=== PATIENT | male | born 1950 | race Caucasian/White ===

== ENCOUNTER 2023-11-14 08:25 | Emergency (ER) | payer OTHER, SELFPAY ==
[2023-11-14 08:34] VITALS: BP 97/71; BMI 23.3
--- NOTE | 2023-11-14 08:38 | ED.GENMED ---
History of Present Illness
General
Chief Complaint: Gait Dysfunction
Source: patient and family
Time Seen by Provider: 11/14/23 08:28
History of Present Illness
History of Present Illness:
73yoM with a history of Parkinson's disease, anxiety, and remote history of bladder cancer in remission presenting via EMS for evaluation of gait dysfunction. Patient's states that he has had increasing difficulty ambulating over the past few
days. He tried to stain their deck yesterday and fell multiple times. tried to get him out of bed this morning and found that he had urinated himself overnight. She states that he appeared pale and clammy and was 'difficult to arouse.' She was
having a lot of difficulty getting him out of bed and he urinated twice while trying to get to the bathroom. states he seems more weak over the past few days which seems to be worse in the mornings. Patient follows with Dr Enriquez, neurologist
at [place], for his Parkinson's.
Past History
Past History
ED Past Medical History: Cancer (Bladder cancer) and Other (Parkinsons)
ED Past Surgical History: Negative Cardiac
Social History
Tobacco: Non-smoker
Alcohol: Occasional
Drug: None
Personal:
Living: with family
Employment: Not employed
Family History
Family History: Other
Phy Exam
General Physical Exam
General Presentation: well appearing and no apparent distress
General age: appears stated age
General Skin: warm and dry
General Habitus: elderly
General Mental: alert
ENT Exam
Additional ENT: No external signs of head trauma
Eye Exam
Eye Exam: PERRL
Cardiovascular Exam
Cardiovascular Exam: regular rate/rhythm and no edema
Pulmonary Exam
Pulmonary Exam: lungs clear, no respiratory distress, no crackles and no wheezing
Gastrointestinal Exam
Gastrointestinal Exam: non tender, soft and non distended
Neurological Exam
Neurological Exam: other (Bilateral arms tremors noted with rigidity. No other focal deficits appreciated.)
[place] Coma Scale
Eye Opening: Spontaneous
Verbal Response: Oriented
Motor Response: Obeys Commands
GCS Total Score: 15
Musculoskeletal Exam
Musculoskeletal Exam: other (No C/T/L spine tenderness)
Skin Exam
Skin Exam: normal color and warm/dry
Course
Orders/Labs/Results
Orders:
Orders
11/14/23 08:44
Electrocardiogram (*1) Urgent
Reason for Study: Other
Other Reason for Exam: weakness
EKG- Treatment ONCE
11/14/23 09:05
Complete Blood Count/With Diff Urgent
Comprehensive Metabolic Panel Urgent
Troponin I Urgent
11/14/23 09:36
CT Cervical Spine W/o Iv Contr Urgent
Comment:
Reason For Exam: Unwitnessed fall
CT Head W/o Iv Contrast Urgent
Comment:
Reason For Exam: Confusion, head trauma
11/14/23 09:38
Cardiac Monitoring- Treatment ONCE
11/14/23 10:36
Pt Eval And Treat Urgent
Activity Level: Out of Bed- Ad Sobeida
11/14/23 11:33
Urinalysis Reflex To Culture Urgent
Date Specimen was Collected: 11/14/23
Time Specimen was Collected: 11:30
Urine Microscopic Reflex Cult Urgent
11/14/23 11:41
0.9% Sodium Chloride 500 ml [Nss] 500 ml IV BOLUS
Abnormal Lab Results
11/14/23 11/14/23
09:05 11:33
WBC 12.2 H 10^3/uL
(4.8-10.8)
RBC 4.33 L 10^6/uL
(4.70-6.10)
Hgb 12.8 L g/dL
(13.0-18.0)
Hct 38.8 L %
(39.0-52.0)
Abs Immat Gran (auto) 0.1 H 10^3/uL
(0-0.05)
Absolute Neuts (auto) 10.5 H 10^3/uL
(1.4-6.5)
Absolute Lymphs (auto) 0.8 L 10^3/uL
(1.2-3.4)
Immature Gran % 0.6 H %
(0-0.5)
Neutrophils % 86.4 H %
(42.2-75.2)
Lymphocytes % 6.6 L %
(20.5-51.1)
Glucose 106 H mg/dl
(70-99)
Urine Ketones 1+ A
(Negative)
Urine Bilirubin 1+ A
(Negative)
Leukocyte Esterase Rfl Trace A
(Negative)
11/14/23 09:05
11/14/23 09:05
Vital Signs
Initial and Last Documented VS:
Initial Vital Signs
Temp Pulse Resp BP Pulse Ox
97.8 F 68 18 97/71 99
11/14/23 08:34 11/14/23 08:34 11/14/23 08:34 11/14/23 08:34 11/14/23 08:34
Last Documented Vital Signs
Temp Pulse Resp BP Pulse Ox
97.8 F 70 18 102/70 98
11/14/23 08:34 11/14/23 12:00 11/14/23 12:00 11/14/23 12:00 11/14/23 12:00
MDM/Problems Addressed
Differential Diagnosis Includes:
73yoM here with difficulty ambulating. Patient apparently was difficult to arouse this morning when getting out of bed. Also had falls yesterday. He is awake and alert on arrival with a GCS of 15. He has no complaints currently. VSS. Exam
reassuring. Differential diagnosis includes but is not limited to: progression of Parkinson's, UTI, failure to thrive
Initial ED plan: Check cardiac labs, EKG, CT head, and CT cervical spine.
*EKG
Interpreted by ED Provider?: Yes
EKG Intrepretation Date: 11/14/23
Heart Rate: 65
Rate: normal
Rhythm: sinus
[place]: normal axis
Interval: normal interval
Ischemia: T-wave inversion (III and aVF)
*Critical Care Note
Total Time (30-74mins, 75-104mins- exclusive of procedures): Not Applicable
Update Note
Update Note:
Labs reveal a leukocytosis with a WBC of 12.2 which is nonspecific. Remainder of labs unremarkable including normal electrolytes, renal function, glucose. EKG shows nonspecific T wave changes although troponin is normal. CT head/cervical spine
negative for traumatic injuries. No overt signs of infection on urinalysis. Patient evaluated by physical therapy and he was able to ambulate well with PT. No indication for short term rehab currently. Patient at baseline on reassessment. No
indication for hospitalization. Advised close f/u with PCP and neurologist. ED return precautions discussed. He was discharged in stable condition.
ED Attending Note
-
Portions of this chart may have been created with voice recognition software.� Occasional wrong word or��sound alike� substitutions may have occurred due to the inherent limitations of voice recognition software.
Discharge Plan
Departure
Patient Disposition: Home (Routine Discharge)
Date of Disposition: 11/14/23
Time of Disposition: 13:19
Patient with high blood pressure during this ER visit?: No
Discharge Problem:
Ambulatory dysfunction
Instructions: Preventing falls in adults
Prescriptions:
No Action
carbidopa-levodopa 1 EACH tablet
1 tab PO DAILYPRN PRN (Reason: parkinsons flare)
Patient Comments:
this is a rescue prn med for parkinsons symptoms
duloxetine 30 MG capsule,delayed release(DR/EC)
30 mg PO BID
carbidopa-levodopa [Rytary] 1 EACH capsule, extended release
4 cap PO 5/D
Patient Comments:
takes 5 x a day 7a, 11a, 3pm, 7pm and 11pm
Lorazepam 0.5 MG Tablet
0.5 mg PO BID
Patient Comments:
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
docusate sodium 100 MG capsule
100 mg PO DAILY
acetaminophen 325 MG tablet
650 mg PO Q4HPRN PRN (Reason: mild pain) Qty: 1 0RF
ibuprofen 200 MG tablet
400 - 600 mg PO Q6HPRN PRN (Reason: moderate pain) Qty: 1 0RF
polyethylene glycol 3350 17 GRAMS powder in packet
17 grams PO BID 30 Days 0RF
oxycodone 5 MG tablet
5 mg PO Q4HPRN PRN (Reason: breakthrough/severe pain) Qty: 7 0RF
Referrals:
UNKNOWN - PT DOES,NOT KNOW [Unknown Provider] -
Activity Restrictions/Additional Instructions:
Please call today to schedule follow-up appointments with your family doctor and neurologist. Return to the ER with any new or worsening symptoms.
Interventions
Interventions:
*Risk Screen - Suicide Last Done: 11/14/23 08:34
*General Assessment Last Done: 11/14/23 08:34
*Neglect/Abuse Screening Last Done: 11/14/23 08:34
ED- Fall Risk Assessment Last Done: 11/14/23 09:18
*ED COVID-19 Vaccine History Last Done: 11/14/23 08:34
ED- Neurological Assessment Last Done: 11/14/23 09:18
ED-Musculoskeletal Assessment Last Done: 11/14/23 09:18
ED Swallowing Screen Last Done: 11/14/23 09:18
Discharge Date and Time
Print Language: OCCITAN
[2023-11-14 09:33] LABS: % Basophils 0.2 % (0-2); % Eosinophils 1.7 % (0-6); % Immature Granulocytes 0.6 % (0-0.5); % Lymphocytes 6.6 % (20.5-51.1); % Monocytes 4.5 % (1.7-9.3); % Neutrophils 86.4 % (42.2-75.2); Absolute Eosinophils 0.2 10^3/uL (0-0.7); Absolute Immature Granulocytes 0.1 10^3/uL (0-0.05); Absolute Lymphocytes 0.8 10^3/uL (1.2-3.4); Absolute Monocytes 0.6 10^3/uL (0.1-0.6); Absolute Neutrophils 10.5 10^3/uL (1.4-6.5); Hematocrit 38.8 % (39.0-52.0); Hemoglobin 12.8 g/dL (13.0-18.0); Mean Corpuscular Hgb 29.6 pg (27.0-31.0); Mean Corpuscular Volume 89.6 fL (80.0-94.0); Mean Platelet Volume 9.6 fL (7.4-10.4); Nucleated Red Blood Cells % 0 % (-); Platelet Count 288 10^3/uL (130-400); Red Blood Cell Count 4.33 10^6/uL (4.70-6.10); Red Cell Dist. Width 14.1 % (11.5-14.5); White Blood Cell Count 12.2 10^3/uL (4.8-10.8)
[2023-11-14 09:39] LABS: ALT (SGPT) < 10 U/L (0-50); AST (SGOT) 23 U/L (17-59); Albumin 3.9 g/dl (3.5-5.0); Alkaline Phosphatase 97 U/L (38-126); Blood Urea Nitrogen 14 mg/dl (9-20); Calcium 9.4 mg/dl (8.4-10.2); Carbon Dioxide 28 mmol/L (22-30); Chloride 107 mmol/L (98-107); Estimated Creatinine Clearance 90 ml/min; Glucose 106 mg/dl (70-99); Sodium 140 mmol/L (135-145); Total Bilirubin 0.9 mg/dl (0.2-1.3); Total Protein 6.5 g/dl (6.3-8.2); eGFR > 60.00
[2023-11-14 09:50] LABS: Troponin I < 0.012 ng/ml
[2023-11-14 10:00] VITALS: BP 142/90
[2023-11-14 11:13] VITALS: BP 146/91; BP 96/61
[2023-11-14 11:53] VITALS: BP 100/69
[2023-11-14 12:00] VITALS: BP 102/70
[2023-11-14 12:15] LABS: Urine Albumin Trace (Neg - Trace); Urine Bilirubin 1+ (Negative); Urine Character Clear (Clear); Urine Color Yellow; Urine Glucose Negative (Negative); Urine Ketone 1+ (Negative); Urine Leukocyte Trace (Negative); Urine Nitrite Negative (Negative); Urine Occult Blood Negative (Negative); Urine Urobilinogen 1+ (Neg - 1+)
[2023-11-14 13:31] LABS: Urine Mucus Many
[2023-11-14 13:32] LABS: Urine Amorphous Seen
[2023-11-14 13:34] LABS: Urine Red Blood Cell 0-2 /HPF (0-2)
== END 2023-11-14 13:35 | disposition home or self-care (01) ==
LOC: EMR 08:25
PROVIDERS: Physician Assistant; EMERGENCY PHYSICIAN Emergency Medicine; FAMILY PHYSICIAN Family Medicine
DX: R26.2 Difficulty in walking, not elsewhere classified (principal); R41.0 Disorientation, unspecified; S09.90XA Unspecified injury of head, initial encounter; R32 Unspecified urinary incontinence; W18.30XA Fall on same level, unspecified, initial encounter; Y92.008 Other place in unspecified non-institutional (private) residence as the place of occurrence of the external cause; G20.A1 Parkinson's disease without dyskinesia, without mention of fluctuations; F41.9 Anxiety disorder, unspecified; Z85.51 Personal history of malignant neoplasm of bladder
CPT/HCPCS: 99284; 70450; 72125; 80053; 81003; 81015; 84484; 85025; 93005

== ENCOUNTER 2024-04-21 00:44 | Inpatient (IN) | payer OTHER, SELFPAY ==
[2024-04-20] VITALS (7 sets, daily range): BP systolic 140–182; BP diastolic 88–145; PULSE 2–99; BMI 24.7
--- NOTE | 2024-04-20 22:04 | ED.GENMED ---
History of Present Illness
General
Chief Complaint: Breathing Problem
Source: patient
Time Seen by Provider: 04/20/24 21:57
History of Present Illness
History of Present Illness:
73-year-old male presents to the emergency room complaining of shortness of breath. Patient began having more shortness of breath this evening. He was noted to also have a high heart rate. Patient denies any history of COPD. He denies any
cardiac history. Patient does however have a significant history of Parkinson's disease. Daughter states that when he is due for his Parkinson dose he sometimes has subjective shortness of breath but what she was experiencing today was much worse
than normal. No fever at home.
Past History
Past History
ED Past Medical History: Cancer (Bladder cancer) and Other (Parkinsons)
ED Past Surgical History: Negative Cardiac
Social History
Tobacco: Non-smoker
Alcohol: Occasional
Drug: None
Personal:
Living: with family
Employment: Not employed
Family History
Family History: Other
Phy Exam
Physical Exam
Physical Exam:
General: Awake, Alert, Oriented X3. Mild increased work of breathing, appears chronically ill
Vitals: unremarkable
Head: Atraumatic
Eyes: Pupils equal, EOMI
Throat: Airway intact, no exudates, dry mucosa
Neck: Trachea midline
Lungs: X-ray wheezing and crackles bilateral
Heart: Regular rate, no murmurs
Abd: Soft, Nontender, No pulsatile mass
Neuro: Nonfocal
Skin: Warm, dry, no rash
Extremities: pulses equal b/l, 1+ edema
Scores
Heart Failure Risk
Heart Failure Risk Score: Not Applicable
Sepsis
Sepsis Screening
Sepsis Assessment: Sepsis
Sepsis Screen
Sepsis Screen: Sepsis
Date: 04/21/24
Time: 00:18
Course
Orders/Labs/Results
Orders:
Orders
04/20/24 21:40
Electrocardiogram (*1) Urgent
Reason for Study: Shortness of Breath
EKG- Treatment ONCE
04/20/24 21:58
COVID-19 Antigen Urgent
Source: Nasal Swab
Complete Blood Count/With Diff Urgent
Comprehensive Metabolic Panel Urgent
Lactic Acid Urgent
Influenza A+B Rapid Molecular Urgent
AGUSTIN Source: Nasal Swab
Specimen Description:
04/20/24 22:03
0.9% Sodium Chloride 500 ml [Nss] 500 ml IV BOLUS
Acetaminophen [Tylenol] 650 mg PO NOW STA
Ipratropium/Albuterol Sulfate [Duoneb] 3 ml INH R NOW ONE
04/20/24 22:04
CR Chest - 2 Views Urgent
Comment:
Reason For Exam: fever, sob
04/20/24 22:15
NT-proBNP Urgent
04/20/24 22:42
Hip, Left 2-3 Views [CR Hip - LT w/wo Pel 2-3 Vw*] Urgent
Comment:
Reason For Exam: pain after a fall
Include a pelvis x-ray?: Yes
04/20/24 23:06
Ipratropium/Albuterol Sulfate [Duoneb] 3 ml .ROUTE .STK-MED ONE
04/20/24 23:08
Ipratropium/Albuterol Sulfate [Duoneb] 3 ml INH R NOW ONE
04/20/24 23:12
Azithromycin 500 mg/250 ml [Zithromax Infusion] 500 mg in 250 ml IV NOW
CefTRIAXone [Rocephin] 1,000 mg IV NOW STA
04/20/24 23:18
Furosemide [Lasix] 40 mg IV NOW STA
04/20/24 23:50
Venous Blood Gas Urgent
%Oxygen/Room Air: 40
04/20/24 23:56
Blood Culture Routine
AGUSTIN Source: Blood/Venous
Specimen Description:
Abnormal Lab Results
04/20/24 04/20/24
21:58 23:50
RBC 4.03 L 10^6/uL
(4.70-6.10)
Hgb 11.5 L g/dL
(13.0-18.0)
Hct 34.9 L %
(39.0-52.0)
Abs Immat Gran (auto) 0.1 H 10^3/uL
(0-0.05)
Absolute Neuts (auto) 9.0 H 10^3/uL
(1.4-6.5)
Absolute Lymphs (auto) 0.6 L 10^3/uL
(1.2-3.4)
Absolute Monos (auto) 1.0 H 10^3/uL
(0.1-0.6)
Neutrophils % 84.7 H %
(42.2-75.2)
Lymphocytes % 5.3 L %
(20.5-51.1)
Monocytes % 9.4 H %
(1.7-9.3)
VBG pO2 66 H mmHg
(30-50)
BUN 24 H mg/dl
(9-20)
Glucose 125 H mg/dl
(70-99)
04/20/24 21:58
04/20/24 21:58
Vital Signs
Initial and Last Documented VS:
Initial Vital Signs
Temp Pulse Resp BP Pulse Ox
100.1 F 110 25 150/101 97
04/20/24 21:34 04/20/24 21:34 04/20/24 21:34 04/20/24 21:34 04/20/24 21:34
Last Documented Vital Signs
Temp Pulse Resp BP Pulse Ox
104.5 F H 108 20 140/106 97
04/20/24 23:42 04/20/24 23:24 04/20/24 22:30 04/20/24 23:24 04/20/24 22:34
MDM/Problems Addressed
Differential Diagnosis Includes:
Pneumonia, COPD exacerbation, symptomatic anemia, pneumothorax
MDM/Problems Addressed:
Patient presents with increased work of breathing. He is going to have a fever here. He is provided Tylenol for the fever. During his evaluation the patient's respiratory status deteriorated despite the use of DuoNebs. His chest x-ray appears
consistent with bilateral lower lobe infiltrates. He does have some peripheral edema and he has a BNP which is somewhat elevated. However the overall presentation to me seems more suggestive of an infectious process. There are no pleural
effusions. He is febrile. Patient treated with Rocephin and Zithromax. His respiratory status required him to be put on BiPAP. BiPAP did improve his symptoms. In addition the patient has severe Parkinson's disease. Family states that he
develops significant extraparametal symptoms when it is time for his next dose of medication. As the patient's respiratory status was deteriorating he also had a significant amount of body movement. We were able to get him to take his evening dose
of Rytary which has seemed to help as well. Patient will be admitted to the hospital service
Chronic conditions affecting care: Other (Parkinson's disease)
*Radiology
Radiology exam reviewed: preliminary read by ED provider (Bilateral lower lobe infiltrates)
*Pulse Oximetry
Patient hypoxic: yes
*EKG
Interpreted by ED Provider?: Yes
Interpretation: abnormal
Heart Rate: 103
Rate: tachycardiac
Rhythm: sinus tachycardia
Golden: normal axis
Interval: normal interval
QRS Pattern: normal QRS
Ischemia: no ischemia
*Milanese Knitting Machine Operator Interpretation
Rate: tachycardiac
Interpretation: abnormal
Rhythm: sinus tachycardia
*Critical Care Note
Total Time (30-74mins, 75-104mins- exclusive of procedures): 50 min
comment:
Critical care statement: A total of 50 minutes of critical care time was provided for this patient. This includes management of unstable vital signs, evaluation of the patient at bedside, reviewing the patient's pertinent medical records, discussion
with consultants, review of old EKGs and review of pertinent medical records. This time with separate from time utilized to perform the aforementioned documented procedures
ED Attending Note
-
Portions of this chart may have been created with voice recognition software.� Occasional wrong word or��sound alike� substitutions may have occurred due to the inherent limitations of voice recognition software.
Discharge Plan
Departure
Patient Disposition: Admit
Date of Disposition: 04/21/24
Time of Disposition: 00:13
Admit to: ICU
Presentation/result/management discussed w/ accepting MD/DO: Hospitalist
Condition: Serious
Discharge Problem:
Pneumonia, Parkinson disease, Respiratory failure
Prescriptions:
No Action
duloxetine 30 MG capsule,delayed release(DR/EC)
30 mg PO BID
Rytary 1 EACH capsule, extended release
4 cap PO 4-8XD
Patient Comments:
takes 34 x a day 7a, 11a, 11pm, 3a
Lorazepam 0.5 MG Tablet
0.5 mg PO DAILY
Patient Comments:
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
Rx Instructions:
1900
docusate sodium 100 MG capsule
100 mg PO DAILY
acetaminophen 325 MG tablet
650 mg PO Q4HPRN PRN (Reason: mild pain) Qty: 1 0RF
ibuprofen 200 MG tablet
400 - 600 mg PO Q6HPRN PRN (Reason: moderate pain) Qty: 1 0RF
finasteride 5 mg Tablet
5 mg PO DAILY
Gemtesa 75 mg Tablet
75 mg PO DAILY
polyethylene glycol 3350 17 GRAMS powder in packet
17 grams PO BID PRN (Reason: constipation)
Referrals:
James Dang DO [Family Provider] -
Interventions
Interventions:
*Risk Screen - Suicide Last Done: 04/20/24 21:34
*General Assessment Last Done: 04/20/24 21:53
*Neglect/Abuse Screening Last Done: 04/20/24 21:53
ED- Fall Risk Assessment Last Done: 04/20/24 21:53
*ED COVID-19 Vaccine History Last Done: 04/20/24 21:53
ED- Cardiac Assessment Last Done: 04/20/24 22:34
ED- Pulmonary Assessment Last Done: 04/20/24 22:34
Discharge Date and Time
Print Language: GIBRALTARIAN
[2024-04-20 22:06] LABS: % Basophils 0.1 % (0-2); % Immature Granulocytes 0.5 % (0-0.5); % Lymphocytes 5.3 % (20.5-51.1); % Monocytes 9.4 % (1.7-9.3); % Neutrophils 84.7 % (42.2-75.2); Absolute Immature Granulocytes 0.1 10^3/uL (0-0.05); Absolute Lymphocytes 0.6 10^3/uL (1.2-3.4); Hematocrit 34.9 % (39.0-52.0); Hemoglobin 11.5 g/dL (13.0-18.0); Mean Corpuscular Hgb 28.5 pg (27.0-31.0); Mean Corpuscular Volume 86.6 fL (80.0-94.0); Mean Platelet Volume 9.7 fL (7.4-10.4); Nucleated Red Blood Cells % 0 % (-); Platelet Count 269 10^3/uL (130-400); Red Blood Cell Count 4.03 10^6/uL (4.70-6.10); Red Cell Dist. Width 14.4 % (11.5-14.5); White Blood Cell Count 10.6 10^3/uL (4.8-10.8)
[2024-04-20] MEDS: DUONEB 3 ML INH ×2 (22:06→23:09)
[2024-04-20] MEDS: TYLENOL 650 MG PO (22:06)
[2024-04-20] MEDS: NSS 500 IV (22:08)
[2024-04-20 22:17] LABS: Lactic Acid 0.8 mmol/L (0.7-2.0)
[2024-04-20 22:18] LABS: ALT (SGPT) < 10 U/L (0-50); AST (SGOT) 37 U/L (17-59); Alkaline Phosphatase 83 U/L (38-126); Blood Urea Nitrogen 24 mg/dl (9-20); Calcium 8.6 mg/dl (8.4-10.2); Carbon Dioxide 26 mmol/L (22-30); Chloride 101 mmol/L (98-107); Estimated Creatinine Clearance 93 ml/min; Glucose 125 mg/dl (70-99); Potassium 4.4 mmol/L (3.5-5.1); Sodium 138 mmol/L (135-145); Total Bilirubin 0.8 mg/dl (0.2-1.3); Total Protein 6.8 g/dl (6.3-8.2); eGFR > 60.00
[2024-04-20 22:24] LABS: COVID-19 Antigen Negative (Negative)
[2024-04-20 22:44] LABS: NT-proBNP 2520 pg/ml
[2024-04-20] MEDS: ZITHROMAX INFUSION 250 IV (23:23)
[2024-04-20] MEDS: LASIX 40 MG IV (23:24)
[2024-04-20] MEDS: ROCEPHIN 1000 MG IV (23:24)
[2024-04-20 23:57] LABS: Venous Blood Gas B.E. -0.2 mmol/L (-4 to +4); Venous Blood Gas HCO3 23.9 mmol/L (22-27); Venous Blood Gas O2 Sat % 94.1 %; Venous Blood Gas pCO2 36 mmHg (35-48); Venous Blood Gas pH 7.43 (7.32-7.43); Venous Blood Gas pO2 66 mmHg (30-50)
[2024-04-21] VITALS (17 sets, daily range): BP systolic 124–178; BP diastolic 68–112; PULSE 2–97; O2SAT 95; BMI 24.2
[2024-04-21 00:05] LABS: Venous Blood Gas O2 Therapy 40%
--- NOTE | 2024-04-21 00:51 | HPS.HSE ---
Family Physician
-
Family Physician: James Dang, DO
Chief Complaint
-
Shortness of breath
History of Present Illness
This is an 3-year-old who has a history of Parkinson's disease, BPH ambulatory difficulties presenting to the emergency department with acute onset of shortness of breath that started at around 5 PM today.
Spouse stated that he was in usual state of health up until the event. He has intermittent episodes of dyspnea on exertion and anxiety related to his Parkinson's medication. His presentation today is however significantly different. Spouse stated
that he suddenly had difficulty breathing and could not catch his breath. He became tachycardic to the 120s at home. He has no known sick contact. There has been no recent travels. Spouse reports that he has had occasional ankle edema or in the
past due to immobilization but has never been diagnosed with congestive heart failure. He has no palpitations lightheadedness or dizziness. Denies any nausea or vomiting. He denies having any chest pain. He was brought to the emergency
department by family.
On arrival in the emergency department the patient was in severe respiratory distress and he was immediately placed on BiPAP. There has been no recent antibiotic use. There have been no recent hospitalizations.
His temperature of 104.5, blood pressure 140/100, he is satting 97% on 6 L BiPAP. Respiratory rate was in the 20s. Chest x-ray shows a right lower lobe infiltrate. CBC is unremarkable. Chemistries likewise were unremarkable. COVID test was
negative. Influenza test was negative. BNP was elevated at 2500.
Medical History
Past Medical History
Past Medical History: Reports Cancer (Bladder cancer status post resection) and Other (Parkinson disease)
Additional Past Medical History:
Hyperparathyroidism
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
repair)
Social History
Tobacco: Non-smoker
Alcohol: None
Personal:
Living: With Family
Employment: Retired
Family History
Family History: Not pertinent
Allergies / Home Medications
Allergies reflects when Allergies were last updated in [employer].
Home Medications with original date entered in [employer]
Allergy/Medication List:
Allergies
Allergy/AdvReac Type Severity Reaction Status Date / Time
No Known Allergies Allergy Verified 04/20/24 21:34
Home Medications
Lorazepam 0.5 mg PO DAILY Mental Health/Anxiety 07/25/21
carbidopa ER 61.25 mg-levodopa 245 mg capsule,extended release (Rytary) 4 cap PO 4-8XD parkinson's 07/25/21
duloxetine 30 mg capsule,delayed release 30 mg PO BID Mental Health/Anxiety 07/25/21
docusate sodium 100 mg capsule 100 mg PO DAILY 08/05/21
acetaminophen 325 mg tablet 650 mg (2 x 325 mg) PO Q4HPRN PRN mild pain #1 tab 08/06/21
ibuprofen 200 mg tablet 400 - 600 mg (2 - 3 x 200 mg) PO Q6HPRN PRN moderate pain #1 tab 08/06/21
finasteride 5 mg tablet 5 mg PO DAILY 04/20/24
polyethylene glycol 3350 17 gram oral powder packet 17 grams PO BID PRN constipation 04/20/24
vibegron 75 mg tablet (Gemtesa) 75 mg PO DAILY 04/20/24
Review of Systems
-
Constitutional: Reports No Symptoms
EENT: Reports No Symptoms
Respiratory: Reports Trouble Breathing
Cardiac: Reports No Symptoms
Abdomen/GI: Reports No Symptoms
: Reports No Symptoms
Musculoskeletal: Reports No Symptoms
Skin: Reports No Symptoms
Neurological: Reports No Symptoms
Endocrine: Reports No Symptoms
Hematologic/Lymphatic: Reports No Symptoms
Psych: Reports No Symptoms
Physical Exam
Vital Signs
Vital Signs
Temp Pulse Resp BP Pulse Ox
104.5 F H 94 24 133/78 96
04/20/24 23:42 04/21/24 00:30 04/21/24 00:30 04/21/24 00:30 04/21/24 00:30
Physical Exam
General: Respiratory Distress and Fever
HEENT: NormoCephalic, Anicteric, Moist mucous membranes, Atraumatic, PERRLA and Oxygen
Respiratory: Crackles and Accessory Resp Muscle Use
Cardiac: S1/S2 and Regular Rhythm
Breast: Deferred by me
GI: Soft, Non Tender, Non Distended and Normal Bowel Sounds
Rectal: Deferred by Provider
Genito-urinary: No costovertebral tender
Musculoskeletal: No Clubbing, No Cyanosis, No Edema and Other (Right middle finger s/p distal phallange tip amputation with erythema but no edema, induration or tenderness. )
Skin: Warm
Neuro: AO x 3, Cranial Nerves Intact and Tremors
Hematologic/Lymphatic: No Lymphadenopathy
Psych: Calm
Laboratory Results
-
04/20/24 21:58
04/20/24 21:58
Laboratory Results
Lactic Acid 0.8 mmol/L (0.7-2.0) 04/20/24 21:58
Total Bilirubin 0.8 mg/dl (0.2-1.3) 04/20/24 21:58
AST 37 U/L (17-59) 04/20/24 21:58
ALT < 10 U/L (0-50) 04/20/24 21:58
Alkaline Phosphatase 83 U/L (38-126) 04/20/24 21:58
Data Reviewed
-
Diagnostic Radiology: Image Personally Visualized and interpreted
Medical Tests (Nuc Med, Echo, EKG etc): Image Personally Visualized and interpreted
Lab Data: Labs Reviewed by me
Old Records: Reviewed
Impression/Plan
-
IMPRESSION:
73 y.o with Parkinson disease, ambulatory dysfunction and early onset dementia presents to ED with sudden severe dyspnea without cough. Found to have fever to 104 here and a RLL infiltrate on xray c/w PNA. Hypoxic requiring BIPAP. No h/o
asthma/copd/ILD or CHF. Has elevated BNP to 2500. No overt signs of CHF. COVID negative. Influenza negative.
PLAN:
1. Pneumonia - Community acquired pna with RLL consolidation on bipap. NO h/o asthma/copd/chf/ild or immunosuppression. No known aspirations.
- admit to IMU
- continue respiratory support w/ bipap and supplemental oxygen
- NEBS RTC and prn
- check legionella ag
- continue ceftriaxone/azithromycin
- wean bipap as tolerated, patient improving but still tachypneic
- pulmonary consultation
2. CHF - Elevated BNP. NO prior CHF/CAD history. No prior pulmonary history. Euvolemic on exam. Xray c/w consolidation/infiltrate in RLL and not pulm edema.
- telemetry, ecg
- echo
- cardiovascular panel
- given lasix 40 iv in ED, will monitor for now off additional lasix
- consider cardiology consult
3. BPH
- continue fensetride and vibegron
4. HIP pain - Patient had a fall about 3 days ago and still complains of hip pain with ambulation. Able to bear weight. Hip Xray without acute fracture on prelim.
- follow up official Xray read, if needed consider pelvis CT
- pain control
- the middle finger looks like chronic abrasion w/o infection. Apply protective dressing.
5. Parkinson
- continue rytari 4 caps at 3 am 7 am 11 am and 11pm
- continue sinamet 25/100 at 3pm 5pm 7pm and 9pm
DVT PPX - lovenox sq
Code status - full code
[2024-04-21] MEDS: NON-FORMULARY ITEM 4 CAP PO ×4 (03:00→22:31)
--- NOTE | 2024-04-21 03:16 | PTCARENOTE ---
Pt received to IMU from ED on BIPAP 14/10/14L POX 94%. AAOx3. Restless. Completely saturated from urine. Received IV Lasix in ED. Grimacing in pain. Admits to 5/10 pain rating to left hip (acute) and mid back (chronic). Pt has had multiple falls at
home per ED report. Generalized abrasions throughout body. Right mid finger amputation 2/2 osteomyelitis. No drainage. Appears scabbed over. Complete CHG bath given. Condom cath applied for frequent need to urinate. Abdomen round, distended. Denies
abdominal pain. Febrile 102.2. Rest of VSS. Will given Tylenol and ice packs. Rest of assessment as documented. Maintained on Q2hr turns. Oriented to room and surroundings. Call f[place]sworth within reach. Will continue to monitor.
[2024-04-21] MEDS: TYLENOL 650 MG PO ×2 (03:32→14:20)
--- NOTE | 2024-04-21 04:22 | PTCARENOTE ---
Pt continues to be very restless in bed. Pt unable to state why he is so restless. Multiple attempts made to get pt comfortable without good result. Attempts made to obtain am lab work with no luck. Pt too restless in bed. Temp remains 102. Received
Tylenol as ordered. Will give time for Tylenol to take affect. Will continue to monitor.
[2024-04-21] MEDS: CALDOLOR 104 MG IV (04:57)
[2024-04-21 05:29] LABS: Hematocrit 30.6 % (39.0-52.0); Hemoglobin 10.4 g/dL (13.0-18.0); Mean Corpuscular Hgb 28.7 pg (27.0-31.0); Mean Corpuscular Volume 84.5 fL (80.0-94.0); Mean Platelet Volume 9.3 fL (7.4-10.4); Platelet Count 233 10^3/uL (130-400); Red Blood Cell Count 3.62 10^6/uL (4.70-6.10); Red Cell Dist. Width 14.5 % (11.5-14.5); White Blood Cell Count 14.7 10^3/uL (4.8-10.8)
[2024-04-21 05:50] LABS: Blood Urea Nitrogen 24 mg/dl (9-20); Calcium 8.2 mg/dl (8.4-10.2); Carbon Dioxide 22 mmol/L (22-30); Chloride 103 mmol/L (98-107); Estimated Creatinine Clearance 81 ml/min; Glucose 113 mg/dl (70-99); Potassium 3.8 mmol/L (3.5-5.1); Sodium 139 mmol/L (135-145); eGFR > 60.00
[2024-04-21 06:36] LABS: TSH Reflex To Free T4 2.23 uIU/ml (0.47-4.68)
[2024-04-21] MEDS: DUONEB 3 ML INH ×4 (08:01→19:46)
[2024-04-21] MEDS: CYMBALTA DELAYED RELEASE 30 MG PO ×2 (08:32→20:10)
[2024-04-21] MEDS: PROSCAR 5 MG PO (08:32)
[2024-04-21] MEDS: COLACE 100 MG PO (08:32)
--- NOTE | 2024-04-21 09:24 | CON.PUL ---
Consultation
Consultation Request
Date/Time Consultation Requested: 04/21/2024199
Date/Time Consultation Performed: 04/21/2024920
Requesting Provider: Dr. Mcgovern
Performing Provider: Dr. Gillette
Reason for Consultation: SOB/hypoxia
Medical History
-
Chief Complaint: SOB
History of Present Illness:
73-year-old male non-smoker with a past medical history of bladder cancer, parathyroid cyst s/p excision and Parkinson's disease who presents with shortness of breath. He has been short of breath for few days but he worsened the day prior to
arrival. states that he was also wheezing and heart rate was in the 120s. Apparently he has been occasionally short of breath and anxious from his Parkinson's medication. He suddenly became short of breath and could not catch his breath.
Heart rate in the 120s at home with no sick contacts recently. Spouse says that he has been having occasional ankle edema in the past due to immobilization but never diagnosed with heart failure. Patient denies chest pain. In the ER he was found
to be in severe respiratory distress requiring BiPAP. Initially in the ER he had low-grade fever to 100.1 �F, pulse rate 110, respiratory rate 25, BP 150/101 and saturating 97% on room air. Labs showed Hb 11.5, proBNP 2520, and COVID antigen
negative. CXR showed bibasilar pneumonia, mainly in the right lower lobe. In the ER he was given crystalloids with 500 cc bolus of NS 0.9%, ceftriaxone/Zithromax, DuoNebs and Tylenol. Shortly thereafter he was given 40 mg IV Lasix. He was
admitted to the IMU and pulmonary service consulted for additional management/recommendations.
When I saw the patient he was resting in bed, on 10 L/min via midflow nasal cannula saturating 95%. Heart rate 86. He says he feels better. Still having a cough with phlegm production (he does not know the color or consistency). He denies chest
pain, SCHULTZ, abdominal pain, nausea, fevers or chills. Occasionally he is confused.
PMHx: Left ear otalgia, bladder cancer, Parkinson disease, parathyroidism
PSHx: Parathyroid cyst excision, bilateral knee replacement, spinal fusion, lumbar decompression, amputation middle finger of right hand
Past Medical History
Past Medical History: Other (Above as per HPI)
Past Surgical History: Other (Above as per HPI)
Social History
Tobacco: Non-smoker
Alcohol: None
Drug: None
Employment: Employed ([employer])
Family History
Family History: CAD (Father) and Other (Mother: Hyperlipidemia + Parkinson's disease)
Allergies / Home Medications
Allergies
Allergy/AdvReac Type Severity Reaction Status Date / Time
No Known Allergies Allergy Verified 04/20/24 21:34
Home Medications
�Medication �Instructions �Recorded �Confirmed �Last Taken �Type
Lorazepam 0.5 mg PO DAILY Mental 07/25/21 04/20/24 08/05/21 History
Health/Anxiety
carbidopa ER 61.25 mg-levodopa 245 4 cap PO 4-8XD parkinson's 07/25/21 04/20/24 08/05/21 History
mg capsule,extended release
(Rytary)
duloxetine 30 mg capsule,delayed 30 mg PO BID Mental Health/Anxiety 07/25/21 04/20/24 08/05/21 History
release
docusate sodium 100 mg capsule 100 mg PO DAILY 08/05/21 04/20/24 Unknown History
acetaminophen 325 mg tablet 650 mg (2 x 325 mg) PO Q4HPRN PRN 08/06/21 04/20/24 Unknown Rx
mild pain #1 tab
ibuprofen 200 mg tablet 400 - 600 mg (2 - 3 x 200 mg) PO 08/06/21 04/20/24 Unknown Rx
Q6HPRN PRN moderate pain #1 tab
finasteride 5 mg tablet 5 mg PO DAILY 04/20/24 04/20/24 Unknown History
polyethylene glycol 3350 17 gram 17 grams PO BID PRN constipation 04/20/24 04/20/24 Unknown History
oral powder packet
vibegron 75 mg tablet (Gemtesa) 75 mg PO DAILY 04/20/24 04/20/24 Unknown History
Review of Systems
-
History Source: Patient
All other systems: Negative unless noted
Vitals / Labs / Diagnostic Testing
Vital Signs
Temp Pulse Resp BP Pulse Ox
101.2 F H 94 19 153/89 93
04/21/24 06:30 04/21/24 04:00 04/21/24 04:00 04/21/24 03:15 04/21/24 04:15
Lab Data
04/21/24 05:09
04/21/24 05:09
Microbiology
04/21/24 02:14 Urine Legionella Urinary Antigen - Final
Negative for Legionella pneumophila Serogroup 1 antigen.
A negative result does not rule out the possiblity of
Legionella infection due to other serogroups or species of
Legionella. Clinical correlation is recommended.
04/20/24 23:56 Blood/Venous Blood Culture - Preliminary
No Growth in 24 hours- Final report to follow
04/20/24 21:58 Nasal Swab Influenza Types A & B (MOO) - Final
Negative for Influenza A & B, NAAT
Negative results must be combined with clinical observations
and patient history.
Nucleic Acid Amplification test (NAAT)performed on the
[employer] platform.
Diagnostic Testing:
Physical Exam
-
HEENT: Normocephalic and Anicteric
Cardiovascular: S1/S2 and Peripheral Edema (negative)
Respiratory: Wheeze (negative), Rales (Bibasilar), Rhonchi (negative) and Non-Labored Respirations
GI: Soft, Non Distended, Non Tender and Normal Bowel Sounds
Neurology: Awake, Alert and Tremors (negative)
Skin: Warm and Dry
General: Respiratory Distress (negative), Comfortable, Fever (negative) and Chills (negative)
Assessment
-
Assessment: 73-year-old male non-smoker with a past medical history of bladder cancer, parathyroid cyst s/p excision and Parkinson's disease who presents with shortness of breath. He has been short of breath for few days but he worsened the day
prior to arrival. states that he was also wheezing and heart rate was in the 120s. Apparently he has been occasionally short of breath and anxious from his Parkinson's medication. He suddenly became short of breath and could not catch his
breath. Heart rate in the 120s at home with no sick contacts recently. Spouse says that he has been having occasional ankle edema in the past due to immobilization but never diagnosed with heart failure. Patient denies chest pain. In the ER he
was found to be in severe respiratory distress requiring BiPAP. Initially in the ER he had low-grade fever to 100.1 �F, pulse rate 110, respiratory rate 25, BP 150/101 and saturating 97% on room air. Labs showed Hb 11.5, proBNP 2520, and COVID
antigen negative. CXR showed bibasilar pneumonia, mainly in the right lower lobe. In the ER he was given crystalloids with 500 cc bolus of NS 0.9%, ceftriaxone/Zithromax, DuoNebs and Tylenol. Shortly thereafter he was given 40 mg IV Lasix. He
was admitted to the IMU and pulmonary service consulted for additional management/recommendations.
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
Impression:
#Bibasilar pneumonia (mainly in right lower lobe) with right parapneumonic effusion
#Acute respiratory failure with hypoxia due to above now on midflow nasal cannula at 10L/min
#Leukocytosis
#Chronic anemia
#Elevated proBNP (2520)
#Incomplete RBBB
Plan:
- Continue with antibiotics, currently on IV vancomycin + Zosyn, and plan for at least 7 days assuming he continues to clinically improve and remains afebrile for 48 hours prior to stopping
- Follow-up blood culture collected (collected 04/20/2024)
- Check MRSA swab and if negative then can DC IV vanco
- Urine Ag for Legionella was negative; check strep pneumonia urine antigen
- Check sputum culture if he can produce a decent sample
- He will need repeat imaging with CXR in about 4-6 weeks to follow-up pneumonia to resolution
- Maintain SpO2 >90-94% with supplemental O2 and wean down as tolerated
- Continue DuoNeb QID with prn DuoNebs
- He will need pulse oximetry prior to discharge
- Although BNP is elevated, no current clinical signs of heart failure; consider echo if patient's hypoxia does not improve despite antibiotics; continue to trend BNP
- prn nebulized bronchodilators - not currently bronchospastic
- Incentive spirometer encouraged q1hr while awake
- Continue patient's Parkinson's disease meds with Rytary + Sinemet
- Replete electrolytes with K>4, Mg>2
- Maintain euglycemia with goal BG >100 and <180
- DVT ppx: LMWH
Pulmonary service will continue to follow along.
Data:
CXR 04/20/2024: Bibasilar pneumonia. Small right pleural effusion.
Total time spent today was 56 minutes for this encounter. Time includes reviewing laboratory test/imaging results, reviewing pertinent medical records, obtaining and reviewing medical history, performing an appropriate exam, ordering medications,
tests and procedures. Time also includes documentation of this encounter, coordinating patient care and communicating with other healthcare professionals. Total time does not include separately billed tests performed on this date of service.
[2024-04-21] MEDS: NON-FORMULARY ITEM 75 MG PO (11:06)
--- NOTE | 2024-04-21 12:47 | W.PN.HOSP.TC ---
Today's Communication/Plan
-
Follow-up fever curve and supplemental oxygen requirements, downgrade/discharge as able
Assessment / Plan
Assessment / Plan
Gen-AAOx3, NAD
HEENT-NC, AT, anicteric, clear oral mm
Neck-supple
CV-reg, no M, +S1/S2
Lungs-rhonchi right lung base
Abd-soft, NT, ND
Musculoskeletal-no edema, decreased muscle bulk throughout
Skin-warm and dry
Neuro-gross tremors
Psych-calm, cooperative
Mr. Marshall is a 73 y.o with a medical history of Parkinson disease, ambulatory dysfunction, incarcerated inguinal hernia (status post repair), and early onset dementia presents to ED with sudden severe dyspnea without cough. Found to have fever
to 104 here and a RLL infiltrate on xray c/w PNA. Hypoxic requiring BIPAP. No h/o asthma/copd/ILD or CHF. Has elevated BNP to 2500. No overt signs of CHF. COVID negative. Influenza negative.
Community-acquired pneumonia:
-Started on ceftriaxone and azithromycin
-Legionella urinary antigen negative and so we will discontinue azithromycin, continue antibiotic treatment for planned 7-day course
-Currently breathing comfortable on nasal cannula, will titrate supplemental oxygen as needed
-Nebulizer treatments as needed
-Further recommendations from pulmonology appreciated
Chronic pain:
-Lower back, now with pain in left hip after recent fall
-No acute fractures or dislocations noted on imaging
-Continue pain control with home dose of ibuprofen
Parkinson's disease:
-Continue home Sinemet
-PT/OT eval pending
CODE STATUS: Full
Anticipated Discharge: > 48 hours
Subjective/Interval History
-
Date of Service: April 21, 2024
Mr. Marshall was seen and examined at bedside this morning. He reports feeling better now than when he was first admitted. We are continuing treatment for community-acquired pneumonia.
Objective Data
-
Labs:
Laboratory Results
04/21/24
05:09
WBC 14.7 H
Hgb 10.4 L
Hct 30.6 L
Plt Count 233
Sodium 139
Potassium 3.8
Chloride 103
Carbon Dioxide 22
BUN 24 H
Creatinine 0.8
Glucose 113 H
Calcium 8.2 L
Vital Signs:
Vital Signs
Temp Pulse Resp BP Pulse Ox
97.8 F 78 18 153/89 96
04/21/24 11:26 04/21/24 11:51 04/21/24 11:51 04/21/24 03:15 04/21/24 11:51
I&O
04/20/24 04/21/24 04/22/24
06:59 06:59 06:59
Intake Total 200 / 200
Balance 200 / 200
Review of Systems
-
History Source: Patient
All other systems: Reviewed and negative
Respiratory: Reports Trouble Breathing
Musculoskeletal: Reports Joint Pain (Back pain)
Physical Exam
-
General: No Apparent Distress
[2024-04-21] MEDS: MOTRIN 600 MG PO (14:20)
[2024-04-21] MEDS: SINEMET 25-100 1 TABLET PO ×4 (14:25→22:30)
--- NOTE | 2024-04-21 15:21 | PHA.VAN.IN ---
Assessment
- Assessment
Renal Function: Appears similar to baseline
Maximum Temperature: 104.5 F
Concomitant Antimicrobials: PIPERACILLIN/TAZOBACTAM
AUC Dosing Plan
- Dosing Variables
Dosing Weight (kg): 74.3
Dosing CrCl (ml/min): 81
Vd coefficient (L/kg): 0.7
- Empiric Dosing
Initial / Loading Dose: VANCO 1750MG X1
Maintenance Regimen: VANCO 750MG Q12H
Estimated AUC (mcg*h/mL): 417
Estimated Peak (mcg*h/mL): 25.0
Estimated Trough (mcg/ml): 11.4
Estimated Half Life (H): 9.7
- Monitoring
No levels ordered at this time: CONSIDER LEVEL IN NEXT FEW DAYS
MRSA Screen: Ordered per protocol
Pharmacokinetics Vancomycin I
- -
Patient Age: 73
Patient Sex: Female
Vancomycin Day #: 1
Indication: PULM
Requesting Provider: DR. SNOW
Height / Weight:
Height 5 ft 9 in
Actual Weight 74.3 kg
- Vital Signs / Lab Results
Temp Pulse Resp BP Pulse Ox
97.8 F 102 18 163/106 93
04/21/24 11:26 04/21/24 15:11 04/21/24 15:11 04/21/24 12:31 04/21/24 15:11
Lab Results - Hematology
04/20/24 04/21/24
21:58 05:09
WBC 10.6 14.7 H
Lab Results - Chemistry
04/20/24 04/21/24
21:58 05:09
BUN 24 H 24 H
Creatinine 0.7 0.8
Estimated Creat Clear 93 81
Albumin 4.0
04/20/24
21:58
Lactic Acid 0.8
Microbiology Results
04/21/24 02:14 Legionella Urinary Antigen - Final
Urine Negative for Legionella pneumophila Serogroup 1 antigen.
A negative result does not rule out the possiblity of
Legionella infection due to other serogroups or species of
Legionella. Clinical correlation is recommended.
04/20/24 23:56 Blood Culture - Preliminary
Blood/Venous No Growth in 24 hours- Final report to follow
04/20/24 21:58 Influenza Types A & B (MOO) - Final
Nasal Swab Negative for Influenza A & B, NAAT
Negative results must be combined with clinical observations
and patient history.
Nucleic Acid Amplification test (NAAT)performed on the
[employer] platform.
[2024-04-21] MEDS: ZOSYN 100 IV ×2 (16:16→22:30)
--- NOTE | 2024-04-21 16:25 | PTCARENOTE ---
pt making repeated comments to multiple staff members asking for beer or a vodka. When asked if pt drinks, pt stated that he drinks beer and vodka daily. notified. [facility] protocol ordered.
[2024-04-21] MEDS: VANCOCIN 535 MG IV (17:54)
[2024-04-21] MEDS: LOVENOX 40 MG SC (18:02)
[2024-04-21] MEDS: ATIVAN 1 MG PO (20:10)
[2024-04-22] VITALS (12 sets, daily range): BP systolic 125–150; BP diastolic 64–104; BMI 23.9
[2024-04-22] MEDS: ATIVAN 1 MG PO (02:29)
[2024-04-22] MEDS: NON-FORMULARY ITEM 4 CAP PO ×4 (02:31→23:07)
[2024-04-22] MEDS: DUONEB 3 ML INH ×5 (02:49→20:05)
[2024-04-22 03:41] LABS: Amphetamines Negative (Negative); Barbiturates Negative (Negative); Benzodiazepines Positive (Negative); Buprenorphine Negative (Negative); Cocaine Negative (Negative); Marijuana Negative (Negative); Methadone Negative (Negative); Methamphetamines Negative (Negative); Opiates Negative (Negative); Phencyclidine Negative (Negative); Tricyclic Antidepressants Negative (Negative)
--- NOTE | 2024-04-22 03:41 | PTCARENOTE ---
Pt maintained on 1:1 at this time. Pt continues on MSAS scoring 4-7 at this time(see work list). With Pt Hx of Parkinson it makes true MSAS difficult. Pt temp maintaining afebrile at this time. Pt respiration even unlabored, spo2 93%-96% on 10L. Pt
requiring neb treatment during night for comfort saying 'does feel tight' to breath. Assessment care and vitals as charted.
[2024-04-22] MEDS: ATIVAN 1 MG IV (04:33)
[2024-04-22] MEDS: ZOSYN 100 IV (04:34)
[2024-04-22] MEDS: FLUSH (NSS) 1 FLUSH IV (04:34)
[2024-04-22] MEDS: TYLENOL 650 MG PO ×2 (04:53→18:06)
[2024-04-22 04:55] LABS: Fentanyl, Urine Negative (Negative)
[2024-04-22] MEDS: ULTRAM 50 MG PO (05:21)
[2024-04-22 05:26] LABS: Hemoglobin 9.9 g/dL (13.0-18.0); Mean Platelet Volume 9.8 fL (7.4-10.4); Platelet Count 201 10^3/uL (130-400); Red Blood Cell Count 3.41 10^6/uL (4.70-6.10); Red Cell Dist. Width 14.6 % (11.5-14.5); White Blood Cell Count 10.5 10^3/uL (4.8-10.8)
[2024-04-22 05:51] LABS: Blood Urea Nitrogen 30 mg/dl (9-20); Calcium 8.1 mg/dl (8.4-10.2); Carbon Dioxide 27 mmol/L (22-30); Chloride 103 mmol/L (98-107); Estimated Creatinine Clearance 81 ml/min; Glucose 110 mg/dl (70-99); Potassium 3.5 mmol/L (3.5-5.1); Sodium 140 mmol/L (135-145); eGFR > 60.00
[2024-04-22] MEDS: VANCOCIN 150 IV (06:19)
--- NOTE | 2024-04-22 07:08 | W.PN.HOSP.TC ---
Today's Communication/Plan
-
Treat the infection
Supportive care
f/w ID, pulmonary recommendations
Aspiration Precautions.
Assessment / Plan
Assessment / Plan
PE:
Gen-AAOx3, NAD
HEENT-NC, AT, anicteric, clear oral mm
Neck-supple
CV-reg, no M, +S1/S2
Lungs-rhonchi right lung base
Abd-soft, NT, ND
Musculoskeletal-no edema, decreased muscle bulk throughout
Skin-warm and dry
Neuro-gross tremors
Psych-calm, cooperative
Mr. Marshall is a 73 y.o with a medical history of Parkinson disease, ambulatory dysfunction, incarcerated inguinal hernia (status post repair), and early onset dementia presents to ED with sudden severe dyspnea without cough. Found to have fever
to 104 here and a RLL infiltrate on xray c/w PNA. Hypoxic requiring BIPAP. No h/o asthma/copd/ILD or CHF. Had elevated BNP to 2500. No overt signs of CHF. COVID negative. Influenza negative.
Community-acquired pneumonia:
-Started on ceftriaxone and azithromycin
-Legionella urinary antigen negative and so we will discontinue azithromycin, continue antibiotic treatment for planned 7-day course
-Currently breathing comfortable on nasal cannula, titrate supplemental oxygen as needed
-Nebulizer treatments as needed
- Blood culture no growth so far
- WBC is coming down
-Still febrile at times.
-Further recommendations from pulmonology appreciated
# Toxic metabolic encephalopathy
Underlying Parkinson disease
c/w supportive care
c/w to treat PNA
Chronic pain:
-Lower back, now with pain in left hip after recent fall
-No acute fractures or dislocations noted on imaging
-Continue pain control with home dose of ibuprofen
Parkinson's disease:
-Continue home Sinemet
-PT/OT eval pending
CODE STATUS: Full
Total time spent to see the patient, examine the patient, review data and lab results, discuss treatment plan with patient and nursing staff around 55 minutes
Anticipated Discharge: > 48 hours
Subjective/Interval History
-
Date of Service: April 22, 2024
Objective Data
-
Labs:
Laboratory Results
04/22/24
04:53
WBC 10.5
Hgb 9.9 L
Hct 30.0 L
Plt Count 201
Sodium 140
Potassium 3.5
Chloride 103
Carbon Dioxide 27
BUN 30 H
Creatinine 0.8
Glucose 110 H
Calcium 8.1 L
Vital Signs:
Vital Signs
Temp Pulse Resp BP Pulse Ox
99.8 F 82 20 132/70 90
04/22/24 06:15 04/22/24 06:13 04/22/24 06:13 04/22/24 06:13 04/22/24 06:13
I&O
04/21/24 04/22/24 04/23/24
06:59 06:59 06:59
Intake Total 200 / 200 1250 / 1250
Output Total 250 / 250
Balance 200 / 200 1000 / 1000
--- NOTE | 2024-04-22 08:49 | W.PN.PUL3 ---
Today's Communication / Plan
-
CTA to r/o PE given hypoxemia, elevated proBNP/ST on admission
Speech eval for aspiration PNA r/o
Likely can de-escalate or stop abx pending clinical course
Wean O2 as tolerated
Agree with ECHO
Assessment
-
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 Spouse says
that he has been having occasional ankle edema in the past due to immobilization but never diagnosed with heart failure. In the ER, was found to be in severe respiratory distress requiring BiPAP. Initially in the ER he had low-grade fever to 100.1
�F, pulse rate 110, respiratory rate 25, BP 150/101 and saturating 97% on room air. Labs showed Hb 11.5, proBNP 2520, and COVID antigen negative. CXR showed bibasilar pneumonia, mainly in the right lower lobe. In the ER he was given crystalloids
with 500 cc bolus of NS 0.9%, ceftriaxone/Zithromax, DuoNebs and Tylenol. Shortly thereafter he was given 40 mg IV Lasix. He was admitted to the IMU and pulmonary service consulted for additional management/recommendations.
Impression:
#Bibasilar pneumonia (mainly in right lower lobe) with right parapneumonic effusion
#Acute respiratory failure with hypoxia due to above now on midflow nasal cannula at 10L/min
#Leukocytosis
#Chronic anemia
#Elevated proBNP (2520)
#Incomplete RBBB
Sinus tachycardia
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
Left ear otalgia
Bladder cancer
Parkinson disease
Parathyroidism
Plan:
Currently 94% on 12L NC
He has no prior history of known O2 use at home
Maintain SpO2 >90-94% with supplemental O2 and wean down as tolerated
Continue DuoNeb QID with prn DuoNebs
He will need pulse oximetry prior to discharge
Presumed PNA based on imaging
Continue with antibiotics, currently on IV vancomycin + Zosyn
Follow-up blood culture collected (collected 04/20/2024)--NTD
MRSA neg
Urine Ag for Legionella and strep Ag negative
Check sputum culture if he can produce a decent sample
He will need repeat imaging with CXR in about 4-6 weeks to follow-up pneumonia to resolution
Can likely stop abx
Speech therapy for eval for aspiration--he notes he occasionally has cough/choking with food
High risk given underlying NMD
Aspiration precautions
Given hypoxemia degree despite minimal findings on imaging with ST history on arrival--will order CTA
BNP is elevated, 2520 w/ small effusion on R
ECHO pending
prn nebulized bronchodilators - not currently bronchospastic
Incentive spirometer encouraged q1hr while awake
VBG 7.43/36/66/23.9/94%--no evidence of hypoventilation
Continue patient's Parkinson's disease meds with Rytary + Sinemet
Replete electrolytes with K>4, Mg>2
Maintain euglycemia with goal BG >100 and <180
DVT ppx: LMWH
Pulmonary service will continue to follow along.
Data:
CXR 04/20/2024: Bibasilar pneumonia. Small right pleural effusion.
-----
Total time spent today was 51 minutes for this encounter. Time includes reviewing laboratory test/imaging results, reviewing pertinent medical records, obtaining and reviewing medical history, performing an appropriate exam, ordering medications,
tests and procedures. Time also includes documentation of this encounter, coordinating patient care and communicating with other healthcare professionals. Total time does not include separately billed tests performed on this date of service.
Subjective Data
-
Date of Service:
Date of Service: April 22, 2024
Chief Complaint: Pulmonary Follow Up
Subjective:
Remains on O2, no new complaints
Feels tired
Objective Data
Data Reviewed
Vital Signs / I&O / Oxygen:
Vital Signs
Temp Pulse Resp BP Pulse Ox
99.8 F 70 17 132/70 94
04/22/24 06:15 04/22/24 07:58 04/22/24 07:58 04/22/24 06:13 04/22/24 07:58
Intake and Output
04/21/24 04/22/24 04/23/24
06:59 06:59 06:59
Intake Total 200 / 200 1250 / 1250
Output Total 250 / 250
Balance 200 / 200 1000 / 1000
SaO2 94
Nasal Cannula flow liters per 10
minute
Physical Exam
General: Comfortable and Other (NAD)
HEENT: Normocephalic, Anicteric, Moist Mucous Membranes and Other (poor dentition)
Cardiovascular: S1-S2 and Regular Rhythm
Respiratory: Clear and Non-Labored Respirations
GI: Soft, Non Distended and Non Tender
Neurology: Awake, Alert, Oriented, No Motor Deficits and Other (generalized weakness noted)
Skin: Warm, Dry and Good Color
Labs/Micro/Reports
Lab Data
04/22/24 04:53
04/22/24 04:53
Microbiology
04/21/24 15:32 Urine Streptococcus pneumoniae Antigen (M - Final
Negative for Streptococcus pneumoniae antigen.
A negative result does not exclude infection with
Streptococcus pneumoniae. Clinical correlation is
recommended.
04/20/24 23:56 Blood/Venous Blood Culture - Preliminary
No Growth in 48 hours- Final report to follow
04/21/24 02:14 Urine Legionella Urinary Antigen - Final
Negative for Legionella pneumophila Serogroup 1 antigen.
A negative result does not rule out the possiblity of
Legionella infection due to other serogroups or species of
Legionella. Clinical correlation is recommended.
04/20/24 21:58 Nasal Swab Influenza Types A & B (MOO) - Final
Negative for Influenza A & B, NAAT
Negative results must be combined with clinical observations
and patient history.
Nucleic Acid Amplification test (NAAT)performed on the
[employer] platform.
--- NOTE | 2024-04-22 08:54 | PHA.VAN.FU ---
Vancomycin Assessment / Plan
- Assessment
Renal Function: Stable
WBC's are: WNL
Concomitant Antimicrobials: piperacillin/tazobactam
- Dosing Plan
Continue: Vanc 750mg Q12H
- Monitoring Plan
No level(s) ordered at this time: consider levels in next few days
- Follow Up
Pharmacy will continue to follow.
Vancomycin Follow UP
- -
Patient Age: 73
Patient Sex: Female
Vancomycin Day #: 2
Indication: Pulmonary/Respiratory
Requesting Provider: Dr. Hoyos
Pertinent Antimicrobial Allergies:
NKDA
Height / Weight:
Height 5 ft 9 in
Actual Weight 73.3 kg
- Vital Signs / Lab Results
Temp Pulse Resp BP Pulse Ox
99.8 F 70 17 132/70 94
04/22/24 06:15 04/22/24 07:58 04/22/24 07:58 04/22/24 06:13 04/22/24 07:58
Lab Results - Hematology
04/20/24 04/21/24 04/22/24
21:58 05:09 04:53
WBC 10.6 14.7 H 10.5
Lab Results - Chemistry
04/20/24 04/21/24 04/22/24
21:58 05:09 04:53
BUN 24 H 24 H 30 H
Creatinine 0.7 0.8 0.8
Estimated Creat Clear 93 81 81
Albumin 4.0
04/20/24
21:58
Lactic Acid 0.8
Microbiology Results
04/21/24 15:32 Streptococcus pneumoniae Antigen (M - Final
Urine Negative for Streptococcus pneumoniae antigen.
A negative result does not exclude infection with
Streptococcus pneumoniae. Clinical correlation is
recommended.
04/20/24 23:56 Blood Culture - Preliminary
Blood/Venous No Growth in 48 hours- Final report to follow
04/21/24 02:14 Legionella Urinary Antigen - Final
Urine Negative for Legionella pneumophila Serogroup 1 antigen.
A negative result does not rule out the possiblity of
Legionella infection due to other serogroups or species of
Legionella. Clinical correlation is recommended.
04/20/24 21:58 Influenza Types A & B (MOO) - Final
Nasal Swab Negative for Influenza A & B, NAAT
Negative results must be combined with clinical observations
and patient history.
Nucleic Acid Amplification test (NAAT)performed on the
[employer] platform.
[2024-04-22] MEDS: VITAMIN B1 100 MG PO (09:00)
[2024-04-22] MEDS: FOLVITE 1 MG PO (09:00)
[2024-04-22] MEDS: PROSCAR 5 MG PO (09:00)
[2024-04-22] MEDS: CYMBALTA DELAYED RELEASE 30 MG PO ×2 (09:00→20:58)
[2024-04-22] MEDS: COLACE 100 MG PO (09:00)
[2024-04-22] MEDS: NON-FORMULARY ITEM 75 MG PO (09:02)
--- NOTE | 2024-04-22 09:30 | CON.ID ---
Consultation
-
Date/Time Consultation Requested: April 21, 2024 [id number]
Date/Time Consultation Performed: April 22, 2024 0930
Requesting Provider: Dr. Jose Daniel Horner
Performing Provider: Dr. Jovana Rod
Reason for Consultation: Fevers, mental status change, pneumonia
Chief Complaint / Past History
Chief Complaint
Shortness of breath
History of Present Illness
73-year-old male with history of Parkinson's disease, ambulatory dysfunction, who presented to the hospital on April 20 due to worsening shortness of breath. He reports that his baseline shortness of breath got progressively worse over several
days. Positive cough productive of yellow mucus sputum. Positive fevers and chills. In the ER his temperature went up to 104.5. He was hypoxic and rest respiratory distress requiring BiPAP. He is now on mid flow oxygen. He received ceftriaxone
and azithromycin then changed to Zosyn and vancomycin due to persistent fevers. Patient denies ill contacts. No travel. He is up-to-date with his influenza, pneumococcal, and COVID vaccines. No headache or stiff neck. Positive rhinorrhea. No
sore throat. No nausea vomiting abdominal pain or diarrhea. No urinary symptoms. Denies aspiration.
Past History
Additional Past Medical History:
Parkinson's disease
Anxiety
BPH
hx bladder cancer, treated
Ambulatory dysfunction
Bilateral TKR
right middle finger osteo s/p amp
parathyroidectomy
Spinal fusion/decompression
Right inguinal hernia repair (08/2021)
Allergy History:
No Known Allergies Allergy (Verified 04/20/24 21:34)
Medications Reviewed: Yes
Current Antibiotics:
Vancomycin
Zosyn
Social History
Tobacco: Non-Smoker
Alcohol: Occasional
Drug: None
Personal:
Employment: Retired
Family History
Family History: Not Pertinent
Review of Systems
Review of Systems
General: Fever, Chills and Change in Appetite
HEENT: Negative Stiff Neck, Headache or Pharyngitis
Cardiovascular: Negative Chest Pain or Edema
Respiratory: Dyspnea and Cough
Gasteroenterology: Negative Nausea, Vomiting or Diarrhea
Genital / Urological: Negative Dysuria or Flank Pain
Endocrine: Weakness
Skin / Hair / Nails: Negative Rash
Neurological: Negative Dizziness
All systems: All other systems were reviewed and were negative
Vital Signs
Temp Pulse Resp BP Pulse Ox
99.8 F 70 17 132/70 94
04/22/24 06:15 04/22/24 07:58 04/22/24 07:58 04/22/24 06:13 04/22/24 07:58
Selected Entries
04/21/24
13:00 04/22/24
05:00
Temp 103.8 F H 101 F H
Physical Exam
Physical Exam
Constitutional: Acutely Ill
Head: Other (No frontal or max or sinus tenderness)
Eyes: No Conjunctival Hemorrhage and Sclera Anicteric
Pharynx: Benign
Cardiovascular: Regular Rate and S1/S2
Pulmonary: Rales (bibase)
Gastrointestinal: Soft, Non Tender, Non Distended and Normal Bowel Sounds
Genito-Urinary: Negative CVA Tenderness
Extremities: Negative Edema
Musculoskeletal: Negative Joint Swelling or Joint Effusion
Neurological: AO x 3
Lab / Diagnostic Study Results
04/22/24 04:53
04/22/24 04:53
Abs Immat Gran (auto) 0.1 10^3/uL (0-0.05) H 04/20/24 21:58
Absolute Neuts (auto) 9.0 10^3/uL (1.4-6.5) H 04/20/24 21:58
Absolute Lymphs (auto) 0.6 10^3/uL (1.2-3.4) L 04/20/24 21:58
Absolute Monos (auto) 1.0 10^3/uL (0.1-0.6) H 04/20/24 21:58
Absolute Basos (auto) 0.0 10^3/uL (0-0.2) 04/20/24 21:58
Immature Gran % 0.5 % (0-0.5) 04/20/24 21:58
Neutrophils % 84.7 % (42.2-75.2) H 04/20/24 21:58
Lymphocytes % 5.3 % (20.5-51.1) L 04/20/24 21:58
Monocytes % 9.4 % (1.7-9.3) H 04/20/24 21:58
Eosinophils % 0.0 % (0-6) 04/20/24 21:58
Basophils % 0.1 % (0-2) 04/20/24 21:58
Lactic Acid 0.8 mmol/L (0.7-2.0) 04/20/24 21:58
Microbiology Results
Micro:
04/22/24 02:34 Nasal Screen MRSA (PCR) - Final
Nose MRSA not detected - performed by PCR methodology.
04/21/24 15:32 Streptococcus pneumoniae Antigen (M - Final
Urine Negative for Streptococcus pneumoniae antigen.
A negative result does not exclude infection with
Streptococcus pneumoniae. Clinical correlation is
recommended.
04/20/24 23:56 Blood Culture - Preliminary
Blood/Venous No Growth in 48 hours- Final report to follow
04/21/24 02:14 Legionella Urinary Antigen - Final
Urine Negative for Legionella pneumophila Serogroup 1 antigen.
A negative result does not rule out the possiblity of
Legionella infection due to other serogroups or species of
Legionella. Clinical correlation is recommended.
04/20/24 21:58 Influenza Types A & B (MOO) - Final
Nasal Swab Negative for Influenza A & B, NAAT
Negative results must be combined with clinical observations
and patient history.
Nucleic Acid Amplification test (NAAT)performed on the
[employer] platform.
04/20/24 CXR: Bibasilar pneumonia. Small right pleural effusion.
Assessment / Plan
# CAP
# Acute hypoxemic respiratory failure
# fevers
# leukocytosis resolved
# Parkinson's
- COVID/Flu neg
- Urine legionella and Strep Pneumo Ag negative
- blood cx' neg to date
- Narrow Vanco/Zosyn to ceftiraxone 2g IV q24 and po doxycycline 100mg bid.
-Follow temps and oxygen status.
# Conditions prior to admission
Parkinson's disease
Anxiety
BPH
hx bladder cancer, treated
Ambulatory dysfunction
Bilateral TKR
right middle finger osteo s/p amp
parathyroidectomy
Spinal fusion/decompression
Right inguinal hernia repair (08/2021)
--- NOTE | 2024-04-22 09:41 | CM ---
CM following re: discharge planning.
Reviewed pt's chart, met with pt and spoke to pt's spouse Geri over the phone to update on pt's progress.
Pt is a 73 year old male, admitted with primary dx of Community-acquired pneumonia. Currently requires 12 L midflow NC of O2, continue supportive care.
Pt reports he lives with spouse and a son in a 2SH, 2 steps to enter, has 4 [id number] children. pt described himself as independent in all areas [employer], uses a walker at night when goes to use bathroom. Pt has no home O2.
PT denied h/o alcohol abuse and pt's spouse expressed her unpleasant feelings regarding talking about alcohol abuse.
PT and OT evaluations noted - acute rehab level of care recommended. Both pt and his spouse are aware, expressed their agreement and [facility] requested. Both pt and his spouse are aware of admitting criteria to acute rehab and they insisted
[facility] as number one choice and if acute rehab level of care is denied then they preferred [facility], [facility], [facility] or [facility] as alternative to acute rehab.
A referral to above SNFs and [facility] made.
PCP: James Sandoval
Pharmacy: [facility]
D/C plan: Plan A: [facility]; Plan B: preferred SNF: [facility], [facility], [facility], [facility].
CM will follow with discharge plan updates as hospitalization progresses
[2024-04-22] MEDS: STERILE WATER FOR INJECTION 20 ML IV (11:00)
[2024-04-22] MEDS: ROCEPHIN 2000 MG IV (11:00)
[2024-04-22] MEDS: VIBRAMYCIN 100 MG PO ×2 (11:27→20:58)
--- NOTE | 2024-04-22 13:38 | PTOTSP ---
Dysphagia Evaluation
Patient presents with signs concerning for oral/pharyngeal dysphagia likely acute on chronic related to known Parkinson's disease, poor state of dentition, and acute admission with PNA with subsequent TME. Discontinue diet below if worsened
respiratory status, AMS, or worsened signs of dysphagia/aspiration.
Recommend:
1. IDDSI Level 4 Puree, Thin Liquids
2. Strategies: upright to 90 degrees, full supervision and assistance, PO only when awake/alert and SpO2 >90% and RR <30, small single sips/bites, slow rate
3. Medications: as best tolerated
4. Video swallow study to assess oral/pharyngeal swallow and develop tx plan
[2024-04-22] MEDS: SINEMET 25-100 1 TABLET PO ×4 (15:30→23:07)
[2024-04-22] MEDS: LOVENOX 40 MG SC (18:06)
--- NOTE | 2024-04-22 19:27 | PTCARENOTE ---
pt on 10 liters midflow/ pt often appears short of breath and wheezy but denies that he feels short of breath. o2 sats in 90s. msas discontinued per order. medsitter maintained. pt had ct scan chest this afternoon. seen by speech and diet chaanged
to puree with thin liquids. pt febrile upon return from ct scan. tylenol 650 mg administered.
[2024-04-22] MEDS: ATIVAN 0.5 MG PO (21:10)
[2024-04-22] MEDS: MOTRIN 600 MG PO (22:03)
[2024-04-23] VITALS (17 sets, daily range): BP systolic 135–199; BP diastolic 71–119; PULSE 78–81; O2SAT 94; BMI 24.2
[2024-04-23] MEDS: NON-FORMULARY ITEM 4 CAP PO ×3 (04:01→11:24)
--- NOTE | 2024-04-23 05:44 | PTCARENOTE ---
Pt appeared to get rest during the nigh, reparation even unlabored. Spo2 93-96% on 10L. Call [facility] within reach. Bed alarm on and in lowest position. Assessment care and vitals as charted.
--- NOTE | 2024-04-23 06:36 | W.PN.HOSP.TC ---
Today's Communication/Plan
-
f/w speech recommendations
Wean down O2
Assessment / Plan
Assessment / Plan
PE:
Gen-AAOx3, NAD
HEENT-NC, AT, anicteric, clear oral mm
Neck-supple
CV-reg, no M, +S1/S2
Lungs-less rales, no wheezes, but wheezes heard externally
Abd-soft, NT, ND
Musculoskeletal-no edema, decreased muscle bulk throughout
Skin-warm and dry
Neuro-gross tremors, awake, alert, answered questions appropriately
Psych-calm, cooperative
Mr. Marshall is a 73 y.o with a medical history of Parkinson disease, ambulatory dysfunction, incarcerated inguinal hernia (status post repair), and early onset dementia presents to ED with sudden severe dyspnea without cough. Found to have fever
to 104 here and a RLL infiltrate on xray c/w PNA. Hypoxic requiring BIPAP. No h/o asthma/copd/ILD or CHF. Had elevated BNP to 2500. No overt signs of CHF. COVID negative. Influenza negative.
Community-acquired pneumonia:
Acute hypoxic respiratory failure with distress and high flow O2,
-Started on ceftriaxone and azithromycin
-Legionella urinary antigen negative and so we will discontinue azithromycin, continue antibiotic treatment for planned 7-day course
-Currently breathing comfortable on nasal cannula, titrate supplemental oxygen as needed
-Nebulizer treatments as needed
- Blood culture no growth so far
- WBC is coming down
- no fever in last [address] chest showed severe pneumonia in the left lower and upper lobes, mild pneumonia in the right upper and lower lobes. Moderate size right pleural effusion and small left pleural effusion, no pulmonary embolism.
-Further recommendations from pulmonology and ID are appreciated
# Toxic metabolic encephalopathy
Underlying Parkinson disease
He is better today
Stopped MSAS protocol, no alcohol intake
c/w supportive care
c/w to treat PNA
# Dysphagia
d/w speech therapist, will do video swallow
# Incidental finding in CT of 3.1 cm mass exophytic from the posterior cortex of the midpole of the left kidney. For outpatient follow
Chronic pain:
-Lower back, now with pain in left hip after recent fall
-No acute fractures or dislocations noted on imaging
-Continue pain control with home dose of ibuprofen
Parkinson's disease:
-Continue home Sinemet
-PT/OT eval pending
CODE STATUS: Full
Total time spent to see the patient, examine the patient, review data and lab results, discuss treatment plan with patient and nursing staff around 55 minutes
Anticipated Discharge: 24 - 48 hours
Subjective/Interval History
-
Date of Service: April 23, 2024
No chest pain
No sob
Objective Data
-
Vital Signs:
Vital Signs
Temp Pulse Resp BP Pulse Ox
97.6 F 70 18 146/97 93
04/23/24 04:46 04/23/24 06:00 04/23/24 06:00 04/23/24 06:00 04/23/24 00:01
I&O
04/21/24 04/22/24 04/23/24
06:59 06:59 06:59
Intake Total 200 / 200 1250 / 1250 960 / 960
Output Total 250 / 250 500 / 500
Balance 200 / 200 1000 / 1000 460 / 460
[2024-04-23] MEDS: DUONEB 3 ML INH ×4 (07:21→19:30)
[2024-04-23] MEDS: VIBRAMYCIN 100 MG PO ×2 (08:10→20:00)
[2024-04-23] MEDS: VITAMIN B1 100 MG PO (08:10)
[2024-04-23] MEDS: MIRALAX 17 GRAMS PO (08:10)
[2024-04-23] MEDS: CYMBALTA DELAYED RELEASE 30 MG PO ×2 (08:10→20:00)
[2024-04-23] MEDS: NON-FORMULARY ITEM 75 MG PO (08:11)
[2024-04-23] MEDS: PROSCAR 5 MG PO (08:18)
--- NOTE | 2024-04-23 09:19 | W.PN.PUL3 ---
Today's Communication / Plan
-
CT reviewed, extensive PNA likely chronic aspiration/poor airway clearance
VSE planning per speech
ABx continued, induced sputum as able by RT
High risk for vent issues with procedures/consideration for bronchoscopy
GOC discussions would be appropriate in this patient
Assessment
-
73-year-old male non-smoker with a past medical history of bladder cancer, parathyroid cyst s/p excision, Parkinson's disease who presents with shortness of breath/wheezing for few days, worsened day TABBER. 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 Spouse says
that he has been having occasional ankle edema in the past due to immobilization but never diagnosed with heart failure. In the ER, was found to be in severe respiratory distress requiring BiPAP. Initially in the ER he had low-grade fever to 100.1
�F, pulse rate 110, respiratory rate 25, BP 150/101 and saturating 97% on room air. Labs showed Hb 11.5, proBNP 2520, and COVID antigen negative. CXR showed bibasilar pneumonia, mainly in the right lower lobe. In the ER he was given crystalloids
with 500 cc bolus of NS 0.9%, ceftriaxone/Zithromax, DuoNebs and Tylenol. Shortly thereafter he was given 40 mg IV Lasix. He was admitted to the IMU and pulmonary service consulted for additional management/recommendations.
Impression:
#Bibasilar pneumonia (mainly in right lower lobe) with right parapneumonic effusion/chronic aspiration suspected
#Acute respiratory failure with hypoxia due to above now on midflow nasal cannula at 10L/min
#Leukocytosis
#Chronic anemia
#Elevated proBNP (2520)
#Incomplete RBBB
Sinus tachycardia
TME likely from hypoxemia
Possible Renal mass vs cyst 3.1cm
Chronic conditions TABBER:
Left ear otalgia
Bladder cancer
Parkinson disease
Parathyroidism
Plan:
Currently 94% on 5L NC--weaned from 12L
He has no prior history of known O2 use at home
Maintain SpO2 >90-94% with supplemental O2 and wean down as tolerated
Continue DuoNeb QID with prn DuoNebs
He will need pulse oximetry prior to discharge
Presumed PNA based on imaging
Continue with antibiotics, currently on IV vancomycin + Zosyn
Follow-up blood culture collected (collected 04/20/2024)--NTD
MRSA neg
Urine Ag for Legionella and strep Ag negative
Check sputum culture if he can produce a decent sample--reviewed w/RT performing induced culture
He will need repeat imaging with CXR in about 4-6 weeks to follow-up pneumonia to resolution
Will add aggressive airway clearance measures but not sure if patient can perform
Bronch would be helpful only when completed, he has high risk for recurrence/confusion noted--would also worsen with anesthesia
High risk for vent failure/collapse with NMD
Speech therapy for eval for aspiration--he notes he occasionally has cough/choking with food
High risk given underlying NMD
VSE planning
Aspiration precautions
Given hypoxemia degree despite minimal findings on imaging with ST history on arrival--will order CTA
BNP is elevated, 2520 w/ small effusion on R
CTA neg for PE, but showing extensive bilateral infiltrates, this is likely chronic/progressive
ECHO reviewed/normal biV function
Renal mass vs cyst noted on CT--needs outpatient PET followup
prn nebulized bronchodilators - not currently bronchospastic
Incentive spirometer encouraged q1hr while awake
VBG 7.43/36/66/23.9/94%--no evidence of hypoventilation
Continue patient's Parkinson's disease meds with Rytary + Sinemet
Replete electrolytes with K>4, Mg>2
Maintain euglycemia with goal BG >100 and <180
DVT ppx: LMWH
Pulmonary service will continue to follow along.
Overall his prognosis seems poor given his underlying NMD, poor airway clearance/aspiration issues
GOC would be appropriate in this patient
Data:
CXR 04/20/2024: Bibasilar pneumonia. Small right pleural effusion.
CT chest 04/22/24- 1. SEVERE PNEUMONIA in the LEFT LOWER and UPPER LOBES.
2. Mild pneumonia in the right upper and lower lobes.
3. MODERATE-SIZED RIGHT and SMALL LEFT PLEURAL EFFUSIONS.
4. Mild mediastinal and bilateral hilar lymphadenopathy.
5. Severe calcific atherosclerotic plaque in the coronary arteries.
6. Mild cardiomegaly.
7. 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
8. 3.1 cm mass exophytic from the posterior cortex of the midpole of the left kidney. Diagnostic possibilities are (1) a complex left renal cyst or (2) a cystic left renal cell carcinoma.
ECHO 04/22/24- Normal biventricular size and systolic function without regional wall motion abnormality. Mild to moderate tricuspid regurgitation. Moderate pulmonary hypertension. No prior study available for comparison.
-----
Total time spent today was 51 minutes for this encounter. Time includes reviewing laboratory test/imaging results, reviewing pertinent medical records, obtaining and reviewing medical history, performing an appropriate exam, ordering medications,
tests and procedures. Time also includes documentation of this encounter, coordinating patient care and communicating with other healthcare professionals. Total time does not include separately billed tests performed on this date of service.
Subjective Data
-
Date of Service:
Date of Service: April 23, 2024
Chief Complaint: Pulmonary Follow Up
Subjective:
Seems more confused today, remains on 5L MF
Overall clinically unchanged
Objective Data
Data Reviewed
Vital Signs / I&O / Oxygen:
Vital Signs
Temp Pulse Resp BP Pulse Ox
97.5 F 65 16 146/97 98
04/23/24 07:55 04/23/24 07:24 04/23/24 07:24 04/23/24 06:00 04/23/24 07:24
Intake and Output
04/22/24 04/23/24 04/24/24
06:59 06:59 06:59
Intake Total 1250 / 1250 960 / 960
Output Total 250 / 250 500 / 500
Balance 1000 / 1000 460 / 460
SaO2 98
Nasal Cannula flow liters per 10
minute
Physical Exam
General: Comfortable and Other (NAD)
HEENT: Normocephalic, Anicteric, Moist Mucous Membranes and Other (poor dentition)
Cardiovascular: S1-S2 and Regular Rhythm
Respiratory: Clear and Non-Labored Respirations
GI: Soft, Non Distended and Non Tender
Neurology: Awake, Alert, No Motor Deficits and Other (generalized weakness noted, at times answers but appears confused)
Skin: Warm, Dry and Good Color
Labs/Micro/Reports
Lab Data
04/22/24 04:53
04/22/24 04:53
Microbiology
04/20/24 23:56 Blood/Venous Blood Culture - Preliminary
No Growth in 72 hours- Final report to follow
04/22/24 02:34 Nose Nasal Screen MRSA (PCR) - Final
MRSA not detected - performed by PCR methodology.
04/21/24 15:32 Urine Streptococcus pneumoniae Antigen (M - Final
Negative for Streptococcus pneumoniae antigen.
A negative result does not exclude infection with
Streptococcus pneumoniae. Clinical correlation is
recommended.
04/21/24 02:14 Urine Legionella Urinary Antigen - Final
Negative for Legionella pneumophila Serogroup 1 antigen.
A negative result does not rule out the possiblity of
Legionella infection due to other serogroups or species of
Legionella. Clinical correlation is recommended.
04/20/24 21:58 Nasal Swab Influenza Types A & B (MOO) - Final
Negative for Influenza A & B, NAAT
Negative results must be combined with clinical observations
and patient history.
Nucleic Acid Amplification test (NAAT)performed on the
[employer] platform.
--- NOTE | 2024-04-23 10:08 | W.PN.ID1 ---
Date of Service
Date of Service: April 23, 2024
Today's Communication
Continue ceftriaxone and po doxycycline.
Assessment / Plan
# CAP
# Acute hypoxemic respiratory failure, improving
# fevers resolved
# leukocytosis resolved
# Parkinson's
- COVID/Flu neg
- Urine legionella and Strep Pneumo Ag negative
- blood cx' neg to date
- Continue ceftriaxone 2g IV q24 and po doxycycline 100mg bid.
-Follow oxygen status.
# Incidental finding of 3.1 cm exophytic mass left kidney
- hx treated bladder ca
-need to followy-up with Urology
# Conditions prior to admission
Parkinson's disease
Anxiety
BPH
hx bladder cancer, treated
Ambulatory dysfunction
Bilateral TKR
right middle finger osteo s/p amp
parathyroidectomy
Spinal fusion/decompression
Right inguinal hernia repair (08/2021)
Chief Complaint
-: Pneumonia
Subjective / Review of Systems
Sitting up. SOB better.
Vital Signs / Physical Exam
Vital Signs
Vital Signs
Temp Pulse Resp BP Pulse Ox
97.5 F 81 21 172/87 93
04/23/24 07:55 04/23/24 09:16 04/23/24 09:16 04/23/24 09:16 04/23/24 09:34
Physical Exam
Constitutional: No Acute Distress
Cardiovascular: Regular Rate and S1/S2
Pulmonary: Rales (Crackles left lung) and Other (decreased BS right base)
Gastrointestinal: Soft, Non Tender, Non Distended and Normal Bowel Sounds
Extremities: Negative Edema
Neurological: AO x 3
Objective Data
Lab Data
Lab Results
04/22/24 04:53
04/22/24 04:53
Estimated Creat Clear 81 ml/min 04/22/24 04:53
Lactic Acid 0.8 mmol/L (0.7-2.0) 04/20/24 21:58
Total Bilirubin 0.8 mg/dl (0.2-1.3) 04/20/24 21:58
AST 37 U/L (17-59) 04/20/24 21:58
ALT < 10 U/L (0-50) 04/20/24 21:58
Alkaline Phosphatase 83 U/L (38-126) 04/20/24 21:58
Most recent labs reviewed.
Micro Results:
04/20/24 23:56 Blood Culture - Preliminary
Blood/Venous No Growth in 72 hours- Final report to follow
04/22/24 02:34 Nasal Screen MRSA (PCR) - Final
Nose MRSA not detected - performed by PCR methodology.
04/21/24 15:32 Streptococcus pneumoniae Antigen (M - Final
Urine Negative for Streptococcus pneumoniae antigen.
A negative result does not exclude infection with
Streptococcus pneumoniae. Clinical correlation is
recommended.
04/21/24 02:14 Legionella Urinary Antigen - Final
Urine Negative for Legionella pneumophila Serogroup 1 antigen.
A negative result does not rule out the possiblity of
Legionella infection due to other serogroups or species of
Legionella. Clinical correlation is recommended.
04/20/24 21:58 Influenza Types A & B (MOO) - Final
Nasal Swab Negative for Influenza A & B, NAAT
Negative results must be combined with clinical observations
and patient history.
Nucleic Acid Amplification test (NAAT)performed on the
[employer] platform.
04/20/24 CXR: Bibasilar pneumonia. Small right pleural effusion.
04/22/[address]: SEVERE PNEUMONIA in the LEFT LOWER and UPPER LOBES.
2. Mild pneumonia in the right upper and lower lobes.
3. MODERATE-SIZED RIGHT and SMALL LEFT PLEURAL EFFUSIONS.
4. Mild mediastinal and bilateral hilar lymphadenopathy.
5. Severe calcific atherosclerotic plaque in the coronary arteries.
6. Mild cardiomegaly.
7. 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
8. 3.1 cm mass exophytic from the posterior cortex of the midpole of the left kidney. Diagnostic possibilities are (1) a complex left renal cyst or (2) a cystic left renal cell carcinoma.
[2024-04-23] MEDS: ROCEPHIN 2000 MG IV (11:23)
[2024-04-23] MEDS: STERILE WATER FOR INJECTION 20 ML IV (11:23)
--- NOTE | 2024-04-23 12:15 | PTOTSP ---
Videofluoroscopic swallow study
Summary: Mild-moderate oral, mild pharyngeal dysphagia. Deep laryngeal penetration with consecutive sips of thin liquids via straw. No aspiration visualized. See patient care note for details.
Recommendation:
1. IDDSI Level 6 Soft and Bite Sized, IDDSI Level Thin Liquids - SINGLE SIPS, TUCK CHIN
2. Strategies: upright to 90 degrees, full supervision/assistance, small single sips/bites, chin tuck with liquids, double swallows
3. Oral care 2-3x daily
4. Medications: 1 at a time w/ single sip of liquid and chin tucked OR whole in puree
5. Dysphagia tx at the acute care level for education, instruction in compensations, and to determine if/when oral skills appropriate for solid advancement
--- NOTE | 2024-04-23 13:03 | RESPNOTE ---
induced sputum ordered for patient. scheduled neb given along with 3% saline. patient instructed to expectorate into sputum cup however patient coughed into napkin. patient expectorated about a quarter-sized amount of very thick arteaga sputum. patient
gave good effort with PEP device but unable to produce additional sputum at this time. will re-attempt with next scheduled neb tx. FAMILIA Pagan updated.
--- NOTE | 2024-04-23 13:26 | PN.CDI ---
Addendum entered and electronically signed by Phil Sandy MD 04/23/24 13:34:
_Severe Sepsis due to pneumonia with associated acute hypoxic respiratory failure
Original Note:
CDI
- -
CDI:
Physician Documentation Request
Admit Date: 04/21/24 00:44
Dear Doctor Vika,
Please review the following and provide your response in the progress notes.
Clinical Indicators:
- Patient admit for acute hypoxic respiratory failure due to pneumonia
- 04/20 admission: Tmax 104.5, HR 90-100s, RR 20s
- 500ml IVF bolus
- IV abx ceftriaxone, doxycycline, Vancocin, Zosyn given
Please clarify which of the following most accurately describes the status of the patient's infection:
Severe Sepsis due to pneumonia with associated acute hypoxic respiratory failure
- Systemic manifestations of infection, with 2 or more SIRS criteria which include:
- Fever >100.4 degrees F or hypothermia < 96.8 degrees F
- Leukocytosis - WBC > 12,000 or leukopenia - WBC < 4,000 or > 10% bands
- Tachycardia > 90 beats per minute
- Tachypnea - RR > 20 breaths per minute or PaCO2 , 32mmHg
Source: Merck Manual 2012
Pneumonia Only, Without Systemic Illness
- indicate the site/source, such as UTI, pneumonia etc.
Other (please specify)
Use of terms such as suspected, likely, concern for, or probable (associated with a specific diagnosis that is being evaluated, monitored, or treated as if it exists) are acceptable and can be coded in the inpatient setting, when documented at the
time of discharge.
Thank you,
Antoine Abdalla RN
CDI Specialist
Please use your independent medical judgment in providing your response.
[2024-04-23] MEDS: SINEMET 25-100 1 TABLET PO ×3 (15:00→20:00)
--- NOTE | 2024-04-23 15:52 | CM ---
CM reviewed chart
Referral to [facility] pending and is 1st choice for pt and family
TT/Dr Sandy requesting PMR consult
Backup SNF referrals sent previously
Awaiting outcome PMR eval
Will need auth for either acute rehab or SNF
Discharge Disposition- [facility] vs SNF pending PMR/auth
[2024-04-23] MEDS: LOVENOX 40 MG SC (17:09)
[2024-04-23] MEDS: NSS (PRESERVATIVE FREE) 0.25 ML IV (20:41)
[2024-04-23] MEDS: ATIVAN 0.5 MG IV (20:41)
--- NOTE | 2024-04-23 21:11 | PTCARENOTE ---
Received pt at change of shift. pt was calm but confused. Able to take all 20:00 medications ordered. at 20:30 pt became increasingly agitated and confused saying 'I need to get out of here and go to bed'. Unable to reorient pt. He then became
aggressive. Notified RADIOLOGY ADMINISTRATOR. 4 pt soft limb restraints ordered and IV Ativan ordered and administered (see MAR). Medsitter in place, bed alarm active.
[2024-04-23] MEDS: ATIVAN PO (22:02)
[2024-04-23] MEDS: SINEMET 25-100 PO (22:02)
[2024-04-23] MEDS: NON-FORMULARY ITEM PO (23:31)
[2024-04-24] VITALS (12 sets, daily range): BP systolic 109–198; BP diastolic 81–121; BMI 23.6
--- NOTE | 2024-04-24 02:21 | DOWNTIME ---
There was a [employer] Downtime on 04/24/2024 from 0100 to 04/24/2023 at 0205 . Downtime documentation of patient's care, including medication administrations, has been reconciled in the electronic record per guidelines. Refer to the
patient's paper chart under the miscellaneous tab to see printed paper medication records and downtime forms.
[2024-04-24] MEDS: NON-FORMULARY ITEM PO ×2 (03:54→11:15)
--- NOTE | 2024-04-24 06:45 | W.PN.HOSP.TC ---
Addendum entered and electronically signed by Phil Sandy MD 04/24/24 16:01:
Addendum
Talked to on phone
Updated her about status of the patient
Requested to re-visit code status with family since he remains sick. No urgent cardiac issues at present.
Patient seems to unfortunately suffering from slow decline in physical and cognitive conditions in recent history.
We are possibly looking into comfort measures if no improvement. Will continue with supportive measure, antibiotics, aspiration precautions.
Avoid IV Ativan, try to use low dose Risperdal to help with nighttime hallucinations/agitation.
End
Original Note:
Today's Communication/Plan
-
Worsening mental status, Low dose Risperdal
Fever but axillary measurement
Assessment / Plan
Assessment / Plan
PE:
Gen-AAOx3, NAD
HEENT-NC, AT, anicteric, clear oral mm
Neck-supple
CV-reg, no M, +S1/S2
Lungs-less rales, no wheezes, but wheezes heard externally
Abd-soft, NT, ND
Musculoskeletal-no edema, decreased muscle bulk throughout
Skin-warm and dry
Neuro-gross tremors, awake, alert, answered questions appropriately
Psych-calm, cooperative
Mr. Marshall is a 73 y.o with a medical history of Parkinson disease, ambulatory dysfunction, incarcerated inguinal hernia (status post repair), and early onset dementia presents to ED with sudden severe dyspnea without cough. Found to have fever
to 104 here and a RLL infiltrate on xray c/w PNA. Hypoxic requiring BIPAP. No h/o asthma/copd/ILD or CHF. Had elevated BNP to 2500. No overt signs of CHF. COVID negative. Influenza negative.
Community-acquired pneumonia:
Febrile again today 04/24 but axillary
Acute hypoxic respiratory failure with distress and high flow O2,
-Started on ceftriaxone and azithromycin
-Legionella urinary antigen negative and so we will discontinue azithromycin, continue antibiotic treatment for planned 7-day course
-Currently breathing comfortable on nasal cannula, titrate supplemental oxygen as needed
-Nebulizer treatments as needed
- Blood culture no growth so far
- WBC came down
CT chest showed severe pneumonia in the left lower and upper lobes, mild pneumonia in the right upper and lower lobes. Moderate size right pleural effusion and small left pleural effusion, no pulmonary embolism.
-Further recommendations from pulmonology and ID are appreciated
# Toxic metabolic encephalopathy
Underlying Parkinson disease
He is worse today, was given Ativan. I think IV Ativan makes it worse, avoid it. I'll do small dose Risperdal
Stopped MSAS protocol, no alcohol intake
c/w supportive care
c/w to treat PNA
# Dysphagia
d/w speech therapist, will do video swallow
# Incidental finding in CT of 3.1 cm mass exophytic from the posterior cortex of the midpole of the left kidney. For outpatient follow
Chronic pain:
-Lower back, now with pain in left hip after recent fall
-No acute fractures or dislocations noted on imaging
-Continue pain control with home dose of ibuprofen
Parkinson's disease:
-Continue home Sinemet
-PT/OT eval pending
CODE STATUS: Full
Total time spent to see the patient, examine the patient, review data and lab results, discuss treatment plan with patient and nursing staff around 55 minutes
Anticipated Discharge: > 48 hours
Subjective/Interval History
-
Date of Service: April 24, 2024
Confused this morning
Objective Data
-
Vital Signs:
Vital Signs
Temp Pulse Resp BP Pulse Ox
98.7 F 82 15 180/105 94
04/24/24 05:17 04/24/24 06:00 04/24/24 06:00 04/24/24 06:00 04/23/24 22:00
I&O
01/20/25 01/21/25 01/22/25
06:59 06:59 06:59
Intake Total 1250 / 1250 960 / 960 480 / 480
Output Total 250 / 250 500 / 500
Balance 1000 / 1000 460 / 460 480 / 480
[2024-04-24] MEDS: DUONEB 3 ML INH ×3 (08:14→20:07)
[2024-04-24] MEDS: NON-FORMULARY ITEM 4 CAP PO ×2 (08:21→22:56)
[2024-04-24] MEDS: VITAMIN B1 100 MG PO (08:23)
[2024-04-24] MEDS: CYMBALTA DELAYED RELEASE 30 MG PO ×2 (08:23→21:09)
[2024-04-24] MEDS: TYLENOL 650 MG PO (08:23)
[2024-04-24] MEDS: VIBRAMYCIN 100 MG PO ×2 (08:23→21:08)
[2024-04-24] MEDS: NON-FORMULARY ITEM 75 MG PO (08:23)
[2024-04-24] MEDS: PROSCAR 5 MG PO (08:23)
[2024-04-24] MEDS: RISPERDAL 0.25 MG PO ×2 (08:23→17:44)
--- NOTE | 2024-04-24 08:42 | W.PN.PUL3 ---
Today's Communication / Plan
-
Remains on O2, seems to wax and wane more, confusion on/off
Aspiration risk still remains high given confusion, resp status--speech following
Continue airway clearance measures but this has limitations
He declined to discuss GOC/code status with me today, discussed with care team
Assessment
-
73-year-old male non-smoker with a past medical history of bladder cancer, parathyroid cyst s/p excision, Parkinson's disease who presents with shortness of breath/wheezing for few days, worsened day [employer]. 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 Spouse says
that he has been having occasional ankle edema in the past due to immobilization but never diagnosed with heart failure. In the ER, was found to be in severe respiratory distress requiring BiPAP. Initially in the ER he had low-grade fever to 100.1
�F, pulse rate 110, respiratory rate 25, BP 150/101 and saturating 97% on room air. Labs showed Hb 11.5, proBNP 2520, and COVID antigen negative. CXR showed bibasilar pneumonia, mainly in the right lower lobe. In the ER he was given crystalloids
with 500 cc bolus of NS 0.9%, ceftriaxone/Zithromax, DuoNebs and Tylenol. Shortly thereafter he was given 40 mg IV Lasix. He was admitted to the IMU and pulmonary service consulted for additional management/recommendations.
Impression:
#Bibasilar pneumonia (mainly in right lower lobe) with right parapneumonic effusion/chronic aspiration suspected
#Acute respiratory failure with hypoxia due to above now on midflow nasal cannula at 10L/min
#Leukocytosis
#Chronic anemia
#Elevated proBNP (2520)
#Incomplete RBBB
Sinus tachycardia
TME likely from hypoxemia
Possible Renal mass vs cyst 3.1cm
Chronic conditions [employer]:
Left ear otalgia
Bladder cancer
Parkinson disease
Parathyroidism
Plan:
Currently 94% on 5L NC--weaned from 12L
He has no prior history of known O2 use at home
Maintain SpO2 >90-94% with supplemental O2 and wean down as tolerated
Continue DuoNeb QID with prn DuoNebs
He will need pulse oximetry prior to discharge
Presumed PNA based on imaging
Continue with antibiotics, currently on IV vancomycin + Zosyn
Follow-up blood culture collected (collected 04/20/2024)--NTD
MRSA neg
Urine Ag for Legionella and strep Ag negative
Check sputum culture if he can produce a decent sample--reviewed w/RT performing induced culture
He will need repeat imaging with CXR in about 4-6 weeks to follow-up pneumonia to resolution
Will add aggressive airway clearance measures but not sure if patient can perform--continue/reviewed per RT
Bronch would be helpful only when completed, he has high risk for recurrence/confusion noted--would also worsen with anesthesia
High risk for vent failure/collapse with NMD
Speech therapy for eval for aspiration--he notes he occasionally has cough/choking with food
High risk given underlying NMD
VSE reviewed, speech following, still remains high risk
Aspiration precautions
Given hypoxemia degree despite minimal findings on imaging with ST history on arrival--will order CTA
BNP is elevated, 2520 w/ small effusion on R
CTA neg for PE, but showing extensive bilateral infiltrates, this is likely chronic/progressive
ECHO reviewed/normal biV function
Renal mass vs cyst noted on CT--needs outpatient PET followup
prn nebulized bronchodilators - not currently bronchospastic
Incentive spirometer encouraged q1hr while awake
VBG 7.43/36/66/23.9/94%--no evidence of hypoventilation
Continue patient's Parkinson's disease meds with Rytary + Sinemet
Replete electrolytes with K>4, Mg>2
Maintain euglycemia with goal BG >100 and <180
DVT ppx: LMWH
Pulmonary service will continue to follow along.
Overall his prognosis seems poor given his underlying NMD, poor airway clearance/aspiration issues
GOC would be appropriate in this patient--I asked him today and he did not want to talk about, he does not have advanced directives
Data:
CXR 04/20/2024: Bibasilar pneumonia. Small right pleural effusion.
CT chest 04/22/24- 1. SEVERE PNEUMONIA in the LEFT LOWER and UPPER LOBES.
2. Mild pneumonia in the right upper and lower lobes.
3. MODERATE-SIZED RIGHT and SMALL LEFT PLEURAL EFFUSIONS.
4. Mild mediastinal and bilateral hilar lymphadenopathy.
5. Severe calcific atherosclerotic plaque in the coronary arteries.
6. Mild cardiomegaly.
7. 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
8. 3.1 cm mass exophytic from the posterior cortex of the midpole of the left kidney. Diagnostic possibilities are (1) a complex left renal cyst or (2) a cystic left renal cell carcinoma.
ECHO 04/22/24- Normal biventricular size and systolic function without regional wall motion abnormality. Mild to moderate tricuspid regurgitation. Moderate pulmonary hypertension. No prior study available for comparison.
-----
Total time spent today was 51 minutes for this encounter. Time includes reviewing laboratory test/imaging results, reviewing pertinent medical records, obtaining and reviewing medical history, performing an appropriate exam, ordering medications,
tests and procedures. Time also includes documentation of this encounter, coordinating patient care and communicating with other healthcare professionals. Total time does not include separately billed tests performed on this date of service.
Subjective Data
-
Date of Service:
Date of Service: April 24, 2024
Chief Complaint: Pulmonary Follow Up
Subjective:
Seems more confused but able to answer at times
Remains on 5L NC
Cough is at times productive
No new complaints
Objective Data
Data Reviewed
Vital Signs / I&O / Oxygen:
Vital Signs
Temp Pulse Resp BP Pulse Ox
101.7 F H 80 16 180/105 95
04/24/24 07:55 04/24/24 08:17 04/24/24 08:17 04/24/24 06:00 04/24/24 08:17
Intake and Output
04/23/24 04/24/24 04/25/24
06:59 06:59 06:59
Intake Total 960 / 960 480 / 480
Output Total 500 / 500
Balance 460 / 460 480 / 480
SaO2 95
Nasal Cannula flow liters per 5
minute
Physical Exam
General: Comfortable and Other (NAD)
HEENT: Normocephalic, Anicteric, Moist Mucous Membranes and Other (poor dentition)
Cardiovascular: S1-S2 and Regular Rhythm
Respiratory: Crackles and Non-Labored Respirations
GI: Soft, Non Distended and Non Tender
Neurology: Awake, Alert, No Motor Deficits and Other (generalized weakness noted, at times answers but appears confused)
Skin: Warm, Dry and Good Color
Labs/Micro/Reports
Lab Data
04/22/24 04:53
04/22/24 04:53
Microbiology
04/20/24 23:56 Blood/Venous Blood Culture - Preliminary
No Growth in 4 days- Final report to follow
04/22/24 02:34 Nose Nasal Screen MRSA (PCR) - Final
MRSA not detected - performed by PCR methodology.
04/21/24 15:32 Urine Streptococcus pneumoniae Antigen (M - Final
Negative for Streptococcus pneumoniae antigen.
A negative result does not exclude infection with
Streptococcus pneumoniae. Clinical correlation is
recommended.
04/21/24 02:14 Urine Legionella Urinary Antigen - Final
Negative for Legionella pneumophila Serogroup 1 antigen.
A negative result does not rule out the possiblity of
Legionella infection due to other serogroups or species of
Legionella. Clinical correlation is recommended.
--- NOTE | 2024-04-24 10:10 | PTOTSP ---
Dysphagia Therapy
Impression: Patient with mild-moderate oral, mild pharyngeal dysphagia on videofluoroscopic swallow study 04/23/2024. Patient presently unable to follow compensatory swallowing strategies due to acute change in mental status, possibly medication
related.
Recommendation:
1. DOWNGRADE to IDDSI Level 5 Soft and Bite Sized, IDDSI Level 2 MILDLY thick Liquids
2. Strategies: upright to 90 degrees, PO only when awake/alert/calm, full supervision/assistance, small single sips/bites, double swallows
3. Oral care 2-3x daily
4. Medications: crushed in puree if medically cleared
5. Hold aspiration risk hydration protocol due to AMS
6. Dysphagia tx at the acute care level for education, instruction in compensations (i.e., chin tuck with single sips of thin liquids), and to determine if/when oral skills appropriate for solid advancement
[2024-04-24] MEDS: FLAGYL 500 MG PO ×2 (10:45→21:09)
[2024-04-24] MEDS: ROCEPHIN 2000 MG IV (10:46)
[2024-04-24] MEDS: STERILE WATER FOR INJECTION 20 ML IV (10:47)
--- NOTE | 2024-04-24 11:15 | PTCARENOTE ---
Attempted to give afternoon medications and feed patient. Patient stated 'I'm not taking any more of your pills.' Attempt at re-orienting patient unsuccessful. Pt states that he is in [facility] [place] but when RN tells him he is in the hospital
he states 'no I'm not.' Attempted to feed patient. He smacked the spoon out of RN's hand, stating 'I told you I don't want any.' Pt has been cooperative with care and turning. Pt remains in restraints for safety. Pt has stated 'I'm getting out of
here' and has attempted to get OOB. Assessment, care and VS as charted.
--- NOTE | 2024-04-24 13:30 | W.PN.ID1 ---
Date of Service
Date of Service: April 24, 2024
Today's Communication
Add po metronidazole to ceftriaxone/doxy.
Assessment / Plan
# Aspiration pneumonia
# Acute hypoxemic respiratory failure
# fevers recurred today
# leukocytosis resolved
# Parkinson's
- COVID/Flu neg
- Urine legionella and Strep Pneumo Ag negative
- blood cx' neg to date
- repeat bx's
-add metronidazole 500mg po bid
- Continue ceftriaxone 2g IV q24 and po doxycycline 100mg bid (d3)
- if fever persists, check CXR.
-Follow temps oxygen status.
# Incidental finding of 3.1 cm exophytic mass left kidney
- hx treated bladder ca
-need to followy-up with Urology
# Conditions prior to admission
Parkinson's disease
Anxiety
BPH
hx bladder cancer, treated
Ambulatory dysfunction
Bilateral TKR
right middle finger osteo s/p amp
parathyroidectomy
Spinal fusion/decompression
Right inguinal hernia repair (08/2021)
Chief Complaint
-: Fever and Pneumonia
Vital Signs / Physical Exam
Vital Signs
Vital Signs
Temp Pulse Resp BP Pulse Ox
101.7 F H 75 16 174/116 93
04/24/24 07:55 04/24/24 12:00 04/24/24 12:00 04/24/24 12:00 04/24/24 12:28
Physical Exam
Constitutional: Chronically Ill
Eyes: Sclera Anicteric
Cardiovascular: Regular Rate and S1/S2
Pulmonary: Rales (ledt crackles)
Gastrointestinal: Soft, Non Tender and Non Distended
Psychological: Confused
Objective Data
Lab Data
Lab Results
04/22/24 04:53
04/22/24 04:53
Estimated Creat Clear 81 ml/min 04/22/24 04:53
Lactic Acid 0.8 mmol/L (0.7-2.0) 04/20/24 21:58
Total Bilirubin 0.8 mg/dl (0.2-1.3) 04/20/24 21:58
AST 37 U/L (17-59) 04/20/24 21:58
ALT < 10 U/L (0-50) 04/20/24 21:58
Alkaline Phosphatase 83 U/L (38-126) 04/20/24 21:58
Most recent labs reviewed.
Micro Results:
04/24/24 12:30 Blood Culture - Pending
Blood/Venous
04/24/24 11:26 Blood Culture - Pending
Blood/Venous
04/20/24 23:56 Blood Culture - Preliminary
Blood/Venous No Growth in 4 days- Final report to follow
04/22/24 02:34 Nasal Screen MRSA (PCR) - Final
Nose MRSA not detected - performed by PCR methodology.
04/21/24 15:32 Streptococcus pneumoniae Antigen (M - Final
Urine Negative for Streptococcus pneumoniae antigen.
A negative result does not exclude infection with
Streptococcus pneumoniae. Clinical correlation is
recommended.
04/21/24 02:14 Legionella Urinary Antigen - Final
Urine Negative for Legionella pneumophila Serogroup 1 antigen.
A negative result does not rule out the possiblity of
Legionella infection due to other serogroups or species of
Legionella. Clinical correlation is recommended.
04/20/24 21:58 Influenza Types A & B (MOO) - Final
Nasal Swab Negative for Influenza A & B, NAAT
Negative results must be combined with clinical observations
and patient history.
Nucleic Acid Amplification test (NAAT)performed on the
[employer] platform.
04/20/24 CXR: Bibasilar pneumonia. Small right pleural effusion.
04/22/[address]: SEVERE PNEUMONIA in the LEFT LOWER and UPPER LOBES.
2. Mild pneumonia in the right upper and lower lobes.
3. MODERATE-SIZED RIGHT and SMALL LEFT PLEURAL EFFUSIONS.
4. Mild mediastinal and bilateral hilar lymphadenopathy.
5. Severe calcific atherosclerotic plaque in the coronary arteries.
6. Mild cardiomegaly.
7. 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
8. 3.1 cm mass exophytic from the posterior cortex of the midpole of the left kidney. Diagnostic possibilities are (1) a complex left renal cyst or (2) a cystic left renal cell carcinoma.
--- NOTE | 2024-04-24 15:01 | PTCARENOTE ---
Attempted to feed patient, pt stating he does not want any. Patient encouraged to take a drink. Pt refused. Pt refusing oral medication as well.
[2024-04-24] MEDS: SINEMET 25-100 PO ×2 (15:02→17:28)
--- NOTE | 2024-04-24 15:37 | PTCARENOTE ---
was at the bedside and updated about patient's care, including pt's elevated BP's.
[2024-04-24] MEDS: DUONEB INH (15:59)
--- NOTE | 2024-04-24 16:03 | CM ---
CM reviewed chart- ADC>48 hours
PMR consult placed and pending
[facility] is 1st choice
SNF backup referrals placed previously
Pt will require auth
Discharge Disposition- acute vs SNF
[2024-04-24] MEDS: D5/0.9% SODIUM CHLORIDE 1000 IV (16:34)
[2024-04-24] MEDS: APRESOLINE 5 MG IV (16:35)
[2024-04-24] MEDS: LOVENOX 40 MG SC (17:28)
[2024-04-24] MEDS: SINEMET 25-100 1 TABLET PO ×3 (17:30→22:56)
--- NOTE | 2024-04-24 17:51 | PTCARENOTE ---
Patient woken up approx 1730. Pt more alert, oriented x2, disoriented to time. Pt willing to try and eat. Pt ate 100% of dinner, fed by RN. Pt also agreeable to take medications.
[2024-04-24] MEDS: ATIVAN 0.5 MG PO (21:13)
[2024-04-25] VITALS (18 sets, daily range): BP systolic 96–181; BP diastolic 52–126; PULSE 74; O2SAT 94; BMI 23.7
--- NOTE | 2024-04-25 01:18 | PTCARENOTE ---
Received pt from [facility]. Pt AAOx3, forgetful at times, calm, no signs of agitation. Restraints dc @20:00. Medsitter and bed alarm still in place. Hand tremors d/t hx parkinsons. NSR on monitor, good pedal pulses. Occasional moist productive
cough, WHITE. Lungs coarse w scattered rhonchi, SaO2 97% on 5LMF. Pt able to take pills whole with nectar thick water. Continent b/b. Occasional stress incontinence. Uses urinal, difficulty voiding (hx BPH). R middle finger dressing intact.
D5NS@75ml/hr through [facility]. VSS. Call [facility] and belongings within reach. Able to make needs known. Care ongoing.
[2024-04-25] MEDS: APRESOLINE 5 MG IV (02:55)
[2024-04-25] MEDS: NON-FORMULARY ITEM 4 CAP PO (03:39)
[2024-04-25 05:00] LABS: Hematocrit 32.6 % (39.0-52.0); Hemoglobin 10.7 g/dL (13.0-18.0); Mean Corp Hgb Conc. 32.8 g/dL (33.0-37.0); Mean Corpuscular Hgb 28.5 pg (27.0-31.0); Mean Corpuscular Volume 86.9 fL (80.0-94.0); Mean Platelet Volume 9.7 fL (7.4-10.4); Platelet Count 281 10^3/uL (130-400); Red Blood Cell Count 3.75 10^6/uL (4.70-6.10); Red Cell Dist. Width 14.8 % (11.5-14.5); White Blood Cell Count 7.3 10^3/uL (4.8-10.8)
[2024-04-25 05:02] LABS: Blood Urea Nitrogen 14 mg/dl (9-20); Calcium 8.4 mg/dl (8.4-10.2); Carbon Dioxide 30 mmol/L (22-30); Chloride 104 mmol/L (98-107); Estimated Creatinine Clearance 108 ml/min; Glucose 96 mg/dl (70-99); Potassium 3.5 mmol/L (3.5-5.1); Sodium 141 mmol/L (135-145); eGFR > 60.00
[2024-04-25] MEDS: D5/0.9% SODIUM CHLORIDE 1000 IV ×2 (05:41→17:56)
--- NOTE | 2024-04-25 06:31 | W.PN.HOSP.TC ---
Today's Communication/Plan
-
GOD as outline din the note
c/w IV ABx, f/w ID & pulmonary, chest x ray severe PNA
Avoid IV Ativan, use low dose Risperdal.
Assessment / Plan
Assessment / Plan
PE:
Gen-AAOx3, NAD
HEENT-NC, AT, anicteric, clear oral mm
Neck-supple
CV-reg, no M, +S1/S2
Lungs-less rales, no wheezes, but wheezes heard externally
Abd-soft, NT, ND
Musculoskeletal-no edema, decreased muscle bulk throughout
Skin-warm and dry
Neuro-gross tremors, awake, alert, answered questions appropriately
Psych-calm, cooperative
Mr. Marshall is a 73 y.o with a medical history of Parkinson disease, ambulatory dysfunction, incarcerated inguinal hernia (status post repair), and early onset dementia presents to ED with sudden severe dyspnea without cough. Found to have fever
to 104 here and a RLL infiltrate on xray c/w PNA. Hypoxic requiring BIPAP. No h/o asthma/copd/ILD or CHF. Had elevated BNP to 2500. No overt signs of CHF. COVID negative. Influenza negative.
#Goal of care
Talked to on phone 04/24
Updated her about status of the patient
Requested to re-visit code status with family since he remains sick. No urgent cardiac issues at present.
Patient seemed to unfortunately suffering from slow decline in physical and cognitive conditions in recent history.
We are possibly looking into comfort measures if no improvement. Will continue with supportive measure, antibiotics, aspiration precautions.
Avoid IV Ativan, c/w low dose Risperdal to help with nighttime hallucinations/agitation.
#Community-acquired pneumonia:
Acute hypoxic respiratory failure with distress and high flow O2, now on 3-5 liters
Severe sepsis POA
Repeat chest x ray showed B/L PNA
-Started on ceftriaxone and azithromycin, now on Rocephin, Doxy and Flagyl.
-Legionella urinary antigen negative
-Currently breathing comfortable on nasal cannula, titrate supplemental oxygen as needed
-Nebulizer treatments as needed
- Blood culture no growth so far. Repeat culture 04/24
- WBC came down
CT chest showed severe pneumonia in the left lower and upper lobes, mild pneumonia in the right upper and lower lobes. Moderate size right pleural effusion and small left pleural effusion, no pulmonary embolism.
-Further recommendations from pulmonology and ID are appreciated
# Toxic metabolic encephalopathy
Underlying Parkinson disease
No agitation over night. I think IV Ativan makes it worse, avoid it. C/W lowl dose Risperdal
Stopped MSAS protocol, no alcohol intake
c/w supportive care
c/w to treat PNA
d/w , known to have confusion/ hallucinations at home at nighttime.
# Dysphagia
d/w speech therapist, s/p video swallow
c/w modified diet.
# Incidental finding in CT of 3.1 cm mass exophytic from the posterior cortex of the midpole of the left kidney. For outpatient follow
Chronic pain:
-Lower back, now with pain in left hip after recent fall
-No acute fractures or dislocations noted on imaging
-Continue pain control with home dose of ibuprofen
Parkinson's disease:
-Continue home Sinemet
-PT/OT eval pending
CODE STATUS: Full
Total time spent to see the patient, examine the patient, review data and lab results, discuss treatment plan with patient and nursing staff around 55 minutes
Anticipated Discharge: > 48 hours
Subjective/Interval History
-
Date of Service: April 25, 2024
He slept well
No fevers
Objective Data
-
Labs:
Laboratory Results
04/25/24
04:03
WBC 7.3
Hgb 10.7 L
Hct 32.6 L
Plt Count 281 D
Sodium 141
Potassium 3.5
Chloride 104
Carbon Dioxide 30
BUN 14
Creatinine 0.6 L
Glucose 96
Calcium 8.4
Vital Signs:
Vital Signs
Temp Pulse Resp BP Pulse Ox
97.5 F 76 14 168/90 91
04/25/24 03:00 04/25/24 06:06 04/25/24 06:06 04/25/24 06:06 04/25/24 06:06
I&O
04/23/24 04/24/24 04/25/24
06:59 06:59 06:59
Intake Total 960 / 960 480 / 480 1185 / 1185
Output Total 500 / 500 375 / 375
Balance 460 / 460 480 / 480 810 / 810
[2024-04-25] MEDS: DUONEB 3 ML INH ×4 (07:12→20:09)
[2024-04-25] MEDS: FLAGYL 500 MG PO ×2 (08:42→20:44)
[2024-04-25] MEDS: VITAMIN B1 100 MG PO (08:42)
[2024-04-25] MEDS: PROSCAR 5 MG PO (08:42)
[2024-04-25] MEDS: CYMBALTA DELAYED RELEASE 30 MG PO ×2 (08:42→20:44)
[2024-04-25] MEDS: NON-FORMULARY ITEM 1 CAP PO ×2 (08:42→12:05)
[2024-04-25] MEDS: NON-FORMULARY ITEM 1 MG PO (08:45)
[2024-04-25] MEDS: VIBRAMYCIN 100 MG PO ×2 (08:54→20:44)
--- NOTE | 2024-04-25 09:05 | W.PN.PUL3 ---
Today's Communication / Plan
-
Better today, now off O2
Continue airway clearance measures
Repeat CXR in AM
Can downgrade to tele per team
Speech following
PT/OT evals
Assessment
-
73-year-old male non-smoker with a past medical history of bladder cancer, parathyroid cyst s/p excision, Parkinson's disease who presents with shortness of breath/wheezing for few days, worsened day [employer] DEV[employer]. 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 Spouse says
that he has been having occasional ankle edema in the past due to immobilization but never diagnosed with heart failure. In the ER, was found to be in severe respiratory distress requiring BiPAP. Initially in the ER he had low-grade fever to 100.1
�F, pulse rate 110, respiratory rate 25, BP 150/101 and saturating 97% on room air. Labs showed Hb 11.5, proBNP 2520, and COVID antigen negative. CXR showed bibasilar pneumonia, mainly in the right lower lobe. In the ER he was given crystalloids
with 500 cc bolus of NS 0.9%, ceftriaxone/Zithromax, DuoNebs and Tylenol. Shortly thereafter he was given 40 mg IV Lasix. He was admitted to the IMU and pulmonary service consulted for additional management/recommendations.
Impression:
#Bibasilar pneumonia (mainly in right lower lobe) with right parapneumonic effusion/chronic aspiration suspected
#Acute respiratory failure with hypoxia due to above now on midflow nasal cannula at 10L/min
#Leukocytosis
#Chronic anemia
#Elevated proBNP (2520)
#Incomplete RBBB
Sinus tachycardia
TME likely from hypoxemia
Possible Renal mass vs cyst 3.1cm
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
Left ear otalgia
Bladder cancer
Parkinson disease
Parathyroidism
Plan:
Currently on room air, weaned off O2
He has no prior history of known O2 use at home
Maintain SpO2 >90-94% with supplemental O2 and weaned as tolerated
Continue DuoNeb QID with prn DuoNebs
Presumed PNA based on imaging
Repeat CXR yesterday appears worsened
Repeat in AM
Continue with antibiotics, currently on IV vancomycin + Zosyn
Follow-up blood culture collected (collected 04/20/2024)--NTD
MRSA neg
Urine Ag for Legionella and strep Ag negative
Check sputum culture if he can produce a decent sample--reviewed w/RT performing induced culture
He will need repeat imaging with CXR in about 4-6 weeks to follow-up pneumonia to resolution
Will add aggressive airway clearance measures but not sure if patient can perform--continue/reviewed per RT
Bronch would be helpful only when completed, he has high risk for recurrence/confusion noted--would also worsen with anesthesia
High risk for vent failure/collapse with NMD
Speech therapy for eval for aspiration--he notes he occasionally has cough/choking with food
High risk given underlying NMD
VSE reviewed, speech following, still remains high risk
Aspiration precautions
Given hypoxemia degree despite minimal findings on imaging with ST history on arrival--will order CTA
BNP is elevated, 2520 w/ small effusion on R
CTA neg for PE, but showing extensive bilateral infiltrates, this is likely chronic/progressive
ECHO reviewed/normal biV function
Renal mass vs cyst noted on CT--needs outpatient PET followup
prn nebulized bronchodilators - not currently bronchospastic
Incentive spirometer encouraged q1hr while awake
VBG 7.43/36/66/23.9/94%--no evidence of hypoventilation
Continue patient's Parkinson's disease meds with Rytary + Sinemet
Replete electrolytes with K>4, Mg>2
Maintain euglycemia with goal BG >100 and <180
DVT ppx: LMWH
Pulmonary service will continue to follow along.
Overall his prognosis seems poor given his underlying NMD, poor airway clearance/aspiration issues
GOC would be appropriate in this patient--I asked him today and he did not want to talk about, he does not have advanced directives
Data:
CXR 04/20/2024: Bibasilar pneumonia. Small right pleural effusion.
CT chest 04/22/24- 1. SEVERE PNEUMONIA in the LEFT LOWER and UPPER LOBES.
2. Mild pneumonia in the right upper and lower lobes.
3. MODERATE-SIZED RIGHT and SMALL LEFT PLEURAL EFFUSIONS.
4. Mild mediastinal and bilateral hilar lymphadenopathy.
5. Severe calcific atherosclerotic plaque in the coronary arteries.
6. Mild cardiomegaly.
7. 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
8. 3.1 cm mass exophytic from the posterior cortex of the midpole of the left kidney. Diagnostic possibilities are (1) a complex left renal cyst or (2) a cystic left renal cell carcinoma.
ECHO 04/22/24- Normal biventricular size and systolic function without regional wall motion abnormality. Mild to moderate tricuspid regurgitation. Moderate pulmonary hypertension. No prior study available for comparison.
-----
Total time spent today was 51 minutes for this encounter. Time includes reviewing laboratory test/imaging results, reviewing pertinent medical records, obtaining and reviewing medical history, performing an appropriate exam, ordering medications,
tests and procedures. Time also includes documentation of this encounter, coordinating patient care and communicating with other healthcare professionals. Total time does not include separately billed tests performed on this date of service.
Subjective Data
-
Date of Service:
Date of Service: April 25, 2024
Chief Complaint: Pulmonary Follow Up
Subjective:
Better this AM, now off O2
Sitting in chair
Objective Data
Data Reviewed
Vital Signs / I&O / Oxygen:
Vital Signs
Temp Pulse Resp BP Pulse Ox
97.5 F 75 16 168/90 94
04/25/24 03:00 04/25/24 07:13 04/25/24 07:13 04/25/24 06:06 04/25/24 07:13
Intake and Output
04/24/24 04/25/24 04/26/24
06:59 06:59 06:59
Intake Total 480 / 480 1185 / 1185
Output Total 375 / 375 100 / 100
Balance 480 / 480 810 / 810 -100 / -100
SaO2 94
Nasal Cannula flow liters per 4
minute
Physical Exam
General: Comfortable and Other (NAD)
HEENT: Normocephalic, Anicteric, Moist Mucous Membranes and Other (poor dentition)
Cardiovascular: S1-S2 and Regular Rhythm
Respiratory: Crackles and Non-Labored Respirations
GI: Soft, Non Distended and Non Tender
Neurology: Awake, Alert, No Motor Deficits and Other (generalized weakness noted, at times answers but appears confused)
Skin: Warm, Dry and Good Color
Labs/Micro/Reports
Lab Data
04/25/24 04:03
04/25/24 04:03
Microbiology
04/20/24 23:56 Blood/Venous Blood Culture - Final
No Growth - Final Report
04/22/24 02:34 Nose Nasal Screen MRSA (PCR) - Final
MRSA not detected - performed by PCR methodology.
04/21/24 15:32 Urine Streptococcus pneumoniae Antigen (M - Final
Negative for Streptococcus pneumoniae antigen.
A negative result does not exclude infection with
Streptococcus pneumoniae. Clinical correlation is
recommended.
--- NOTE | 2024-04-25 09:09 | PTCARENOTE ---
Pt AAOx3 on 4 liters mid flow. Pleasant and cooperative.
[2024-04-25] MEDS: MOTRIN 600 MG PO (09:45)
[2024-04-25] MEDS: ROCEPHIN 2000 MG IV (09:46)
[2024-04-25] MEDS: STERILE WATER FOR INJECTION 20 ML IV (09:47)
--- NOTE | 2024-04-25 11:17 | W.PN.ID1 ---
Date of Service
Date of Service: April 25, 2024
Today's Communication
Continue current antibiotics.
Assessment / Plan
# Aspiration pneumonia
# Acute hypoxemic respiratory failure
# fevers resolving
# leukocytosis resolved
# Parkinson's
- COVID/Flu neg
- Urine legionella and Strep Pneumo Ag negative
- blood cx' neg to date
- repeat bx's
- Continue metronidazole 500mg po bid (d2)
- Continue ceftriaxone 2g IV q24 and po doxycycline 100mg bid (d4)
-Follow temps, oxygen status.
# Incidental finding of 3.1 cm exophytic mass left kidney
- hx treated bladder ca
-need to followy-up with Urology
# Conditions prior to admission
Parkinson's disease
Anxiety
BPH
hx bladder cancer, treated
Ambulatory dysfunction
Bilateral TKR
right middle finger osteo s/p amp
parathyroidectomy
Spinal fusion/decompression
Right inguinal hernia repair (08/2021)
Chief Complaint
-: Fever and Pneumonia
Subjective / Review of Systems
Has difficulty coughing up phlegm.
Vital Signs / Physical Exam
Vital Signs
Vital Signs
Temp Pulse Resp BP Pulse Ox
98.3 F 78 16 148/90 95
04/25/24 07:38 04/25/24 11:16 04/25/24 11:16 04/25/24 09:34 04/25/24 11:16
Physical Exam
Constitutional: Comfortable and Non-toxic
Cardiovascular: Regular Rate and S1/S2
Pulmonary: Rales (crackles L) and Other
Gastrointestinal: Soft, Non Tender, Non Distended and Normal Bowel Sounds
Neurological: AO x 3
Objective Data
Lab Data
Lab Results
04/25/24 04:03
04/25/24 04:03
Estimated Creat Clear 108 ml/min 04/25/24 04:03
Lactic Acid 0.8 mmol/L (0.7-2.0) 04/20/24 21:58
Total Bilirubin 0.8 mg/dl (0.2-1.3) 04/20/24 21:58
AST 37 U/L (17-59) 04/20/24 21:58
ALT < 10 U/L (0-50) 04/20/24 21:58
Alkaline Phosphatase 83 U/L (38-126) 04/20/24 21:58
Most recent labs reviewed.
Micro Results:
04/20/24 23:56 Blood Culture - Final
Blood/Venous No Growth - Final Report
04/24/24 12:30 Blood Culture - Pending
Blood/Venous
04/24/24 11:26 Blood Culture - Pending
Blood/Venous
04/22/24 02:34 Nasal Screen MRSA (PCR) - Final
Nose MRSA not detected - performed by PCR methodology.
04/21/24 15:32 Streptococcus pneumoniae Antigen (M - Final
Urine Negative for Streptococcus pneumoniae antigen.
A negative result does not exclude infection with
Streptococcus pneumoniae. Clinical correlation is
recommended.
04/21/24 02:14 Legionella Urinary Antigen - Final
Urine Negative for Legionella pneumophila Serogroup 1 antigen.
A negative result does not rule out the possiblity of
Legionella infection due to other serogroups or species of
Legionella. Clinical correlation is recommended.
04/20/24 21:58 Influenza Types A & B (MOO) - Final
Nasal Swab Negative for Influenza A & B, NAAT
Negative results must be combined with clinical observations
and patient history.
Nucleic Acid Amplification test (NAAT)performed on the
[employer] platform.
04/20/24 CXR: Bibasilar pneumonia. Small right pleural effusion.
04/22/[address]: SEVERE PNEUMONIA in the LEFT LOWER and UPPER LOBES.
2. Mild pneumonia in the right upper and lower lobes.
3. MODERATE-SIZED RIGHT and SMALL LEFT PLEURAL EFFUSIONS.
4. Mild mediastinal and bilateral hilar lymphadenopathy.
5. Severe calcific atherosclerotic plaque in the coronary arteries.
6. Mild cardiomegaly.
7. 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
8. 3.1 cm mass exophytic from the posterior cortex of the midpole of the left kidney. Diagnostic possibilities are (1) a complex left renal cyst or (2) a cystic left renal cell carcinoma.
[2024-04-25] MEDS: MUCINEX 1200 MG PO ×2 (12:21→20:44)
--- NOTE | 2024-04-25 12:55 | CM ---
CM spoke with [facility] liaison, no beds currently and plan is for [facility] pending SNF options. CM will continue to follow for discharge planning needs.
Plan; SNF vs Acute Rehab
[2024-04-25] MEDS: SINEMET 25-100 1 TABLET PO ×4 (14:46→22:53)
--- NOTE | 2024-04-25 15:05 | PTOTSP ---
Dysphagia Therapy
See patient care note for details of tx this date. Added aspiration risk hydration protocol to allow single sips of water with the following criteria:
1. Full supervision
2. Only after oral care
3. Cue for single sip with chin tucked
[2024-04-25] MEDS: RISPERDAL 0.25 MG PO (17:52)
[2024-04-25] MEDS: LOVENOX 40 MG SC (17:53)
[2024-04-25] MEDS: ATIVAN 0.5 MG PO (22:53)
[2024-04-25] MEDS: NON-FORMULARY ITEM 3 CAP PO (22:54)
[2024-04-26] VITALS (16 sets, daily range): BP systolic 139–199; BP diastolic 76–151; PULSE 77; BMI 24.4
--- NOTE | 2024-04-26 01:45 | PTCARENOTE ---
4 capsules of pt home med Rytary (extended release carbidopa-levodopa) due at 23:00. Upon opening the bottle, only 3 capsules were left. 3 capsules given, pt instructed to have bring in another bottle. Will pass along in report to dayshift to
call as well. LOSS PREVENTION GUARD notified that patient only received 3 out of 4 capsules at 23:00 and that he will miss his 03:00 dose.
[2024-04-26] MEDS: NON-FORMULARY ITEM PO ×4 (02:06→22:15)
[2024-04-26] MEDS: APRESOLINE 5 MG IV ×3 (02:06→23:14)
--- NOTE | 2024-04-26 06:33 | W.PN.HOSP.TC ---
Today's Communication/Plan
-
Transfer to the floor
Stop IVF
Will need SNF
c/w antibiotics
c/w nighttime Risperdal and PRN
Assessment / Plan
Assessment / Plan
PE:
Gen-AAOx3, NAD
HEENT-NC, AT, anicteric, clear oral mm
Neck-supple
CV-reg, no M, +S1/S2
Lungs-less rales, no wheezes, but wheezes heard externally
Abd-soft, NT, ND
Musculoskeletal-no edema, decreased muscle bulk throughout
Skin-warm and dry
Neuro-gross : less tremors, awake, alert to surroundings, answered questions appropriately
Psych-calm, cooperative
Mr. Marshall is a 73 y.o with a medical history of Parkinson disease, ambulatory dysfunction, incarcerated inguinal hernia (status post repair), and early onset dementia presents to ED with sudden severe dyspnea without cough. Found to have fever
to 104 here and a RLL infiltrate on xray c/w PNA. Hypoxic requiring BIPAP. No h/o asthma/copd/ILD or CHF. Had elevated BNP to 2500. No overt signs of CHF. COVID negative. Influenza negative.
#Goal of care
Talked to on phone 04/24
Updated her about status of the patient
Requested to re-visit code status with family since he remains sick. No urgent cardiac issues at present.
Patient seemed to unfortunately suffering from slow decline in physical and cognitive conditions in recent history.
We are possibly looking into comfort measures if no improvement. Will continue with supportive measure, antibiotics, aspiration precautions.
Avoid IV Ativan, c/w low dose Risperdal to help with nighttime hallucinations/agitation.
#Community-acquired pneumonia:
Acute hypoxic respiratory failure with distress and high flow O2, now on 3-5 liters
Severe sepsis POA
Repeat chest x ray showed B/L PNA . repeat chest x ray today
-Started on ceftriaxone and azithromycin, now on Rocephin, Doxy and Flagyl.
-Legionella urinary antigen negative
-Currently breathing comfortable on nasal cannula, titrate supplemental oxygen as needed
-Nebulizer treatments as needed
- Blood culture no growth so far. Repeat culture 04/24 negative
- WBC came down
CT chest showed severe pneumonia in the left lower and upper lobes, mild pneumonia in the right upper and lower lobes. Moderate size right pleural effusion and small left pleural effusion, no pulmonary embolism.
-Further recommendations from pulmonology and ID are appreciated
# Toxic metabolic encephalopathy
Underlying Parkinson disease
No agitation over night. I think IV Ativan makes it worse, avoid it. C/W lowl dose Risperdal
Stopped MSAS protocol, no alcohol intake
c/w supportive care
c/w to treat PNA
d/w , known to have confusion/ hallucinations at home at nighttime.
# Dysphagia
d/w speech therapist, s/p video swallow
c/w modified diet.
# Incidental finding in CT of 3.1 cm mass exophytic from the posterior cortex of the midpole of the left kidney. For outpatient follow
Chronic pain:
-Lower back, now with pain in left hip after recent fall
-No acute fractures or dislocations noted on imaging
-Continue pain control with home dose of ibuprofen
Parkinson's disease:
-Continue home Sinemet
-PT/OT eval pending
CODE STATUS: Full
Total time spent to see the patient, examine the patient, review data and lab results, discuss treatment plan with patient, wifeand nursing staff around 57 minutes
Anticipated Discharge: 24 - 48 hours
Subjective/Interval History
-
Date of Service: April 26, 2024
Did well over night
Slept well
Objective Data
-
Vital Signs:
Vital Signs
Temp Pulse Resp BP Pulse Ox
98.5 F 74 16 191/98 98
04/26/24 03:33 04/26/24 06:20 04/26/24 04:00 04/26/24 06:20 04/26/24 04:00
I&O
04/24/24 04/25/24 04/26/24
06:59 06:59 06:59
Intake Total 480 / 480 1185 / 1185 1700 / 1700
Output Total 375 / 375 500 / 500
Balance 480 / 480 810 / 810 1200 / 1200
[2024-04-26] MEDS: VIBRAMYCIN 100 MG PO ×2 (07:52→19:32)
[2024-04-26] MEDS: CYMBALTA DELAYED RELEASE 30 MG PO ×2 (07:52→19:32)
[2024-04-26] MEDS: FLAGYL 500 MG PO (07:54)
[2024-04-26] MEDS: VITAMIN B1 100 MG PO (07:54)
[2024-04-26] MEDS: NORVASC 5 MG PO ×2 (07:54→19:32)
[2024-04-26] MEDS: PROSCAR 5 MG PO (07:54)
[2024-04-26] MEDS: MUCINEX 1200 MG PO ×2 (07:57→19:32)
--- NOTE | 2024-04-26 08:18 | PTCARENOTE ---
Pt AAOx3 , pt Rytary empty attempts to call no answer . Pt for cxr awaiting transport . Pt coughing up mucous. Pt i AAOx3 pleasant and cooperative.,
--- NOTE | 2024-04-26 08:37 | PTCARENOTE ---
Pt to CXr via stretcher
[2024-04-26] MEDS: DUONEB INH ×2 (08:59→15:08)
[2024-04-26] MEDS: NON-FORMULARY ITEM 75 MG PO (09:30)
--- NOTE | 2024-04-26 09:33 | W.PN.PUL3 ---
Today's Communication / Plan
-
Stable on RA, repeat CXR this AM improved
Can repeat imaging as OP to follow resolution
Continue diet medications, speech evals
Abx can be continued for full course, transition to PO course
PT/OT evals for d/c planning
Can also transfer out of IMU
No further recs from our standpoint, we will sign off--please call with questions
Assessment
-
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 Spouse says
that he has been having occasional ankle edema in the past due to immobilization but never diagnosed with heart failure. In the ER, was found to be in severe respiratory distress requiring BiPAP. Initially in the ER he had low-grade fever to 100.1
�F, pulse rate 110, respiratory rate 25, BP 150/101 and saturating 97% on room air. Labs showed Hb 11.5, proBNP 2520, and COVID antigen negative. CXR showed bibasilar pneumonia, mainly in the right lower lobe. In the ER he was given crystalloids
with 500 cc bolus of NS 0.9%, ceftriaxone/Zithromax, DuoNebs and Tylenol. Shortly thereafter he was given 40 mg IV Lasix. He was admitted to the IMU and pulmonary service consulted for additional management/recommendations.
Impression:
#Bibasilar pneumonia (mainly in right lower lobe) with right parapneumonic effusion/chronic aspiration suspected
#Acute respiratory failure with hypoxia due to above now on midflow nasal cannula at 10L/min
#Leukocytosis
#Chronic anemia
#Elevated proBNP (2520)
#Incomplete RBBB
Sinus tachycardia
TME likely from hypoxemia
Possible Renal mass vs cyst 3.1cm
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
Left ear otalgia
Bladder cancer
Parkinson disease
Parathyroidism
Plan:
Currently on room air, weaned off O2 x 24 hours, stable
He has no prior history of known O2 use at home
Maintain SpO2 >90-94% with supplemental O2 and weaned as tolerated
Continue DuoNeb QID with prn DuoNebs
Presumed PNA based on imaging
Repeat CXR 04/24 appears worsened
Repeat 04/26 appear improved
Continue with antibiotics, currently on IV vancomycin + Zosyn
Follow-up blood culture collected (collected 04/20/2024)--NTD
MRSA neg
Urine Ag for Legionella and strep Ag negative
Check sputum culture if he can produce a decent sample--reviewed w/RT performing induced culture
He will need repeat imaging with CXR in about 4-6 weeks to follow-up pneumonia to resolution
Will add aggressive airway clearance measures but not sure if patient can perform--continue/reviewed per RT
Bronch would be helpful only when completed, he has high risk for recurrence/confusion noted--would also worsen with anesthesia
High risk for vent failure/collapse with NMD
Speech therapy for eval for aspiration--he notes he occasionally has cough/choking with food
High risk given underlying NMD
VSE reviewed, speech following, still remains high risk
Aspiration precautions
Given hypoxemia degree despite minimal findings on imaging with ST history on arrival--will order CTA
BNP is elevated, 2520 w/ small effusion on R
CTA neg for PE, but showing extensive bilateral infiltrates, this is likely chronic/progressive
ECHO reviewed/normal biV function
Renal mass vs cyst noted on CT--needs outpatient PET followup
prn nebulized bronchodilators - not currently bronchospastic
Incentive spirometer encouraged q1hr while awake
VBG 7.43/36/66/23.9/94%--no evidence of hypoventilation
Continue patient's Parkinson's disease meds with Rytary + Sinemet
Replete electrolytes with K>4, Mg>2
Maintain euglycemia with goal BG >100 and <180
DVT ppx: LMWH
Overall his prognosis seems poor given his underlying NMD, poor airway clearance/aspiration issues
He states he does not want to live this way with his modified diet recs
GOC would be appropriate in this patient--I asked him today and he did not want to talk about, he does not have advanced directives
Can eval for rehab if needed
Discharge planning per team
Data:
CXR 04/20/2024: Bibasilar pneumonia. Small right pleural effusion.
CT chest 04/22/24- 1. SEVERE PNEUMONIA in the LEFT LOWER and UPPER LOBES.
2. Mild pneumonia in the right upper and lower lobes.
3. MODERATE-SIZED RIGHT and SMALL LEFT PLEURAL EFFUSIONS.
4. Mild mediastinal and bilateral hilar lymphadenopathy.
5. Severe calcific atherosclerotic plaque in the coronary arteries.
6. Mild cardiomegaly.
7. 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
8. 3.1 cm mass exophytic from the posterior cortex of the midpole of the left kidney. Diagnostic possibilities are (1) a complex left renal cyst or (2) a cystic left renal cell carcinoma.
ECHO 04/22/24- Normal biventricular size and systolic function without regional wall motion abnormality. Mild to moderate tricuspid regurgitation. Moderate pulmonary hypertension. No prior study available for comparison.
-----
Total time spent today was 51 minutes for this encounter. Time includes reviewing laboratory test/imaging results, reviewing pertinent medical records, obtaining and reviewing medical history, performing an appropriate exam, ordering medications,
tests and procedures. Time also includes documentation of this encounter, coordinating patient care and communicating with other healthcare professionals. Total time does not include separately billed tests performed on this date of service.
Subjective Data
-
Date of Service:
Date of Service: April 26, 2024
Chief Complaint: Pulmonary Follow Up
Subjective:
No new events, remains stable on RA past 24-48 hours
No new complaints
Sitting in chair
Objective Data
Data Reviewed
Vital Signs / I&O / Oxygen:
Vital Signs
Temp Pulse Resp BP Pulse Ox
98.3 F 81 19 174/98 96
04/26/24 07:53 04/26/24 08:00 04/26/24 08:00 04/26/24 08:00 04/26/24 08:00
Intake and Output
04/25/24 04/26/24 04/27/24
06:59 06:59 06:59
Intake Total 1185 / 1185 1700 / 1700
Output Total 375 / 375 500 / 500
Balance 810 / 810 1200 / 1200
SaO2 96
Nasal Cannula flow liters per 4
minute
Physical Exam
General: Comfortable and Other (NAD)
HEENT: Normocephalic, Anicteric, Moist Mucous Membranes and Other (poor dentition)
Cardiovascular: S1-S2 and Regular Rhythm
Respiratory: Clear and Non-Labored Respirations
GI: Soft, Non Distended and Non Tender
Neurology: Awake, Alert, Oriented and No Motor Deficits
Skin: Warm, Dry and Good Color
Labs/Micro/Reports
Lab Data
04/25/24 04:03
04/25/24 04:03
Microbiology
04/24/24 12:30 Blood/Venous Blood Culture - Preliminary
No Growth in 24 hours- Final report to follow
04/24/24 11:26 Blood/Venous Blood Culture - Preliminary
No Growth in 24 hours- Final report to follow
04/20/24 23:56 Blood/Venous Blood Culture - Final
No Growth - Final Report
--- NOTE | 2024-04-26 09:35 | W.PN.ID1 ---
Date of Service
Date of Service: April 26, 2024
Today's Communication
- transition metronidazole 500mg po bid (d3)/ceftriaxone 2g IV q24 to Augmentin 875mg po bid through 04/28/24.
- last day of doxycycline.
Assessment / Plan
# Aspiration pneumonia
# Acute hypoxemic respiratory failure
# fevers resolved
# leukocytosis resolved
# Parkinson's
- COVID/Flu neg
- Urine legionella and Strep Pneumo Ag negative
- blood cx' neg to date
- repeat bx's
- transition metronidazole 500mg po bid (d3)/ceftriaxone 2g IV q24 to Augmentin 875mg po bid through 04/28/24.
- last day of doxycycline.
# Incidental finding of 3.1 cm exophytic mass left kidney
- hx treated bladder ca
-need to followy-up with Urology
# Conditions prior to admission
Parkinson's disease
Anxiety
BPH
hx bladder cancer, treated
Ambulatory dysfunction
Bilateral TKR
right middle finger osteo s/p amp
parathyroidectomy
Spinal fusion/decompression
Right inguinal hernia repair (08/2021)
Chief Complaint
-: Fever and Pneumonia
Subjective / Review of Systems
No new complaints today. feels better
Vital Signs / Physical Exam
Vital Signs
Vital Signs
Temp Pulse Resp BP Pulse Ox
98.3 F 81 19 174/98 96
04/26/24 07:53 04/26/24 08:00 04/26/24 08:00 04/26/24 08:00 04/26/24 08:00
Physical Exam
Constitutional: Comfortable and Non-toxic
Cardiovascular: Regular Rate and S1/S2
Pulmonary: Rales (crackles L) and Other
Gastrointestinal: Soft, Non Tender, Non Distended and Normal Bowel Sounds
Neurological: AO x 3
Objective Data
Lab Data
Lab Results
04/25/24 04:03
04/25/24 04:03
Estimated Creat Clear 108 ml/min 04/25/24 04:03
Lactic Acid 0.8 mmol/L (0.7-2.0) 04/20/24 21:58
Total Bilirubin 0.8 mg/dl (0.2-1.3) 04/20/24 21:58
AST 37 U/L (17-59) 04/20/24 21:58
ALT < 10 U/L (0-50) 04/20/24 21:58
Alkaline Phosphatase 83 U/L (38-126) 04/20/24 21:58
Most recent labs reviewed.
Micro Results:
04/24/24 12:30 Blood Culture - Preliminary
Blood/Venous No Growth in 24 hours- Final report to follow
04/24/24 11:26 Blood Culture - Preliminary
Blood/Venous No Growth in 24 hours- Final report to follow
04/20/24 23:56 Blood Culture - Final
Blood/Venous No Growth - Final Report
04/22/24 02:34 Nasal Screen MRSA (PCR) - Final
Nose MRSA not detected - performed by PCR methodology.
04/21/24 15:32 Streptococcus pneumoniae Antigen (M - Final
Urine Negative for Streptococcus pneumoniae antigen.
A negative result does not exclude infection with
Streptococcus pneumoniae. Clinical correlation is
recommended.
04/21/24 02:14 Legionella Urinary Antigen - Final
Urine Negative for Legionella pneumophila Serogroup 1 antigen.
A negative result does not rule out the possiblity of
Legionella infection due to other serogroups or species of
Legionella. Clinical correlation is recommended.
04/20/24 21:58 Influenza Types A & B (MOO) - Final
Nasal Swab Negative for Influenza A & B, NAAT
Negative results must be combined with clinical observations
and patient history.
Nucleic Acid Amplification test (NAAT)performed on the
[employer] platform.
04/20/24 CXR: Bibasilar pneumonia. Small right pleural effusion.
04/22/[address]: SEVERE PNEUMONIA in the LEFT LOWER and UPPER LOBES.
2. Mild pneumonia in the right upper and lower lobes.
3. MODERATE-SIZED RIGHT and SMALL LEFT PLEURAL EFFUSIONS.
4. Mild mediastinal and bilateral hilar lymphadenopathy.
5. Severe calcific atherosclerotic plaque in the coronary arteries.
6. Mild cardiomegaly.
7. 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
8. 3.1 cm mass exophytic from the posterior cortex of the midpole of the left kidney. Diagnostic possibilities are (1) a complex left renal cyst or (2) a cystic left renal cell carcinoma.
[2024-04-26] MEDS: AUGMENTIN 875 MG/125 MG 1 TABLET PO ×2 (10:40→19:32)
[2024-04-26] MEDS: DUONEB 3 ML INH ×2 (11:01→19:21)
--- NOTE | 2024-04-26 11:42 | PTCARENOTE ---
Pt for tx to 1141 -2 report to [facility] . Attempts to call re Zhanna unsuccessful.
--- NOTE | 2024-04-26 11:57 | CM ---
Patient is for transfer to [facility] and patient pending [facility] acceptance and bed availability. CM will continue to follow for discharge planning needs.
Plan; rehab when medically appropriate and pending bed will need auth
[2024-04-26] MEDS: MOTRIN 600 MG PO (12:25)
--- NOTE | 2024-04-26 12:30 | PTCARENOTE ---
[facility] number [phone]
--- NOTE | 2024-04-26 12:37 | PTCARENOTE ---
pt to [phone]
--- NOTE | 2024-04-26 13:25 | PTCARENOTE ---
pt refusing to get out of stretcher into room. pt becoming argumentative. nursing price accuracy supervisor at bedside. spouse notified and on her way into hospital. pt able to be transferred into room on hospital bed. pt remains argumentative. pt refusing
medications. bed alarm intact. will monitor.
--- NOTE | 2024-04-26 14:56 | PN.CDI ---
Addendum entered and electronically signed by Phil Sandy MD 04/27/24 06:28:
Aspiration Pneumonia
Original Note:
CDI
- -
CDI:
Physician Documentation Request
Admit Date: 04/21/24 00:44
Dear Doctor Vika,
Please review the following and provide your response in the progress notes.
Clinical Indicators:
- 04/26 PN 'Community-acquired pneumonia'
- 04/26 ID 'Aspiration pneumonia'
- 04/26 Pulmonary 'Bibasilar pneumonia...chronic aspiration suspected'
- IV abx augmentin, ceftriaxone, azithromycin, doxycycline, Zosyn, vancomycin
In an attempt to clarify potentially conflicting documentation, please clarify the type of pneumonia:
Aspiration Pneumonia
Staph Pneumonia - indicate if MRSA or MSSA
Strep Pneumonia - indicate if strep B, strep pneumoniae or other type
Gram negative Pneumonia - indicate if Pseudomonas, Klebsiella or other
Viral Pneumonia - indicate parainfluenza, RSV, adenovirus, influenza (indicate type) etc.
Other organism - specify known or suspected type
Use of terms such as suspected, likely, concern for, or probable (associated with a specific diagnosis that is being evaluated, monitored, or treated as if it exists) are acceptable and can be coded in the inpatient setting, when documented at the
time of discharge.
Thank you,
Atnoine Abdalla RN
CDI Specialist
Please use your independent medical judgment in providing your response.
--- NOTE | 2024-04-26 15:49 | PTCARENOTE ---
pt refusing vital signs
--- NOTE | 2024-04-26 16:14 | CON.MD ---
Documented by User: Kennedi Barrett PA-C 04/26/24 21:01
Consultation - Medical
-
Referring Provider:�Phil Roy
Chief Complaint:�Pneumonia
�
History of Present Illness:�73-year-old male non-smoker with a past medical history of (bladder cancer, parathyroid cyst s/p excision, Parkinson's disease) who presents with shortness of breath/wheezing for few days, worsened day FISH [employer] WARDEN. Heart rate
was in the 120s. Spouse says that he has been having occasional ankle edema in the past due to immobilization but never diagnosed with heart failure. In the ER, was found to be in severe respiratory distress requiring BiPAP. Initially in the ER he
had low-grade fever to 100.1 �F, pulse rate 110, respiratory rate 25, BP 150/101 and saturating 97% on room air. Labs showed Hb 11.5, proBNP 2520, and COVID antigen negative. CXR showed bibasilar pneumonia, mainly in the right lower lobe. In the
ER he was given crystalloids with 500 cc bolus of NS 0.9%, ceftriaxone/Zithromax, DuoNebs, Tylenol, IV Lasix. He was admitted to the IMU. Seen by pulmonary and infectious disease. Has difficulty clearing mucous. Repeat x-ray with severe pneumonia
in upper and lower right lobe and effusion on left. On breathing treatments and ceftriaxone IV, p.o. doxycycline and p.o. metronidazole.
�
Past Medical History:�Parkinson's disease, Anxiety, BPH,hx bladder cancer, treated,Ambulatory dysfunction,
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
Family History:�not contributory
�
Social History:�
Functional Level Premorbidly:�Independent with all activities�, uses rolling walker at night to go to the bathroom
Functional Level Currently:�Bed mobility�supine to sit�min assist, rolling�mod assist, transfer�mod assist, assist of 2 for lift off and balance,
�
Tobacco:�Denies�
Alcohol:�occasionally
Drug use:�Denies�
�
Lives with:�Family
24-hour assistance available:�
Number of floors:�multi level
# steps to enter:�2
# steps to second floor:Multilevel-7 steps�landing�7 steps with right rail to bedroom level
Potential First floor set up:�
Driving:�n/a
Occupation:�retired
�
�
Allergies:�
Allergy/AdvReac Type Severity Reaction Status Date / Time
No Known Allergies Allergy Verified 04/20/24 21:34
�
Review of Systems:�
Constitutional: (x) Normal _
Eye: (x) Normal _
Ear/Nose/Throat: (x) Normal _
Respiratory: (x) abNormal _penumonia
Cardiovascular: (x) Normal _
Gastrointestinal: (x) Normal _
Genitourinary: (x) abNormal _BPH, h/o bladder cancer,
Musculoskeletal: (x) Normal _
Integumentary: (x) Normal _
Neurologic: (x) abNormal _ parkinson's, dysphagia
Psychiatric: (x) abNormal _anxiety, hallucinations, agitation
Endocrine: (x) Normal _
Hematologic/Lymphatic: (x) Normal _
Allergic/Immunologic: (x) Normal _
�
Medications:�
Active Current Visit Medication List
Category Date Time Status
Acetaminophen [Tylenol] Med 04/21/24 02:00 Active
650 mg PO Q4HPRN PRN
Carbidopa/Levodopa [Sinemet 25-100] Med 04/21/24 15:00 Active
1 tablet PO 1500,1700,1900,2100
CefTRIAXone [Rocephin] Med 04/22/24 10:00 Active
2,000 mg IV Q24H
Dextrose 5%/0.9%Sodchl 1000 ml [D5/0.9% Sodium Chloride Med 04/24/24 16:00 Active
] 1,000 ml
IV 75 mls/hr
Doxycycline [Vibramycin] Med 04/22/24 10:00 Active
100 mg PO Q12
Duloxetine Delayed Release [Cymbalta Delayed Release] Med 04/21/24 08:00 Active
30 mg PO BID
Enoxaparin Sodium [Lovenox] Med 04/21/24 18:00 Active
40 mg SC QPM
FOLic ACID [Folvite] 1 mg Med 04/21/24 15:58 Active
0.9% Sodium Chloride 50 ml [Nss] 50 ml
IV DAILYPRN
Finasteride [Proscar] Med 04/21/24 08:00 Active
5 mg PO DAILY
Flush (0.9% Sodium Chloride) [Flush (Nss)] Med 04/21/24 01:00 Active
See Dose Instructions IV PER PROTOCOL
Guaifenesin [Mucinex] Med 04/25/24 12:00 Active
1,200 mg PO Q12
HydrALAZINE [Apresoline] Med 04/24/24 15:35 Active
5 mg IV Q4HPRN PRN
Ibuprofen [Motrin] Med 04/21/24 11:14 Active
600 mg PO Q4HPRN PRN
Ipratropium/Albuterol Sulfate [Duoneb] Med 04/21/24 02:00 Active
3 ml INH R Q4HPRN PRN
Ipratropium/Albuterol Sulfate [Duoneb] Med 04/21/24 08:00 Active
3 ml INH R QID
Lorazepam [Ativan] Med 04/22/24 22:00 Active
0.5 mg PO DAILY@2200
MetroNIDAZOLE [Flagyl] Med 04/24/24 10:00 Active
500 mg PO BID
Ondansetron Injectable [Zofran] Med 04/21/24 02:00 Active
4 mg IV Q6HPRN PRN
Polyethylene Glycol Powder [Miralax] Med 04/21/24 02:00 Active
17 grams PO BID PRN
Risperidone [Risperdal] Med 04/24/24 18:00 Active
0.25 mg PO DAILY@1800
Risperidone [Risperdal] Med 04/25/24 09:33 Active
0.25 mg PO Q6HPRN PRN
Sterile Water [Sterile Water For Injection] Med 04/22/24 10:00 Active
20 ml IV Q24H
Thiamine HCl [Vitamin B1] Med 04/22/24 08:00 Active
100 mg PO DAILY
carbidopa-levodopa [Rytary] Med 04/21/24 03:00 Active
See Dose Instructions PO 0300,0700,1100,2300
vibegron [Gemtesa] Med 04/21/24 09:00 Active
See Dose Instructions PO DAILY
�
Vitals:�
Temp Pulse Resp BP Pulse Ox
98.5 F 73 16 179/89 98
04/26/24 03:33 04/26/24 04:00 04/26/24 04:00 04/26/24 04:00 04/26/24 04:00
Height 5 ft 9 in
Actual Weight 75 kg
Body Mass Index (BMI) 24.4
�
Physical Exam:�
General Appearance/Observation: Well-developed, well-nourished individual in no apparent distress.�
Pain/Comfort Assessment:
Mood/Affect: confused, flat Patient did not want to complete the physical exam nor answer questions
�
Integumentary/Operative Site:�
�� Pressure Ulcer Evaluation: absent over heels.��
�� Other Type of Wound: absent�
��
Eyes: Conjunctiva/Lids: normal���� Pupils: pupils equal round
Ears/Nose/Throat: oral mucosa moist,� throat- mucous.������������ Lips/Teeth/Gums: dry lips
Neck: No muscle spasm or tenderness�
Cardiovascular: Heart: regular, no murmur�
Pulses: dorsalis pedis 1+ bilaterally�
Respiratory: Respiratory Effort/Chest Expansion: normal������� Auscultation: crackles to auscultation
Gastrointestinal: abdomen not tender, distension,
Genitourinary: No Jackson�
Extremities:�Edema: None�Cyanosis: None�Trophic�changes: None
�
Neurology Exam:
Orientation: Alert, Oriented to self.
Memory: seems confused. Does not want to answer questions
Comprehension: somewhat impaired
Two step command: impaired. does not want to be examined
Sensory:
�� Light touch: Intact in bilateral upper and lower extremities
����
Musculoskeletal:
Motor: Moving arms and legs. Does not want to be examined
�
Lab Results:
Labs
WBC 7.3 10^3/uL (4.8-10.8) 04/25/24 04:03
RBC 3.75 10^6/uL (4.70-6.10) L 04/25/24 04:03
Hgb 10.7 g/dL (13.0-18.0) L 04/25/24 04:03
Hct 32.6 % (39.0-52.0) L 04/25/24 04:03
MCV 86.9 fL (80.0-94.0) 04/25/24 04:03
MCH 28.5 pg (27.0-31.0) 04/25/24 04:03
MCHC 32.8 g/dL (33.0-37.0) L 04/25/24 04:03
RDW 14.8 % (11.5-14.5) H 04/25/24 04:03
Plt Count 281 10^3/uL (130-400) D 04/25/24 04:03
MPV 9.7 fL (7.4-10.4) 04/25/24 04:03
Abs Immat Gran (auto) 0.1 10^3/uL (0-0.05) H 04/20/24 21:58
Absolute Neuts (auto) 9.0 10^3/uL (1.4-6.5) H 04/20/24 21:58
Absolute Lymphs (auto) 0.6 10^3/uL (1.2-3.4) L 04/20/24 21:58
Absolute Monos (auto) 1.0 10^3/uL (0.1-0.6) H 04/20/24 21:58
Absolute Eos (auto) 0.0 10^3/uL (0-0.7) 04/20/24 21:58
Absolute Basos (auto) 0.0 10^3/uL (0-0.2) 04/20/24 21:58
Immature Gran % 0.5 % (0-0.5) 04/20/24 21:58
Neutrophils % 84.7 % (42.2-75.2) H 04/20/24 21:58
Lymphocytes % 5.3 % (20.5-51.1) L 04/20/24 21:58
Monocytes % 9.4 % (1.7-9.3) H 04/20/24 21:58
Eosinophils % 0.0 % (0-6) 04/20/24 21:58
Basophils % 0.1 % (0-2) 04/20/24 21:58
Nucleated RBC % 0 % (-) 04/20/24 21:58
VBG pH 7.43 (7.32-7.43) 04/20/24 23:50
VBG pCO2 36 mmHg (35-48) 04/20/24 23:50
VBG pO2 66 mmHg (30-50) H 04/20/24 23:50
VBG HCO3 23.9 mmol/L (22-27) 04/20/24 23:50
VBG O2 Sat (Zach) 94.1 % 04/20/24 23:50
VBG Base Excess -0.2 mmol/L (-4 to +4) 04/20/24 23:50
VBG O2 Therapy 40% 04/20/24 23:50
Sodium 141 mmol/L (135-145) 04/25/24 04:03
Potassium 3.5 mmol/L (3.5-5.1) 04/25/24 04:03
Chloride 104 mmol/L (98-107) 04/25/24 04:03
Carbon Dioxide 30 mmol/L (22-30) 04/25/24 04:03
BUN 14 mg/dl (9-20) 04/25/24 04:03
Creatinine 0.6 mg/dL (0.7-1.3) L 04/25/24 04:03
Estimated Creat Clear 108 ml/min 04/25/24 04:03
eGFR > 60.00 04/25/24 04:03
Glucose 96 mg/dl (70-99) 04/25/24 04:03
Lactic Acid 0.8 mmol/L (0.7-2.0) 04/20/24 21:58
Calcium 8.4 mg/dl (8.4-10.2) 04/25/24 04:03
Total Bilirubin 0.8 mg/dl (0.2-1.3) 04/20/24 21:58
AST 37 U/L (17-59) 04/20/24 21:58
ALT < 10 U/L (0-50) 04/20/24 21:58
Alkaline Phosphatase 83 U/L (38-126) 04/20/24 21:58
Aup-T-Yoqxhitnkya Pept 2520 pg/ml 04/20/24 22:15
Total Protein 6.8 g/dl (6.3-8.2) 04/20/24 21:58
Albumin 4.0 g/dl (3.5-5.0) 04/20/24 21:58
TSH (Reflex) 2.23 uIU/ml (0.47-4.68) 04/21/24 05:09
Urine Opiates Screen Negative (Negative) 04/22/24 02:34
Ur Buprenorphine Negative (Negative) 04/22/24 02:34
Ur Oxycodone Screen Negative (Negative) 04/22/24 02:34
Urine Methadone Screen Negative (Negative) 04/22/24 02:34
Urine Fentanyl Screen Negative (Negative) 04/22/24 02:34
Ur Barbiturates Screen Negative (Negative) 04/22/24 02:34
Ur Tricyclics Screen Negative (Negative) 04/22/24 02:34
Ur Phencyclidine Scrn Negative (Negative) 04/22/24 02:34
Ur Amphetamines Screen Negative (Negative) 04/22/24 02:34
U Methamphetamines Scrn Negative (Negative) 04/22/24 02:34
U Benzodiazepines Scrn Positive (Negative) H 04/22/24 02:34
Urine Cocaine Screen Negative (Negative) 04/22/24 02:34
U Marijuana (THC) Screen Negative (Negative) 04/22/24 02:34
SARS-CoV-2 Antigen Negative (Negative) 04/20/24 21:58
�
Diagnostic Results:�as per HPI�
�04/20/24 CXR: Bibasilar pneumonia. Small right pleural effusion.
04/22/[address]: SEVERE PNEUMONIA in the LEFT LOWER and UPPER LOBES.
2. Mild pneumonia in the right upper and lower lobes.
3. MODERATE-SIZED RIGHT and SMALL LEFT PLEURAL EFFUSIONS.
4. Mild mediastinal and bilateral hilar lymphadenopathy.
5. Severe calcific atherosclerotic plaque in the coronary arteries.
6. Mild cardiomegaly.
7. 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
8. 3.1 cm mass exophytic from the posterior cortex of the midpole of the left kidney. Diagnostic possibilities are (1) a complex left renal cyst or (2) a cystic left renal cell carcinoma.
CTA neg for PE, but showing extensive bilateral infiltrates, this is likely chronic/progressive
Assessment: 73-year-old male non-smoker with PMH of (bladder cancer, Parkinson's disease)with shortness of breath found to have bilateral pneumonia on chest xray had worsening mental status and hallucinations that have improved.
�
Plan�
�PT/OT to increase independence with ADLs, improve balance, coordination, endurance, strength, mobility, community reintegration, decreased burden of care on others and family education.�
Aspiration Pneumonia: Completed Metronidazole 500mg bid, ceftriaxone 2g IV q 24 hours, and doxycycline 100mg bid. switched to Augmentin. will need repeat imaging with CXR in about 4-6 weeks to follow-up pneumonia to resolution.
Albuterol/Ipratropium 3 mL 4 times daily
Acute hypoxemic respiratory failure:�COVID/flu negative, blood culture negative to date, urine Legionella and strep pneumo Ag negative. MRSA- neg. Was 94% on 5L NC--weaned from 12L. Now off o2. Monitor . Have been ascending 1200 p.o. every 12
Parkinson's disease: Carbidopa�levodopa capsule, extended release 61.25/245mg 4 caps po qid(Rytary) and Sinemet 25/100, 1 tab po @ 1500,1700,1900,2100
Dysphagia: speech evaluation, oral care protocol, aspiration precautions.�Mild-moderate oral, mild pharyngeal dysphagia on videofluoroscopic swallow study 04/23/2024. downgraded to soft and bite sized with mildly thick liquids
HTN: Amlodipine 5 mg twice daily added. Hydralazine 5 mg IV every 4 as needed. continue medications, monitor closely�
HLD: Statin�
Anemia: Likely multifactorial.� Continue to monitor.�
Psych/hallucinations/agitation: Lorazepam, Cymbalta 30 twice daily, risperidone 0.25 daily at 1800. Avoid IV Ativan,
Skin: monitor for pressure sores/rashes/lesions.�
Chronic Pain: acetaminophen as needed.�Cymbalta 30mg bid. Lower back, now with pain in left hip after recent fall
-No acute fractures or dislocations noted on imaging
Bowel: Colace and Senna, PRN bisacodyl.�
Bladder: Time void, PVRs, PRN straight cath.�Gemtesa 75mg qd (pt's own med). Proscar 5 mg daily
Incidental finding of 3.1 cm exophytic mass left kidney: hx treated bladder ca. -needs to follow-up with Urology
GI Prophylaxis: Pantoprazole @ [place]�
DVT Prophylaxis: Mechanical and Lovenox 40mg qpm
Pulmonary: Incentive spirometry�
Safety: Continue to reinforce assistance with all transfers.�
Code Status:� Full code
Dispo�(date/plan/equipment needs): Home with family care.� Social history reviewed.�
�
Functional and Medical Goals:�Modified Independent with ADL�s, ambulation, transfers�
�
Discharge Destination: SNF
Summary of recommendations:
Parkinson's Disease: Check orthostatic blood pressure in therapy as patient starts to stand upright and ambulate more.
HTN:Elevated. Amlodipine 5 mg twice daily just added. Hydralazine 5 mg IV every 4 as needed. Check BP manually�and in sitting position. Could have supine hypertension if only checked in supine position. BP medications to be converted to po prior
to discharge
GI Prophylaxis: Pantoprazole�
DVT Prophylaxis: Mechanical and Lovenox 40mg qpm
Pulmonary: Incentive spirometry�
Safety: Continue to reinforce assistance with all transfers.�
�
Thank you for allowing me to care for your patient. Please contact me with any questions or concerns.

Documented by User: Chet Hurst MD 04/26/24 22:40
Consultation - Medical
-
Referring Provider:�Phil Roy
Chief Complaint:�Pneumonia
�
History of Present Illness:�73-year-old male non-smoker with a past medical history of (bladder cancer, parathyroid cyst s/p excision, Parkinson's disease) who presents with shortness of breath/wheezing for few days, worsened day FISH [employer] WARD[employer]. Heart rate
was in the 120s. Spouse says that he has been having occasional ankle edema in the past due to immobilization but never diagnosed with heart failure. In the ER, was found to be in severe respiratory distress requiring BiPAP. Initially in the ER he
had low-grade fever to 100.1 �F, pulse rate 110, respiratory rate 25, BP 150/101 and saturating 97% on room air. Labs showed Hb 11.5, proBNP 2520, and COVID antigen negative. CXR showed bibasilar pneumonia, mainly in the right lower lobe. In the
ER he was given crystalloids with 500 cc bolus of NS 0.9%, ceftriaxone/Zithromax, DuoNebs, Tylenol, IV Lasix. He was admitted to the IMU. Seen by pulmonary and infectious disease. Has difficulty clearing mucous. Repeat x-ray with severe pneumonia
in upper and lower right lobe and effusion on left. On breathing treatments and ceftriaxone IV, p.o. doxycycline and p.o. metronidazole.
�
Past Medical History:�Parkinson's disease, Anxiety, BPH,hx bladder cancer, treated,Ambulatory dysfunction,
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
Family History:�not contributory
�
Social History:�
Functional Level Premorbidly:�Independent with all activities�, uses rolling walker at night to go to the bathroom
Functional Level Currently:�Bed mobility�supine to sit�min assist, rolling�mod assist, transfer�mod assist, assist of 2 for lift off and balance,
�
Tobacco:�Denies�
Alcohol:�occasionally
Drug use:�Denies�
�
Lives with:�Family
24-hour assistance available:�
Number of floors:�multi level
# steps to enter:�2
# steps to second floor:Multilevel-7 steps�landing�7 steps with right rail to bedroom level
Potential First floor set up:�
Driving:�n/a
Occupation:�retired
�
�
Allergies:�
Allergy/AdvReac Type Severity Reaction Status Date / Time
No Known Allergies Allergy Verified 04/20/24 21:34
�
Review of Systems:�
Constitutional: (x) Normal _
Eye: (x) Normal _
Ear/Nose/Throat: (x) Normal _
Respiratory: (x) abNormal _penumonia
Cardiovascular: (x) Normal _
Gastrointestinal: (x) Normal _
Genitourinary: (x) abNormal _BPH, h/o bladder cancer,
Musculoskeletal: (x) Normal _
Integumentary: (x) Normal _
Neurologic: (x) abNormal _ parkinson's, dysphagia
Psychiatric: (x) abNormal _anxiety, hallucinations, agitation
Endocrine: (x) Normal _
Hematologic/Lymphatic: (x) Normal _
Allergic/Immunologic: (x) Normal _
�
Medications:�
Active Current Visit Medication List
Category Date Time Status
Acetaminophen [Tylenol] Med 04/21/24 02:00 Active
650 mg PO Q4HPRN PRN
Carbidopa/Levodopa [Sinemet 25-100] Med 04/21/24 15:00 Active
1 tablet PO 1500,1700,1900,2100
CefTRIAXone [Rocephin] Med 04/22/24 10:00 Active
2,000 mg IV Q24H
Dextrose 5%/0.9%Sodchl 1000 ml [D5/0.9% Sodium Chloride Med 04/24/24 16:00 Active
] 1,000 ml
IV 75 mls/hr
Doxycycline [Vibramycin] Med 04/22/24 10:00 Active
100 mg PO Q12
Duloxetine Delayed Release [Cymbalta Delayed Release] Med 04/21/24 08:00 Active
30 mg PO BID
Enoxaparin Sodium [Lovenox] Med 04/21/24 18:00 Active
40 mg SC QPM
FOLic ACID [Folvite] 1 mg Med 04/21/24 15:58 Active
0.9% Sodium Chloride 50 ml [Nss] 50 ml
IV DAILYPRN
Finasteride [Proscar] Med 04/21/24 08:00 Active
5 mg PO DAILY
Flush (0.9% Sodium Chloride) [Flush (Nss)] Med 04/21/24 01:00 Active
See Dose Instructions IV PER PROTOCOL
Guaifenesin [Mucinex] Med 04/25/24 12:00 Active
1,200 mg PO Q12
HydrALAZINE [Apresoline] Med 04/24/24 15:35 Active
5 mg IV Q4HPRN PRN
Ibuprofen [Motrin] Med 04/21/24 11:14 Active
600 mg PO Q4HPRN PRN
Ipratropium/Albuterol Sulfate [Duoneb] Med 04/21/24 02:00 Active
3 ml INH R Q4HPRN PRN
Ipratropium/Albuterol Sulfate [Duoneb] Med 04/21/24 08:00 Active
3 ml INH R QID
Lorazepam [Ativan] Med 04/22/24 22:00 Active
0.5 mg PO DAILY@2200
MetroNIDAZOLE [Flagyl] Med 04/24/24 10:00 Active
500 mg PO BID
Ondansetron Injectable [Zofran] Med 04/21/24 02:00 Active
4 mg IV Q6HPRN PRN
Polyethylene Glycol Powder [Miralax] Med 04/21/24 02:00 Active
17 grams PO BID PRN
Risperidone [Risperdal] Med 04/24/24 18:00 Active
0.25 mg PO DAILY@1800
Risperidone [Risperdal] Med 04/25/24 09:33 Active
0.25 mg PO Q6HPRN PRN
Sterile Water [Sterile Water For Injection] Med 04/22/24 10:00 Active
20 ml IV Q24H
Thiamine HCl [Vitamin B1] Med 04/22/24 08:00 Active
100 mg PO DAILY
carbidopa-levodopa [Rytary] Med 04/21/24 03:00 Active
See Dose Instructions PO 0300,0700,1100,2300
vibegron [Gemtesa] Med 04/21/24 09:00 Active
See Dose Instructions PO DAILY
�
Vitals:�
Temp Pulse Resp BP Pulse Ox
98.5 F 73 16 179/89 98
04/26/24 03:33 04/26/24 04:00 04/26/24 04:00 04/26/24 04:00 04/26/24 04:00
Height 5 ft 9 in
Actual Weight 75 kg
Body Mass Index (BMI) 24.4
�
Physical Exam:�
General Appearance/Observation: Well-developed, well-nourished individual in no apparent distress.�
Pain/Comfort Assessment:
Mood/Affect: confused, flat Patient did not want to complete the physical exam nor answer questions
�
Integumentary/Operative Site:�No lesions noted during limited exam
Eyes: Conjunctiva/Lids: normal���� Pupils: pupils equal round
Ears/Nose/Throat: oral mucosa moist,� throat- mucous.������������ Lips/Teeth/Gums: dry lips
Cardiovascular: Heart: regular, no murmur�
Respiratory: Respiratory Effort/Chest Expansion: normal������� Auscultation: crackles to auscultation
Gastrointestinal: abdomen not tender, distension
Genitourinary: No Jackson�
Extremities:�Edema: None�Cyanosis: None�Trophic�changes: None
�
Neurology Exam:
Orientation: Alert, Oriented to self.
Memory: seems confused. Does not want to answer questions
Comprehension: somewhat impaired
Two step command: impaired. does not want to be examined
Sensory:
�� Light touch: Intact in bilateral upper and lower extremities
����
Musculoskeletal: Motor: Moving arms and legs. Does not want to be examined
�
Lab Results:
Labs
WBC 7.3 10^3/uL (4.8-10.8) 04/25/24 04:03
RBC 3.75 10^6/uL (4.70-6.10) L 04/25/24 04:03
Hgb 10.7 g/dL (13.0-18.0) L 04/25/24 04:03
Hct 32.6 % (39.0-52.0) L 04/25/24 04:03
MCV 86.9 fL (80.0-94.0) 04/25/24 04:03
MCH 28.5 pg (27.0-31.0) 04/25/24 04:03
MCHC 32.8 g/dL (33.0-37.0) L 04/25/24 04:03
RDW 14.8 % (11.5-14.5) H 04/25/24 04:03
Plt Count 281 10^3/uL (130-400) D 04/25/24 04:03
MPV 9.7 fL (7.4-10.4) 04/25/24 04:03
Abs Immat Gran (auto) 0.1 10^3/uL (0-0.05) H 04/20/24 21:58
Absolute Neuts (auto) 9.0 10^3/uL (1.4-6.5) H 04/20/24 21:58
Absolute Lymphs (auto) 0.6 10^3/uL (1.2-3.4) L 04/20/24 21:58
Absolute Monos (auto) 1.0 10^3/uL (0.1-0.6) H 04/20/24 21:58
Absolute Eos (auto) 0.0 10^3/uL (0-0.7) 04/20/24 21:58
Absolute Basos (auto) 0.0 10^3/uL (0-0.2) 04/20/24 21:58
Immature Gran % 0.5 % (0-0.5) 04/20/24 21:58
Neutrophils % 84.7 % (42.2-75.2) H 04/20/24 21:58
Lymphocytes % 5.3 % (20.5-51.1) L 04/20/24 21:58
Monocytes % 9.4 % (1.7-9.3) H 04/20/24 21:58
Eosinophils % 0.0 % (0-6) 04/20/24 21:58
Basophils % 0.1 % (0-2) 04/20/24 21:58
Nucleated RBC % 0 % (-) 04/20/24 21:58
VBG pH 7.43 (7.32-7.43) 04/20/24 23:50
VBG pCO2 36 mmHg (35-48) 04/20/24 23:50
VBG pO2 66 mmHg (30-50) H 04/20/24 23:50
VBG HCO3 23.9 mmol/L (22-27) 04/20/24 23:50
VBG O2 Sat (Zach) 94.1 % 04/20/24 23:50
VBG Base Excess -0.2 mmol/L (-4 to +4) 04/20/24 23:50
VBG O2 Therapy 40% 04/20/24 23:50
Sodium 141 mmol/L (135-145) 04/25/24 04:03
Potassium 3.5 mmol/L (3.5-5.1) 04/25/24 04:03
Chloride 104 mmol/L (98-107) 04/25/24 04:03
Carbon Dioxide 30 mmol/L (22-30) 04/25/24 04:03
BUN 14 mg/dl (9-20) 04/25/24 04:03
Creatinine 0.6 mg/dL (0.7-1.3) L 04/25/24 04:03
Estimated Creat Clear 108 ml/min 04/25/24 04:03
eGFR > 60.00 04/25/24 04:03
Glucose 96 mg/dl (70-99) 04/25/24 04:03
Lactic Acid 0.8 mmol/L (0.7-2.0) 04/20/24 21:58
Calcium 8.4 mg/dl (8.4-10.2) 04/25/24 04:03
Total Bilirubin 0.8 mg/dl (0.2-1.3) 04/20/24 21:58
AST 37 U/L (17-59) 04/20/24 21:58
ALT < 10 U/L (0-50) 04/20/24 21:58
Alkaline Phosphatase 83 U/L (38-126) 04/20/24 21:58
Sxm-M-Zwslywsndkh Pept 2520 pg/ml 04/20/24 22:15
Total Protein 6.8 g/dl (6.3-8.2) 04/20/24 21:58
Albumin 4.0 g/dl (3.5-5.0) 04/20/24 21:58
TSH (Reflex) 2.23 uIU/ml (0.47-4.68) 04/21/24 05:09
Urine Opiates Screen Negative (Negative) 04/22/24 02:34
Ur Buprenorphine Negative (Negative) 04/22/24 02:34
Ur Oxycodone Screen Negative (Negative) 04/22/24 02:34
Urine Methadone Screen Negative (Negative) 04/22/24 02:34
Urine Fentanyl Screen Negative (Negative) 04/22/24 02:34
Ur Barbiturates Screen Negative (Negative) 04/22/24 02:34
Ur Tricyclics Screen Negative (Negative) 04/22/24 02:34
Ur Phencyclidine Scrn Negative (Negative) 04/22/24 02:34
Ur Amphetamines Screen Negative (Negative) 04/22/24 02:34
U Methamphetamines Scrn Negative (Negative) 04/22/24 02:34
U Benzodiazepines Scrn Positive (Negative) H 04/22/24 02:34
Urine Cocaine Screen Negative (Negative) 04/22/24 02:34
U Marijuana (THC) Screen Negative (Negative) 04/22/24 02:34
SARS-CoV-2 Antigen Negative (Negative) 04/20/24 21:58
�
Diagnostic Results:�as per HPI�
�04/20/24 CXR: Bibasilar pneumonia. Small right pleural effusion.
04/22/[address]: SEVERE PNEUMONIA in the LEFT LOWER and UPPER LOBES.
2. Mild pneumonia in the right upper and lower lobes.
3. MODERATE-SIZED RIGHT and SMALL LEFT PLEURAL EFFUSIONS.
4. Mild mediastinal and bilateral hilar lymphadenopathy.
5. Severe calcific atherosclerotic plaque in the coronary arteries.
6. Mild cardiomegaly.
7. 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
8. 3.1 cm mass exophytic from the posterior cortex of the midpole of the left kidney. Diagnostic possibilities are (1) a complex left renal cyst or (2) a cystic left renal cell carcinoma.
CTA neg for PE, but showing extensive bilateral infiltrates, this is likely chronic/progressive
Assessment: 73-year-old male non-smoker with PMH of (bladder cancer, Parkinson's disease)with shortness of breath found to have bilateral pneumonia on chest xray had worsening mental status and hallucinations that have improved.
�
Plan�
�PT/OT to increase independence with ADLs, improve balance, coordination, endurance, strength, mobility, community reintegration, decreased burden of care on others and family education.�
Aspiration Pneumonia: Completed Metronidazole 500mg bid, ceftriaxone 2g IV q 24 hours, and doxycycline 100mg bid. switched to Augmentin. will need repeat imaging with CXR in about 4-6 weeks to follow-up pneumonia to resolution.
Albuterol/Ipratropium 3 mL 4 times daily
Acute hypoxemic respiratory failure:�COVID/flu negative, blood culture negative to date, urine Legionella and strep pneumo Ag negative. MRSA- neg. Was 94% on 5L NC--weaned from 12L. Now off o2. Monitor . Have been ascending 1200 p.o. every 12
Parkinson's disease: Carbidopa�levodopa capsule, extended release 61.25/245mg 4 caps po qid(Rytary) and Sinemet 25/100, 1 tab po @ 1500,1700,1900,2100
Dysphagia: speech evaluation, oral care protocol, aspiration precautions.�Mild-moderate oral, mild pharyngeal dysphagia on videofluoroscopic swallow study 04/23/2024. downgraded to soft and bite sized with mildly thick liquids
HTN: Amlodipine 5 mg twice daily added. Hydralazine 5 mg IV every 4 as needed. continue medications, monitor closely�
HLD: Statin�
Anemia: Likely multifactorial.� Continue to monitor.�
Psych/hallucinations/agitation: Lorazepam, Cymbalta 30 twice daily, risperidone 0.25 daily at 1800. Avoid IV Ativan,
Skin: monitor for pressure sores/rashes/lesions.�
Chronic Pain: acetaminophen as needed.�Cymbalta 30mg bid. Lower back, now with pain in left hip after recent fall
-No acute fractures or dislocations noted on imaging
Bowel: Colace and Senna, PRN bisacodyl.�
Bladder: Time void, PVRs, PRN straight cath.�Gemtesa 75mg qd (pt's own med). Proscar 5 mg daily
Incidental finding of 3.1 cm exophytic mass left kidney: hx treated bladder ca. -needs to follow-up with Urology
GI Prophylaxis: Pantoprazole @ [facility]�
DVT Prophylaxis: Mechanical and Lovenox 40mg qpm
Pulmonary: Incentive spirometry�
Safety: Continue to reinforce assistance with all transfers.�
Code Status:� Full code
Dispo�(date/plan/equipment needs): Home with family care.� Social history reviewed.�
Functional and Medical Goals:�Modified Independent with ADL�s, ambulation, transfers�
Discharge Destination: SNF
Attending Statement:
I saw and examined the patient today. Reviewed care plan with patient, therapy, nursing, and physician entry level marketing assistant. I agree with the above subjective and physical exam, and plan as documented by JULIETTE Barrett with adjustments made as necessary. A
total of 60 minutes were spent with the patient preparing for the evaluation, obtaining history, performing examination and evaluation, counseling, data review, case management, care coordination, hardboard supervisor, and EMR documentation.
Summary of recommendations:
Discharge Destination: SNF
Parkinson's Disease: Check orthostatic blood pressure in therapy as patient starts to stand upright and ambulate more.
HTN:Elevated. Amlodipine 5 mg twice daily just added. Hydralazine 5 mg IV every 4 as needed. Check BP manually�and in sitting position. Could have supine hypertension if only checked in supine position. BP medications to be converted to po prior
to discharge
GI Prophylaxis: Pantoprazole�
DVT Prophylaxis: Mechanical and Lovenox 40mg qpm
Pulmonary: Incentive spirometry�
Safety: Continue to reinforce assistance with all transfers.�
�
Thank you for allowing me to care for your patient. Please contact me with any questions or concerns.
[2024-04-26] MEDS: SINEMET 25-100 1 TABLET PO ×4 (16:22→22:14)
[2024-04-26] MEDS: RISPERDAL 0.25 MG PO ×2 (16:22→18:14)
[2024-04-26] MEDS: LOVENOX 40 MG SC (18:14)
[2024-04-26] MEDS: ATIVAN 0.5 MG PO (22:14)
[2024-04-27] MEDS: NON-FORMULARY ITEM PO ×4 (02:53→10:59)
[2024-04-27 03:20] VITALS: BP 188/104
[2024-04-27 06:00] VITALS: BMI 23.7
[2024-04-27 07:00] VITALS: BP 165/88
[2024-04-27] MEDS: CYMBALTA DELAYED RELEASE 30 MG PO ×2 (07:34→20:39)
[2024-04-27] MEDS: PROSCAR 5 MG PO (07:35)
[2024-04-27] MEDS: MUCINEX 1200 MG PO ×2 (07:35→20:39)
[2024-04-27] MEDS: VITAMIN B1 100 MG PO (07:35)
[2024-04-27] MEDS: NORVASC 5 MG PO ×2 (07:35→20:39)
[2024-04-27] MEDS: AUGMENTIN 875 MG/125 MG 1 TABLET PO ×2 (07:35→20:41)
[2024-04-27] MEDS: DUONEB 3 ML INH ×4 (09:05→19:35)
[2024-04-27] MEDS: NON-FORMULARY ITEM 4 CAP PO ×2 (12:32→22:42)
[2024-04-27] MEDS: MOTRIN 600 MG PO (13:57)
--- NOTE | 2024-04-27 14:16 | W.PN.HOSP.TC ---
Today's Communication/Plan
-
DC planning
Use Risperdal as needed for agitation
Assessment / Plan
Assessment / Plan
PE:
Gen-AAOx3, NAD
HEENT-NC, AT, anicteric, clear oral mm
Neck-supple
CV-reg, no M, +S1/S2
Lungs-less rales, no wheezes, but wheezes heard externally
Abd-soft, NT, ND
Musculoskeletal-no edema, decreased muscle bulk throughout
Skin-warm and dry
Neuro-gross : less tremors, awake, alert to surroundings, answered questions appropriately
Psych-calm, cooperative
Mr. Marshall is a 73 y.o with a medical history of Parkinson disease, ambulatory dysfunction, incarcerated inguinal hernia (status post repair), and early onset dementia presents to ED with sudden severe dyspnea without cough. Found to have fever
to 104 here and a RLL infiltrate on xray c/w PNA. Hypoxic requiring BIPAP. No h/o asthma/copd/ILD or CHF. Had elevated BNP to 2500. No overt signs of CHF. COVID negative. Influenza negative.
#Goal of care
Talked to on phone 04/24
Updated her about status of the patient
Requested to re-visit code status with family since he remains sick. No urgent cardiac issues at present.
Patient seemed to unfortunately suffering from slow decline in physical and cognitive conditions in recent history.
We are possibly looking into comfort measures if no improvement. Will continue with supportive measure, antibiotics, aspiration precautions.
Avoid IV Ativan, c/w low dose Risperdal to help with nighttime hallucinations/agitation.
#Community-acquired pneumonia:
Acute hypoxic respiratory failure with distress and high flow O2, now on 3-5 liters
Severe sepsis POA
Repeat chest x ray showed B/L PNA . repeat chest x ray today
-Started on ceftriaxone and azithromycin, now on Rocephin, Doxy and Flagyl.
-Legionella urinary antigen negative
-Currently breathing comfortable on nasal cannula, titrate supplemental oxygen as needed
-Nebulizer treatments as needed
- Blood culture no growth so far. Repeat culture 04/24 negative
- WBC came down
CT chest showed severe pneumonia in the left lower and upper lobes, mild pneumonia in the right upper and lower lobes. Moderate size right pleural effusion and small left pleural effusion, no pulmonary embolism.
-Further recommendations from pulmonology and ID are appreciated
# Toxic metabolic encephalopathy
Underlying Parkinson disease
No agitation over night. I think IV Ativan makes it worse, avoid it. C/W lowl dose Risperdal
Stopped MSAS protocol, no alcohol intake
c/w supportive care
c/w to treat PNA
d/w , known to have confusion/ hallucinations at home at nighttime.
# Dysphagia
d/w speech therapist, s/p video swallow
c/w modified diet.
# Incidental finding in CT of 3.1 cm mass exophytic from the posterior cortex of the midpole of the left kidney. For outpatient follow
Chronic pain:
-Lower back, now with pain in left hip after recent fall
-No acute fractures or dislocations noted on imaging
-Continue pain control with home dose of ibuprofen
Parkinson's disease:
-Continue home Sinemet
-PT/OT eval pending
CODE STATUS: Full
Total time spent to see the patient, examine the patient, review data and lab results, discuss treatment plan with patient, around 45 minutes
Anticipated Discharge: Within 24 hours
Subjective/Interval History
-
Date of Service: April 27, 2024
Objective Data
-
Vital Signs:
Vital Signs
Temp Pulse Resp BP Pulse Ox
98.1 F 84 16 165/88 94
04/27/24 07:00 04/27/24 11:25 04/27/24 11:25 04/27/24 07:00 04/27/24 09:12
I&O
04/26/24 04/27/2425
06:59 06:59 06:59
Intake Total 1700 / 1700 240 / 240
Output Total 500 / 500 475 / 475 120 / 120
Balance 1200 / 1200 -235 / -235 -120 / -120
[2024-04-27 15:00] VITALS: BP 153/77
[2024-04-27] MEDS: SINEMET 25-100 1 TABLET PO ×4 (15:52→20:43)
[2024-04-27] MEDS: LOVENOX 40 MG SC (17:31)
[2024-04-27] MEDS: RISPERDAL 0.25 MG PO (17:32)
[2024-04-27] MEDS: FLUSH (NSS) 1 FLUSH IV (20:45)
[2024-04-27] MEDS: ATIVAN 0.5 MG PO (21:54)
[2024-04-27 23:00] VITALS: BP 149/84
[2024-04-28] MEDS: NON-FORMULARY ITEM 4 CAP PO ×4 (03:22→23:20)
[2024-04-28 06:00] VITALS: BMI 23.7
[2024-04-28 07:00] VITALS: BP 157/83
[2024-04-28] MEDS: DUONEB 3 ML INH (07:25)
[2024-04-28] MEDS: MUCINEX 1200 MG PO ×2 (08:38→20:57)
[2024-04-28] MEDS: NORVASC 5 MG PO ×2 (08:39→20:57)
[2024-04-28] MEDS: VITAMIN B1 100 MG PO (08:39)
[2024-04-28] MEDS: PROSCAR 5 MG PO (08:39)
[2024-04-28] MEDS: AUGMENTIN 875 MG/125 MG 1 TABLET PO ×2 (08:39→20:56)
[2024-04-28] MEDS: CYMBALTA DELAYED RELEASE 30 MG PO ×2 (08:39→20:57)
[2024-04-28] MEDS: NON-FORMULARY ITEM PO (08:41)
--- NOTE | 2024-04-28 09:01 | W.PN.HOSP.TC ---
Today's Communication/Plan
-
Last day for oral Abx
c/w oral Risperdal and also PRN dose for agitation
DC planning
Assessment / Plan
Assessment / Plan
PE:
Gen- NAD
HEENT-NC, AT, anicteric, clear oral mm
Neck-supple
CV-reg, no M, +S1/S2
Lungs-less rales, no wheezes, but wheezes heard externally
Abd-soft, NT, ND
Musculoskeletal-no edema, decreased muscle bulk throughout
Skin-warm and dry
Neuro-gross : less tremors, awake, alert to surroundings, answered questions appropriately
Psych-calm, cooperative
Mr. Marshall is a 73 y.o with a medical history of Parkinson disease, ambulatory dysfunction, incarcerated inguinal hernia (status post repair), and early onset dementia presents to ED with sudden severe dyspnea without cough. Found to have fever
to 104 here and a RLL infiltrate on xray c/w PNA. Hypoxic requiring BIPAP. No h/o asthma/copd/ILD or CHF. Had elevated BNP to 2500. No overt signs of CHF. COVID negative. Influenza negative.
#Goal of care
Talked to on phone 04/24
Updated her about status of the patient
Requested to re-visit code status with family since he remains sick. No urgent cardiac issues at present.
Patient seemed to unfortunately suffering from slow decline in physical and cognitive conditions in recent history.
We are possibly looking into comfort measures if no improvement. Will continue with supportive measure, antibiotics, aspiration precautions.
Avoid IV Ativan, c/w low dose Risperdal to help with nighttime hallucinations/agitation.
#Community-acquired pneumonia:
Acute hypoxic respiratory failure with distress and high flow O2, now on 3-5 liters
Severe sepsis POA
-Started on ceftriaxone and azithromycin, changed to iV Rocephin, Doxy and Flagyl. finishing course with oral Augmentin.
-Legionella urinary antigen negative
-Currently breathing comfortable, off nasal O2.
-Nebulizer treatments as needed
- Blood culture no growth so far. Repeat culture 04/24 negative
- WBC came down
Followed by ID & Pulmonary.
# Toxic metabolic encephalopathy
Underlying Parkinson disease
No agitation. I think IV Ativan makes it worse, avoid it. C/W low dose Risperdal, mentation is better, and hallucination much less.
Stopped MSAS protocol, no alcohol intake
c/w supportive care
d/w , known to have confusion/ hallucinations at home at nighttime, aware of current regimen.
# Dysphagia
d/w speech therapist, s/p video swallow, no aspiration.
c/w modified diet.
# Incidental finding in CT of 3.1 cm mass exophytic from the posterior cortex of the midpole of the left kidney. For outpatient follow
Chronic pain:
-Lower back, now with pain in left hip after recent fall
-No acute fractures or dislocations noted on imaging
-Continue pain control with home dose of ibuprofen
Parkinson's disease:
-Continue home Sinemet
-PT/OT eval pending
CODE STATUS: Full
Total time spent to see the patient, examine the patient, review data and lab results, discuss treatment plan with patient, around 45 minutes
Anticipated Discharge: Today
Subjective/Interval History
-
Date of Service: April 28, 2024
Doing well
Objective Data
-
Vital Signs:
Vital Signs
Temp Pulse Resp BP Pulse Ox
97.8 F 71 18 157/83 96
04/28/24 07:00 04/28/24 08:39 04/28/24 07:28 04/28/24 08:39 04/28/24 07:28
I&O
04/27/24 04/28/24 04/29/24
06:59 06:59 06:59
Intake Total 240 / 240 240 / 240
Output Total 475 / 475 320 / 320
Balance -235 / -235 -80 / -80
[2024-04-28 09:53] VITALS: BP 148/65; PULSE 84; O2SAT 95
[2024-04-28 11:00] VITALS: BP 151/88
[2024-04-28] MEDS: DUONEB INH (11:15)
--- NOTE | 2024-04-28 11:48 | CM ---
Addendum entered by Viviana Manzanares RN 04/28/24 14:33:
Cm attempted to call for authorization. Insurance is not available at this time.

Dr. Cali Wooten
NPI
[facility]
[phone]
Addendum entered by Viviana Manzanares RN 04/28/24 13:47:
[facility] has accepted. Patient's is agreeable to transfer. CM will initiate insurance authorization.
Addendum entered by Viviana Manzanares RN 04/28/24 12:45:
CM met with patient's who is agreeable to SNF. Her first choice would be [facility] or [facility]. On referrals, patient has been excepted to [facility]. CM is confirming bed availability.
Original Note:
Patient is medically ready for discharge. CM attempted to call several times.
[2024-04-28] MEDS: NON-FORMULARY ITEM 75 MG PO (12:53)
[2024-04-28 15:00] VITALS: BP 151/73
[2024-04-28] MEDS: SINEMET 25-100 1 TABLET PO ×4 (15:19→21:02)
[2024-04-28] MEDS: LOVENOX 40 MG SC (17:23)
[2024-04-28] MEDS: RISPERDAL 0.25 MG PO (17:23)
--- NOTE | 2024-04-28 17:42 | PTOTSP ---
ST Follow-Up
Pt continues to present with clinical signs of mild to moderate oropharyngeal dysphagia characterized by prolonged mastication and bolus formation, reduced bolus formation requiring prompted thickened liquid washes to clear, as well as thickened
liquid consistencies to reduce instances of penetration/aspiration as well as compensatory strategies for swallow initiations with ingestion of thickened liquids with verbal reminders from others.
Recommendations:
- Upgrade pt's diet to SOFT BITE SIZED SOLIDS and continue with MILDLY THICK LIQUIDS with CHIN TUCK and DOUBLE SWALLOW; meds whole or crushed with puree or mildly thick liquids.
- Aspiration precautions: FULL SUPERVISION with PO intake; fully awake, alert, and upright for all PO intake; small bites/sips; slow intake rate; check for oral clearance.
- CLINICAL ATHLETIC INSTRUCTOR to f/u re: diet tolerance, reinforce/education about compensatory strategy use, and to continually re-assess pt's candidacy for diet upgrades.
[2024-04-28] MEDS: ATIVAN 0.5 MG PO (23:20)
[2024-04-28 23:40] VITALS: BP 134/76
[2024-04-29] MEDS: NON-FORMULARY ITEM 4 CAP PO ×4 (03:20→22:06)
[2024-04-29 05:50] VITALS: BMI 23.7
[2024-04-29 08:00] VITALS: BP 136/78
[2024-04-29] MEDS: NON-FORMULARY ITEM 75 MG PO (08:14)
[2024-04-29] MEDS: PROSCAR 5 MG PO (08:14)
[2024-04-29] MEDS: CYMBALTA DELAYED RELEASE 30 MG PO ×2 (08:14→22:05)
[2024-04-29] MEDS: VITAMIN B1 100 MG PO (08:14)
[2024-04-29] MEDS: MUCINEX 1200 MG PO ×2 (08:14→22:05)
[2024-04-29] MEDS: NORVASC 5 MG PO ×2 (08:14→22:05)
[2024-04-29 08:48] LABS: Blood Urea Nitrogen 24 mg/dl (9-20); Calcium 8.5 mg/dl (8.4-10.2); Carbon Dioxide 29 mmol/L (22-30); Chloride 103 mmol/L (98-107); Estimated Creatinine Clearance 108 ml/min; Glucose 83 mg/dl (70-99); Sodium 141 mmol/L (135-145); eGFR > 60.00
[2024-04-29 08:53] LABS: Hematocrit 34.1 % (39.0-52.0); Hemoglobin 10.8 g/dL (13.0-18.0); Mean Corp Hgb Conc. 31.7 g/dL (33.0-37.0); Mean Corpuscular Hgb 27.9 pg (27.0-31.0); Mean Corpuscular Volume 88.1 fL (80.0-94.0); Mean Platelet Volume 9.9 fL (7.4-10.4); Platelet Count 456 10^3/uL (130-400); Red Blood Cell Count 3.87 10^6/uL (4.70-6.10); Red Cell Dist. Width 15.1 % (11.5-14.5); White Blood Cell Count 8.4 10^3/uL (4.8-10.8)
--- NOTE | 2024-04-29 09:45 | PTCARENOTE ---
pt oriented to self know he is in a hospital and the month. forgetful about current condition. oob in chair. room air. breath sounds diminished at base. pills in apple sauce.
[2024-04-29 10:22] VITALS: BP 131/77; PULSE 77
[2024-04-29] MEDS: MOTRIN 600 MG PO (11:11)
--- NOTE | 2024-04-29 11:24 | WOUNDNOTE ---
R 3RD FINGER AMP SITE
--- NOTE | 2024-04-29 11:25 | WOUNDNOTE ---
[facility] RN NOTE: Patient admitted with pneumonia, reviewed reports and past medical history. 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 Finger with resolving cellulitis and small serous drainage from site. Patient requesting
less bulky dressing so he can change self. Applied small piece of silver alginate and covered with coverlet. Patient lives with who can assist with wound care. Will confirm orders with hospitalist and update care plan. Nurse Wenceslao aware of the
above, supplies at bedside. Will sign off unless needed.
--- NOTE | 2024-04-29 12:01 | CM ---
Addendum entered by Chantell Coburn 04/29/24 12:31:
Left VM for skilled auth with nurse line.
Original Note:
Patient accepted at [facility]
patient has [facility]
TC to [facility] [phone] spoke with Marilu, call reference# [id number]
Clinicals faxed to [phone]
Nurse [phone] if call back needed.
Await insurance auth.
[2024-04-29 15:33] LABS: COVID-19 Antigen Negative (Negative)
[2024-04-29 15:43] VITALS: BMI 23.7
[2024-04-29] MEDS: SINEMET 25-100 1 TABLET PO ×3 (15:52→22:09)
[2024-04-29] MEDS: RISPERDAL 0.25 MG PO ×2 (15:53→22:04)
[2024-04-29 16:00] VITALS: BP 137/83
--- NOTE | 2024-04-29 16:26 | CM ---
CM reviewed pt with Dr Horner, ready for dc
Bed available at [facility]
Auth started with [facility] by Elsa Coburn and pending
Update to spouse and [facility]
Discharge Disposition- [facility] pending auth
--- NOTE | 2024-04-29 16:54 | W.PN.HOSP.TC ---
Today's Communication/Plan
-
Assessment / Plan
Assessment / Plan
PE:
Gen- NAD
HEENT-NC, AT, anicteric, clear oral mm
Neck-supple
CV-reg, no M, +S1/S2
Lungs-less rales, no wheezes
Abd-soft, NT, ND
Musculoskeletal-no edema, decreased muscle bulk throughout
Skin-warm and dry
Neuro-gross: Resting tremors, awake, alert to surroundings, answered questions appropriately
Psych-calm, cooperative
Mr. Marshall is a 73 y.o with a medical history of Parkinson disease, ambulatory dysfunction, incarcerated inguinal hernia (status post repair), and early onset dementia presents to ED with sudden severe dyspnea without cough. Found to have fever
to 104 here and a RLL infiltrate on xray c/w PNA. Hypoxic requiring BIPAP. No h/o asthma/copd/ILD or CHF. Had elevated BNP to 2500. No overt signs of CHF. COVID negative. Influenza negative.
#Goals of care
Per conversation with 04/29, planning SNF for PT/OT pending insurance authorization, ultimately with plan for discharge to home with home care services
Avoid IV Ativan, c/w low dose Risperdal to help with nighttime hallucinations/agitation.
#Community-acquired pneumonia:
Acute hypoxic respiratory failure with distress and high flow O2, now on 3-5 liters
Severe sepsis POA
-Started on ceftriaxone and azithromycin, changed to iV Rocephin, Doxy and Flagyl. Completed course with oral Augmentin.
-Legionella urinary antigen negative
-Currently breathing comfortable, off nasal O2.
-Nebulizer treatments as needed
- Blood culture no growth. Repeat culture 04/24 negative
- WBC came down
Followed by ID & Pulmonary.
# Toxic metabolic encephalopathy
Underlying Parkinson disease
No agitation. I think IV Ativan makes it worse, avoid it. C/W low dose Risperdal, mentation is better, and hallucination much less.
Stopped MSAS protocol, no alcohol intake
c/w supportive care
d/w , known to have confusion/ hallucinations at home at nighttime, aware of current regimen.
# Dysphagia
d/w speech therapist, s/p video swallow, no aspiration.
c/w modified diet.
# Incidental finding in CT of 3.1 cm mass exophytic from the posterior cortex of the midpole of the left kidney. For outpatient follow
Chronic pain:
-Lower back, now with pain in left hip after recent fall
-No acute fractures or dislocations noted on imaging
-Continue pain control with home dose of ibuprofen
Parkinson's disease:
-Continue home Sinemet
-PT/OT eval pending
CODE STATUS: Full
Total time spent to see the patient, examine the patient, review data and lab results, discuss treatment plan with patient, around 45 minutes
Anticipated Discharge: Within 24 hours
Subjective/Interval History
-
Date of Service: April 29, 2024
Mr. Marshall was seen and examined at bedside. He feels generally well although bored and eagerly awaiting discharge to rehab.
Objective Data
-
Labs:
Laboratory Results
04/29/24
07:17
WBC 8.4
Hgb 10.8 L
Hct 34.1 L
Plt Count 456 H D
Sodium 141
Potassium 4.0
Chloride 103
Carbon Dioxide 29
BUN 24 H
Creatinine 0.5 L
Glucose 83
Calcium 8.5
Vital Signs:
Vital Signs
Temp Pulse Resp BP Pulse Ox
97.3 F 71 18 137/83 98
04/29/24 16:00 04/29/24 16:00 04/29/24 16:00 04/29/24 16:00 04/29/24 16:00
I&O
04/28/24 04/29/24 04/30/24
06:59 06:59 06:59
Intake Total 240 / 240 600 / 600
Output Total 320 / 320 700 / 700
Balance -80 / -80 -100 / -100
Review of Systems
-
History Source: Patient
All other systems: Reviewed and negative
Physical Exam
-
General: No Apparent Distress
[2024-04-29] MEDS: LOVENOX 40 MG SC (17:13)
[2024-04-29] MEDS: ATIVAN 0.5 MG PO (22:05)
[2024-04-29] MEDS: SINEMET 25-100 PO (22:09)
[2024-04-29 23:03] VITALS: BP 158/91
[2024-04-30] MEDS: NON-FORMULARY ITEM PO (03:49)
--- NOTE | 2024-04-30 04:34 | PTCARENOTE ---
Pt yelling on multiple occasions, upon entering room observed with eyes closed and even respirations. Awakens to tactile, drowsy. Appears to be dreaming. Bed alarm active for safety. Call [facility] within reach, pt does not utilize.
[2024-04-30 06:00] VITALS: BMI 23.5
[2024-04-30] MEDS: NON-FORMULARY ITEM 4 CAP PO ×2 (06:14→12:49)
[2024-04-30 07:05] VITALS: BP 171/95
[2024-04-30] MEDS: CYMBALTA DELAYED RELEASE 30 MG PO (08:06)
[2024-04-30] MEDS: NORVASC 5 MG PO (08:06)
[2024-04-30] MEDS: PROSCAR 5 MG PO (08:06)
[2024-04-30] MEDS: MUCINEX 1200 MG PO (08:06)
[2024-04-30] MEDS: VITAMIN B1 100 MG PO (08:06)
[2024-04-30] MEDS: NON-FORMULARY ITEM 75 MG PO (08:07)
--- NOTE | 2024-04-30 09:03 | CM ---
Addendum entered by Chantell Coburn 04/30/24 10:31:
Updated patient, auth still pending.
Original Note:
Bed available at [facility]
TC to [facility] [phone] spoke with Quin.
Per Quin clinical information received, determination pending.
Per Quin 14 turn around time.
Left again this morning on the Nurse #[phone] re skilled authorization.
Await TCB.
[2024-04-30 09:56] VITALS: BP 151/89; PULSE 77; O2SAT 98
--- NOTE | 2024-04-30 11:55 | PTCARENOTE ---
pt wakes to name. oriented x3 forgetful impulsive at times. oob with walker one person assist. pills in applesauce.
--- NOTE | 2024-04-30 12:16 | CM ---
Addendum entered by Chantell Coburn 04/30/24 14:58:
Again attempted to contact , VM full.
Addendum entered by Chantell Coburn 04/30/24 13:44:
Attempted to leave message for patients spouse, Geri, re transport time. (she ask CM to leave on her VM). Spouses VM is full and not accepting messages at this time.
Transport time 4:30 pm.
Addendum entered by Chantell Coburn 04/30/24 12:39:
IMM completed.
Original Note:
TC from [facility] from [employer]
Approved skilled level 2
Start date 04/30/24, LCD/NRD 05/13/23
Patient needs an admission notification review- call or fax to [facility]

[id number]
auth# [id number]
Ambulance transport forms completed.
[facility]
Report# [phone]
fax# [phone]
--- NOTE | 2024-04-30 12:55 | W.DCSUMMARY ---
Discharge Summary
Discharge Data
Date of Admission: 04/21/24
Date of Discharge: 04/30/24
-
Pending Results: No
Hospital Course
Mr. Marshall is a 73-year-old male with medical history of Parkinson's disease, early onset dementia, ambulatory dysfunction, and bladder cancer (treated) who presented with cough and severe dyspnea. He was febrile and found to have right lower
lobe infiltrate on chest imaging. He was started on treatment for community-acquired pneumonia. His respiratory panel was negative for COVID and influenza. Legionella urinary antigen was negative. He completed his course of antibiotics on
04/28/2024. He briefly required BiPAP for hypoxia and was ultimately able to be weaned back to room air. Due to his ambulatory dysfunction, PT/OT recommended SNF at time of discharge which has been arranged. Also of note, he had an incidental
finding of a 3.1 cm exophytic mass on the posterior cortex of the mid pole of the left kidney on CT imaging. This should be followed up in the outpatient setting. He was hemodynamically stable at the time of hospital discharge. He should
follow-up with his PCP and with his neurologist after discharge for ongoing management of his multiple comorbidities including his Parkinson's disease and Sinemet dosing.
Gen- NAD
HEENT-NC, AT, anicteric, clear oral mm
Neck-supple
CV-reg, no M, +S1/S2
Lungs-less rales, no wheezes
Abd-soft, NT, ND
Musculoskeletal-no edema, decreased muscle bulk throughout
Skin-warm and dry
Neuro-gross: Resting tremors, awake, alert to surroundings, answered questions appropriately
Psych-calm, cooperative
Discharge Plan
-
Patient Disposition: Alf/SNF
Discharge Diagnosis/Procedures: Community-acquired pneumonia
Diet: Other diet
Additional Diets: soft and bite sized
Activity: With assistance and As tolerated
Other Services: PT and OT
Activity Restrictions/Additional Instructions:
Wound Care Instructions
R middle finger: clean with soap and water, apply small piece of silver alginate and cover with coverlet/band aid daily and prn drainage
Follow up at wound care center *if not healing, call for an appointment.
Mr. Marshall is a 73-year-old male with medical history of Parkinson's disease, early onset dementia, ambulatory dysfunction, and bladder cancer (treated) who presented with cough and severe dyspnea. He was febrile and found to have right lower
lobe infiltrate on chest imaging. He was started on treatment for community-acquired pneumonia. His respiratory panel was negative for COVID and influenza. Legionella urinary antigen was negative. He completed his course of antibiotics on
04/28/2024. He briefly required BiPAP for hypoxia and was ultimately able to be weaned back to room air. Due to his ambulatory dysfunction, PT/OT recommended SNF at time of discharge which has been arranged. Also of note, he had an incidental
finding of a 3.1 cm exophytic mass on the posterior cortex of the mid pole of the left kidney on CT imaging. This should be followed up in the outpatient setting. He was hemodynamically stable at the time of hospital discharge. He should
follow-up with his PCP and with his neurologist after discharge for ongoing management of his multiple comorbidities including his Parkinson's disease and Sinemet dosing.
Referrals:
James Dang DO [Family Provider] -
Prescriptions:
New
thiamine mononitrate (vit B1) 100 mg Tablet
100 mg PO DAILY 30 Days Qty: 30 0RF
risperidone 0.25 mg Tablet
0.25 mg PO DAILY@1800 30 Days Qty: 30 0RF
amlodipine 5 mg Tablet
5 mg PO BID 30 Days Qty: 60 0RF
carbidopa-levodopa 25-100 mg Tablet
1 tab PO 1500,1700,1900,2100 30 Days Qty: 120 0RF
Continued
duloxetine 30 MG capsule,delayed release(DR/EC)
30 mg PO BID
Rytary 1 EACH capsule, extended release
4 cap PO 4-8XD
Patient Comments:
takes 34 x a day 7a, 11a, 11pm, 3a
Lorazepam 0.5 MG Tablet
0.5 mg PO DAILY
Patient Comments:
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
Rx Instructions:
1900
docusate sodium 100 MG capsule
100 mg PO DAILY
acetaminophen 325 MG tablet
650 mg PO Q4HPRN PRN (Reason: mild pain) Qty: 1 0RF
ibuprofen 200 MG tablet
400 - 600 mg PO Q6HPRN PRN (Reason: moderate pain) Qty: 1 0RF
finasteride 5 mg Tablet
5 mg PO DAILY
Gemtesa 75 mg Tablet
75 mg PO DAILY
polyethylene glycol 3350 17 GRAMS powder in packet
17 grams PO BID PRN (Reason: constipation)
Discharge Orders:
Discharge Patient (As Directed); Ordered 04/30/24
Ordered By: Jose Daniel Horner
Discharge Date and Time
Print Language: UPPER SORBIAN
--- NOTE | 2024-04-30 14:23 | PTCARENOTE ---
report called to stephen at [facility]
[2024-04-30] MEDS: SINEMET 25-100 1 TABLET PO (15:03)
[2024-04-30 15:37] VITALS: BP 96/63
== END 2024-04-30 17:01 | DRG 871 ==
LOC: 1 ACUTE 00:44
PROVIDERS: Internal Medicine; Nurse Practitioner Family; ADMITTING PHYSICIAN Internal Medicine; ATTENDING PHYSICIAN Internal Medicine; CONSULT PHYSICIAN Internal Medicine Critical Care Medicine; CONSULT PHYSICIAN Physical Medicine & Rehabilitation; EMERGENCY PHYSICIAN Emergency Medicine; FAMILY PHYSICIAN Family Medicine; OTHER PHYSICIAN Internal Medicine Infectious Disease
PROC: 5A09357 Assistance with Respiratory Ventilation, Less than 24 Consecutive Hours, Continuous Positive Airway Pressure (ICD-10-PCS; 2024-04-20)
PROC: 5A0935A Assistance with Respiratory Ventilation, Less than 24 Consecutive Hours, High Flow/Velocity Cannula (ICD-10-PCS; 2024-04-23)
DX: A41.9 Sepsis, unspecified organism (principal); G92.8 Other toxic encephalopathy; J18.9 Pneumonia, unspecified organism; J69.0 Pneumonitis due to inhalation of food and vomit; J96.01 Acute respiratory failure with hypoxia; F02.84 Dementia in other diseases classified elsewhere, unspecified severity, with anxiety; R65.20 Severe sepsis without septic shock; G20.A1 Parkinson's disease without dyskinesia, without mention of fluctuations; N40.0 Benign prostatic hyperplasia without lower urinary tract symptoms; M25.552 Pain in left hip; G89.29 Other chronic pain; M54.50 Low back pain, unspecified; D64.9 Anemia, unspecified; I45.10 Unspecified right bundle-branch block; E21.3 Hyperparathyroidism, unspecified; E78.5 Hyperlipidemia, unspecified; N28.89 Other specified disorders of kidney and ureter; I10 Essential (primary) hypertension; Z98.1 Arthrodesis status; Z96.653 Presence of artificial knee joint, bilateral; Z85.51 Personal history of malignant neoplasm of bladder; Z79.899 Other long term (current) drug therapy; Z11.52 Encounter for screening for COVID-19
CPT/HCPCS: 71046; 71275; 73502; 74230; 80048; 80053; 80306; 80307; 82805; 83605; 83880; 84443; 85025; 85027; 87040; 87449; 87502; 87641; 87811; 87899; 92526; 92610; 92611; 93005; 93306; 94640; 94660; 96365; 96375; 97112; 97116; 97163; 97167; 97530; 97535; 99291; Q9967

== ENCOUNTER 2024-05-12 20:29 | Inpatient (IN) | payer OTHER, SELFPAY ==
--- NOTE | 2024-05-12 18:54 | EDRN ---
Dr. Prasad in to see pt at this time
--- NOTE | 2024-05-12 19:04 | ED.GENMED ---
History of Present Illness
General
Chief Complaint: Change in Mental Status
Source: patient, records and previous hospital records
Exam Limitations: clinical condition and altered mental status
Time Seen by Provider: 05/12/24 18:36
Nursing documentation reviewed up to this point in time: agreed with
History of Present Illness
History of Present Illness:
73-year-old male history of Parkinson's to [facility] rehab for rehab and med adjustment recently admitted with aspiration pneumonia apparently has been agitated hitting at the nursing staff trying to elope seeing things, here he feels warm he is
agitated but redirectable no overt signs of head or neck trauma
Past History
Past History
ED Past Medical History: Cancer (Bladder cancer) and Other (Parkinsons)
ED Past Surgical History: Negative Cardiac
Social History
Tobacco: Non-smoker
Alcohol: Occasional
Drug: None
Personal:
Living: with family
Employment: Not employed
Family History
Family History: Other
Review of Systems
Review of Systems
Unable to obtain full review of systems at this time due to: due to acuity
All Other Systems: Not applicable
Phy Exam
Physical Exam
Physical Exam:
Physical Exam
General: Chronically ill man lying in the bed feels warm
Neck: Lips are dry
Heart: Tachycardic
Lungs: no acute respiratory distress.
Abdomen: Soft nontender
Neuro: Confused moves all
Skin: no rash
Psychiatric: Unable to assess
Extremities: no edema.
Course
Orders/Labs/Results
Orders:
Orders
05/12/24 18:55
Electrocardiogram (*1) Urgent
Reason for Study: Other
Other Reason for Exam: sepsis
Cardiac Monitoring- Treatment ONCE
EKG- Treatment ONCE
Rectal Temp- Treatment ONCE
Straight cath- Treatment ONCE
0.9% Sodium Chloride 1000 ml [Nss] 1,000 ml IV BOLUS
Acetaminophen [Tylenol] 1,000 mg PO NOW STA
CR Chest Portable - 1 View Urgent
Comment:
Reason For Exam: fever
Reason Study Needs to be Portable: Patient Unstable
05/12/24 19:21
CPK [Creatine Phosphokinase] Urgent
Complete Blood Count/With Diff Urgent
Comprehensive Metabolic Panel Urgent
Lactic Acid Q4H
Comment: CANCEL 2nd LACTIC ACID IF 1st LACTIC ACID IS LESS THAN 2
Urinalysis Reflex To Culture Urgent
Date Specimen was Collected: 05/12/24
Time Specimen was Collected: 19:08
Urine Microscopic Reflex Cult Urgent
Blood Culture Q30M
AGUSTIN Source: Blood/Venous
Specimen Description:
Influenza A+B Rapid Molecular Urgent
AGUSTIN Source: Nasal Swab
Specimen Description:
Urine Culture Urgent
AGUSTIN Source: U
Specimen Description:
Date Specimen was Collected: 05/12/24
Time Specimen was Collected: 19:08
05/12/24 19:26
COVID-19 Antigen Urgent
Source: Nasal Swab
05/12/24 19:32
Blood Culture Q30M
AGUSTIN Source: Blood/Venous
Specimen Description:
05/12/24 19:49
CefTRIAXone [Rocephin] 1,000 mg IV NOW STA
05/12/24 20:10
Admit/Transfer Patient As Directed
Co-Sign Provider:
Level of Care: Inpatient admission
Assign to:: Medical/Surgical
Physician / Group: robi
Diagnosis: sepsis uti
Reason for Hospitalization: sepsis uti
Expected length of stay greater than two midnights?: Yes
ELOS- Estimated Length of Stay in days: 2
I certify the patient meets the requirements for IP care: Yes
05/12/24 20:11
Code Status As Directed
Resuscitation Status: Full Code
PRN Pain Medication Management As Directed
May give lesser potent ordered pain med per pt: Yes
preference::
Protocol:: Medication orders for pain may be administered in a
manner that supports deferring to patient preference
when the pt is:
- Requesting an ordered lesser potent pain medication.
Least to most potent pain medications are defined
as: acetaminophen < NSAID < tramadol < opioids
(morphine, oxycodone, hydromorphone).
- Requesting a lesser dose of the same medication IF
ORDERED.
- Requesting a less intrusive route of administration
if both routes are prescribed by the provider (PO <
IV).
05/12/24 23:00
Lactic Acid Q4H
Comment: CANCEL 2nd LACTIC ACID IF 1st LACTIC ACID IS LESS THAN 2
Abnormal Lab Results
05/12/24
19:21
WBC 11.4 H 10^3/uL
(4.8-10.8)
RBC 3.40 L 10^6/uL
(4.70-6.10)
Hgb 9.6 L g/dL
(13.0-18.0)
Hct 29.0 L %
(39.0-52.0)
RDW 15.0 H %
(11.5-14.5)
Abs Immat Gran (auto) 0.1 H 10^3/uL
(0-0.05)
Absolute Neuts (auto) 9.7 H 10^3/uL
(1.4-6.5)
Absolute Lymphs (auto) 0.3 L 10^3/uL
(1.2-3.4)
Absolute Monos (auto) 1.2 H 10^3/uL
(0.1-0.6)
Neutrophils % 85.8 H %
(42.2-75.2)
Lymphocytes % 2.9 L %
(20.5-51.1)
Monocytes % 10.7 H %
(1.7-9.3)
BUN 35 H mg/dl
(9-20)
Creatinine 1.4 H mg/dL
(0.7-1.3)
Glucose 110 H mg/dl
(70-99)
Creatine Kinase 48 L U/L
(55-170)
Urine Ketones 2+ A
(Negative)
Ur Occult Blood Reflex 1+ A
(Negative)
Urine Nitrite (Reflex) Positive A
(Negative)
Urine Bilirubin 1+ A
(Negative)
Urine Urobilinogen 2+ A
(Neg - 1+)
Leukocyte Esterase Rfl 2+ A
(Negative)
Urine RBC 3-6 A /HPF
(0-2)
Urine Bacteria (Reflex) Moderate A
(Negative)
Urine Albumin (Reflex) 2+ A
(Neg - Trace)
05/12/24 19:21
05/12/24 19:21
Vital Signs
Initial and Last Documented VS:
Initial Vital Signs
Temp Pulse Resp Pulse Ox
99.7 F 93 20 96
05/12/24 18:38 05/12/24 18:38 05/12/24 18:38 05/12/24 18:38
Last Documented Vital Signs
Temp Pulse Resp BP Pulse Ox
101.9 F H 89 20 140/69 94
05/12/24 19:10 05/12/24 20:00 05/12/24 20:00 05/12/24 20:00 05/12/24 20:00
MDM/Problems Addressed
Differential Diagnosis Includes:
Infectious toxic metabolic electrolyte abnormality and a mass, medication effect
MDM/Problems Addressed:
Agitation confusion
Chronic conditions affecting care: Neurological disorder
Acute Exacerbation and/or Progression of Chronic Illness: Neurological disorder
*Critical Care Note
Total Time (30-74mins, 75-104mins- exclusive of procedures): Not Applicable
Update Note
Update Note:
Update patient is febrile labs are noted urine noted started on ceftriaxone chest x-ray noted likely require admission concern for bacteremia behavioral disturbances,
ED Attending Note
-
Portions of this chart may have been created with voice recognition software.� Occasional wrong word or��sound alike� substitutions may have occurred due to the inherent limitations of voice recognition software.
Discharge Plan
Departure
Patient Disposition: Admit
Date of Disposition: 05/12/24
Time of Disposition: 19:56
Admit to: Med/Surg
Presentation/result/management discussed w/ accepting MD/DO: Hospitalist
Patient with high blood pressure during this ER visit?: No
Condition: Fair
Covid-19: Not Applicable
Discharge Problem:
Toxic metabolic encephalopathy, Delirium
Prescriptions:
No Action
duloxetine 30 MG capsule,delayed release(DR/EC)
30 mg PO BID
Rytary 1 EACH capsule, extended release
4 cap PO 4-8XD
Patient Comments:
takes 34 x a day 7a, 11a, 11pm, 3a
Lorazepam 0.5 MG Tablet
0.5 mg PO DAILY
Patient Comments:
patient pick up worker on 05/29/21 #[id number]
Rx Instructions:
1900
docusate sodium 100 MG capsule
100 mg PO DAILY
acetaminophen 325 MG tablet
650 mg PO Q4HPRN PRN (Reason: mild pain) Qty: 1 0RF
ibuprofen 200 MG tablet
400 - 600 mg PO Q6HPRN PRN (Reason: moderate pain) Qty: 1 0RF
finasteride 5 mg Tablet
5 mg PO DAILY
Gemtesa 75 mg Tablet
75 mg PO DAILY
polyethylene glycol 3350 17 GRAMS powder in packet
17 grams PO BID PRN (Reason: constipation)
thiamine mononitrate (vit B1) 100 mg Tablet
100 mg PO DAILY 30 Days Qty: 30 0RF
risperidone 0.25 mg Tablet
0.25 mg PO DAILY@1800 30 Days Qty: 30 0RF
amlodipine 5 mg Tablet
5 mg PO BID 30 Days Qty: 60 0RF
carbidopa-levodopa 25-100 mg Tablet
1 tab PO 1500,1700,1900,2100 30 Days Qty: 120 0RF
Referrals:
James Dang DO [Family Provider] -
Interventions
Interventions:
*Risk Screen - Suicide Last Done: 05/12/24 18:38
*General Assessment Last Done: 05/12/24 18:38
*Neglect/Abuse Screening Last Done: 05/12/24 18:38
ED- Fall Risk Assessment Last Done: 05/12/24 18:52
*ED COVID-19 Vaccine History Last Done: 05/12/24 18:38
Discharge Date and Time
Print Language: ZAMBIAN
[2024-05-12 19:10] VITALS: BMI 22.6
[2024-05-12] MEDS: NSS 1000 IV ×2 (19:28→23:37)
[2024-05-12 19:33] LABS: % Basophils 0.1 % (0-2); % Immature Granulocytes 0.5 % (0-0.5); % Lymphocytes 2.9 % (20.5-51.1); % Monocytes 10.7 % (1.7-9.3); % Neutrophils 85.8 % (42.2-75.2); Absolute Immature Granulocytes 0.1 10^3/uL (0-0.05); Absolute Lymphocytes 0.3 10^3/uL (1.2-3.4); Absolute Monocytes 1.2 10^3/uL (0.1-0.6); Absolute Neutrophils 9.7 10^3/uL (1.4-6.5); Hemoglobin 9.6 g/dL (13.0-18.0); Mean Corp Hgb Conc. 33.1 g/dL (33.0-37.0); Mean Corpuscular Hgb 28.2 pg (27.0-31.0); Mean Corpuscular Volume 85.3 fL (80.0-94.0); Mean Platelet Volume 10.2 fL (7.4-10.4); Nucleated Red Blood Cells % 0 % (-); Platelet Count 333 10^3/uL (130-400); White Blood Cell Count 11.4 10^3/uL (4.8-10.8)
[2024-05-12 19:35] LABS: Urine Albumin 2+ (Neg - Trace); Urine Bilirubin 1+ (Negative); Urine Character Clear (Clear); Urine Color Brown; Urine Glucose Negative (Negative); Urine Ketone 2+ (Negative); Urine Leukocyte 2+ (Negative); Urine Nitrite Positive (Negative); Urine Occult Blood 1+ (Negative); Urine Specific Gravity 1.025 (<1.030); Urine Urobilinogen 2+ (Neg - 1+)
[2024-05-12] MEDS: TYLENOL 1000 MG PO (19:37)
[2024-05-12 19:44] LABS: Lactic Acid 1.3 mmol/L (0.7-2.0)
[2024-05-12 19:45] VITALS: BP 147/71
[2024-05-12 19:45] LABS: ALT (SGPT) < 10 U/L (0-50); AST (SGOT) 17 U/L (17-59); Albumin 3.6 g/dl (3.5-5.0); Alkaline Phosphatase 123 U/L (38-126); Blood Urea Nitrogen 35 mg/dl (9-20); Calcium 9.4 mg/dl (8.4-10.2); Carbon Dioxide 24 mmol/L (22-30); Chloride 102 mmol/L (98-107); Creatine Phosphokinase 48 U/L (55-170); Estimated Creatinine Clearance 45 ml/min; Glucose 110 mg/dl (70-99); Potassium 4.4 mmol/L (3.5-5.1); Sodium 136 mmol/L (135-145); Total Bilirubin 1.1 mg/dl (0.2-1.3); Total Protein 6.8 g/dl (6.3-8.2); eGFR 52.74
[2024-05-12 19:46] LABS: COVID-19 Antigen Negative (Negative)
[2024-05-12 19:52] LABS: Urine Hyaline Cast 0-2 /LPF (0-2)
[2024-05-12 19:53] LABS: Urine Bacteria Moderate (Negative)
[2024-05-12 19:59] VITALS: BP 147/71
[2024-05-12 20:00] VITALS: BP 140/69
--- NOTE | 2024-05-12 20:11 | EDRN ---
Dr. Esquivel in room w/ pt at this time.
--- NOTE | 2024-05-12 20:15 | HPS.HSE ---
Addendum entered and electronically signed by Antonio Cardona MD 05/12/24 23:03:
Patient with rectal prolapse on examination.
Also abdomen is distended. Will check abdominal x-ray to evaluate stool burden.
Original Note:
Family Physician
-
Family Physician: James Dang DO
Chief Complaint
-
agitation
History of Present Illness
73-year-old male past medical history of Parkinsons, incarcerated inguinal hernia status post repair, early onset dementia, chronic ambulatory dysfunction, CHF, BPH, bladder cancer status post intrathecal chemotherapy, anxiety, presenting with
agitation. He has been hitting the nursing staff and trying to elope.
He is complaining of some lower abdominal pain. He feels like he has to have a bowel movement. He had an episode of vomiting today. Did have some cough and shortness of breath earlier. Denies urinary symptoms. Denies diarrhea. Denies chills.
He was agitated and punching staff in the emergency room.
He was recently admitted from 04/21 to 04/30 for pneumonia and discharged to rehab.
Medical History
Past Medical History
Past Medical History: Reports Other (Parkinsons, incarcerated inguinal hernia status post repair, early onset dementia, chronic ambulatory dysfunction, CHF, BPH, bladder cancer status post intrathecal chemotherapy, anxiety,)
Past Surgical History: Reports None
Social History
Tobacco: Non-smoker
Alcohol: None
Drug: None
Family History
Family History: Not pertinent
Allergies / Home Medications
Allergies reflects when Allergies were last updated in [facility].
Home Medications with original date entered in [facility]
Allergy/Medication List:
Allergies
Allergy/AdvReac Type Severity Reaction Status Date / Time
No Known Allergies Allergy Verified 05/12/24 18:38
Home Medications
Lorazepam 0.5 mg PO DAILY Mental Health/Anxiety 07/25/21
carbidopa ER 61.25 mg-levodopa 245 mg capsule,extended release (Rytary) 4 cap PO 4-8XD parkinson's 07/25/21
duloxetine 30 mg capsule,delayed release 30 mg PO BID Mental Health/Anxiety 07/25/21
docusate sodium 100 mg capsule 100 mg PO DAILY Constipation 08/05/21
acetaminophen 325 mg tablet 650 mg (2 x 325 mg) PO Q4HPRN PRN mild pain #1 tab 08/06/21
ibuprofen 200 mg tablet 400 - 600 mg (2 - 3 x 200 mg) PO Q6HPRN PRN moderate pain #1 tab 08/06/21
finasteride 5 mg tablet 5 mg PO DAILY Urinary Issue 04/20/24
polyethylene glycol 3350 17 gram oral powder packet 17 grams PO BID PRN constipation 04/20/24
vibegron 75 mg tablet (Gemtesa) 75 mg PO DAILY OAB 04/20/24
amlodipine 5 mg tablet 5 mg PO BID 30 days #60 tabs 04/30/24
carbidopa 25 mg-levodopa 100 mg tablet 1 tab PO 1500,1700,1900,2100 30 days #120 tabs 04/30/24
risperidone 0.25 mg tablet 0.25 mg PO DAILY@1800 30 days #30 tabs 04/30/24
thiamine mononitrate (vit B1) 100 mg tablet 100 mg PO DAILY 30 days #30 tabs 04/30/24
Review of Systems
-
History Source: Patient
A 12 point ROS was completed and negative except as noted: Yes
Constitutional: Reports No Symptoms
EENT: Reports No Symptoms
Respiratory: Reports No Symptoms
Cardiac: Reports No Symptoms
Abdomen/GI: Reports See HPI
: Reports No Symptoms
Musculoskeletal: Reports No Symptoms
Skin: Reports No Symptoms
Neurological: Reports No Symptoms
Endocrine: Reports No Symptoms
Hematologic/Lymphatic: Reports No Symptoms
Psych: Reports No Symptoms
Physical Exam
Vital Signs
Vital Signs
Temp Pulse Resp BP Pulse Ox
101.9 F H 89 20 140/69 94
05/12/24 19:10 05/12/24 20:00 05/12/24 20:00 05/12/24 20:00 05/12/24 20:00
Physical Exam
General: Well Developed, Well Nourished and No Apparent Distress
HEENT: NormoCephalic, Moist mucous membranes and Atraumatic
Respiratory: Clear
Cardiac: S1/S2 and Regular Rhythm; No Murmur or Rub
GI: Soft, Non Tender, Non Distended and Normal Bowel Sounds; No Organomegaly
Rectal: Deferred by Provider
Musculoskeletal: No Clubbing, No Cyanosis and No Edema
Skin: No Rash
Neuro: Nonfocal/grossly intact
Laboratory Results
-
05/12/24 19:21
05/12/24 19:21
Laboratory Results
Lactic Acid 1.3 mmol/L (0.7-2.0) 05/12/24 19:21
Total Bilirubin 1.1 mg/dl (0.2-1.3) 05/12/24 19:21
AST 17 U/L (17-59) 05/12/24 19:21
ALT < 10 U/L (0-50) 05/12/24 19:21
Alkaline Phosphatase 123 U/L (38-126) 05/12/24 19:21
Data Reviewed
-
Lab Data: Labs Reviewed by me
Old Records: Reviewed
Impression/Plan
-
IMPRESSION:
PLAN:
# Sepsis (fever, tachypnea, leukocytosis)/acute metabolic encephalopathy/agitation secondary to UTI
-Urinalysis shows +2 leukocyte esterase, 6-10 WBC, nitrate
-COVID and influenza negative
-Chest x-ray shows left basilar retrocardiac opacity likely atelectasis although mild pneumonia can be considered
-Check urine culture
-Blood cultures
-IV fluids
-Ceftriaxone
# Acute kidney injury prerenal
-IV fluids
Parkinson's disease
-Continue carbidopa-levodopa
Early onset dementia
Chronic ambulatory dysfunction
History of CHF
Essential hypertension
-Continue amlodipine
Chronic anemia
-Hemoglobin stable 9.6
Bladder cancer status post intrathecal chemotherapy
BPH
-Continue finasteride
Anxiety/depression
-Continue duloxetine
-Continue Risperdal
History of incarcerated hernia status post repair
Full code
DVT prophylaxis�heparin
Regular diet
[2024-05-12] MEDS: ROCEPHIN 1000 MG IV (20:39)
--- NOTE | 2024-05-12 21:29 | EDRN ---
Med Rec completed at this time w/ Dr. Esquivel TT'd just now.
[2024-05-12 22:00] VITALS: BP 119/89
[2024-05-12 23:01] VITALS: BP 109/76
--- NOTE | 2024-05-12 23:08 | EDRN ---
Dr. Esquivel was in to check patient's rectum and abdomen (which is firm and distended).
[2024-05-13] VITALS (11 sets, daily range): BP systolic 109–149; BP diastolic 68–93
[2024-05-13 04:45] LABS: % Basophils 0.1 % (0-2); % Eosinophils 0.1 % (0-6); % Immature Granulocytes 0.4 % (0-0.5); % Lymphocytes 8.9 % (20.5-51.1); % Neutrophils 78.5 % (42.2-75.2); Absolute Lymphocytes 0.9 10^3/uL (1.2-3.4); Absolute Monocytes 1.2 10^3/uL (0.1-0.6); Absolute Neutrophils 8.1 10^3/uL (1.4-6.5); Hematocrit 32.6 % (39.0-52.0); Hemoglobin 10.7 g/dL (13.0-18.0); Mean Corp Hgb Conc. 32.8 g/dL (33.0-37.0); Mean Corpuscular Hgb 28.5 pg (27.0-31.0); Mean Corpuscular Volume 86.7 fL (80.0-94.0); Mean Platelet Volume 10.6 fL (7.4-10.4); Nucleated Red Blood Cells % 0 % (-); Platelet Count 350 10^3/uL (130-400); Red Blood Cell Count 3.76 10^6/uL (4.70-6.10); White Blood Cell Count 10.3 10^3/uL (4.8-10.8)
[2024-05-13 05:10] LABS: ALT (SGPT) < 10 U/L (0-50); AST (SGOT) 17 U/L (17-59); Albumin 3.5 g/dl (3.5-5.0); Alkaline Phosphatase 129 U/L (38-126); Blood Urea Nitrogen 28 mg/dl (9-20); Calcium 9.3 mg/dl (8.4-10.2); Carbon Dioxide 26 mmol/L (22-30); Chloride 104 mmol/L (98-107); Estimated Creatinine Clearance 79 ml/min; Glucose 97 mg/dl (70-99); Potassium 4.2 mmol/L (3.5-5.1); Sodium 140 mmol/L (135-145); Total Bilirubin 0.7 mg/dl (0.2-1.3); eGFR > 60.00
[2024-05-13] MEDS: COLACE 100 MG PO (08:10)
[2024-05-13] MEDS: ATIVAN 0.5 MG PO (08:10)
[2024-05-13] MEDS: PROSCAR 5 MG PO (08:10)
[2024-05-13] MEDS: NORVASC 5 MG PO ×2 (08:10→19:15)
[2024-05-13] MEDS: VITAMIN B1 100 MG PO (08:10)
[2024-05-13] MEDS: HEPARIN 5000 UNITS SC ×2 (08:10→19:15)
--- NOTE | 2024-05-13 09:08 | W.PN.HOSP.TC ---
Today's Communication/Plan
-
IV antibiotics.
Assessment / Plan
Assessment / Plan
Physical exam:
General: Acutely ill
HEENT: Normocephalic, Atraumatic and Moist Mucous Membranes
Respiratory: Clear to Auscultation; Negative Wheezes, Rales or Rhonchi
Cardiac: Regular Rhythm and S1/S2
GI: Soft, Nontender and Distended
Musculoskeletal: No Clubbing, No Cyanosis and No Edema
Neuro: Awake, Alert and Oriented, tremors present, generalized weakness.
Rectal exam: Rectal red bulging mass protruding from rectum
Psych: Calm
A/P:
Bacteremia, Staph aureus/Sepsis:
Start IV cefazolin and stop other antibiotics.
Stop IV fluids and reevaluate
Follow-up blood cultures final identification
ID consult-discussed with ID via [place] text today
PT OT eval
Toxic-metabolic encephalopathy:
Likely related to current infection
Monitor and reevaluate
Rectal prolapse:
Needs to see if reducible and if not might need surgical intervention
Colorectal surgery consult-discussed with CRS via [place] text today
Dysphagia:
Speech therapy eval-recommend diet level 6
Significant constipation:
Continue aggressive bowel regimen with change medications to scheduled rather than as needed
Parkinson's disease:
Continue Sinemet 25/100 mg tab p.o. 4 times daily and Rytary 61.25-245 mg ER 4 capsules 4 times daily.
Possible dementia related to Parkinson's:
Monitor behavior and mental status
Hypertension:
Continue amlodipine 5 mg twice a day
BPH:
Continue finasteride 5 mg p.o. daily
Continue Detrol LA
Depression and anxiety:
Continue lorazepam 0.5 mg daily orally
Continue Cymbalta 30 mg p.o. twice a day
DVT prophylaxis:
Heparin SQ
CODE STATUS:
Full code
Total time spent on today's encounter was 52 minutes which included time spent in counseling the patient/family regarding diagnosis and treatment plan as listed above, goals of care, and symptom management. Case was discussed with nursing staff,
specialists, and care coordinators/case management. All labs and imaging personally reviewed by me. Remainder the time spent in detailed review of previous records, lab data, imaging, and other medical provider documentation.
Anticipated Discharge: > 48 hours
Subjective/Interval History
-
Date of Service: May 13, 2024
Patient alert today, he is able to tell me he is in the hospital but does not know why he is here. No chest pain or shortness of breath. No bowel movement reported. Afebrile today-had Tmax 101.9 Fahrenheit yesterday.
Objective Data
-
Labs:
Laboratory Results
05/13/24 05/13/24
04:16 04:17
WBC 10.3
Hgb 10.7 L
Hct 32.6 L
Plt Count 350
Sodium 140
Potassium 4.2
Chloride 104
Carbon Dioxide 26
BUN 28 H
Creatinine 0.8
Glucose 97
Calcium 9.3
Total Bilirubin 0.7
AST 17
ALT < 10
Alkaline Phosphatase 129 H
Vital Signs:
Vital Signs
Temp Pulse Resp BP Pulse Ox
98.4 F 80 20 148/93 97
05/13/24 08:21 05/13/24 08:21 05/13/24 08:21 05/13/24 08:21 05/13/24 08:21
I&O
05/12/24 05/13/24 05/14/24
06:59 06:59 06:59
Output Total 200 / 200 100 / 100
Balance -200 / -200 -100 / -100
[2024-05-13] MEDS: DETROL LA 4 MG PO (09:20)
[2024-05-13] MEDS: CYMBALTA DELAYED RELEASE 30 MG PO ×2 (09:21→19:15)
[2024-05-13] MEDS: DETROL LA PO (09:22)
[2024-05-13] MEDS: ZITHROMAX INFUSION 250 IV (10:54)
[2024-05-13] MEDS: NON-FORMULARY ITEM 4 CAP PO ×2 (10:54→22:42)
[2024-05-13] MEDS: MIRALAX 17 GRAMS PO ×2 (10:54→19:14)
--- NOTE | 2024-05-13 11:53 | PTOTSP ---
Speech Therapy Assessment
Patient is considered at elevated risk for aspiration given frequent throat clearing during thin liquid trials today that align with results of recent VSE that showed deep laryngeal penetration.
Recommend
1. IDDSI level 6 (soft and bite-sized) and Mildly thick Liquids
2. Meds whole in applesauce
3. Aspiration Precautions.
4. Assist with feeding as needed.
5. ST will follow to ensure diet tolerance and/or need for further diet modifications or advancement.
--- NOTE | 2024-05-13 12:35 | CON.CRS ---
Consultation
-
Date/Time Consultation Requested: 05/13/2024, 10:45
Date/Time Consultation Performed: 05/13/2024, 13:30
Requesting Provider: Hunter Van MD
Performing Provider: Dario Wynn MD
Reason for Consultation: rectal prolapse
Medical History
-
Chief Complaint: lower abdominal pain
History of Present Illness:
73-year-old male, with a past medical history of Parkinson's and early onset dementia and history of bladder cancer status postchemotherapy, presents to the ER with agitation. Upon admission he was complaining of lower abdominal pain and sensation
to have a bowel movement. Apparently he had vomited sometime yesterday per the hospitalist. He was recently admitted from 04/21/2024 to 04/30/2024 for pneumonia and he was discharged to rehab. On admission his WBC was 11.4 and is 10.3 today. He
had a Tmax of 101.9 yesterday evening. His vitals have otherwise remained normal. He was started on IV antibiotics for possible pneumonia in the left basilar retrocardiac area.
Per patient he states he has not had a bowel movement for 'some time'. When I asked him how long it has been, he states 'longer than normal'. He states he vomited once yesterday and that was the only time. He is currently not nauseous. He does
feel distended and is uncomfortable when he sits up. He states he has had no flatus in a day and a half.
Abdominal xray shows 'Residual contrast is seen with stool throughout the large bowel possibly from video fluoroscopic swallowing study April 23, 2024 suggesting slow intestinal transit. Intestinal bowel gas pattern is nonspecific'. An enema was
ordered and he was started on Colace and MiraLAX twice daily. It was also noted on exam that the patient has a small rectal prolapse. Given these findings, we have been consulted for further surgical opinion.
Past Medical History
Past Medical History: Cancer (bladder cancer status post intrathecal chemotherapy), CHF, Psychiatric ( anxiety) and Other (Parkinsons, incarcerated inguinal hernia status post repair, chronic ambulatory dysfunction, BPH, early onset dementia)
Past Surgical History: None
Social History
Tobacco: Non-Smoker
Alcohol: None
Drug: None
Living: [facility]
Family History
Family History: Reviewed & Not Pertinent
Allergies / Home Medications
Allergy/AdvReac Type Severity Reaction Status Date / Time
No Known Allergies Allergy Verified 05/12/24 18:38
�Medication �Instructions �Recorded �Confirmed �Type
carbidopa ER 61.25 mg-levodopa 245 4 cap PO .4 TIMES A DAY parkinson's 07/25/21 05/12/24 History
mg capsule,extended release
(Rytary)
duloxetine 30 mg capsule,delayed 30 mg PO BID Mental Health/Anxiety 07/25/21 05/12/24 History
release
docusate sodium 100 mg capsule 100 mg PO DAILY Constipation 08/05/21 05/12/24 History
finasteride 5 mg tablet 5 mg PO DAILY Urinary Issue 04/20/24 05/12/24 History
polyethylene glycol 3350 17 gram 17 grams PO BID PRN constipation 04/20/24 05/12/24 History
oral powder packet
amlodipine 5 mg tablet 5 mg PO BID 30 days #60 tabs 04/30/24 05/12/24 Rx
thiamine mononitrate (vit B1) 100 100 mg PO DAILY 30 days #30 tabs 04/30/24 05/12/24 Rx
mg tablet
Jtqwjymz-Vlffgewrf-Iggetuavnew 20 ml PO Q6 PRN indigestion 05/12/24 05/12/24 History
Milk of Magnesia 30 ml PO DAILY PRN if no BM for 2 05/12/24 05/12/24 History
days
bisacodyl 10 mg rectal suppository 10 mg NM DAILY PRN constipation 05/12/24 05/12/24 History
(Dulcolax (bisacodyl))
carbidopa 25 mg-levodopa 100 mg 1 tab PO .5 TIMES A DAY 05/12/24 05/12/24 History
tablet
ibuprofen 200 mg tablet 400 mg PO Q6HPRN PRN moderate pain 05/12/24 05/12/24 History
lorazepam 0.5 mg tablet 0.5 mg PO DAILY 05/12/24 05/12/24 History
sodium phosphates 19 gram-7 118 ml NM ONCE PRN no BM after 05/12/24 05/12/24 History
gram/118 mL enema (Fleet Enema) biscadyl supp
vibegron 75 mg tablet 75 mg PO DAILY 05/12/24 05/12/24 History
Review of Systems
-
History Source: Transfer Record and Physician
All other systems: Negative unless noted
Constitutional: Other (agitation )
Respiratory: Cough and Other (SOB)
Abdomen/GI: Abdominal Pain, Vomiting and Constipated
A 10 point review of systems was completed, and was negative except as per HPI.
Physical Exam
Vital Signs
Temp 97.5 F 05/13/24 12:33
Pulse 79 05/13/24 12:33
Resp Rate 20 05/13/24 12:33
Blood pressure 120/76 05/13/24 12:33
SaO2 93 05/13/24 12:33
05/12/24 05/13/24 05/14/24
06:59 06:59 06:59
Actual Weight 69.3 kg
Body Mass Index (BMI) 22.6
Lab Results / Allergies
05/13/24 04:17
05/13/24 04:16
WBC 10.3 10^3/uL (4.8-10.8) 05/13/24 04:17
Hgb 10.7 g/dL (13.0-18.0) L 05/13/24 04:17
Hct 32.6 % (39.0-52.0) L 05/13/24 04:17
Plt Count 350 10^3/uL (130-400) 05/13/24 04:17
Abs Immat Gran (auto) 0.0 10^3/uL (0-0.05) 05/13/24 04:17
Neutrophils % 78.5 % (42.2-75.2) H 05/13/24 04:17
Allergy/AdvReac Type Severity Reaction Status Date / Time
No Known Allergies Allergy Verified 05/12/24 18:38
Physical Exam
General: No Apparent Distress
Rectal: Other (small rectal prolapse noted, mucosa warm and pink, partially reduced at bedside. No stool noted in rectal vault. )
Neuro: AO x 3
Psych: Calm and Confused
Data Reviewed
-
Radiology: Image Personally Visualized and interpreted and Report Reviewed by me
Labs: Labs Reviewed by me and Discussed with Physician
Old Records: Reviewed
Assessment / Plan
-
Assessment: 73yo male with a past medical history of bladder cancer status post chemo and Parkinson's/dementia presents with agitation at his rehab facility and found to have possible left basilar pneumonia as well as rectal prolapse and severe
constipation
Plan:
-Continue Colace 100mg daily and Miralax BID
-Infectious disease has been consulted
-Follow abdominal exam
-Will attempt manual reduction again later (patient began bleeding and was in pain, aborted)
--- NOTE | 2024-05-13 13:38 | CM ---
CM spoke with spouse/Geri
Pt admitred to from 04/21-04/30 and dc to [facility] under auth
Pt is a [facility] - was supposed to dc today
No bed-hold
Prior, pt was living with his spouse i a 2SH with 2 YOLETTE
Was independent with his ADLs with use of a WW at night
Has local children, spouse still working out of the home
No home O2 baseline
No financial insecurities
PCP- James Dang
Rx- [facility]
PT eval with SNF recs
Spouse requesting [facility] as 1st choice
She is starting to consider LTC options
[place] vs [facility] SNF discussed along with palliatve care and hospice
[facility] info provided to spouse
Her plan is [facility] rehab again at this time
PASRR completed and referral sent to [facility]
Aware additional SNF choices may be needed as bed not being held
Discharge Disposition- SNF pending auth
[2024-05-13] MEDS: ANCEF 10 IV ×2 (13:51→21:18)
[2024-05-13] MEDS: NSS IV (13:59)
--- NOTE | 2024-05-13 14:57 | PTCARENOTE ---
Colorectal PA at bedside -attempted to reduce prolapsed rectum but unsuccessful. Pt is not sure last BM but thinks it was a few days ago. Denies passing flatus. Abd is full/distended. Pt is eating/drinking w/o issue. Pt denies nausea.
[2024-05-13] MEDS: SINEMET 25-100 1 TABLET PO ×3 (16:11→21:18)
--- NOTE | 2024-05-13 16:21 | CON.ID ---
Consultation
-
Date/Time Consultation Requested: 05/13/2024 1219
Date/Time Consultation Performed: 05/13/2024 1550
Requesting Provider: Dr. Van
Performing Provider: Dr. Alfonso
Reason for Consultation: Staph aureus bacteremia
Chief Complaint / Past History
History of Present Illness
Carlo Marshall is a 73-year-old man with a significant past medical history of Parkinson's disease and early dementia being evaluated at the request of Dr. Van in regards to bacteremia. History is obtained from chart review, along with patient
interview.
The patient recently was admitted to [facility] from 04/20/2024 through 04/30/2024, during which time he was treated for cough and suspected community-acquired vs ASP PNA. He completed a course of Augmentin on 04/28/2024. Thereafter, he was
transitioned to [facility] for rehab.
He returns to [facility] on 05/12/2024 secondary to reported agitation at the facility. According to reviewed notes he had been reportedly hitting the nursing staff and trying to elope from the facility. Additionally, he had been complaining
of some lower abdominal discomfort and had 1 episode of vomiting on the day of admission. Blood cultures obtained at the time of presentation to the hospital have been found to be positive for Staph aureus, and Infectious Diseases is asked to
comment on further antimicrobial therapy.
At this time, the patient denies any headache. He denies significant cough or shortness of breath. He admits to chronic low back pain, but no change in intensity.
Past History
Additional Past Medical History:
Parkinson's disease
Anxiety
BPH
hx bladder cancer, treated
Ambulatory dysfunction
Additional Past Surgical History:
Bilateral TKR
right middle finger osteo s/p amp
parathyroidectomy
Spinal fusion/decompression
Right inguinal hernia repair (08/2021)
Allergy History:
No Known Allergies Allergy (Verified 05/12/24 18:38)
Medications Reviewed: Yes
Current Antibiotics:
Cefazolin 2 g IV every 8 hours
Social History
Tobacco: Non-Smoker
Alcohol: Occasional
Drug: None
Personal:
Employment: Retired
Family History
Family History: Not Pertinent
Review of Systems
Vital Signs
Temp Pulse Resp BP Pulse Ox
97.5 F 79 20 120/76 93
05/13/24 12:33 05/13/24 12:33 05/13/24 12:33 05/13/24 12:33 05/13/24 13:38
Physical Exam
Physical Exam
Constitutional: No Acute Distress, Comfortable and Non-toxic
Head: Other (No frontal or max or sinus tenderness)
Eyes: No Conjunctival Hemorrhage and Sclera Anicteric
Pharynx: Benign
Cardiovascular: Regular Rate and S1/S2; Negative S3/S4 or Murmur
Pulmonary: Clear and Non Labored; Negative Wheezes or Rales
Gastrointestinal: Soft, Non Tender, Distended, Normal Bowel Sounds, No Rebound and No Guarding
Genito-Urinary: Negative CVA Tenderness
Extremities: Negative Edema, Cyanosis or Erythema
Musculoskeletal: Negative Joint Swelling, Joint Effusion or Spinal Tenderness
Neurological: AO x 3, Normal Muscle Strength and No Motor Deficits; Negative Meningeal Signs
.
Lab / Diagnostic Study Results
05/13/24 04:17
05/13/24 04:16
Abs Immat Gran (auto) 0.0 10^3/uL (0-0.05) 05/13/24 04:17
Absolute Neuts (auto) 8.1 10^3/uL (1.4-6.5) H 05/13/24 04:17
Absolute Lymphs (auto) 0.9 10^3/uL (1.2-3.4) L 05/13/24 04:17
Absolute Monos (auto) 1.2 10^3/uL (0.1-0.6) H 02/10/25 04:17
Absolute Basos (auto) 0.0 10^3/uL (0-0.2) 05/13/24 04:17
Immature Gran % 0.4 % (0-0.5) 05/13/24 04:17
Neutrophils % 78.5 % (42.2-75.2) H 05/13/24 04:17
Lymphocytes % 8.9 % (20.5-51.1) L 05/13/24 04:17
Monocytes % 12.0 % (1.7-9.3) H 05/13/24 04:17
Eosinophils % 0.1 % (0-6) 05/13/24 04:17
Basophils % 0.1 % (0-2) 05/13/24 04:17
Lactic Acid Cancelled 05/12/24 23:00
Ur Squamous Epith Cells 3-5 /LPF (Few) 05/12/24 19:21
Microbiology Results
Micro:
05/12/24 19:32 Blood Culture - Preliminary
Blood/Venous Positive culture in progress
Gram Stain - GPC in clusters
05/13/24 13:48 MRSA Screen - Pending
Nose
05/12/24 19:21 Blood Culture - Preliminary
Blood/Venous Staphylococcus aureus (by PCR methodology)
Gram Stain - Final
05/12/24 19:21 Influenza Types A & B (MOO) - Final
Nasal Swab Negative for Influenza A & B, NAAT
Negative results must be combined with clinical observations
and patient history.
Nucleic Acid Amplification test (NAAT)performed on the
[employer] NOW platform.
05/12/24 19:21 Urine Culture - Pending
Urine
Imaging:
05/12/2024 CXR (portable): Mild opacity in the retrocardiac left lung base. Mild subsegmental atelectasis in the left lung base. No pleural effusion or pneumothorax. Please see full dictation for additional detail.
05/12/2024 Abdominal series: Bowel: Residual contrast is seen with stool throughout the large bowel possibly from video fluoroscopic swallowing study April 23, 2024 suggesting slow intestinal transit. Intestinal bowel gas pattern is nonspecific.
Assessment / Plan
Staph aureus bacteremia
- source unclear at present.
Leukocytosis
Parkinson's disease
Anxiety
BPH
hx bladder cancer, treated
Ambulatory dysfunction
Recommendations:
Continue cefazolin for now.
Add empiric vancomycin for coverage of potential MRSA
Repeat blood cultures in AM.
Check ESR and CRP.
At present, patient has no neurological focality, lower extremity muscle strength is good, and no noted increasing low back pain. Will continue to watch closely and get MRI spine if necessary.
--- NOTE | 2024-05-13 17:06 | PHA.VAN.IN ---
Assessment
- Assessment
Renal Function: Appears similar to baseline
Maximum Temperature: 101.9 F rectal 05/12 @ 1910
Concomitant Antimicrobials: cefazolin
AUC Dosing Plan
- Dosing Variables
Dosing Weight (kg): 69.3
Dosing CrCl (ml/min): 79
Vd coefficient (L/kg): 0.7
- Empiric Dosing
Initial / Loading Dose: vanc 2000mg
Maintenance Regimen: vanc 750mg Q12H
Estimated AUC (mcg*h/mL): 457
Estimated Peak (mcg*h/mL): 27.2
Estimated Trough (mcg/ml): 12.6
Estimated Half Life (H): 9.9
- Monitoring
No levels ordered at this time: consider levels in next few days
Pharmacokinetics Vancomycin I
- -
Patient Age: 73
Patient Sex: Male
Vancomycin Day #: 1
Indication: Bacteremia
Requesting Provider: Dr. Alfonso
Pertinent Antimicrobial Allergies:
no pertinent antimicrobial allergies
Height / Weight:
Height 5 ft 9 in
Actual Weight 69.3 kg
- Vital Signs / Lab Results
Temp Pulse Resp BP Pulse Ox
97.5 F 79 20 120/76 93
05/13/24 12:33 05/13/24 12:33 05/13/24 12:33 05/13/24 12:33 05/13/24 13:38
Lab Results - Hematology
05/12/24 05/13/24
19:21 04:17
WBC 11.4 H 10.3
Lab Results - Chemistry
05/12/24 05/13/24
19:21 04:16
BUN 35 H 28 H
Creatinine 1.4 H 0.8
Estimated Creat Clear 45 79
Albumin 3.6 3.5
05/12/24 05/12/24
19:21 23:00
Lactic Acid 1.3 Cancelled
Lab Results - Urine
05/12/24
19:21
Urine Nitrite (Reflex) Positive A
Leukocyte Esterase Rfl 2+ A
Urine WBC (Reflex) 6-10
Ur Squamous Epith Cells 3-5
Urine Bacteria (Reflex) Moderate A
Microbiology Results
05/12/24 19:32 Blood Culture - Preliminary
Blood/Venous Positive culture in progress
Gram Stain - Preliminary
05/12/24 19:21 Blood Culture - Preliminary
Blood/Venous Staphylococcus aureus
Gram Stain - Final
05/12/24 19:21 Influenza Types A & B (MOO) - Final
Nasal Swab Negative for Influenza A & B, NAAT
Negative results must be combined with clinical observations
and patient history.
Nucleic Acid Amplification test (NAAT)performed on the
[employer] platform.
[2024-05-13] MEDS: SINEMET 25-100 PO (17:51)
[2024-05-13] MEDS: VANCOCIN 540 MG IV (18:08)
[2024-05-14] MEDS: NON-FORMULARY ITEM 4 CAP PO ×2 (03:11→06:30)
[2024-05-14] MEDS: ANCEF 10 IV ×3 (05:01→22:46)
[2024-05-14] MEDS: VANCOCIN 150 IV ×2 (05:01→17:42)
[2024-05-14 05:05] VITALS: BMI 22.5
[2024-05-14 07:49] VITALS: BP 154/82
--- NOTE | 2024-05-14 07:57 | PHA.VAN.FU ---
Vancomycin Assessment / Plan
- Assessment
Renal Function: SCR Decreasing
WBC's are: WNL
In the past 24 hrs, patient has been: Afebrile
Concomitant Antimicrobials: cefazolin
- Dosing Plan
Continue: Vanc 750mg Q12H
- Monitoring Plan
No level(s) ordered at this time: consider levels in next few days
- Follow Up
Pharmacy will continue to follow.
Vancomycin Follow UP
- -
Patient Age: 73
Patient Sex: Male
Vancomycin Day #: 2
Indication: Bacteremia
Requesting Provider: Dr. Alfonso
Pertinent Antimicrobial Allergies:
NKDA
Height / Weight:
Height 5 ft 9 in
Actual Weight 68.974 kg
Pertinent Past Medical History: Parkinson's disease, ambulatory dysfunction
- Vital Signs / Lab Results
Temp Pulse Resp BP Pulse Ox
97.3 F 69 18 154/82 97
05/14/24 07:49 05/14/24 07:49 05/14/24 07:49 05/14/24 07:49 05/14/24 07:49
Lab Results - Hematology
05/12/24 05/13/24
19:21 04:17
WBC 11.4 H 10.3
Lab Results - Chemistry
05/12/24 05/13/24
19:21 04:16
BUN 35 H 28 H
Creatinine 1.4 H 0.8
Estimated Creat Clear 45 79
Albumin 3.6 3.5
05/12/24 05/12/24
19:21 23:00
Lactic Acid 1.3 Cancelled
Microbiology Results
05/12/24 19:32 Blood Culture - Preliminary
Blood/Venous Positive culture in progress
Gram Stain - Preliminary
05/12/24 19:21 Blood Culture - Preliminary
Blood/Venous Staphylococcus aureus
Gram Stain - Final
05/12/24 19:21 Influenza Types A & B (MOO) - Final
Nasal Swab Negative for Influenza A & B, NAAT
Negative results must be combined with clinical observations
and patient history.
Nucleic Acid Amplification test (NAAT)performed on the
[employer] platform.
[2024-05-14] MEDS: COLACE 100 MG PO (08:00)
[2024-05-14] MEDS: CYMBALTA DELAYED RELEASE 30 MG PO (08:00)
[2024-05-14] MEDS: PROSCAR 5 MG PO (08:00)
[2024-05-14] MEDS: VITAMIN B1 100 MG PO (08:00)
[2024-05-14] MEDS: ATIVAN 0.5 MG PO (08:00)
[2024-05-14] MEDS: MIRALAX 17 GRAMS PO (08:00)
[2024-05-14] MEDS: HEPARIN SC (08:01)
[2024-05-14] MEDS: NORVASC 5 MG PO (08:02)
--- NOTE | 2024-05-14 08:04 | W.PN.HOSP.TC ---
Addendum entered and electronically signed by Hunter Van MD 05/14/24 14:05:
also updated his on change ms and plan for meds.
Addendum entered and electronically signed by Hunter Van MD 05/14/24 13:52:
Agitation today--> iv ativan did not work. Will use Risperdal and restraints.
Original Note:
Today's Communication/Plan
-
IV antibiotics.
Assessment / Plan
Assessment / Plan
Physical exam:
General: Acutely ill
HEENT: Normocephalic, Atraumatic and Moist Mucous Membranes
Respiratory: Clear to Auscultation; Negative Wheezes, Rales or Rhonchi
Cardiac: Regular Rhythm and S1/S2
GI: Soft, Nontender and Distended
Musculoskeletal: No Clubbing, No Cyanosis and No Edema
Neuro: Awake, Alert and Oriented, no tremors, generalized weakness.
Rectal exam: Rectal red bulging mass protruding from rectum
Psych: Calm
A/P:
Bacteremia, Staph aureus/Sepsis:
Start IV cefazolin and stop other antibiotics.
Off IV fluid
Follow-up blood cultures final identification
ID consult-appreciated input-added IV vancomycin per ID
PT OT eval
Updated over the phone today
Toxic-metabolic encephalopathy:
Likely related to current infection
Monitor and reevaluate
Rectal prolapse:
Colorectal surgery consult-appreciated input and attempted reduction without success
Dysphagia:
Speech therapy eval-recommend diet level 6
Significant constipation:
Continue aggressive bowel regimen with change medications to scheduled rather than as needed
Parkinson's disease:
Continue Sinemet 25/100 mg tab p.o. 4 times daily and Rytary 61.25-245 mg ER 4 capsules 4 times daily.
Possible dementia related to Parkinson's:
Monitor behavior and mental status
Hypertension:
Continue amlodipine 5 mg twice a day
BPH:
Continue finasteride 5 mg p.o. daily
Continue Detrol LA
Depression and anxiety:
Continue lorazepam 0.5 mg daily orally
Continue Cymbalta 30 mg p.o. twice a day
DVT prophylaxis:
Heparin SQ
CODE STATUS:
Full code
Total time spent on today's encounter was 52 minutes which included time spent in counseling the patient/family regarding diagnosis and treatment plan as listed above, goals of care, and symptom management. Case was discussed with nursing staff,
specialists, and care coordinators/case management. All labs and imaging personally reviewed by me. Remainder the time spent in detailed review of previous records, lab data, imaging, and other medical provider documentation.
Anticipated Discharge: > 48 hours
Subjective/Interval History
-
Date of Service: May 14, 2024
Patient alert. No nausea or vomiting. Afebrile
Objective Data
-
Labs:
Laboratory Results
05/14/24
06:00
WBC Pending
Hgb Pending
Hct Pending
Plt Count Pending
Sodium Pending
Potassium Pending
Chloride Pending
Carbon Dioxide Pending
BUN Pending
Creatinine Pending
Glucose Pending
Calcium Pending
Vital Signs:
Vital Signs
Temp Pulse Resp BP Pulse Ox
97.3 F 69 18 154/82 97
05/14/24 07:49 05/14/24 07:49 05/14/24 07:49 05/14/24 07:49 05/14/24 07:49
I&O
05/13/24 05/14/24 05/15/24
06:59 06:59 06:59
Intake Total 2049
Output Total 200 / 200 100 / 100
Balance -200 / -200 1950 / 1950
[2024-05-14] MEDS: DETROL LA PO ×2 (08:30→08:34)
[2024-05-14] MEDS: DETROL LA 4 MG PO (08:35)
[2024-05-14 09:10] LABS: % Basophils 0.2 % (0-2); % Eosinophils 0.7 % (0-6); % Immature Granulocytes 0.4 % (0-0.5); % Lymphocytes 13.3 % (20.5-51.1); % Monocytes 13.3 % (1.7-9.3); % Neutrophils 72.1 % (42.2-75.2); Absolute Lymphocytes 0.8 10^3/uL (1.2-3.4); Absolute Monocytes 0.8 10^3/uL (0.1-0.6); Absolute Neutrophils 4.1 10^3/uL (1.4-6.5); Hematocrit 32.4 % (39.0-52.0); Hemoglobin 10.5 g/dL (13.0-18.0); Mean Corp Hgb Conc. 32.4 g/dL (33.0-37.0); Mean Corpuscular Hgb 28.1 pg (27.0-31.0); Mean Corpuscular Volume 86.6 fL (80.0-94.0); Mean Platelet Volume 10.8 fL (7.4-10.4); Nucleated Red Blood Cells % 0 % (-); Platelet Count 362 10^3/uL (130-400); Red Blood Cell Count 3.74 10^6/uL (4.70-6.10); Red Cell Dist. Width 15.1 % (11.5-14.5); White Blood Cell Count 5.7 10^3/uL (4.8-10.8)
[2024-05-14 09:59] LABS: Blood Urea Nitrogen 19 mg/dl (9-20); Calcium 9.2 mg/dl (8.4-10.2); Carbon Dioxide 21 mmol/L (22-30); Chloride 105 mmol/L (98-107); Estimated Creatinine Clearance 105 ml/min; Glucose 88 mg/dl (70-99); Potassium 4.2 mmol/L (3.5-5.1); Sodium 138 mmol/L (135-145); eGFR > 60.00
[2024-05-14 11:02] LABS: Erythrocyte Sed Rate 88 mm/hour (0-20)
--- NOTE | 2024-05-14 12:22 | CM ---
Patient seen bedside.
Continues on IV anbx.
PT recommending skilled rehab.
[facility]ference if for [facility] if bed available.
Plan: skilled rehab, will need auth.
[2024-05-14] MEDS: NON-FORMULARY ITEM PO ×3 (12:43→23:25)
[2024-05-14] MEDS: ATIVAN 1 MG IV (12:56)
--- NOTE | 2024-05-14 12:59 | PTCARENOTE ---
[place] text to hospitalist about patients increased agitation, attempting to get out of bed and chair. He is unsteady on his feet and is at risk for a fall. He was taken to rest room and voided previously with RN and OT. He does not need to void at
this time, continues to grab cords, bed rails, pull clothing off, get out of bed and chair. IV Ativan given per order for acute agitation. Pt also refusing afternoon medications. See MAR/flowsheets for further care details.
[2024-05-14] MEDS: NSS (PRESERVATIVE FREE) 0.5 ML IV (13:03)
[2024-05-14] MEDS: RISPERDAL 1 MG PO (14:15)
[2024-05-14] MEDS: SINEMET 25-100 1 TABLET PO (14:17)
--- NOTE | 2024-05-14 15:25 | W.PN.ID1 ---
Date of Service
Date of Service: May 14, 2024
Today's Communication
Continue abx.
Assessment / Plan
Staph aureus bacteremia
- source unclear at present.
Leukocytosis
Elevated ESR and CRP.
Parkinson's disease
Anxiety
BPH
hx bladder cancer, treated
Ambulatory dysfunction
Recommendations:
Continue cefazolin for now.
Continue empiric vancomycin for coverage of potential MRSA
Repeat blood cultures pending.
At present, patient has no neurological focality, lower extremity muscle strength remains good, and no noted increasing low back pain. Will continue to watch closely and get MRI spine if necessary.
Chief Complaint
-: Bacteremia
Subjective / Review of Systems
Patient seen and examined. Remains encephalopathic at this time. Afebrile except single rectal temp to 101.9 degrees (05/12/2024 1910)
Vital Signs / Physical Exam
Vital Signs
Vital Signs
Temp Pulse Resp BP Pulse Ox
97.3 F 69 18 154/82 97
05/14/24 07:49 05/14/24 07:49 05/14/24 07:49 05/14/24 07:49 05/14/24 07:49
Physical Exam
Constitutional: Acutely Ill and Non-toxic
Eyes: No Conjunctival Hemorrhage and Sclera Anicteric
Cardiovascular: Regular Rate and S1/S2; Negative S3/S4 or Murmur
Pulmonary: Clear; Negative Wheezes or Rales
Gastrointestinal: Soft, Non Tender, Non Distended and Normal Bowel Sounds
Skin: Warm and Dry
Neurological: Awake, Normal Muscle Strength and No Motor Deficits; Negative Meningeal Signs
Psychological: Confused
Objective Data
Lab Data
Lab Results
05/14/24 08:30
05/14/24 08:30
ESR 88 mm/hour (0-20) H 05/14/24 08:30
Estimated Creat Clear 105 ml/min 05/14/24 08:30
Lactic Acid Cancelled 05/12/24 23:00
Total Bilirubin 0.7 mg/dl (0.2-1.3) 05/13/24 04:16
AST 17 U/L (17-59) 05/13/24 04:16
ALT < 10 U/L (0-50) 05/13/24 04:16
Alkaline Phosphatase 129 U/L (38-126) H 05/13/24 04:16
C-Reactive Protein 200.40 mg/L (0.0-10.00) H 05/14/24 08:30
Most recent labs reviewed.
Micro Results:
05/13/24 13:48 MRSA Screen - Final
Nose No Methicillin Resistant Staphylococcus aureus isolated.
05/12/24 19:32 Blood Culture - Preliminary
Blood/Venous Staphylococcus aureus
Gram Stain - Preliminary
05/12/24 19:21 Urine Culture - Final
Urine NO GROWTH
05/12/24 19:21 Blood Culture - Preliminary
Blood/Venous Staphylococcus aureus
Gram Stain - Final
05/14/24 08:30 Blood Culture - Pending
Blood/Venous
05/14/24 08:50 Blood Culture - Pending
Blood/Venous
05/12/24 19:21 Influenza Types A & B (MOO) - Final
Nasal Swab Negative for Influenza A & B, NAAT
Negative results must be combined with clinical observations
and patient history.
Nucleic Acid Amplification test (NAAT)performed on the
[employer] platform.
Imaging:
05/12/2024 CXR (portable): Mild opacity in the retrocardiac left lung base. Mild subsegmental atelectasis in the left lung base. No pleural effusion or pneumothorax. Please see full dictation for additional detail.
05/12/2024 Abdominal series: Bowel: Residual contrast is seen with stool throughout the large bowel possibly from video fluoroscopic swallowing study April 23, 2024 suggesting slow intestinal transit. Intestinal bowel gas pattern is nonspecific.
--- NOTE | 2024-05-14 17:00 | PTCARENOTE ---
RN had to reach back out to cross cover hospitalist in regards to patients continued agitation despite previous medication, 1:1 observation, calm environment, and bilateral wrist restraints (as patient was hitting/kicking staff). IM Zyprexa was
ordered for acute agitation. Pt's is at bedside and updated on plan of care by RN.
[2024-05-14] MEDS: SINEMET 25-100 PO ×3 (17:34→23:24)
[2024-05-14] MEDS: ZYPREXA 10 MG IM (17:37)
[2024-05-14 18:04] VITALS: BP 131/70
[2024-05-14] MEDS: HEPARIN 5000 UNITS SC (20:07)
[2024-05-14 22:55] VITALS: BP 121/81
[2024-05-14] MEDS: NORVASC PO (23:24)
[2024-05-14] MEDS: MIRALAX PO (23:24)
[2024-05-14] MEDS: CYMBALTA DELAYED RELEASE PO (23:24)
[2024-05-15] MEDS: NON-FORMULARY ITEM PO (04:18)
[2024-05-15] MEDS: VANCOCIN 150 IV (05:27)
[2024-05-15] MEDS: ANCEF 10 IV ×3 (05:27→22:00)
[2024-05-15 06:00] VITALS: BMI 22.8
[2024-05-15 07:50] VITALS: BP 162/87
--- NOTE | 2024-05-15 09:17 | W.PN.HOSP.TC ---
Today's Communication/Plan
-
Antibiotics. Neurology and psychiatry evaluation
Assessment / Plan
Assessment / Plan
Physical exam:
General: Acutely ill
HEENT: Normocephalic, Atraumatic and Moist Mucous Membranes
Respiratory: Clear to Auscultation; Negative Wheezes, Rales or Rhonchi
Cardiac: Regular Rhythm and S1/S2
GI: Soft, Nontender and Distended
Musculoskeletal: No Clubbing, No Cyanosis and No Edema
Neuro: Semi-obtunded today. Moves spontaneously extremities
Rectal exam: Rectal prolapse
Psych: Calm
A/P:
Bacteremia, Staph aureus/Sepsis:
Start IV cefazolin and stop other antibiotics.
Off IV fluid
Follow-up blood cultures final identification
ID consult-appreciated input-added IV vancomycin per ID
PT OT eval
Updated over the phone yesterday
Toxic-metabolic encephalopathy:
Likely related to current infection initially but now other issues such as in-hospital delirium and cannot rule out dopaminergic issues
Monitor and reevaluate
Severe agitation yesterday and today overly sedated:
Initially TME likely infection related but yesterday became very agitated and required multiple antipsychotics and benzodiazepines and restraints. Today overly sedated.
Currently on Risperdal 0.5 mg p.o. nightly. Would try to avoid other antipsychotics in the setting of Parkinson's or at least lower doses.
No need for restraints today so far.
Neurology and psychiatry evaluation
Rectal prolapse:
Colorectal surgery consult-appreciated input and attempted reduction without success
Dysphagia:
Speech therapy eval-recommend diet level 6
Significant constipation:
Continue aggressive bowel regimen with change medications to scheduled rather than as needed
Parkinson's disease:
Continue Sinemet 25/100 mg tab p.o. 4 times daily and Rytary 61.25-245 mg ER 4 capsules 4 times daily.
Possible dementia related to Parkinson's:
Monitor behavior and mental status
Hypertension:
Continue amlodipine 5 mg twice a day
BPH:
Continue finasteride 5 mg p.o. daily
Continue Detrol LA
Depression and anxiety:
Continue lorazepam 0.5 mg daily orally
Continue Cymbalta 30 mg p.o. twice a day
DVT prophylaxis:
Heparin SQ
CODE STATUS:
Full code
Total time spent on today's encounter was 52 minutes which included time spent in counseling the patient/family regarding diagnosis and treatment plan as listed above, goals of care, and symptom management. Case was discussed with nursing staff,
specialists, and care coordinators/case management. All labs and imaging personally reviewed by me. Remainder the time spent in detailed review of previous records, lab data, imaging, and other medical provider documentation.
Anticipated Discharge: > 48 hours
Subjective/Interval History
-
Date of Service: May 15, 2024
Patient very sedated today. Afebrile
Objective Data
-
Labs:
Laboratory Results
05/15/24
08:49
WBC Pending
Hgb Pending
Hct Pending
Plt Count Pending
Sodium Pending
Potassium Pending
Chloride Pending
Carbon Dioxide Pending
BUN Pending
Creatinine Pending
Glucose Pending
Calcium Pending
Vital Signs:
Vital Signs
Temp Pulse Resp BP Pulse Ox
98.4 F 71 18 162/87 96
05/15/24 07:50 05/15/24 07:50 05/15/24 07:50 05/15/24 07:50 05/15/24 07:50
I&O
05/14/24 05/15/24 05/16/24
06:59 06:59 06:59
Intake Total 2049 490 / 490
Output Total 100 / 100
Balance 1949 490 / 490
[2024-05-15 09:18] LABS: % Basophils 0.4 % (0-2); % Eosinophils 2.4 % (0-6); % Immature Granulocytes 0.6 % (0-0.5); % Lymphocytes 17.1 % (20.5-51.1); % Monocytes 11.2 % (1.7-9.3); % Neutrophils 68.3 % (42.2-75.2); Absolute Eosinophils 0.1 10^3/uL (0-0.7); Absolute Lymphocytes 0.9 10^3/uL (1.2-3.4); Absolute Monocytes 0.6 10^3/uL (0.1-0.6); Absolute Neutrophils 3.5 10^3/uL (1.4-6.5); Hematocrit 30.5 % (39.0-52.0); Mean Corp Hgb Conc. 32.8 g/dL (33.0-37.0); Mean Corpuscular Hgb 27.7 pg (27.0-31.0); Mean Corpuscular Volume 84.5 fL (80.0-94.0); Mean Platelet Volume 9.8 fL (7.4-10.4); Nucleated Red Blood Cells % 0 % (-); Platelet Count 308 10^3/uL (130-400); Red Blood Cell Count 3.61 10^6/uL (4.70-6.10); Red Cell Dist. Width 14.7 % (11.5-14.5); White Blood Cell Count 5.1 10^3/uL (4.8-10.8)
[2024-05-15] MEDS: DETROL LA 4 MG PO (09:23)
[2024-05-15] MEDS: VITAMIN B1 100 MG PO (09:24)
[2024-05-15] MEDS: CYMBALTA DELAYED RELEASE 30 MG PO ×2 (09:25→19:20)
[2024-05-15] MEDS: ATIVAN PO (09:27)
[2024-05-15] MEDS: PROSCAR 5 MG PO (09:27)
[2024-05-15] MEDS: COLACE PO (09:27)
[2024-05-15] MEDS: MIRALAX PO (09:27)
[2024-05-15] MEDS: NORVASC 5 MG PO ×2 (09:27→19:20)
[2024-05-15] MEDS: NON-FORMULARY ITEM 4 CAP PO ×3 (09:31→22:05)
[2024-05-15] MEDS: HEPARIN 5000 UNITS SC ×2 (09:34→19:20)
--- NOTE | 2024-05-15 09:43 | CM ---
Addendum entered by Chantell Coburn 05/15/24 15:41:
additional referrals placed.
Original Note:
No beds available at [facility].
TC to spouse for additional choices.
Patient with agitation overnight, continues on 1:1.
Plan: skilled rehab once medically stable
[2024-05-15 09:49] LABS: Blood Urea Nitrogen 12 mg/dl (9-20); Calcium 8.6 mg/dl (8.4-10.2); Carbon Dioxide 23 mmol/L (22-30); Chloride 103 mmol/L (98-107); Estimated Creatinine Clearance 107 ml/min; Glucose 79 mg/dl (70-99); Potassium 3.5 mmol/L (3.5-5.1); Sodium 138 mmol/L (135-145); eGFR > 60.00
[2024-05-15 10:20] VITALS: BP 150/84; PULSE 77; O2SAT 95
--- NOTE | 2024-05-15 13:13 | CS.PSYCHR ---
Consult Summary - Psychiatry
-
Pt is a 73 yo male with hx of Parkinson's dz, incarcerated inguinal hernia status post repair, early onset dementia, chronic ambulatory dysfunction, CHF, BPH, bladder cancer status post intrathecal chemotherapy, presenting with agitation, reportedly
hitting the nursing staff and trying to elope. Pt noted to be agitated and punching in the ED. Reviewed with nursing staff- pt was reportedly combative yesterday, given Risperidone 1 mg, then later Zyprexa 10 mg IM, very sedated today. Was
able to take some meds crushed into apple sauce this morning. Pt seen sleeping soundly in bed.
PMH: as above; recently admitted from 04/21 to 04/30 for pneumonia and discharged to rehab.
Psych hx: unspecified anxiety. Rx- Duloxetine 30 mg BID, Ativan 0.5 mg QD, was on TID in the past
MSE: sedated, sleeping soundly, reportedly lethargic today
Imp: Dementia with agitation; R/o Delirium. Lethargic after given Risperidone and Zyprexa 10 mg yesterday pm
Rec: would continue Risperidone 0.5 mg in PM. If pt becomes agitated/aggressive and refuses po med, would trying lower dose of IM Zyprexa- 2.5 to 5 mg
Will follow
[2024-05-15] MEDS: SINEMET 25-100 1 TABLET PO ×4 (15:10→21:45)
[2024-05-15 15:38] VITALS: BP 110/70
--- NOTE | 2024-05-15 16:03 | PHA.VAN.FU ---
Vancomycin Assessment / Plan
- Assessment
Renal Function: Stable
WBC's are: WNL
In the past 24 hrs, patient has been: Afebrile
Concomitant Antimicrobials: cefazolin
- Dosing Plan
Continue: Vanc 750mg Q12H
- Monitoring Plan
No level(s) ordered at this time: consider if not discontinued
- Follow Up
Pharmacy will continue to follow.
Vancomycin Follow UP
- -
Patient Age: 73
Patient Sex: Male
Vancomycin Day #: 3
Indication: Bacteremia
Requesting Provider: Dr. Alfonso
Pertinent Antimicrobial Allergies:
NKDA
Height / Weight:
Height 5 ft 9 in
Actual Weight 69.967 kg
Pertinent Past Medical History: Parkinson's disease, ambulatory dysfunction
- Vital Signs / Lab Results
Temp Pulse Resp BP Pulse Ox
97.3 F 76 18 110/70 96
05/15/24 15:38 05/15/24 15:38 05/15/24 15:38 05/15/24 15:38 05/15/24 15:38
Lab Results - Hematology
05/12/24 05/13/24 05/14/24
19:21 04:17 08:30
WBC 11.4 H 10.3 5.7
05/15/24
08:49
WBC 5.1
Lab Results - Chemistry
05/12/24 05/13/24 05/14/24
19:21 04:16 08:30
BUN 35 H 28 H 19
Creatinine 1.4 H 0.8 0.6 L
Estimated Creat Clear 45 79 105
Albumin 3.6 3.5
05/15/24
08:49
BUN 12
Creatinine 0.6 L
Estimated Creat Clear 107
Albumin
05/12/24 05/12/24
19:21 23:00
Lactic Acid 1.3 Cancelled
Microbiology Results
05/12/24 19:32 Blood Culture - Final
Blood/Venous S aureus-Methicillin Sensitive
Gram Stain - Final
05/12/24 19:21 Blood Culture - Final
Blood/Venous S aureus-Methicillin Sensitive
Gram Stain - Final
05/14/24 08:30 Blood Culture - Preliminary
Blood/Venous No Growth in 24 hours- Final report to follow
05/14/24 08:50 Blood Culture - Preliminary
Blood/Venous No Growth in 24 hours- Final report to follow
05/13/24 13:48 MRSA Screen - Final
Nose No Methicillin Resistant Staphylococcus aureus isolated.
05/12/24 19:21 Urine Culture - Final
Urine NO GROWTH
--- NOTE | 2024-05-15 16:16 | W.PN.ID1 ---
Date of Service
Date of Service: May 15, 2024
Today's Communication
Continue cefazolin. D/C vanco.
Assessment / Plan
Staph aureus bacteremia
- source unclear at present.
Leukocytosis
Elevated ESR and CRP.
Parkinson's disease
Anxiety
BPH
hx bladder cancer, treated
Ambulatory dysfunction
Recommendations:
Continue cefazolin.
Isolate is MSSA; D/C further vanco
Repeat blood cultures pending but without growth thus far.
At present, patient has no neurological focality, lower extremity muscle strength remains good, and no noted increasing low back pain. Will continue to watch closely and get MRI spine if necessary.
Chief Complaint
-: Bacteremia
Subjective / Review of Systems
Review of Systems: No Fever and No Chills
Vital Signs / Physical Exam
Vital Signs
Vital Signs
Temp Pulse Resp BP Pulse Ox
97.3 F 76 18 110/70 96
05/15/24 15:38 05/15/24 15:38 05/15/24 15:38 05/15/24 15:38 05/15/24 15:38
Physical Exam
Constitutional: No Acute Distress, Comfortable and Non-toxic
Eyes: No Conjunctival Hemorrhage and Sclera Anicteric
Cardiovascular: Regular Rate and S1/S2; Negative S3/S4 or Murmur
Pulmonary: Clear; Negative Wheezes or Rales
Gastrointestinal: Soft, Non Tender, Non Distended and Normal Bowel Sounds
Skin: Warm and Dry
Neurological: Awake, Normal Muscle Strength and No Motor Deficits; Negative Meningeal Signs
Psychological: Confused (Less so than yesterday.)
Objective Data
Lab Data
Lab Results
05/15/24 08:49
05/15/24 08:49
ESR 88 mm/hour (0-20) H 05/14/24 08:30
Estimated Creat Clear 107 ml/min 05/15/24 08:49
Lactic Acid Cancelled 05/12/24 23:00
Total Bilirubin 0.7 mg/dl (0.2-1.3) 05/13/24 04:16
AST 17 U/L (17-59) 05/13/24 04:16
ALT < 10 U/L (0-50) 05/13/24 04:16
Alkaline Phosphatase 129 U/L (38-126) H 05/13/24 04:16
C-Reactive Protein 200.40 mg/L (0.0-10.00) H 05/14/24 08:30
Most recent labs reviewed.
Micro Results:
05/12/24 19:32 Blood Culture - Final
Blood/Venous S aureus-Methicillin Sensitive
Gram Stain - Final
05/12/24 19:21 Blood Culture - Final
Blood/Venous S aureus-Methicillin Sensitive
Gram Stain - Final
05/14/24 08:30 Blood Culture - Preliminary
Blood/Venous No Growth in 24 hours- Final report to follow
05/14/24 08:50 Blood Culture - Preliminary
Blood/Venous No Growth in 24 hours- Final report to follow
05/13/24 13:48 MRSA Screen - Final
Nose No Methicillin Resistant Staphylococcus aureus isolated.
05/12/24 19:21 Urine Culture - Final
Urine NO GROWTH
05/12/24 19:21 Influenza Types A & B (MOO) - Final
Nasal Swab Negative for Influenza A & B, NAAT
Negative results must be combined with clinical observations
and patient history.
Nucleic Acid Amplification test (NAAT)performed on the
[employer] platform.
Imaging:
05/12/2024 CXR (portable): Mild opacity in the retrocardiac left lung base. Mild subsegmental atelectasis in the left lung base. No pleural effusion or pneumothorax. Please see full dictation for additional detail.
05/12/2024 Abdominal series: Bowel: Residual contrast is seen with stool throughout the large bowel possibly from video fluoroscopic swallowing study April 23, 2024 suggesting slow intestinal transit. Intestinal bowel gas pattern is nonspecific.
--- NOTE | 2024-05-15 16:52 | CON.NEURO ---
Neuro Assessment/Plan
Assessment
Parkinson's disease with dementia, delirium now resolved
Plan
Agree with psych recs, Risperdal 0.5 mg or Zyprexa 2.5-5 mg as needed.
Parkinson's disease continue home meds
Consultation
Order
Date of Consultation: 05/15/24
Requesting Provider: Hunter Van
Reason for Consult: Parkinson's disease with dementia, AMS, agitation
Subjective/Objective
Subjective Data
Date of Service: May 15, 2024
Pt is a 73 yo male with hx of Parkinson's disease x25 years, incarcerated inguinal hernia status post repair, early onset dementia, chronic ambulatory dysfunction, CHF, BPH, bladder cancer status post intrathecal chemotherapy, presenting with
agitation, reportedly hitting the nursing staff and trying to elope. Pt noted to be agitated and punching in the ED. Found to have MSSA bacteremia, on cefazolin. He was very combative yesterday, given Risperidone 1 mg, then later Zyprexa 10 mg
IM, was very sedated this morning.
This afternoon he is sitting up in chair pleasant and cooperative.
Objective Data
Vital Signs
Temp Pulse Resp BP Pulse Ox
36.3 C 76 18 110/70 96
05/15/24 15:38 05/15/24 15:38 05/15/24 15:38 05/15/24 15:38 05/15/24 15:38
Lab Results
05/15/24 08:49
05/15/24 08:49
Sodium 138 mmol/L (135-145) 05/15/24 08:49
Potassium 3.5 mmol/L (3.5-5.1) 05/15/24 08:49
BUN 12 mg/dl (9-20) 05/15/24 08:49
Glucose 79 mg/dl (70-99) 05/15/24 08:49
Calcium 8.6 mg/dl (8.4-10.2) 05/15/24 08:49
Patient Allergies
No Known Allergies Allergy (Verified 05/12/24 18:38)
Physical Exam
-
sitting up in chair
AAOx3, recognizes
speech soft, clear
masked facies
marked bradykinesia
Medications
-
Active Medications
Generic Name Dose Route Start Last Admin
Trade Name Freq PRN Reason Stop Dose Admin
Acetaminophen 650 mg 05/12/24 22:54
Acetaminophen 325 Mg Tablet PO 06/09/24 22:53
Q4HPRN PRN
mild pain/SCHULTZ/temp> 100.4F
Amlodipine Besylate 5 mg 05/13/24 08:00 05/15/24 09:27
Amlodipine 5 Mg Tablet PO 06/10/24 07:59 5 mg
BID KADEN Administration
Bisacodyl 10 mg 05/12/24 21:29
Bisacodyl 10 Mg Rectal Suppository RECTAL 06/09/24 21:28
DAILY PRN
constipation
Carbidopa/Levodopa 1 tablet 05/13/24 15:00 05/15/24 15:10
Carbidopa (25 Mg)/Levodopa (100 Mg) Regular Release Tablet PO 06/10/24 14:59 1 tablet
QID@1500,1700,1900,2100 KADEN Administration
Docusate Sodium 100 mg 05/13/24 08:00 05/15/24 09:27
Docusate Sodium 100 Mg Capsule PO 06/10/24 07:59 Not Given
DAILY KADEN
Duloxetine HCl 30 mg 05/13/24 08:00 05/15/24 09:25
Duloxetine Delayed Release 30 Mg Capsule PO 06/10/24 07:59 30 mg
BID KADEN Administration
Finasteride 5 mg 05/13/24 08:00 05/15/24 09:27
Finasteride 5 Mg Tablet PO 06/10/24 07:59 5 mg
DAILY KADEN Administration
Heparin Sodium 5,000 units 05/13/24 08:00 05/15/24 09:34
Heparin 5,000 Units/Ml 1 Ml Vial SC 06/10/24 07:59 5,000 units
Q12 KADEN Administration
Cefazolin Sodium 2 grams in 10 mls @ 120 mls/hr 05/13/24 14:00 05/15/24 15:05
Ancef IV 10 mls
Q8H KADEN Administration
Lorazepam 0.5 mg 05/13/24 08:00 05/15/24 09:27
Lorazepam 0.5 Mg Tablet PO 06/10/24 07:59 Not Given
DAILY KADEN
Carbidopa-Levodopa 0 cap 05/13/24 11:00 05/15/24 12:30
61.25-245 Mg Er [ PO 06/10/24 10:59 4 cap
Rytary] 4 Cap Po QID@0300,0700,1100,2300 KADEN Administration
0300,0700,1100,2300
Polyethylene Glycol 17 grams 05/13/24 09:40 05/15/24 09:27
Polyethylene Glycol Powder 17 Grams Packet PO 06/10/24 09:39 Not Given
BID KADEN
Risperidone 0.5 mg 05/14/24 13:42
Risperidone 0.5 Mg Tablet PO 06/11/24 13:41
Q4HPRN PRN
agitation
Risperidone 0.5 mg 05/15/24 18:00
Risperidone 0.5 Mg Tablet PO 06/12/24 17:59
DAILY@1800 KADEN
Sodium Chloride 0 flush 05/12/24 22:00
Sodium Chloride 0.9% (Flush) Syringe IV 06/09/24 21:59
PER PROTOCOL KADEN
Sterile Water 2.1 ml 05/14/24 16:42
Sterile Water For Injection 10 Ml Vial IM 06/11/24 16:41
ONCE PRN
AGITATION
Sterile Water 2.1 ml 05/14/24 17:25
Sterile Water For Injection 10 Ml Vial IM
ONCE PRN
diluent
Thiamine HCl 100 mg 05/13/24 08:00 05/15/24 09:24
Thiamine 100 Mg Tablet PO 06/10/24 07:59 100 mg
DAILY KADEN Administration
Tolterodine Tartrate 4 mg 05/13/24 08:00 05/15/24 09:23
Tolterodine 4 Mg Extended Release Capsule PO 06/10/24 07:59 4 mg
DAILY KADEN Administration
Home Medications
�Medication �Instructions �Recorded
carbidopa ER 61.25 mg-levodopa 245 4 cap PO .4 TIMES A DAY parkinson's 07/25/21
mg capsule,extended release
(Rytary)
duloxetine 30 mg capsule,delayed 30 mg PO BID Mental Health/Anxiety 07/25/21
release
docusate sodium 100 mg capsule 100 mg PO DAILY Constipation 08/05/21
finasteride 5 mg tablet 5 mg PO DAILY Urinary Issue 04/20/24
polyethylene glycol 3350 17 gram 17 grams PO BID PRN constipation 04/20/24
oral powder packet
amlodipine 5 mg tablet 5 mg PO BID 30 days #60 tabs 04/30/24
thiamine mononitrate (vit B1) 100 100 mg PO DAILY 30 days #30 tabs 04/30/24
mg tablet
Mikifcdu-Wvgkxuopq-Xugalywbfrz 20 ml PO Q6 PRN indigestion 05/12/24
Milk of Magnesia 30 ml PO DAILY PRN if no BM for 2 05/12/24
days
bisacodyl 10 mg rectal suppository 10 mg NH DAILY PRN constipation 05/12/24
(Dulcolax (bisacodyl))
carbidopa 25 mg-levodopa 100 mg 1 tab PO .5 TIMES A DAY 05/12/24
tablet
ibuprofen 200 mg tablet 400 mg PO Q6HPRN PRN moderate pain 05/12/24
lorazepam 0.5 mg tablet 0.5 mg PO DAILY 05/12/24
sodium phosphates 19 gram-7 118 ml NH ONCE PRN no BM after 05/12/24
gram/118 mL enema (Fleet Enema) biscadyl supp
vibegron 75 mg tablet 75 mg PO DAILY 05/12/24
[2024-05-15] MEDS: RISPERDAL 0.5 MG PO (17:11)
[2024-05-15] MEDS: MIRALAX 17 GRAMS PO (19:19)
[2024-05-15 19:28] VITALS: BP 102/57
[2024-05-15 22:59] VITALS: BP 132/76
[2024-05-16] MEDS: NON-FORMULARY ITEM PO (02:37)
[2024-05-16] MEDS: NON-FORMULARY ITEM 4 CAP PO ×3 (03:34→12:06)
[2024-05-16] MEDS: ANCEF 10 IV ×3 (05:52→21:37)
[2024-05-16 06:00] VITALS: BMI 22.7
[2024-05-16 06:58] LABS: % Basophils 0.2 % (0-2); % Eosinophils 3.5 % (0-6); % Immature Granulocytes 0.4 % (0-0.5); % Lymphocytes 16.6 % (20.5-51.1); % Monocytes 9.4 % (1.7-9.3); % Neutrophils 69.9 % (42.2-75.2); Absolute Eosinophils 0.2 10^3/uL (0-0.7); Absolute Lymphocytes 0.8 10^3/uL (1.2-3.4); Absolute Monocytes 0.5 10^3/uL (0.1-0.6); Absolute Neutrophils 3.4 10^3/uL (1.4-6.5); Hematocrit 30.5 % (39.0-52.0); Mean Corp Hgb Conc. 32.8 g/dL (33.0-37.0); Mean Corpuscular Hgb 27.9 pg (27.0-31.0); Mean Platelet Volume 10.2 fL (7.4-10.4); Nucleated Red Blood Cells % 0 % (-); Platelet Count 301 10^3/uL (130-400); Red Blood Cell Count 3.59 10^6/uL (4.70-6.10); White Blood Cell Count 4.8 10^3/uL (4.8-10.8)
--- NOTE | 2024-05-16 07:01 | PTCARENOTE ---
pt was pleasant and cooperative all night
[2024-05-16 07:29] LABS: Blood Urea Nitrogen 16 mg/dl (9-20); Calcium 8.5 mg/dl (8.4-10.2); Carbon Dioxide 26 mmol/L (22-30); Chloride 102 mmol/L (98-107); Estimated Creatinine Clearance 106 ml/min; Glucose 90 mg/dl (70-99); Potassium 3.5 mmol/L (3.5-5.1); Sodium 138 mmol/L (135-145); eGFR > 60.00
[2024-05-16] MEDS: PROSCAR 5 MG PO (07:36)
[2024-05-16] MEDS: COLACE 100 MG PO (07:36)
[2024-05-16] MEDS: MIRALAX 17 GRAMS PO ×2 (07:36→20:32)
[2024-05-16] MEDS: VITAMIN B1 100 MG PO (07:36)
[2024-05-16] MEDS: DETROL LA 4 MG PO (07:36)
[2024-05-16] MEDS: ATIVAN 0.5 MG PO (07:36)
[2024-05-16] MEDS: CYMBALTA DELAYED RELEASE 30 MG PO ×2 (07:36→21:37)
[2024-05-16] MEDS: NORVASC 5 MG PO ×2 (07:36→20:33)
[2024-05-16] MEDS: HEPARIN 5000 UNITS SC ×2 (07:39→20:31)
[2024-05-16 08:06] VITALS: BP 140/77
--- NOTE | 2024-05-16 08:42 | W.PN.HOSP.TC ---
Today's Communication/Plan
-
IV antibiotics.
Assessment / Plan
Assessment / Plan
Physical exam:
General: Acutely ill
HEENT: Normocephalic, Atraumatic and Moist Mucous Membranes
Respiratory: Clear to Auscultation; Negative Wheezes, Rales or Rhonchi
Cardiac: Regular Rhythm and S1/S2
GI: Soft, Nontender and Distended
Musculoskeletal: No Clubbing, No Cyanosis and No Edema
Neuro: Alert and oriented. No neurological deficits
Rectal exam: Rectal prolapse
Psych: Calm
A/P:
Bacteremia, Staph aureus-MSSA/Sepsis:
Continue IV cefazolin
Blood cultures consistent with MSSA
ID consult-appreciated input
Updated over the phone prior
PT OT eval
Toxic-metabolic encephalopathy:
Likely related to current infection initially but now other issues such as in-hospital delirium and cannot rule out dopaminergic issues
Monitor and reevaluate
Severe agitation yesterday and today overly sedated:
Initially TME likely infection related but became very agitated and required multiple antipsychotics and benzodiazepines and restraints followed by oversedation. Currently more stable.
Currently on Risperdal 0.5 mg p.o. nightly. Would try to avoid other antipsychotics in the setting of Parkinson's or at least lower doses.
No need for restraints today so far.
Neurology and psychiatry evaluation appreciated.
Rectal prolapse:
Colorectal surgery consult-appreciated input and attempted reduction without success
Dysphagia:
Speech therapy eval-recommend diet level 6
Significant constipation:
Continue aggressive bowel regimen with change medications to scheduled rather than as needed
Parkinson's disease:
Continue Sinemet 25/100 mg tab p.o. 4 times daily and Rytary 61.25-245 mg ER 4 capsules 4 times daily.
Possible dementia related to Parkinson's:
Monitor behavior and mental status
Hypertension:
Continue amlodipine 5 mg twice a day
BPH:
Continue finasteride 5 mg p.o. daily
Continue Detrol LA
Depression and anxiety:
Continue lorazepam 0.5 mg daily orally
Continue Cymbalta 30 mg p.o. twice a day
DVT prophylaxis:
Heparin SQ
CODE STATUS:
Full code
Anticipated Discharge: > 48 hours
Subjective/Interval History
-
Date of Service: May 16, 2024
Patient alert. Afebrile.
Objective Data
-
Labs:
Laboratory Results
05/16/24
06:16
WBC 4.8
Hgb 10.0 L
Hct 30.5 L
Plt Count 301
Sodium 138
Potassium 3.5
Chloride 102
Carbon Dioxide 26
BUN 16
Creatinine 0.6 L
Glucose 90
Calcium 8.5
Vital Signs:
Vital Signs
Temp Pulse Resp BP Pulse Ox
97.6 F 65 18 140/77 96
05/16/24 08:06 05/16/24 08:06 05/16/24 08:06 05/16/24 08:06 05/16/24 08:06
I&O
05/15/24 05/16/24 05/17/24
06:59 06:59 06:59
Intake Total 490 / 490 420 / 420
Output Total 200 / 200
Balance 490 / 490 220 / 220
--- NOTE | 2024-05-16 09:57 | W.PN.ID1 ---
Date of Service
Date of Service: May 16, 2024
Today's Communication
Continue cefazolin.
Assessment / Plan
Staph aureus bacteremia
- source unclear at present.
Leukocytosis
Elevated ESR and CRP.
Parkinson's disease
Anxiety
BPH
hx bladder cancer, treated
Ambulatory dysfunction
Recommendations:
Repeat blood cultures pending but without growth thus far.
Continue cefazolin.
Origin of Staph aureus remains unclear. Will check echo. Patient describes no focality in the back.
Given marked elevation of ESR and CRP, will treat for a longer timeframe than that for uncomplicated bacteremia, likely 4 to 6 weeks.
At present, patient has no neurological focality, lower extremity muscle strength remains good, and no noted increasing low back pain. Will continue to watch closely and get MRI spine if necessary.
Chief Complaint
-: Bacteremia
Subjective / Review of Systems
Patient seen and examined. Appears much more awake today. Denies pain at present.
Vital Signs / Physical Exam
Vital Signs
Vital Signs
Temp Pulse Resp BP Pulse Ox
97.6 F 65 18 140/77 96
05/16/24 08:06 05/16/24 08:06 05/16/24 08:06 05/16/24 08:06 05/16/24 08:57
Physical Exam
Constitutional: No Acute Distress, Comfortable, Chronically Ill and Non-toxic
Eyes: No Conjunctival Hemorrhage and Sclera Anicteric
Cardiovascular: Regular Rate and S1/S2; Negative S3/S4 or Murmur
Pulmonary: Clear; Negative Wheezes or Rales
Gastrointestinal: Soft, Non Tender, Non Distended and Normal Bowel Sounds
Extremities: Negative Edema, Splinter Hemorrhage or Janeway Lesions
Skin: Warm and Dry
Neurological: Awake, Normal Muscle Strength and No Motor Deficits; Negative Meningeal Signs
Psychological: Confused (Less so than yesterday.)
Objective Data
Lab Data
Lab Results
05/16/24 06:16
05/16/24 06:16
ESR 88 mm/hour (0-20) H 05/14/24 08:30
Estimated Creat Clear 106 ml/min 05/16/24 06:16
Lactic Acid Cancelled 05/12/24 23:00
Total Bilirubin 0.7 mg/dl (0.2-1.3) 05/13/24 04:16
AST 17 U/L (17-59) 05/13/24 04:16
ALT < 10 U/L (0-50) 05/13/24 04:16
Alkaline Phosphatase 129 U/L (38-126) H 05/13/24 04:16
C-Reactive Protein 200.40 mg/L (0.0-10.00) H 05/14/24 08:30
Most recent labs reviewed.
Micro Results:
05/14/24 08:50 Blood Culture - Preliminary
Blood/Venous No Growth in 48 hours- Final report to follow
05/14/24 08:30 Blood Culture - Preliminary
Blood/Venous No Growth in 48 hours- Final report to follow
05/12/24 19:32 Blood Culture - Final
Blood/Venous S aureus-Methicillin Sensitive
Gram Stain - Final
05/12/24 19:21 Blood Culture - Final
Blood/Venous S aureus-Methicillin Sensitive
Gram Stain - Final
05/13/24 13:48 MRSA Screen - Final
Nose No Methicillin Resistant Staphylococcus aureus isolated.
05/12/24 19:21 Urine Culture - Final
Urine NO GROWTH
05/12/24 19:21 Influenza Types A & B (MOO) - Final
Nasal Swab Negative for Influenza A & B, NAAT
Negative results must be combined with clinical observations
and patient history.
Nucleic Acid Amplification test (NAAT)performed on the
[employer] platform.
Imaging:
05/12/2024 CXR (portable): Mild opacity in the retrocardiac left lung base. Mild subsegmental atelectasis in the left lung base. No pleural effusion or pneumothorax. Please see full dictation for additional detail.
05/12/2024 Abdominal series: Bowel: Residual contrast is seen with stool throughout the large bowel possibly from video fluoroscopic swallowing study April 23, 2024 suggesting slow intestinal transit. Intestinal bowel gas pattern is nonspecific.
--- NOTE | 2024-05-16 12:59 | PTCARENOTE ---
Pt alert/calm/cooperative today. Having oriented conversation. OOB to bathroom w/ assist x 1 - passing a lot of gas but no stool.
--- NOTE | 2024-05-16 14:05 | W.PN.UPDATE ---
Update Note
Progress Note Update
Pt seen, chart reviewed. Pt noted to be much clearer, calm, pleasant, cooperative. No further agitation noted. Pt sitting up eating lunch, alert, making good eye contact, with coherent speech. No distress or agitation. No signs of side effects
on low dose of Risperidone.
Imp: Dementia with agitation, delirium, resolved.
Rec: would continue Risperidone 0.5 mg in PM, Duloxetine, Lorazepam.
Pt appears psychiatrically stable for outpatient mgt when medically cleared.
Psychiatry will sign off
[2024-05-16 15:48] VITALS: BP 128/83
[2024-05-16 15:49] VITALS: BMI 22.5
--- NOTE | 2024-05-16 16:00 | PTCARENOTE ---
Received pt from 1 acute, pt assisted x 1 to the bed from stretcher. Bed alarm on bed. Pt still with some confusion, asking same questions repeatedly. Reoriented. Taking meds without difficulty. Will continue to monitor.
[2024-05-16] MEDS: SINEMET 25-100 1 TABLET PO ×4 (16:05→21:37)
[2024-05-16] MEDS: RISPERDAL 0.5 MG PO (18:39)
[2024-05-16] MEDS: NON-FORMULARY ITEM 1 CAP PO (23:32)
[2024-05-16 23:37] VITALS: BP 123/74
[2024-05-17] MEDS: NON-FORMULARY ITEM 1 CAP PO ×2 (02:49→06:37)
[2024-05-17] MEDS: ANCEF 10 IV ×3 (06:37→23:27)
[2024-05-17 06:54] LABS: % Basophils 0.4 % (0-2); % Eosinophils 3.6 % (0-6); % Immature Granulocytes 0.6 % (0-0.5); % Lymphocytes 14.7 % (20.5-51.1); % Monocytes 7.7 % (1.7-9.3); Absolute Eosinophils 0.2 10^3/uL (0-0.7); Absolute Lymphocytes 0.8 10^3/uL (1.2-3.4); Absolute Monocytes 0.4 10^3/uL (0.1-0.6); Absolute Neutrophils 3.9 10^3/uL (1.4-6.5); Hemoglobin 9.8 g/dL (13.0-18.0); Mean Corp Hgb Conc. 32.7 g/dL (33.0-37.0); Mean Corpuscular Hgb 27.8 pg (27.0-31.0); Mean Platelet Volume 9.7 fL (7.4-10.4); Nucleated Red Blood Cells % 0 % (-); Platelet Count 301 10^3/uL (130-400); Red Blood Cell Count 3.53 10^6/uL (4.70-6.10); Red Cell Dist. Width 14.9 % (11.5-14.5); White Blood Cell Count 5.3 10^3/uL (4.8-10.8)
[2024-05-17 07:15] LABS: Blood Urea Nitrogen 18 mg/dl (9-20); Calcium 8.6 mg/dl (8.4-10.2); Carbon Dioxide 29 mmol/L (22-30); Chloride 102 mmol/L (98-107); Estimated Creatinine Clearance 105 ml/min; Glucose 94 mg/dl (70-99); Potassium 3.9 mmol/L (3.5-5.1); Sodium 138 mmol/L (135-145); eGFR > 60.00
[2024-05-17] MEDS: COLACE 100 MG PO (07:46)
[2024-05-17] MEDS: ATIVAN 0.5 MG PO (07:46)
[2024-05-17] MEDS: DETROL LA 4 MG PO (07:46)
[2024-05-17] MEDS: PROSCAR 5 MG PO (07:47)
[2024-05-17] MEDS: CYMBALTA DELAYED RELEASE 30 MG PO ×2 (07:47→20:27)
[2024-05-17] MEDS: MIRALAX 17 GRAMS PO ×2 (07:47→20:28)
[2024-05-17] MEDS: VITAMIN B1 100 MG PO (07:48)
[2024-05-17] MEDS: HEPARIN 5000 UNITS SC ×2 (07:48→20:27)
[2024-05-17] MEDS: NORVASC 5 MG PO ×2 (07:48→20:46)
[2024-05-17 07:50] VITALS: BP 124/90
--- NOTE | 2024-05-17 09:18 | W.PN.HOSP.TC ---
Addendum entered and electronically signed by Hunter Van MD 05/17/24 16:02:
Abnormal TTE. Will get cardio consult for KAREN-discussed with cardio. Discussed with ID. Updated over the phone today.
Original Note:
Today's Communication/Plan
-
IV antibiotic
Assessment / Plan
Assessment / Plan
Physical exam:
General: Acutely ill
HEENT: Normocephalic, Atraumatic and Moist Mucous Membranes
Respiratory: Clear to Auscultation; Negative Wheezes, Rales or Rhonchi
Cardiac: Regular Rhythm and S1/S2
GI: Soft, Nontender and Distended
Musculoskeletal: No Clubbing, No Cyanosis and No Edema
Neuro: Alert and oriented. No neurological deficits
Rectal exam: Rectal prolapse
Psych: Calm
A/P:
Bacteremia, Staph aureus-MSSA/Sepsis:
Continue IV cefazolin
Blood cultures consistent with MSSA
ID consult-appreciated input
Updated over the phone prior
PT OT eval
Toxic-metabolic encephalopathy:
Likely related to current infection initially but now other issues such as in-hospital delirium and cannot rule out dopaminergic issues
Monitor and reevaluate
Severe agitation yesterday and today overly sedated:
Initially TME likely infection related but became very agitated and required multiple antipsychotics and benzodiazepines and restraints followed by oversedation. Currently more stable.
Currently on Risperdal 0.5 mg p.o. nightly. Would try to avoid other antipsychotics in the setting of Parkinson's or at least lower doses.
No need for restraints today so far.
Neurology and psychiatry evaluation appreciated.
Rectal prolapse:
Colorectal surgery consult-appreciated input and attempted reduction without success
Dysphagia:
Speech therapy eval-recommend diet level 6
Significant constipation:
Continue aggressive bowel regimen with change medications to scheduled rather than as needed
Parkinson's disease:
Continue Sinemet 25/100 mg tab p.o. 4 times daily and Rytary 61.25-245 mg ER 4 capsules 4 times daily.
Possible dementia related to Parkinson's:
Monitor behavior and mental status
Hypertension:
Continue amlodipine 5 mg twice a day
BPH:
Continue finasteride 5 mg p.o. daily
Continue Detrol LA
Depression and anxiety:
Continue lorazepam 0.5 mg daily orally
Continue Cymbalta 30 mg p.o. twice a day
DVT prophylaxis:
Heparin SQ
CODE STATUS:
Full code
Anticipated Discharge: 24 - 48 hours
Subjective/Interval History
-
Date of Service: May 17, 2024
Patient doing better overall. Afebrile
Objective Data
-
Labs:
Laboratory Results
05/17/24
06:18
WBC 5.3
Hgb 9.8 L
Hct 30.0 L
Plt Count 301
Sodium 138
Potassium 3.9
Chloride 102
Carbon Dioxide 29
BUN 18
Creatinine 0.6 L
Glucose 94
Calcium 8.6
Vital Signs:
Vital Signs
Temp Pulse Resp BP Pulse Ox
97.3 F 73 16 124/90 99
05/17/24 07:50 05/17/24 07:50 05/17/24 07:50 05/17/24 07:50 05/17/24 07:50
I&O
05/16/24 05/17/24 05/18/24
06:59 06:59 06:59
Intake Total 420 / 420 240 / 240
Output Total 200 / 200
Balance 220 / 220 240 / 240
[2024-05-17] MEDS: NON-FORMULARY ITEM 4 CAP PO ×2 (11:39→23:29)
[2024-05-17] MEDS: SINEMET 25-100 1 TABLET PO ×4 (14:34→21:00)
[2024-05-17 14:35] VITALS: BP 129/69; PULSE 76
--- NOTE | 2024-05-17 15:16 | W.PN.ID1 ---
Date of Service
Date of Service: May 17, 2024
Today's Communication
Continue antibiotics.
Assessment / Plan
Staph aureus bacteremia
- source unclear at present.
Leukocytosis
Elevated ESR and CRP.
Parkinson's disease
Anxiety
BPH
hx bladder cancer, treated
Ambulatory dysfunction
Recommendations:
Repeat blood cultures pending but without growth thus far.
Continue cefazolin.
Origin of Staph aureus remains unclear. TTE concerning for aortic valve thickening. Recommend KAREN.
Given marked elevation of ESR and CRP, will treat for a longer timeframe than that for uncomplicated bacteremia, likely 4 to 6 weeks.
����������������������������������������������������������
Chief Complaint
-: Bacteremia
Subjective / Review of Systems
Review of Systems: No Fever and No Chills
Vital Signs / Physical Exam
Vital Signs
Vital Signs
Temp Pulse Resp BP Pulse Ox
97.3 F 73 16 124/90 99
05/17/24 07:50 05/17/24 07:50 05/17/24 07:50 05/17/24 07:50 05/17/24 11:04
Physical Exam
Constitutional: Comfortable, Chronically Ill and Non-toxic
Eyes: No Conjunctival Hemorrhage and Sclera Anicteric
Cardiovascular: Regular Rate and S1/S2; Negative S3/S4 or Murmur
Pulmonary: Clear; Negative Wheezes or Rales
Gastrointestinal: Soft, Non Tender, Non Distended and Normal Bowel Sounds
Extremities: Negative Edema, Splinter Hemorrhage or Janeway Lesions
Skin: Warm and Dry
Neurological: Awake, Normal Muscle Strength and No Motor Deficits; Negative Meningeal Signs
Psychological: Calm
Objective Data
Lab Data
Lab Results
05/17/24 06:18
05/17/24 06:18
ESR 88 mm/hour (0-20) H 05/14/24 08:30
Estimated Creat Clear 105 ml/min 05/17/24 06:18
Lactic Acid Cancelled 05/12/24 23:00
Total Bilirubin 0.7 mg/dl (0.2-1.3) 05/13/24 04:16
AST 17 U/L (17-59) 05/13/24 04:16
ALT < 10 U/L (0-50) 05/13/24 04:16
Alkaline Phosphatase 129 U/L (38-126) H 05/13/24 04:16
C-Reactive Protein 200.40 mg/L (0.0-10.00) H 05/14/24 08:30
Most recent labs reviewed.
Micro Results:
05/14/24 08:30 Blood Culture - Preliminary
Blood/Venous No Growth in 72 hours- Final report to follow
05/14/24 08:50 Blood Culture - Preliminary
Blood/Venous No Growth in 72 hours- Final report to follow
05/12/24 19:32 Blood Culture - Final
Blood/Venous S aureus-Methicillin Sensitive
Gram Stain - Final
05/12/24 19:21 Blood Culture - Final
Blood/Venous S aureus-Methicillin Sensitive
Gram Stain - Final
05/13/24 13:48 MRSA Screen - Final
Nose No Methicillin Resistant Staphylococcus aureus isolated.
05/12/24 19:21 Urine Culture - Final
Urine NO GROWTH
05/12/24 19:21 Influenza Types A & B (MOO) - Final
Nasal Swab Negative for Influenza A & B, NAAT
Negative results must be combined with clinical observations
and patient history.
Nucleic Acid Amplification test (NAAT)performed on the
[employer] platform.
Imaging:
05/17/2024 ECHO (TTE): Normal biventricular size and systolic function. Thickened aortic valve, with trace aortic regurgitation. Compared to a study dated 04/22/2024 there is now trace aortic regurgitation with aortic valve thickening similar to
slightly worse.
05/12/2024 CXR (portable): Mild opacity in the retrocardiac left lung base. Mild subsegmental atelectasis in the left lung base. No pleural effusion or pneumothorax. Please see full dictation for additional detail.
05/12/2024 Abdominal series: Bowel: Residual contrast is seen with stool throughout the large bowel possibly from video fluoroscopic swallowing study April 23, 2024 suggesting slow intestinal transit. Intestinal bowel gas pattern is nonspecific.
Care Review
Plan reviewed with: Physician (Hospitalist; Cardiology)
[2024-05-17 15:44] VITALS: BP 121/68
--- NOTE | 2024-05-17 15:48 | CON.CAR ---
Addendum entered and electronically signed by Lawanda Moss MD 05/17/24 17:02:
I saw and examined the patient.
The TUBE ROLLER's note was reviewed and I agree with the note.
Comment: Patient doesn't seem to have insight to what is happening and is a bit of an unreliable historian. He is withough complaint. on exam he has poor dentition, but I didn't appreciate any loose teeth. He is rrr no m/r/g lungs cta. He is alert.
TTE with thinkened aortic valve given staph bacterium, KAREN is a better evaluation for IE. This may help determine the LOT for his therapy. He asked me to call his , the number in the chart didn't work, I will try to get another number and call
back Monday to consent. Otherwise, will see again for the procedure.
Original Note:
Consultation
Consultation Request
Date/Time Consultation Requested: 05/17/24 3:15p
Date/Time Consultation Performed: 05/17/24 3:30p
Requesting Provider: Dr. Van
Performing Provider: RAISA Napier for Dr. Moss
Reason for Consultation: bacteremia/abnormal EKG
Medical History
-
Chief Complaint: agitation
History of Present Illness:
Mr. Marshall is a 73 yo male with Parkinson's disease, anxiety, BPH, bladder cancer treated and ambulatory dysfunction, who presents to the ER with agitation, combative with nursing staff. He is admitted to the hospitalist service with positive
blood cultures for Staph aureus bacteremia, elevated ESR/CRP and leukocytosis. ID is following and managing antibiotics, source not found. We are consulted for an abnormal TTE today, showing normal biventricular size and systolic function without
regional wall motion abnormality, with thickened aortic valve with trace aortic regurgitation. Therefore a KAREN has been requested.
Past Medical History
Past Medical History: Other (as above)
Social History
Tobacco: Non-Smoker
Personal:
Living: With Family
Family History
Family History: Reviewed & Not Pertinent
Allergies / Home Medications
Allergy/AdvReac Type Severity Reaction Status Date / Time
No Known Allergies Allergy Verified 05/12/24 18:38
�Medication �Instructions �Recorded �Confirmed �Type
carbidopa ER 61.25 mg-levodopa 245 4 cap PO .4 TIMES A DAY parkinson's 07/25/21 05/12/24 History
mg capsule,extended release
(Rytary)
duloxetine 30 mg capsule,delayed 30 mg PO BID Mental Health/Anxiety 07/25/21 05/12/24 History
release
docusate sodium 100 mg capsule 100 mg PO DAILY Constipation 08/05/21 05/12/24 History
finasteride 5 mg tablet 5 mg PO DAILY Urinary Issue 04/20/24 05/12/24 History
polyethylene glycol 3350 17 gram 17 grams PO BID PRN constipation 04/20/24 05/12/24 History
oral powder packet
amlodipine 5 mg tablet 5 mg PO BID 30 days #60 tabs 04/30/24 05/12/24 Rx
thiamine mononitrate (vit B1) 100 100 mg PO DAILY 30 days #30 tabs 04/30/24 05/12/24 Rx
mg tablet
Ylkfkwlu-Etfzubfks-Psrsdubpvkw 20 ml PO Q6 PRN indigestion 05/12/24 05/12/24 History
Milk of Magnesia 30 ml PO DAILY PRN if no BM for 2 05/12/24 05/12/24 History
days
bisacodyl 10 mg rectal suppository 10 mg MT DAILY PRN constipation 05/12/24 05/12/24 History
(Dulcolax (bisacodyl))
carbidopa 25 mg-levodopa 100 mg 1 tab PO .5 TIMES A DAY 05/12/24 05/12/24 History
tablet
ibuprofen 200 mg tablet 400 mg PO Q6HPRN PRN moderate pain 05/12/24 05/12/24 History
lorazepam 0.5 mg tablet 0.5 mg PO DAILY 05/12/24 05/12/24 History
sodium phosphates 19 gram-7 118 ml MT ONCE PRN no BM after 05/12/24 05/12/24 History
gram/118 mL enema (Fleet Enema) biscadyl supp
vibegron 75 mg tablet 75 mg PO DAILY 05/12/24 05/12/24 History
Review of Systems
-
History Source: Patient
All other systems: Negative unless noted
Physical Exam
Vital Signs
Temp Pulse Resp BP Pulse Ox
97.6 F 76 16 121/68 98
05/17/24 15:44 05/17/24 15:44 05/17/24 15:44 05/17/24 15:44 05/17/24 15:44
Lab Results
05/17/24 06:18
05/17/24 06:18
Physical Exam
General: Well Developed, Well Nourished and No Apparent Distress
HEENT: Normocephalic and Anicteric
Respiratory: Clear and Non Labored Respirations
Cardiac: S1/S2 and Regular Rhythm
Breast: Deferred by me
GI: Soft, Non Tender, Non Distended and Normal Bowel Sounds
Rectal: Deferred by Provider
Genito-urinary: Clear Urine
Musculoskeletal: No Clubbing, No Cyanosis and No Edema
Skin: Warm and Dry
Neuro: AO x 3
Psych: Calm
Impression / Plan
-
Bacteremia - Staph aureus, source not identified.
- ID following on antibiotics.
- TTE with concern for thickened aortic valve and recommend KAREN, will plan for Monday.
- patient is agreeable, will discuss with his as well.
Parkinson's disease - chronic on meds, continue.
Ambulatory dysfunction - chronic.
Treated for bladder cancer.
Stable BPH.
Data Reviewed
-
EKG: Tracing Personally Visualized and interpreted (NSR 87, mild LVH.)
Medical Tests (Nuc Med, Echo etc): Report Reviewed by me (echo today showing normal biventricular size and systolic function without regional wall motion abnormality, with thickened aortic valve with trace aortic regurgitation. Therefore a KAREN has
been requested. )
Labs: Labs Reviewed by me
Old Records: Reviewed
--- NOTE | 2024-05-17 15:53 | PTCARENOTE ---
Pt had been assisted to chair. Chair alarm ringing. Pt found to be reaching for something that he was unable to identify and sliding out of chair. Pt caught before sliding to ground. Assisted to feet. Rolling walker provided and pt assisted back to
bed.
[2024-05-17] MEDS: RISPERDAL 0.5 MG PO ×3 (16:19→20:41)
--- NOTE | 2024-05-17 16:56 | PTCARENOTE ---
Pt pulling on curtain seperating beds in the room, attempting to pull it down. When asked what he was doing, he stated, 'I'm trying to get a piece of this!' Unable to elaborate furtuehr. PRN Risperdal 0.5mg PO offered and accepted.
[2024-05-17] MEDS: TYLENOL 650 MG PO (20:41)
[2024-05-17 22:56] VITALS: BP 137/91
[2024-05-17] MEDS: FLUSH (NSS) 2 FLUSH IV (23:30)
[2024-05-18] MEDS: NON-FORMULARY ITEM 4 CAP PO ×4 (03:00→22:05)
[2024-05-18] MEDS: ANCEF 10 IV ×3 (05:59→21:25)
[2024-05-18] MEDS: FLUSH (NSS) 2 FLUSH IV ×2 (05:59→21:25)
[2024-05-18 06:00] VITALS: BMI 22.5
[2024-05-18 06:44] LABS: Hemoglobin 9.5 g/dL (13.0-18.0); Mean Corp Hgb Conc. 33.9 g/dL (33.0-37.0); Mean Corpuscular Volume 82.6 fL (80.0-94.0); Mean Platelet Volume 9.8 fL (7.4-10.4); Platelet Count 277 10^3/uL (130-400); Red Blood Cell Count 3.39 10^6/uL (4.70-6.10); Red Cell Dist. Width 14.7 % (11.5-14.5); White Blood Cell Count 6.7 10^3/uL (4.8-10.8)
[2024-05-18 07:35] LABS: Blood Urea Nitrogen 15 mg/dl (9-20); Calcium 8.5 mg/dl (8.4-10.2); Carbon Dioxide 26 mmol/L (22-30); Chloride 103 mmol/L (98-107); Estimated Creatinine Clearance 105 ml/min; Glucose 94 mg/dl (70-99); eGFR > 60.00
[2024-05-18 07:40] LABS: Sodium 137 mmol/L (135-145)
[2024-05-18 07:47] VITALS: BP 146/81
[2024-05-18] MEDS: CYMBALTA DELAYED RELEASE 30 MG PO ×2 (08:24→21:20)
[2024-05-18] MEDS: NORVASC 5 MG PO ×2 (08:24→21:22)
[2024-05-18] MEDS: COLACE 100 MG PO (08:24)
[2024-05-18] MEDS: VITAMIN B1 100 MG PO (08:24)
[2024-05-18] MEDS: DETROL LA 4 MG PO (08:24)
[2024-05-18] MEDS: ATIVAN 0.5 MG PO (08:24)
[2024-05-18] MEDS: MIRALAX 17 GRAMS PO ×2 (08:24→21:22)
[2024-05-18] MEDS: PROSCAR 5 MG PO (08:25)
[2024-05-18] MEDS: HEPARIN 5000 UNITS SC ×2 (08:25→21:21)
--- NOTE | 2024-05-18 09:52 | W.PN.HOSP.TC ---
Today's Communication/Plan
-
IV antibiotics
Assessment / Plan
Assessment / Plan
Physical exam:
General: Acutely ill
HEENT: Normocephalic, Atraumatic and Moist Mucous Membranes
Respiratory: Clear to Auscultation; Negative Wheezes, Rales or Rhonchi
Cardiac: Regular Rhythm and S1/S2
GI: Soft, Nontender and Distended
Musculoskeletal: No Clubbing, No Cyanosis and No Edema
Neuro: Alert and oriented. No neurological deficits
Rectal exam: Rectal prolapse
Psych: Calm
A/P:
Bacteremia, Staph aureus-MSSA/Sepsis:
Continue IV cefazolin
Blood cultures consistent with MSSA
ID consult-appreciated input
Cardiology consult-discussed with cardiology today
Updated over the phone prior
Noticed elevated sed rate and CRP
Plan for KAREN on Monday
PT OT eval
Toxic-metabolic encephalopathy:
Monitor mental status and neurological status
Severe agitation yesterday and today overly sedated:
Initially TME likely infection related but became very agitated and required multiple antipsychotics and benzodiazepines and restraints followed by oversedation. Currently more stable.
Currently on Risperdal 0.5 mg p.o. nightly. Would try to avoid other antipsychotics in the setting of Parkinson's or at least lower doses.
No need for restraints today so far.
Neurology and psychiatry evaluation appreciated.
Rectal prolapse:
Colorectal surgery consult-appreciated input and attempted reduction without success
Dysphagia:
Speech therapy eval-recommend diet level 6
Significant constipation:
Continue aggressive bowel regimen with change medications to scheduled rather than as needed
Parkinson's disease:
Continue Sinemet 25/100 mg tab p.o. 4 times daily and Rytary 61.25-245 mg ER 4 capsules 4 times daily.
Possible dementia related to Parkinson's:
Monitor behavior and mental status
Hypertension:
Continue amlodipine 5 mg twice a day
BPH:
Continue finasteride 5 mg p.o. daily
Continue Detrol LA
Depression and anxiety:
Continue lorazepam 0.5 mg daily orally
Continue Cymbalta 30 mg p.o. twice a day
DVT prophylaxis:
Heparin SQ
CODE STATUS:
Full code
Total time spent on today's encounter was 52 minutes which included time spent in counseling the patient/family regarding diagnosis and treatment plan as listed above, goals of care, and symptom management. Case was discussed with nursing staff,
specialists, and care coordinators/case management. All labs and imaging personally reviewed by me. Remainder the time spent in detailed review of previous records, lab data, imaging, and other medical provider documentation.
Anticipated Discharge: > 48 hours
Subjective/Interval History
-
Date of Service: May 18, 2024
No chest pain or shortness of breath. Afebrile
Objective Data
-
Labs:
Laboratory Results
05/18/24
06:26
WBC 6.7
Hgb 9.5 L
Hct 28.0 L
Plt Count 277
Sodium 137
Potassium 4.0
Chloride 103
Carbon Dioxide 26
BUN 15
Creatinine 0.5 L
Glucose 94
Calcium 8.5
Vital Signs:
Vital Signs
Temp Pulse Resp BP Pulse Ox
97.5 F 74 16 146/81 96
05/18/24 07:47 05/18/24 07:47 05/18/24 07:47 05/18/24 07:47 05/18/24 07:47
I&O
05/17/24 05/18/24 05/19/24
06:59 06:59 06:59
Intake Total 240 / 240 960 / 960
Balance 240 / 240 960 / 960
--- NOTE | 2024-05-18 14:38 | W.PN.ID1 ---
Date of Service
Date of Service: May 18, 2024
Today's Communication
Continue antibiotics.
Assessment / Plan
Staph aureus bacteremia
- source unclear at present.
Leukocytosis
Elevated ESR and CRP.
Parkinson's disease
Anxiety
BPH
hx bladder cancer, treated
Ambulatory dysfunction
Recommendations:
Repeat blood cultures without growth at 96 hours.
Continue cefazolin.
Origin of Staph aureus remains unclear. TTE concerning for aortic valve thickening. For KAREN early next week.
Given marked elevation of ESR and CRP, will treat for a longer timeframe than that for uncomplicated bacteremia, likely 4 to 6 weeks.
����������������������������������������������������������
Chief Complaint
-: Bacteremia
Subjective / Review of Systems
Review of Systems: No Fever
Vital Signs / Physical Exam
Vital Signs
Vital Signs
Temp Pulse Resp BP Pulse Ox
97.5 F 74 16 146/81 96
05/18/24 07:47 05/18/24 07:47 05/18/24 07:47 05/18/24 07:47 05/18/24 07:47
Physical Exam
Constitutional: Comfortable, Chronically Ill and Non-toxic
Eyes: No Conjunctival Hemorrhage and Sclera Anicteric
Cardiovascular: Regular Rate and S1/S2; Negative S3/S4 or Murmur
Pulmonary: Clear; Negative Wheezes or Rales
Gastrointestinal: Soft, Non Tender, Non Distended and Normal Bowel Sounds
Extremities: Negative Edema, Splinter Hemorrhage or Janeway Lesions
Skin: Warm and Dry
Neurological: Awake, Normal Muscle Strength and No Motor Deficits; Negative Meningeal Signs
Psychological: Calm
Objective Data
Lab Data
Lab Results
05/18/24 06:26
05/18/24 06:26
ESR 88 mm/hour (0-20) H 05/14/24 08:30
Estimated Creat Clear 105 ml/min 05/18/24 06:26
Lactic Acid Cancelled 05/12/24 23:00
Total Bilirubin 0.7 mg/dl (0.2-1.3) 05/13/24 04:16
AST 17 U/L (17-59) 05/13/24 04:16
ALT < 10 U/L (0-50) 05/13/24 04:16
Alkaline Phosphatase 129 U/L (38-126) H 05/13/24 04:16
C-Reactive Protein 200.40 mg/L (0.0-10.00) H 05/14/24 08:30
Most recent labs reviewed.
Micro Results:
05/14/24 08:30 Blood Culture - Preliminary
Blood/Venous No Growth in 4 days- Final report to follow
05/14/24 08:50 Blood Culture - Preliminary
Blood/Venous No Growth in 4 days- Final report to follow
05/12/24 19:32 Blood Culture - Final
Blood/Venous S aureus-Methicillin Sensitive
Gram Stain - Final
05/12/24 19:21 Blood Culture - Final
Blood/Venous S aureus-Methicillin Sensitive
Gram Stain - Final
05/13/24 13:48 MRSA Screen - Final
Nose No Methicillin Resistant Staphylococcus aureus isolated.
05/12/24 19:21 Urine Culture - Final
Urine NO GROWTH
05/12/24 19:21 Influenza Types A & B (MOO) - Final
Nasal Swab Negative for Influenza A & B, NAAT
Negative results must be combined with clinical observations
and patient history.
Nucleic Acid Amplification test (NAAT)performed on the
[employer] platform.
Imaging:
05/17/2024 ECHO (TTE): Normal biventricular size and systolic function. Thickened aortic valve, with trace aortic regurgitation. Compared to a study dated 04/22/2024 there is now trace aortic regurgitation with aortic valve thickening similar to
slightly worse.
05/12/2024 CXR (portable): Mild opacity in the retrocardiac left lung base. Mild subsegmental atelectasis in the left lung base. No pleural effusion or pneumothorax. Please see full dictation for additional detail.
05/12/2024 Abdominal series: Bowel: Residual contrast is seen with stool throughout the large bowel possibly from video fluoroscopic swallowing study April 23, 2024 suggesting slow intestinal transit. Intestinal bowel gas pattern is nonspecific.
Care Review
Plan reviewed with: Physician (Cardiology)
[2024-05-18 15:00] VITALS: BP 132/67
--- NOTE | 2024-05-18 15:13 | CM ---
CM reviewed chart, referrals placed to [facility] (unable to accept), [facility], and [facility] can review pending bed availability. Patient will require insurance auth once bed found. Patient remains on IV antibiotics. CM will continue to follow
for all discharge planning needs.
Plan; SNF once bed found, will require insurance auth.
[2024-05-18] MEDS: SINEMET 25-100 1 TABLET PO ×4 (15:29→21:28)
[2024-05-18] MEDS: RISPERDAL 0.5 MG PO (17:17)
[2024-05-18 19:57] VITALS: BP 142/71
[2024-05-18 23:49] VITALS: BP 139/68
[2024-05-19] MEDS: NON-FORMULARY ITEM 4 CAP PO ×4 (03:23→23:28)
[2024-05-19] MEDS: ANCEF 10 IV ×3 (05:42→23:26)
[2024-05-19] MEDS: FLUSH (NSS) 2 FLUSH IV (05:43)
[2024-05-19 05:59] LABS: % Basophils 0.3 % (0-2); % Eosinophils 3.7 % (0-6); % Immature Granulocytes 1.5 % (0-0.5); % Lymphocytes 15.2 % (20.5-51.1); % Monocytes 6.6 % (1.7-9.3); % Neutrophils 72.7 % (42.2-75.2); Absolute Eosinophils 0.3 10^3/uL (0-0.7); Absolute Immature Granulocytes 0.1 10^3/uL (0-0.05); Absolute Monocytes 0.5 10^3/uL (0.1-0.6); Absolute Neutrophils 4.9 10^3/uL (1.4-6.5); Hematocrit 26.7 % (39.0-52.0); Hemoglobin 8.9 g/dL (13.0-18.0); Mean Corp Hgb Conc. 33.3 g/dL (33.0-37.0); Mean Corpuscular Hgb 28.4 pg (27.0-31.0); Mean Corpuscular Volume 85.3 fL (80.0-94.0); Mean Platelet Volume 10.2 fL (7.4-10.4); Nucleated Red Blood Cells % 0 % (-); Platelet Count 272 10^3/uL (130-400); Red Blood Cell Count 3.13 10^6/uL (4.70-6.10); Red Cell Dist. Width 14.8 % (11.5-14.5); White Blood Cell Count 6.8 10^3/uL (4.8-10.8)
[2024-05-19 06:05] LABS: Blood Urea Nitrogen 16 mg/dl (9-20); Calcium 8.3 mg/dl (8.4-10.2); Carbon Dioxide 30 mmol/L (22-30); Chloride 104 mmol/L (98-107); Estimated Creatinine Clearance 105 ml/min; Glucose 91 mg/dl (70-99); Potassium 4.2 mmol/L (3.5-5.1); Sodium 138 mmol/L (135-145); eGFR > 60.00
[2024-05-19 07:00] VITALS: BP 157/80
[2024-05-19] MEDS: CYMBALTA DELAYED RELEASE 30 MG PO ×2 (08:26→20:27)
[2024-05-19] MEDS: DETROL LA 4 MG PO (08:27)
[2024-05-19] MEDS: ATIVAN 0.5 MG PO (08:27)
[2024-05-19] MEDS: VITAMIN B1 100 MG PO (08:28)
[2024-05-19] MEDS: PROSCAR 5 MG PO (08:29)
[2024-05-19] MEDS: COLACE 100 MG PO (08:29)
[2024-05-19] MEDS: NORVASC 5 MG PO ×2 (08:29→23:25)
[2024-05-19] MEDS: MIRALAX 17 GRAMS PO (08:31)
[2024-05-19] MEDS: HEPARIN 5000 UNITS SC (08:32)
--- NOTE | 2024-05-19 08:50 | W.PN.HOSP.TC ---
Today's Communication/Plan
-
IV antibiotics. KAREN tomorrow
Assessment / Plan
Assessment / Plan
Physical exam:
General: Acutely ill
HEENT: Normocephalic, Atraumatic and Moist Mucous Membranes
Respiratory: Clear to Auscultation; Negative Wheezes, Rales or Rhonchi
Cardiac: Regular Rhythm and S1/S2
GI: Soft, Nontender and Distended
Musculoskeletal: No Clubbing, No Cyanosis and No Edema
Neuro: Alert and oriented. No neurological deficits
Rectal exam: Rectal prolapse
Psych: Calm
A/P:
Bacteremia, Staph aureus-MSSA/Sepsis:
Continue IV cefazolin
Blood cultures consistent with MSSA
ID consult-appreciated input. Discussed with ID today
Cardiology consult-discussed with cardiology
Updated over the phone prior
Noticed elevated sed rate and CRP
Plan for KAREN on Monday
PT OT eval
Toxic-metabolic encephalopathy:
Monitor mental status and neurological status
Severe agitation yesterday and today overly sedated:
Initially TME likely infection related but became very agitated and required multiple antipsychotics and benzodiazepines and restraints followed by oversedation. Currently more stable.
Currently on Risperdal 0.5 mg p.o. nightly. Would try to avoid other antipsychotics in the setting of Parkinson's or at least lower doses.
No need for restraints today so far.
Neurology and psychiatry evaluation appreciated.
Rectal prolapse:
Colorectal surgery consult-appreciated input and attempted reduction without success
Dysphagia:
Speech therapy eval-recommend diet level 6
Significant constipation:
Continue aggressive bowel regimen with change medications to scheduled rather than as needed
Parkinson's disease:
Continue Sinemet 25/100 mg tab p.o. 4 times daily and Rytary 61.25-245 mg ER 4 capsules 4 times daily.
Possible dementia related to Parkinson's:
Monitor behavior and mental status
Hypertension:
Continue amlodipine 5 mg twice a day
BPH:
Continue finasteride 5 mg p.o. daily
Continue Detrol LA
Depression and anxiety:
Continue lorazepam 0.5 mg daily orally
Continue Cymbalta 30 mg p.o. twice a day
DVT prophylaxis:
Heparin SQ
CODE STATUS:
Full code
Total time spent on today's encounter was 52 minutes which included time spent in counseling the patient/family regarding diagnosis and treatment plan as listed above, goals of care, and symptom management. Case was discussed with nursing staff,
specialists, and care coordinators/case management. All labs and imaging personally reviewed by me. Remainder the time spent in detailed review of previous records, lab data, imaging, and other medical provider documentation.
Anticipated Discharge: 24 - 48 hours
Subjective/Interval History
-
Date of Service: May 19, 2024
Patient denies any new complaints. No chest pain or shortness of breath. Afebrile. Alert but mentation fluctuates.
Objective Data
-
Labs:
Laboratory Results
05/19/24
04:54
WBC 6.8
Hgb 8.9 L
Hct 26.7 L
Plt Count 272
Sodium 138
Potassium 4.2
Chloride 104
Carbon Dioxide 30
BUN 16
Creatinine 0.5 L
Glucose 91
Calcium 8.3 L
Vital Signs:
Vital Signs
Temp Pulse Resp BP Pulse Ox
97.6 F 71 18 157/80 96
05/19/24 07:00 05/19/24 07:00 05/19/24 07:00 05/19/24 07:00 05/19/24 07:00
I&O
05/18/24 05/19/24 05/20/24
06:59 06:59 06:59
Intake Total 960 / 960 240 / 240
Output Total 100 / 100
Balance 960 / 960 140 / 140
[2024-05-19] MEDS: DESENEX/MITRAZOL/ZEASORB 1 APPLIC TOPICAL ×2 (11:53→23:24)
[2024-05-19] MEDS: SINEMET 25-100 1 TABLET PO ×3 (14:52→18:20)
[2024-05-19 15:00] VITALS: BP 121/67
--- NOTE | 2024-05-19 16:22 | W.PN.CD ---
Today's Communication / Plan
-
npo p mn
reymundo in am
Impression / Plan
-
Bacteremia - Staph aureus, source not identified.
- ID following on antibiotics.
- TTE with concern for thickened aortic valve and recommend REYMUNDO, will plan for Monday.
- at the bedside with daughters, all discussed indications. Consent given and placed on chart.
-NPO after midnight
Parkinson's disease - chronic on meds, continue.
Ambulatory dysfunction - chronic.
Treated for bladder cancer.
Stable BPH.
Subjective:
he is without complaint of cp or sob.
Physical Exam
Vital Signs/Labs
Vital Signs
Temp Pulse Resp BP Pulse Ox
97.9 F 82 18 121/67 94
05/19/24 15:00 05/19/24 15:00 05/19/24 15:00 05/19/24 15:00 05/19/24 15:00
05/18/24 05/19/24 05/20/24
06:59 06:59 06:59
Actual Weight 69.031 kg
05/19/24 04:54
05/19/24 04:54
Physical Exam
Constitutional: No acute distress
Cardiovascular: Rhythm & rate is regular, Pedal edema is absent, Systolic murmur absent and Diastolic murmur absent
Respiratory: Respiratory effort normal, Lungs clear to auscul., Wheeze Absent and Crackles Absent
Other: Other (poor dentition but no loose teeth)
Data Reviewed
-
Date of Service: May 19, 2024
Medical Decision Making: Review of Case with other Provider (Dr Van he consented for reymundo)
Medical Tests (PFT, Pathology etc): Discussed with Family (explained the indication and risk/benefit of reymundo)
[2024-05-19] MEDS: RISPERDAL 0.5 MG PO ×2 (18:14→20:27)
--- NOTE | 2024-05-19 20:30 | PTCARENOTE ---
Since beginning of shift, pt becoming increasingly agitated. Oriented to self & knows he is hospital. Repeatedly attempting to get OOB/bed alarm in place. Not following instructions to lie down. Noted to be hallucinating; talking to people not there
and appearing to see other things, eventually getting on knees and making his way to head of bed and trying to stand up on bed facing the wall. Appeared to be acting in a combative way with whatever he was 'seeing'. Assistance called to help get him
lying down again in bed. Kennedi KLINE at bedside and advised to give prn Risperdal. Med given.
[2024-05-19] MEDS: SINEMET 25-100 PO ×2 (20:36→21:00)
[2024-05-19] MEDS: MIRALAX PO (21:00)
[2024-05-19] MEDS: HEPARIN SC (21:30)
[2024-05-19 23:30] VITALS: BP 146/89
--- NOTE | 2024-05-20 02:33 | PTCARENOTE ---
Since 2129 pt has been dozing at intervals and when awake much less agitated than before, however remains confused & often uncooperative. Refused couple meds (1 sinemet dose & heparin).
[2024-05-20] MEDS: NON-FORMULARY ITEM PO ×3 (03:00→23:49)
[2024-05-20] MEDS: ANCEF 10 IV ×3 (05:26→22:39)
[2024-05-20] MEDS: FLUSH (NSS) 2 FLUSH IV (05:28)
[2024-05-20 06:00] VITALS: BMI 22.1
--- NOTE | 2024-05-20 06:41 | PTCARENOTE ---
Past 3 hrs pt has been sleeping quietly and cooperative when disturbed.
--- NOTE | 2024-05-20 06:47 | W.PN.HOSP.TC ---
Today's Communication/Plan
-
Cont abx as per ID
PT/OT eval
cont home Parkinson medications, Ativan, Risperdal
Discharge planning SNF rehab
Assessment / Plan
Assessment / Plan
Physical exam:
General: No acute distress, appears comfortable at this time.
HEENT: Normocephalic, Atraumatic and Moist Mucous Membranes
Respiratory: Clear to Auscultation; Negative Wheezes, Rales or Rhonchi
Cardiac: Regular Rhythm and S1/S2
GI: Soft, Nontender and Distended
Musculoskeletal: No Clubbing, No Cyanosis and No Edema
Neuro: AOx3
Psych: Calm
A/P: 73M Parkinson's Bladder Ca Rectal Prolapse HTN BPH Depression Anxiety here for MSSA bacteremia unclear etiology.
Bacteremia, Staph aureus-MSSA/Sepsis:
Blood cultures consistent with MSSA
Cardiology consult appreciated KAREN performed noted no valve vegetation
Noted elevated sed rate and CRP
ID eval appreciated cont cefazolin, picc ordered, planned for 4-6 wks abx
PT OT eval appreciated SNF rehab
Toxic-metabolic encephalopathy:
Monitor mental status and neurological status
Severe agitation alternated with oversedation
Initially TME likely infection related but became very agitated and required multiple antipsychotics and benzodiazepines and restraints followed by oversedation. Patient since improved
Currently on Risperdal 0.5 mg p.o. nightly. Would try to avoid other antipsychotics in the setting of Parkinson's or at least lower doses.
Off restraints
Neurology and psychiatry evaluation appreciated.
Rectal prolapse:
Colorectal surgery consult-appreciated input and attempted reduction without success. No acute surgical intervention indicated at this time. Outpt follow up recommended
Dysphagia:
Speech therapy eval-recommend diet level 6
Significant constipation:
Continue aggressive bowel regimen with change medications to scheduled rather than as needed
Parkinson's disease:
Continue Sinemet 25/100 mg tab p.o. 4 times daily and Rytary 61.25-245 mg ER 4 capsules 4 times daily.
Possible dementia related to Parkinson's:
Monitor behavior and mental status
Hypertension:
Continue amlodipine 5 mg twice a day
BPH:
Continue finasteride 5 mg p.o. daily
Continue Detrol LA
Depression and anxiety:
Continue lorazepam 0.5 mg daily orally
Continue Cymbalta 30 mg p.o. twice a day
DVT prophylaxis:
Heparin SQ
CODE STATUS:
Full code
Discussed with patient. Chantell called to provide update, no answer received, brief message with call back number left.
I spent a total of 40 minutes with the patient or on the floor. More than 50% of this time involved counseling and coordination of care.
Anticipated Discharge: 24 - 48 hours
Subjective/Interval History
-
Date of Service: May 20, 2024
No acute distress sitting up comfortably in bed. AOx3 calm cooperative. Overall reports feeling well.
Objective Data
-
Labs:
Laboratory Results
05/20/24
06:00
WBC Pending
Hgb Pending
Hct Pending
Plt Count Pending
Sodium Pending
Potassium Pending
Chloride Pending
Carbon Dioxide Pending
BUN Pending
Creatinine Pending
Glucose Pending
Calcium Pending
Vital Signs:
Vital Signs
Temp Pulse Resp BP Pulse Ox
97.0 F 94 20 146/89 98
05/19/24 23:30 05/19/24 23:30 05/19/24 23:30 05/19/24 23:30 05/19/24 23:30
I&O
05/18/24 05/19/24 05/20/24
06:59 06:59 06:59
Intake Total 960 / 960 240 / 240 240 / 240
Output Total 100 / 100
Balance 960 / 960 140 / 140 240 / 240
[2024-05-20 07:00] VITALS: BP 160/84
[2024-05-20] MEDS: NON-FORMULARY ITEM 4 CAP PO ×2 (08:19→12:25)
[2024-05-20] MEDS: ATIVAN 0.5 MG PO (08:20)
[2024-05-20] MEDS: MIRALAX 17 GRAMS PO ×2 (08:20→20:26)
[2024-05-20] MEDS: VITAMIN B1 100 MG PO (08:20)
[2024-05-20] MEDS: COLACE 100 MG PO (08:20)
[2024-05-20] MEDS: PROSCAR 5 MG PO (08:20)
[2024-05-20] MEDS: HEPARIN 5000 UNITS SC ×2 (08:20→20:26)
[2024-05-20] MEDS: DETROL LA 4 MG PO (08:20)
[2024-05-20] MEDS: NORVASC 5 MG PO ×2 (08:21→20:25)
[2024-05-20] MEDS: CYMBALTA DELAYED RELEASE 30 MG PO ×2 (08:21→20:25)
[2024-05-20] MEDS: DESENEX/MITRAZOL/ZEASORB 1 APPLIC TOPICAL ×2 (08:22→20:27)
[2024-05-20 09:15] LABS: % Basophils 0.4 % (0-2); % Eosinophils 3.3 % (0-6); % Immature Granulocytes 1.5 % (0-0.5); % Lymphocytes 12.4 % (20.5-51.1); % Monocytes 5.2 % (1.7-9.3); % Neutrophils 77.2 % (42.2-75.2); Absolute Eosinophils 0.3 10^3/uL (0-0.7); Absolute Immature Granulocytes 0.1 10^3/uL (0-0.05); Absolute Lymphocytes 0.9 10^3/uL (1.2-3.4); Absolute Monocytes 0.4 10^3/uL (0.1-0.6); Absolute Neutrophils 5.8 10^3/uL (1.4-6.5); Hematocrit 29.4 % (39.0-52.0); Hemoglobin 9.5 g/dL (13.0-18.0); Mean Corp Hgb Conc. 32.3 g/dL (33.0-37.0); Mean Corpuscular Hgb 27.9 pg (27.0-31.0); Mean Corpuscular Volume 86.2 fL (80.0-94.0); Mean Platelet Volume 10.4 fL (7.4-10.4); Nucleated Red Blood Cells % 0 % (-); Platelet Count 288 10^3/uL (130-400); Red Blood Cell Count 3.41 10^6/uL (4.70-6.10); Red Cell Dist. Width 14.8 % (11.5-14.5); White Blood Cell Count 7.5 10^3/uL (4.8-10.8)
[2024-05-20 09:48] LABS: Blood Urea Nitrogen 15 mg/dl (9-20); Calcium 8.6 mg/dl (8.4-10.2); Carbon Dioxide 27 mmol/L (22-30); Chloride 102 mmol/L (98-107); Estimated Creatinine Clearance 104 ml/min; Glucose 83 mg/dl (70-99); Potassium 3.9 mmol/L (3.5-5.1); Sodium 138 mmol/L (135-145); eGFR > 60.00
--- NOTE | 2024-05-20 10:30 | W.PN.UPDATE ---
Update Note
Progress Note Update
KAREN preliminary results:
No evidence of vegetation.
Reviewed with his via phone and cardiology service.
--- NOTE | 2024-05-20 11:43 | W.PN.CD ---
Today's Communication / Plan
-
No veg on KAREN
We will sign off please call with questions/concerns
Impression / Plan
-
Bacteremia - Staph aureus, source not identified.
- ID following on antibiotics.
- KAREN no vegetation
Parkinson's disease - chronic on meds, continue.
Ambulatory dysfunction - chronic.
Treated for bladder cancer.
Stable BPH.
Subjective:
he is without complaint of cp or sob.
Physical Exam
Vital Signs/Labs
Vital Signs
Temp Pulse Resp BP Pulse Ox
97.4 F 65 18 160/84 98
05/20/24 07:00 05/20/24 08:21 05/20/24 07:00 05/20/24 08:21 05/20/24 07:00
05/19/24 05/20/24 05/21/24
06:59 06:59 06:59
Actual Weight 149 lb 9 oz
05/20/24 07:09
05/20/24 07:09
Physical Exam
Constitutional: No acute distress
EENT: Anicteric
Cardiovascular: Rhythm & rate is regular
Respiratory: Respiratory effort normal and Lungs clear to auscul.
GI: Soft
Neuro/Psych: Alert
Data Reviewed
-
Date of Service: May 20, 2024
EKG: Tracing Personally Visualized and interpreted (sr)
Echo: Tracing Personally Visualized and interpreted and Report Reviewed by me
Labs: Labs Reviewed by me
--- NOTE | 2024-05-20 12:02 | W.PN.ID1 ---
Date of Service
Date of Service: May 20, 2024
Today's Communication
Continue antibiotics.
Assessment / Plan
Staph aureus bacteremia
- source unclear at present.
Leukocytosis
Elevated ESR and CRP.
Parkinson's disease
Anxiety
BPH
hx bladder cancer, treated
Ambulatory dysfunction
Recommendations:
Repeat blood cultures negative.
Continue cefazolin.
Origin of Staph aureus remains unclear. TTE concerning for aortic valve thickening. KAREN did not visualize evidence of endocarditis.
Given marked elevation of ESR and CRP, will treat for a longer timeframe than that for uncomplicated bacteremia, likely 4 to [address] PICC line at this time.
����������������������������������������������������������
Chief Complaint
-: Bacteremia
Subjective / Review of Systems
Patient seen and examined. Reports feeling well. Currently is status post KAREN. He reports tolerating the procedure without significant discomfort.
Review of Systems: No Fever and No Chills
Vital Signs / Physical Exam
Vital Signs
Vital Signs
Temp Pulse Resp BP Pulse Ox
97.4 F 65 18 160/84 98
05/20/24 07:00 05/20/24 08:21 05/20/24 07:00 05/20/24 08:21 05/20/24 07:00
Physical Exam
Constitutional: No Acute Distress, Comfortable, Chronically Ill and Non-toxic
Eyes: No Conjunctival Hemorrhage and Sclera Anicteric
Cardiovascular: Regular Rate and S1/S2; Negative S3/S4 or Murmur
Pulmonary: Clear; Negative Wheezes or Rales
Gastrointestinal: Soft, Non Tender, Non Distended and Normal Bowel Sounds
Extremities: Negative Edema, Splinter Hemorrhage or Janeway Lesions
Skin: Warm and Dry
Neurological: Awake, Normal Muscle Strength and No Motor Deficits; Negative Meningeal Signs
Psychological: Calm
Objective Data
Lab Data
Lab Results
05/20/24 07:09
05/20/24 07:09
ESR 88 mm/hour (0-20) H 05/14/24 08:30
Estimated Creat Clear 104 ml/min 05/20/24 07:09
Lactic Acid Cancelled 05/12/24 23:00
Total Bilirubin 0.7 mg/dl (0.2-1.3) 05/13/24 04:16
AST 17 U/L (17-59) 05/13/24 04:16
ALT < 10 U/L (0-50) 05/13/24 04:16
Alkaline Phosphatase 129 U/L (38-126) H 05/13/24 04:16
C-Reactive Protein 200.40 mg/L (0.0-10.00) H 05/14/24 08:30
Most recent labs reviewed.
Micro Results:
05/14/24 08:30 Blood Culture - Final
Blood/Venous No Growth - Final Report
05/14/24 08:50 Blood Culture - Final
Blood/Venous No Growth - Final Report
05/12/24 19:32 Blood Culture - Final
Blood/Venous S aureus-Methicillin Sensitive
Gram Stain - Final
05/12/24 19:21 Blood Culture - Final
Blood/Venous S aureus-Methicillin Sensitive
Gram Stain - Final
05/13/24 13:48 MRSA Screen - Final
Nose No Methicillin Resistant Staphylococcus aureus isolated.
05/12/24 19:21 Urine Culture - Final
Urine NO GROWTH
05/12/24 19:21 Influenza Types A & B (MOO) - Final
Nasal Swab Negative for Influenza A & B, NAAT
Negative results must be combined with clinical observations
and patient history.
Nucleic Acid Amplification test (NAAT)performed on the
[employer] platform.
Imaging:
05/17/2024 ECHO (TTE): Normal biventricular size and systolic function. Thickened aortic valve, with trace aortic regurgitation. Compared to a study dated 04/22/2024 there is now trace aortic regurgitation with aortic valve thickening similar to
slightly worse.
05/12/2024 CXR (portable): Mild opacity in the retrocardiac left lung base. Mild subsegmental atelectasis in the left lung base. No pleural effusion or pneumothorax. Please see full dictation for additional detail.
05/12/2024 Abdominal series: Bowel: Residual contrast is seen with stool throughout the large bowel possibly from video fluoroscopic swallowing study April 23, 2024 suggesting slow intestinal transit. Intestinal bowel gas pattern is nonspecific.
[2024-05-20] MEDS: SINEMET 25-100 1 TABLET PO ×4 (14:30→22:02)
[2024-05-20 15:00] VITALS: BP 110/65
--- NOTE | 2024-05-20 15:26 | CM ---
CM reviewed chart, patient will require IV antibiotics at SNF (Cefazolin 2 gm IV q8h end date 06/17/24). [facility] unable to accept, call [facility] in morning for bed availability, patient will need updated PT/OT notes for auth once bed
found. CM will continue to follow for all discharge planning needs.
Plan; SNF once facility found, referrals pending, will require insurance auth.
[2024-05-20] MEDS: RISPERDAL 0.5 MG PO (17:10)
--- NOTE | 2024-05-20 18:43 | VATNOTE ---
Per radiology report, PICC in good position with tip in the SVC. PCN notified that PICC is OK to use at this time. Instructed to remove all ipsilateral IVs and change all IV tubing prior to use.
[2024-05-20] MEDS: SINEMET CR 50/200 (EXTENDED RELEASE) 1 TABLET PO (23:22)
[2024-05-20 23:55] VITALS: BP 142/89
[2024-05-21] MEDS: SINEMET CR 50/200 (EXTENDED RELEASE) 1 TABLET PO ×2 (03:48→06:37)
[2024-05-21] MEDS: ANCEF 10 IV ×3 (05:11→22:55)
[2024-05-21] MEDS: NON-FORMULARY ITEM PO (06:12)
[2024-05-21 06:21] VITALS: BMI 22.1
[2024-05-21 06:29] LABS: Hematocrit 28.8 % (39.0-52.0); Hemoglobin 9.5 g/dL (13.0-18.0); Mean Corpuscular Hgb 28.4 pg (27.0-31.0); Mean Corpuscular Volume 86.2 fL (80.0-94.0); Mean Platelet Volume 9.9 fL (7.4-10.4); Platelet Count 246 10^3/uL (130-400); Red Blood Cell Count 3.34 10^6/uL (4.70-6.10); Red Cell Dist. Width 14.8 % (11.5-14.5); White Blood Cell Count 7.8 10^3/uL (4.8-10.8)
[2024-05-21 07:04] LABS: Blood Urea Nitrogen 17 mg/dl (9-20); Calcium 8.3 mg/dl (8.4-10.2); Carbon Dioxide 25 mmol/L (22-30); Chloride 104 mmol/L (98-107); Estimated Creatinine Clearance 103 ml/min; Glucose 87 mg/dl (70-99); Phosphorus 3.2 mg/dl (2.5-4.5); Potassium 4.1 mmol/L (3.5-5.1); Sodium 137 mmol/L (135-145); eGFR > 60.00
[2024-05-21 07:17] LABS: Erythrocyte Sed Rate 65 mm/hour (0-20)
[2024-05-21 07:54] VITALS: BP 159/79
[2024-05-21] MEDS: PROSCAR 5 MG PO (07:56)
[2024-05-21] MEDS: COLACE 100 MG PO (07:56)
[2024-05-21] MEDS: CYMBALTA DELAYED RELEASE 30 MG PO ×2 (07:56→19:51)
[2024-05-21] MEDS: ATIVAN 0.5 MG PO (07:56)
[2024-05-21] MEDS: VITAMIN B1 100 MG PO (07:56)
[2024-05-21] MEDS: NORVASC 5 MG PO ×2 (07:56→19:53)
[2024-05-21] MEDS: DETROL LA 4 MG PO (07:56)
[2024-05-21] MEDS: MIRALAX 17 GRAMS PO ×2 (07:56→19:52)
[2024-05-21] MEDS: HEPARIN 5000 UNITS SC ×2 (07:56→19:52)
[2024-05-21] MEDS: DESENEX/MITRAZOL/ZEASORB 1 APPLIC TOPICAL ×2 (07:57→19:52)
--- NOTE | 2024-05-21 08:05 | W.PN.HOSP.TC ---
Today's Communication/Plan
-
cont abx as per ID
Risperidone tapered
cont ST/PT/OT
Discharge planning SNF rehab
Assessment / Plan
Assessment / Plan
Physical exam:
General: No acute distress, appears comfortable at this time.
HEENT: Normocephalic, Atraumatic and Moist Mucous Membranes
Respiratory: Clear to Auscultation; Negative Wheezes, Rales or Rhonchi
Cardiac: Regular Rhythm and S1/S2
GI: Soft, Nontender and Distended
Musculoskeletal: No Clubbing, No Cyanosis and No Edema
Neuro: AOx3, conversant though some occasional confusion noted, mentation seems slow at times
Psych: Calm
A/P: 73M Parkinson's Bladder Ca Rectal Prolapse HTN BPH Depression Anxiety here for MSSA bacteremia unclear etiology.
Bacteremia, Staph aureus-MSSA/Sepsis:
Blood cultures consistent with MSSA
Cardiology consult appreciated KAREN performed noted no valve vegetation
Noted elevated sed rate and CRP
ID eval appreciated cont cefazolin, picc placed, planned for 4-6 wks abx
PT OT eval appreciated SNF rehab
Toxic-metabolic encephalopathy:
Monitor mental status and neurological status
significantly improved
Severe agitation alternated with oversedation
Initially TME likely infection related but became very agitated and required multiple antipsychotics and benzodiazepines and restraints followed by oversedation. Patient since improved
Off restraints
Neurology and psychiatry evaluation appreciated.
Risperdal 0.5 mg p.o. qpm tapered to 0.25 mg, cont prn also tapered to 0.25 mg
Rectal prolapse:
Colorectal surgery consult-appreciated input and attempted reduction without success.
No acute surgical intervention indicated at this time. Outpt follow up recommended
Dysphagia:
Speech therapy eval appreciated soft bite sized diet
Significant constipation:
Continue aggressive bowel regimen with change medications to scheduled rather than as needed
Parkinson's disease:
Continue Sinemet 25/100 mg tab p.o. 4 times daily and Rytary 61.25-245 mg ER 4 capsules 4 times daily.
Possible dementia related to Parkinson's:
Monitor behavior and mental status
Hypertension:
Continue amlodipine 5 mg twice a day
BPH:
Continue finasteride 5 mg p.o. daily
Continue Detrol LA
Depression and anxiety:
Continue lorazepam 0.5 mg daily orally
Continue Cymbalta 30 mg p.o. twice a day
DVT prophylaxis:
Heparin SQ
CODE STATUS:
Full code
Discussed with patient, patient's Chantell, and patient's son Reynaldo
I spent a total of 43 minutes with the patient or on the floor. More than 50% of this time involved counseling and coordination of care.
Anticipated Discharge: 24 - 48 hours
Subjective/Interval History
-
Date of Service: May 21, 2024
Awake alert conversant. Some confusion noted. But remains calm and cooperative
Objective Data
-
Labs:
Laboratory Results
05/21/24
05:49
WBC 7.8
Hgb 9.5 L
Hct 28.8 L
Plt Count 246
Sodium 137
Potassium 4.1
Chloride 104
Carbon Dioxide 25
BUN 17
Creatinine 0.5 L
Glucose 87
Calcium 8.3 L
Vital Signs:
Vital Signs
Temp Pulse Resp BP Pulse Ox
98.1 F 66 18 159/79 98
05/21/24 07:54 05/21/24 07:54 05/21/24 07:54 05/21/24 07:54 05/21/24 07:54
I&O
05/20/24 05/21/24 05/22/24
06:59 06:59 06:59
Intake Total 240 / 240 960 / 960
Output Total 500 / 500
Balance 240 / 240 460 / 460
[2024-05-21] MEDS: NON-FORMULARY ITEM 4 CAP PO ×2 (11:03→22:55)
[2024-05-21 14:24] VITALS: BP 108/68; PULSE 77; O2SAT 98
[2024-05-21] MEDS: SINEMET 25-100 1 TABLET PO ×4 (14:24→19:53)
--- NOTE | 2024-05-21 15:27 | CM ---
CM continues to follow for discharge to SNF; pt not medically stable for discharge at this time.
[facility] and [facility] have offered a bed at discharge pending bed availability. [facility] has no bed availability at this time.
Plan: CM to follow for SNF transfer at discharge; plan for 4-6 weeks of IV ABX. Insurance authorization will need to be obtained.
[2024-05-21 15:46] VITALS: BP 131/76
--- NOTE | 2024-05-21 16:05 | W.PN.ID1 ---
Date of Service
Date of Service: May 21, 2024
Today's Communication
Continue antibiotics.
Assessment / Plan
Staph aureus bacteremia
- source unclear at present.
Leukocytosis
Elevated ESR and CRP.
-Improved
Parkinson's disease
Anxiety
BPH
hx bladder cancer, treated
Ambulatory dysfunction
Recommendations:
Repeat blood cultures negative.
Continue cefazolin.
Origin of Staph aureus remains unclear. TTE concerning for aortic valve thickening. KAREN did not visualize evidence of endocarditis.
Given marked elevation of ESR and CRP, will treat for a longer timeframe than that for uncomplicated bacteremia, likely 4 to 6 weeks.
PICC line placed.
����������������������������������������������������������
Chief Complaint
-: Bacteremia
Subjective / Review of Systems
Review of Systems: No Fever and No Chills
Vital Signs / Physical Exam
Vital Signs
Vital Signs
Temp Pulse Resp BP Pulse Ox
97.7 F 72 10 131/76 97
05/21/24 15:46 05/21/24 15:46 05/21/24 15:46 05/21/24 15:46 05/21/24 15:46
Physical Exam
Constitutional: No Acute Distress and Comfortable
Cardiovascular: Regular Rate, S1/S2 and Murmur; Negative S3/S4
Pulmonary: Clear, Rales and Non Labored
Gastrointestinal: Soft and Non Tender
Extremities: Negative Edema, Splinter Hemorrhage or Janeway Lesions
Skin: Warm and Dry
Neurological: Awake, Normal Muscle Strength and No Motor Deficits; Negative Meningeal Signs
Psychological: Calm
Objective Data
Lab Data
Lab Results
05/21/24 05:49
05/21/24 05:49
ESR 65 mm/hour (0-20) H 05/21/24 05:49
Estimated Creat Clear 103 ml/min 05/21/24 05:49
Lactic Acid Cancelled 05/12/24 23:00
Total Bilirubin 0.7 mg/dl (0.2-1.3) 05/13/24 04:16
AST 17 U/L (17-59) 05/13/24 04:16
ALT < 10 U/L (0-50) 05/13/24 04:16
Alkaline Phosphatase 129 U/L (38-126) H 05/13/24 04:16
C-Reactive Protein 43.80 mg/L (0.0-10.00) H 05/21/24 05:49
Most recent labs reviewed.
Micro Results:
05/14/24 08:30 Blood Culture - Final
Blood/Venous No Growth - Final Report
05/14/24 08:50 Blood Culture - Final
Blood/Venous No Growth - Final Report
05/12/24 19:32 Blood Culture - Final
Blood/Venous S aureus-Methicillin Sensitive
Gram Stain - Final
05/12/24 19:21 Blood Culture - Final
Blood/Venous S aureus-Methicillin Sensitive
Gram Stain - Final
05/13/24 13:48 MRSA Screen - Final
Nose No Methicillin Resistant Staphylococcus aureus isolated.
05/12/24 19:21 Urine Culture - Final
Urine NO GROWTH
05/12/24 19:21 Influenza Types A & B (MOO) - Final
Nasal Swab Negative for Influenza A & B, NAAT
Negative results must be combined with clinical observations
and patient history.
Nucleic Acid Amplification test (NAAT)performed on the
[employer] platform.
Imaging:
05/17/2024 ECHO (TTE): Normal biventricular size and systolic function. Thickened aortic valve, with trace aortic regurgitation. Compared to a study dated 04/22/2024 there is now trace aortic regurgitation with aortic valve thickening similar to
slightly worse.
05/12/2024 CXR (portable): Mild opacity in the retrocardiac left lung base. Mild subsegmental atelectasis in the left lung base. No pleural effusion or pneumothorax. Please see full dictation for additional detail.
05/12/2024 Abdominal series: Bowel: Residual contrast is seen with stool throughout the large bowel possibly from video fluoroscopic swallowing study April 23, 2024 suggesting slow intestinal transit. Intestinal bowel gas pattern is nonspecific.
[2024-05-21] MEDS: RISPERDAL 0.5 MG PO (17:07)
[2024-05-21 23:28] VITALS: BP 136/77
--- NOTE | 2024-05-22 03:07 | DOWNTIME ---
There was a [employer] Downtime on 05/22/2024 from 0100 to 05/22/2023 at 0235 . Downtime documentation of patient's care, including medication administrations, has been reconciled in the electronic record per guidelines. Refer to the
patient's paper chart under the miscellaneous tab to see printed paper medication records and downtime forms.
[2024-05-22] MEDS: NON-FORMULARY ITEM 4 CAP PO ×4 (03:09→23:13)
[2024-05-22] MEDS: ANCEF 10 IV ×3 (06:02→23:13)
--- NOTE | 2024-05-22 06:53 | W.PN.HOSP.TC ---
Today's Communication/Plan
-
Cont abx as per ID
taper risperidone
PT/OT
discharge planning SNF rehab
Assessment / Plan
Assessment / Plan
Physical exam:
General: No acute distress, appears comfortable at this time.
HEENT: Normocephalic, Atraumatic and Moist Mucous Membranes
Respiratory: Clear to Auscultation; Negative Wheezes, Rales or Rhonchi
Cardiac: Regular Rhythm and S1/S2
GI: Soft, Nontender and Distended
Musculoskeletal: No Clubbing, No Cyanosis and No Edema
Neuro: AOx3, conversant though some occasional confusion noted, mentation seems slow at times
Psych: Calm
A/P: 73M Parkinson's Bladder Ca Rectal Prolapse HTN BPH Depression Anxiety here for MSSA bacteremia unclear etiology.
Bacteremia, Staph aureus-MSSA/Sepsis:
Blood cultures consistent with MSSA
Cardiology consult appreciated KAREN performed noted no valve vegetation
Noted elevated sed rate and CRP
ID eval appreciated cont cefazolin, picc placed, planned for 4-6 wks abx
PT OT eval appreciated SNF rehab
Toxic-metabolic encephalopathy:
Monitor mental status and neurological status
significantly improved
Severe agitation alternated with oversedation
Initially TME likely infection related but became very agitated and required multiple antipsychotics and benzodiazepines and restraints followed by oversedation. Patient since improved
Off restraints
Neurology and psychiatry evaluation appreciated.
Risperdal 0.5 mg p.o. qpm tapered to 0.25 mg, cont prn also tapered to 0.25 mg
Rectal prolapse:
Colorectal surgery consult-appreciated input and attempted reduction without success.
No acute surgical intervention indicated at this time. Outpt follow up recommended
Dysphagia:
Speech therapy eval appreciated soft bite sized diet
Significant constipation:
Continue aggressive bowel regimen with change medications to scheduled rather than as needed
Parkinson's disease:
Continue Sinemet 25/100 mg tab p.o. 4 times daily and Rytary 61.25-245 mg ER 4 capsules 4 times daily.
Possible dementia related to Parkinson's:
Monitor behavior and mental status
Hypertension:
Continue amlodipine 5 mg twice a day
BPH:
Continue finasteride 5 mg p.o. daily
Continue Detrol LA
Depression and anxiety:
Continue lorazepam 0.5 mg daily orally
Continue Cymbalta 30 mg p.o. twice a day
DVT prophylaxis:
Heparin SQ
CODE STATUS:
Full code
I spent a total of 40 minutes with the patient or on the floor. More than 50% of this time involved counseling and coordination of care.
Anticipated Discharge: 24 - 48 hours
Subjective/Interval History
-
Date of Service: May 22, 2024
no acute distress, appears comfortable at this time. denies new acute issues. Eager to participate physical occupational therapy.
Objective Data
-
Vital Signs:
Vital Signs
Temp Pulse Resp BP Pulse Ox
97.7 F 72 18 136/77 98
05/21/24 23:28 05/21/24 23:28 05/21/24 23:28 05/21/24 23:28 05/21/24 23:28
I&O
05/20/24 05/21/24 05/22/24
06:59 06:59 06:59
Intake Total 240 / 240 960 / 960 960 / 960
Output Total 500 / 500 400 / 400
Balance 240 / 240 460 / 460 560 / 560
[2024-05-22] MEDS: PROSCAR 5 MG PO (08:30)
[2024-05-22] MEDS: NORVASC 5 MG PO ×2 (08:30→20:01)
[2024-05-22] MEDS: DETROL LA 4 MG PO (08:30)
[2024-05-22] MEDS: CYMBALTA DELAYED RELEASE 30 MG PO ×2 (08:30→20:00)
[2024-05-22] MEDS: MIRALAX 17 GRAMS PO ×2 (08:30→20:01)
[2024-05-22] MEDS: HEPARIN 5000 UNITS SC ×2 (08:30→20:01)
[2024-05-22] MEDS: VITAMIN B1 100 MG PO (08:30)
[2024-05-22] MEDS: ATIVAN 0.5 MG PO (08:31)
[2024-05-22] MEDS: DESENEX/MITRAZOL/ZEASORB 1 APPLIC TOPICAL ×2 (08:31→20:01)
[2024-05-22] MEDS: COLACE 100 MG PO (08:31)
[2024-05-22] MEDS: SINEMET 25-100 1 TABLET PO ×4 (14:29→20:01)
--- NOTE | 2024-05-22 15:35 | W.PN.ID1 ---
Date of Service
Date of Service: May 22, 2024
Today's Communication
Continue antibiotics.
Assessment / Plan
Staph aureus bacteremia
- source unclear at present.
Leukocytosis
Elevated ESR and CRP.
-Improved on most recent blood work
Parkinson's disease
Anxiety
BPH
hx bladder cancer, treated
Ambulatory dysfunction
Recommendations:
Repeat blood cultures negative.
Continue cefazolin.
Origin of Staph aureus remains unclear. TTE concerning for aortic valve thickening. KAREN did not visualize evidence of endocarditis.
Given marked elevation of ESR and CRP, will treat for a longer timeframe than that for uncomplicated bacteremia, likely 4 to 6 weeks.
PICC line placed.
Will follow weekly labs including CBC, BMP, ESR and CRP.
����������������������������������������������������������
Chief Complaint
-: Bacteremia
Subjective / Review of Systems
Review of Systems: No Fever and No Chills
Vital Signs / Physical Exam
Vital Signs
Vital Signs
Temp Pulse Resp BP Pulse Ox
98.3 F 81 20 150/90 99
05/22/24 07:30 05/22/24 08:30 05/22/24 07:30 05/22/24 08:30 05/22/24 08:00
Physical Exam
Constitutional: No Acute Distress, Comfortable and Non-toxic
Eyes: Sclera Anicteric
Cardiovascular: Regular Rate and S1/S2
Pulmonary: Clear
Gastrointestinal: Soft and Non Tender
Extremities: Negative Edema, Splinter Hemorrhage or Janeway Lesions
Skin: Warm and Dry
Neurological: Awake, Normal Muscle Strength and No Motor Deficits; Negative Meningeal Signs
Psychological: Calm
Objective Data
Lab Data
Lab Results
05/21/24 05:49
05/21/24 05:49
ESR 65 mm/hour (0-20) H 05/21/24 05:49
Estimated Creat Clear 103 ml/min 05/21/24 05:49
Lactic Acid Cancelled 05/12/24 23:00
Total Bilirubin 0.7 mg/dl (0.2-1.3) 05/13/24 04:16
AST 17 U/L (17-59) 05/13/24 04:16
ALT < 10 U/L (0-50) 05/13/24 04:16
Alkaline Phosphatase 129 U/L (38-126) H 05/13/24 04:16
C-Reactive Protein 43.80 mg/L (0.0-10.00) H 05/21/24 05:49
Most recent labs reviewed.
Micro Results:
05/14/24 08:30 Blood Culture - Final
Blood/Venous No Growth - Final Report
05/14/24 08:50 Blood Culture - Final
Blood/Venous No Growth - Final Report
05/12/24 19:32 Blood Culture - Final
Blood/Venous S aureus-Methicillin Sensitive
Gram Stain - Final
05/12/24 19:21 Blood Culture - Final
Blood/Venous S aureus-Methicillin Sensitive
Gram Stain - Final
05/13/24 13:48 MRSA Screen - Final
Nose No Methicillin Resistant Staphylococcus aureus isolated.
05/12/24 19:21 Urine Culture - Final
Urine NO GROWTH
05/12/24 19:21 Influenza Types A & B (MOO) - Final
Nasal Swab Negative for Influenza A & B, NAAT
Negative results must be combined with clinical observations
and patient history.
Nucleic Acid Amplification test (NAAT)performed on the
[employer] platform.
Imaging:
05/17/2024 ECHO (TTE): Normal biventricular size and systolic function. Thickened aortic valve, with trace aortic regurgitation. Compared to a study dated 04/22/2024 there is now trace aortic regurgitation with aortic valve thickening similar to
slightly worse.
05/12/2024 CXR (portable): Mild opacity in the retrocardiac left lung base. Mild subsegmental atelectasis in the left lung base. No pleural effusion or pneumothorax. Please see full dictation for additional detail.
05/12/2024 Abdominal series: Bowel: Residual contrast is seen with stool throughout the large bowel possibly from video fluoroscopic swallowing study April 23, 2024 suggesting slow intestinal transit. Intestinal bowel gas pattern is nonspecific.
--- NOTE | 2024-05-22 15:38 | CM ---
CM reviewed chart, call to patients to discuss [facility] and [facility] have no available beds, [facility] reviewing, additional referrals placed to [facility]. Patient will require IV antibiotics at SNF. CM will continue to
follow for all discharge planning needs.
Plan; SNF, additional referrals placed, will require insurance auth once bed found.
[2024-05-22 16:00] VITALS: BP 145/78
[2024-05-22] MEDS: RISPERDAL 0.25 MG PO (17:16)
[2024-05-22 23:26] VITALS: BP 129/73
[2024-05-23] MEDS: NON-FORMULARY ITEM 4 CAP PO ×4 (03:20→23:12)
[2024-05-23] MEDS: ANCEF 10 IV ×3 (05:50→21:34)
[2024-05-23 07:30] VITALS: BP 157/97
--- NOTE | 2024-05-23 07:59 | W.PN.HOSP.TC ---
Today's Communication/Plan
-
Milk and molasses enema
ativan changed from morning to bedtime with holding parameters
cont risperdal 0.25 mg qpm, ativan IV 0.5 mg prn agitation
Assessment / Plan
Assessment / Plan
Physical exam:
General: No acute distress, appears comfortable at this time.
HEENT: Normocephalic, Atraumatic and Moist Mucous Membranes
Respiratory: Clear to Auscultation; Negative Wheezes, Rales or Rhonchi
Cardiac: Regular Rhythm and S1/S2
GI: Soft, Nontender and Distended
Musculoskeletal: No Clubbing, No Cyanosis and No Edema
Neuro: Awake alert conversant but confused re-directable
Psych: Calm
A/P: 73M Parkinson's Bladder Ca Rectal Prolapse HTN BPH Depression Anxiety here for MSSA bacteremia unclear etiology.
Bacteremia, Staph aureus-MSSA/Sepsis:
Blood cultures consistent with MSSA
Cardiology consult appreciated KAREN performed noted no valve vegetation
Noted elevated sed rate and CRP
ID eval appreciated cont cefazolin, picc placed, planned for 4-6 wks abx
PT OT eval appreciated SNF rehab
Toxic-metabolic encephalopathy:
Monitor mental status and neurological status
significantly improved
Severe agitation alternated with oversedation
Initially TME likely infection related but became very agitated and required multiple antipsychotics and benzodiazepines and restraints followed by oversedation. Patient since improved
Off restraints
Neurology and psychiatry evaluation appreciated.
Risperdal 0.5 mg p.o. qpm tapered to 0.25 mg, prn agitation switched from risperdal to ativan
0.5 mg Ativan changed from morning to evening with holding parameters
Constipation
cont bowel regimen
milk and molasses enema ordered 05/23/24
Rectal prolapse:
Colorectal surgery consult-appreciated input and attempted reduction without success.
No acute surgical intervention indicated at this time. Outpt follow up recommended
Dysphagia:
Speech therapy eval appreciated soft bite sized diet
Significant constipation:
Continue aggressive bowel regimen with change medications to scheduled rather than as needed
Parkinson's disease:
Continue Sinemet 25/100 mg tab p.o. 4 times daily and Rytary 61.25-245 mg ER 4 capsules 4 times daily.
Possible dementia related to Parkinson's:
Monitor behavior and mental status
Hypertension:
Continue amlodipine 5 mg twice a day
BPH:
Continue finasteride 5 mg p.o. daily
Continue Detrol LA
Depression and anxiety:
Continue lorazepam 0.5 mg daily orally
Continue Cymbalta 30 mg p.o. twice a day
DVT prophylaxis:
Heparin SQ
CODE STATUS:
Full code
discussed with patient and patient's Geri
I spent a total of 50 minutes with the patient or on the floor. More than 50% of this time involved counseling and coordination of care.
Anticipated Discharge: 24 - 48 hours
Subjective/Interval History
-
Date of Service: May 23, 2024
Agitated confused during the day. Required prn risperdal. Patient also notably constipated for days though denies pain nausea vomiting.
Objective Data
-
Vital Signs:
Vital Signs
Temp Pulse Resp BP Pulse Ox
97.8 F 72 20 129/73 97
05/22/24 23:26 05/22/24 23:26 05/22/24 23:26 05/22/24 23:26 05/22/24 23:26
I&O
05/22/24 05/23/24 05/24/24
06:59 06:59 06:59
Intake Total 960 / 960 480 / 480
Output Total 400 / 400
Balance 560 / 560 480 / 480
[2024-05-23] MEDS: HEPARIN 5000 UNITS SC ×2 (10:07→19:46)
[2024-05-23] MEDS: DETROL LA 4 MG PO (10:07)
[2024-05-23] MEDS: NORVASC 5 MG PO ×2 (10:09→19:46)
[2024-05-23] MEDS: PROSCAR 5 MG PO (10:09)
[2024-05-23] MEDS: MIRALAX PO (10:09)
[2024-05-23] MEDS: COLACE PO (10:09)
[2024-05-23] MEDS: ATIVAN 0.5 MG PO ×2 (10:09→21:34)
[2024-05-23] MEDS: VITAMIN B1 100 MG PO (10:10)
[2024-05-23] MEDS: CYMBALTA DELAYED RELEASE 30 MG PO ×2 (10:12→19:46)
[2024-05-23] MEDS: DESENEX/MITRAZOL/ZEASORB 1 APPLIC TOPICAL ×2 (10:13→19:46)
[2024-05-23] MEDS: MIRALAX 17 GRAMS PO ×2 (10:23→19:47)
[2024-05-23 15:00] VITALS: BP 162/67
--- NOTE | 2024-05-23 15:03 | W.PN.ID1 ---
Date of Service
Date of Service: May 23, 2024
Today's Communication
Continue antibiotics
Assessment / Plan
Staph aureus bacteremia
- source unclear
Elevated ESR and CRP.
-Improved on most recent blood work
Parkinson's disease
Anxiety
BPH
hx bladder cancer, treated
Ambulatory dysfunction
Recommendations:
Repeat blood cultures negative.
Continue cefazolin.
Origin of Staph aureus remains unclear. TTE concerning for aortic valve thickening. KAREN did not visualize evidence of endocarditis.
Given marked elevation of ESR and CRP, will treat for a longer timeframe than that for uncomplicated bacteremia, likely 4 to 6 weeks.
PICC line placed.
Will follow weekly labs including CBC, BMP, ESR and CRP.
����������������������������������������������������������
Chief Complaint
-: Bacteremia
Subjective / Review of Systems
Review of Systems: No Fever and No Chills
Vital Signs / Physical Exam
Vital Signs
Vital Signs
Temp Pulse Resp BP Pulse Ox
98.6 F 75 20 157/97 96
05/23/24 07:30 05/23/24 10:09 05/23/24 07:30 05/23/24 10:09 05/23/24 14:18
Physical Exam
Constitutional: No Acute Distress, Comfortable and Non-toxic
Eyes: No Conjunctival Hemorrhage and Sclera Anicteric
Cardiovascular: Regular Rate and S1/S2; Negative S3/S4
Pulmonary: Clear
Gastrointestinal: Soft and Non Tender
Extremities: Negative Edema, Splinter Hemorrhage or Janeway Lesions
Skin: Warm and Dry
Neurological: Awake, Normal Muscle Strength and No Motor Deficits; Negative Meningeal Signs
Psychological: Calm
Objective Data
Lab Data
Lab Results
05/21/24 05:49
05/21/24 05:49
ESR 65 mm/hour (0-20) H 05/21/24 05:49
Estimated Creat Clear 103 ml/min 05/21/24 05:49
Lactic Acid Cancelled 05/12/24 23:00
Total Bilirubin 0.7 mg/dl (0.2-1.3) 05/13/24 04:16
AST 17 U/L (17-59) 05/13/24 04:16
ALT < 10 U/L (0-50) 05/13/24 04:16
Alkaline Phosphatase 129 U/L (38-126) H 05/13/24 04:16
C-Reactive Protein 43.80 mg/L (0.0-10.00) H 05/21/24 05:49
Most recent labs reviewed.
Micro Results:
05/14/24 08:30 Blood Culture - Final
Blood/Venous No Growth - Final Report
05/14/24 08:50 Blood Culture - Final
Blood/Venous No Growth - Final Report
05/12/24 19:32 Blood Culture - Final
Blood/Venous S aureus-Methicillin Sensitive
Gram Stain - Final
05/12/24 19:21 Blood Culture - Final
Blood/Venous S aureus-Methicillin Sensitive
Gram Stain - Final
05/13/24 13:48 MRSA Screen - Final
Nose No Methicillin Resistant Staphylococcus aureus isolated.
05/12/24 19:21 Urine Culture - Final
Urine NO GROWTH
05/12/24 19:21 Influenza Types A & B (MOO) - Final
Nasal Swab Negative for Influenza A & B, NAAT
Negative results must be combined with clinical observations
and patient history.
Nucleic Acid Amplification test (NAAT)performed on the
eOriginal platform.
Imaging:
05/17/2024 ECHO (TTE): Normal biventricular size and systolic function. Thickened aortic valve, with trace aortic regurgitation. Compared to a study dated 04/22/2024 there is now trace aortic regurgitation with aortic valve thickening similar to
slightly worse.
05/12/2024 CXR (portable): Mild opacity in the retrocardiac left lung base. Mild subsegmental atelectasis in the left lung base. No pleural effusion or pneumothorax. Please see full dictation for additional detail.
05/12/2024 Abdominal series: Bowel: Residual contrast is seen with stool throughout the large bowel possibly from video fluoroscopic swallowing study April 23, 2024 suggesting slow intestinal transit. Intestinal bowel gas pattern is nonspecific.
Care Review
Plan reviewed with: Nurse
[2024-05-23] MEDS: RISPERDAL 0.25 MG PO ×2 (15:25→17:53)
[2024-05-23] MEDS: SINEMET 25-100 PO (15:37)
[2024-05-23] MEDS: SINEMET 25-100 1 TABLET PO ×3 (17:53→21:37)
[2024-05-23] MEDS: SENOKOT 8.6 MG PO (21:34)
[2024-05-23 23:21] VITALS: BP 133/72
--- NOTE | 2024-05-24 00:10 | PTCARENOTE ---
Milk and molasses enema administered per order. Pt tolerated.
[2024-05-24] MEDS: NON-FORMULARY ITEM 4 CAP PO ×4 (04:06→22:14)
[2024-05-24] MEDS: ANCEF 10 IV ×3 (05:56→22:15)
--- NOTE | 2024-05-24 06:22 | W.PN.HOSP.TC ---
Today's Communication/Plan
-
cont abx as per ID
Risperdal 0.5 mg qpm
ST/PT/OT
discharge planning SNF rehab
PMR eval requested possible benefit Acute rehab
Assessment / Plan
Assessment / Plan
Physical exam:
General: No acute distress, appears comfortable at this time.
HEENT: Normocephalic, Atraumatic and Moist Mucous Membranes
Respiratory: Clear to Auscultation; Negative Wheezes, Rales or Rhonchi
Cardiac: Regular Rhythm and S1/S2
GI: Soft, Nontender, bowel sounds present, distension improved following bowel movements
Musculoskeletal: No Clubbing, No Cyanosis and No Edema
Neuro: Awake alert conversant but confused tangential speech, reports seeing 5 people in the room when there are only 3, re-directable
Psych: Calm
A/P: 73M Parkinson's Bladder Ca Rectal Prolapse HTN BPH Depression Anxiety here for MSSA bacteremia unclear etiology.
Bacteremia, Staph aureus-MSSA/Sepsis:
Blood cultures consistent with MSSA
Cardiology consult appreciated KAREN performed noted no valve vegetation
Noted elevated sed rate and CRP
ID eval appreciated cont cefazolin, picc placed, planned for 4-6 wks abx
PT OT eval appreciated SNF rehab
Toxic-metabolic encephalopathy:
Monitor mental status and neurological status
significantly improved
Severe agitation alternated with oversedation
Initially TME likely infection related but became very agitated and required multiple antipsychotics and benzodiazepines and restraints followed by oversedation. Patient since improved
Off restraints
Neurology and psychiatry evaluation appreciated.
Risperdal 0.5 mg p.o. qpm tapered to 0.25 mg, increased back to 0.5 mg pm d/t worsening confusion agitation hallucination
prn agitation switched from risperdal to ativan
0.5 mg Ativan changed from morning to evening with holding parameters
Constipation
cont bowel regimen
milk and molasses enema ordered 05/23/24
mag citrate 05/24/24
constipation resolved, abd distension improved
Rectal prolapse:
Colorectal surgery consult-appreciated input and attempted reduction without success.
No acute surgical intervention indicated at this time. Outpt follow up recommended
Dysphagia:
Speech therapy eval appreciated soft bite sized diet
Parkinson's disease:
Continue Sinemet 25/100 mg tab p.o. 4 times daily and Rytary 61.25-245 mg ER 4 capsules 4 times daily.
Possible dementia related to Parkinson's:
Monitor behavior and mental status
Hypertension:
Continue amlodipine 5 mg twice a day
BPH:
Continue finasteride 5 mg p.o. daily
Continue Detrol LA
Depression and anxiety:
Continue lorazepam 0.5 mg daily orally
Continue Cymbalta 30 mg p.o. twice a day
PT/OT appreciated SNF rehab, PMR eval requested for possible benefit Acute Rehab decompensated Parkinson
DVT prophylaxis:
Heparin SQ
CODE STATUS:
Full code
discussed with patient and patient's Geri
I spent a total of 50 minutes with the patient or on the floor. More than 50% of this time involved counseling and coordination of care.
Anticipated Discharge: 24 - 48 hours
Subjective/Interval History
-
Date of Service: May 24, 2024
confused but re-directable. Constipation resolved with milk and molasses enema given overnight. Abd less distended. Additional mag citrate given
Objective Data
-
Vital Signs:
Vital Signs
Temp Pulse Resp BP Pulse Ox
97.9 F 72 18 133/72 96
05/23/24 23:21 05/23/24 23:21 05/23/24 23:21 05/23/24 23:21 05/23/24 23:21
I&O
05/22/24 05/23/24 05/24/24
06:59 06:59 06:59
Intake Total 960 / 960 480 / 480 840 / 840
Output Total 400 / 400
Balance 560 / 560 480 / 480 840 / 840
[2024-05-24 07:16] LABS: Glucose - Point of Care 94 mg/dl (70-99)
[2024-05-24 07:30] VITALS: BP 137/68
[2024-05-24] MEDS: HEPARIN 5000 UNITS SC ×2 (09:14→20:22)
[2024-05-24] MEDS: MIRALAX 17 GRAMS PO ×2 (09:14→20:22)
[2024-05-24] MEDS: DETROL LA 4 MG PO (09:15)
[2024-05-24] MEDS: CYMBALTA DELAYED RELEASE 30 MG PO ×2 (09:15→20:22)
[2024-05-24] MEDS: PROSCAR 5 MG PO (09:15)
[2024-05-24] MEDS: VITAMIN B1 100 MG PO (09:16)
[2024-05-24] MEDS: NORVASC 5 MG PO ×2 (09:27→20:22)
[2024-05-24] MEDS: COLACE 100 MG PO (09:27)
[2024-05-24] MEDS: DESENEX/MITRAZOL/ZEASORB 1 APPLIC TOPICAL ×2 (09:31→20:22)
[2024-05-24 12:40] LABS: Glucose - Point of Care 92 mg/dl (70-99)
[2024-05-24] MEDS: CITROMA 300 ML PO (13:20)
[2024-05-24 14:42] VITALS: O2SAT 94
[2024-05-24 15:00] VITALS: BP 130/60
[2024-05-24] MEDS: SINEMET 25-100 1 TABLET PO ×4 (16:03→21:10)
[2024-05-24] MEDS: NSS (PRESERVATIVE FREE) 0.25 ML IV (16:55)
[2024-05-24] MEDS: ATIVAN 0.5 MG IV (16:55)
[2024-05-24] MEDS: RISPERDAL 0.5 MG PO (17:54)
[2024-05-24] MEDS: SENOKOT 8.6 MG PO (21:00)
[2024-05-24] MEDS: ATIVAN 0.5 MG PO (21:00)
[2024-05-24 23:22] VITALS: BP 155/80
[2024-05-25] MEDS: NON-FORMULARY ITEM 4 CAP PO ×4 (00:55→11:34)
[2024-05-25] MEDS: ANCEF 10 IV ×3 (05:39→23:16)
[2024-05-25 06:02] LABS: Hematocrit 26.5 % (39.0-52.0); Hemoglobin 8.6 g/dL (13.0-18.0); Mean Corp Hgb Conc. 32.5 g/dL (33.0-37.0); Mean Corpuscular Hgb 27.6 pg (27.0-31.0); Mean Corpuscular Volume 84.9 fL (80.0-94.0); Mean Platelet Volume 10.8 fL (7.4-10.4); Platelet Count 256 10^3/uL (130-400); Red Blood Cell Count 3.12 10^6/uL (4.70-6.10); Red Cell Dist. Width 14.7 % (11.5-14.5); White Blood Cell Count 9.6 10^3/uL (4.8-10.8)
[2024-05-25 06:24] LABS: Blood Urea Nitrogen 21 mg/dl (9-20); Calcium 8.7 mg/dl (8.4-10.2); Carbon Dioxide 29 mmol/L (22-30); Chloride 106 mmol/L (98-107); Estimated Creatinine Clearance 103 ml/min; Glucose 87 mg/dl (70-99); Magnesium 2.5 mg/dl (1.6-2.3); Phosphorus 3.4 mg/dl (2.5-4.5); Sodium 140 mmol/L (135-145); eGFR > 60.00
--- NOTE | 2024-05-25 07:11 | W.PN.HOSP.TC ---
Today's Communication/Plan
-
cont abx as per ID
Risperdal 0.5 mg qpm
ST/PT/OT
discharge planning SNF rehab
PMR eval requested possible benefit Acute rehab
Assessment / Plan
Assessment / Plan
Physical exam:
General: No acute distress, appears comfortable at this time.
HEENT: Normocephalic, Atraumatic and Moist Mucous Membranes
Respiratory: Clear to Auscultation; Negative Wheezes, Rales or Rhonchi
Cardiac: Regular Rhythm and S1/S2
GI: Soft, Nontender, bowel sounds present, distension improved following bowel movements
Musculoskeletal: No Clubbing, No Cyanosis and No Edema
Neuro: Awake alert conversant oriented x3 but confusion persists.
Psych: Calm
A/P: 73M Parkinson's Bladder Ca Rectal Prolapse HTN BPH Depression Anxiety here for MSSA bacteremia unclear etiology.
Bacteremia, Staph aureus-MSSA/Sepsis:
Blood cultures consistent with MSSA
Cardiology consult appreciated KAREN performed noted no valve vegetation
Noted elevated sed rate and CRP
ID eval appreciated cont cefazolin, picc placed, planned for 4-6 wks abx
PT OT eval appreciated SNF rehab
Toxic-metabolic encephalopathy:
Monitor mental status and neurological status
significantly improved
Severe agitation alternated with oversedation
Initially TME likely infection related but became very agitated and required multiple antipsychotics and benzodiazepines and restraints followed by oversedation. Patient since improved
Off restraints
Neurology and psychiatry evaluation appreciated.
Risperdal 0.5 mg p.o. qpm tapered to 0.25 mg, increased back to 0.5 mg pm d/t worsening confusion agitation hallucination
prn agitation switched from risperdal to ativan
0.5 mg Ativan changed from morning to evening with holding parameters
Constipation
cont bowel regimen
milk and molasses enema ordered 05/23/24
mag citrate 05/24/24
constipation resolved, abd distension improved
Rectal prolapse:
Colorectal surgery consult-appreciated input and attempted reduction without success.
No acute surgical intervention indicated at this time. Outpt follow up recommended
Dysphagia:
Speech therapy eval appreciated soft bite sized diet
Parkinson's disease:
Continue Sinemet 25/100 mg tab p.o. 4 times daily and Rytary 61.25-245 mg ER 4 capsules 4 times daily.
Possible dementia related to Parkinson's:
Monitor behavior and mental status
Hypertension:
Continue amlodipine 5 mg twice a day
BPH:
Continue finasteride 5 mg p.o. daily
Continue Detrol LA
Depression and anxiety:
Continue lorazepam 0.5 mg daily orally
Continue Cymbalta 30 mg p.o. twice a day
PT/OT appreciated SNF rehab, PMR eval requested for possible benefit Acute Rehab decompensated Parkinson
DVT prophylaxis:
Heparin SQ
CODE STATUS:
Full code
discussed with patient and patient's Geri
I spent a total of 45 minutes with the patient or on the floor. More than 50% of this time involved counseling and coordination of care.
Anticipated Discharge: 24 - 48 hours
Subjective/Interval History
-
Date of Service: May 25, 2024
Awake alert conversant. AOx3 able to report accurate number of people in room. Confusion persists.
Objective Data
-
Labs:
Laboratory Results
05/25/24
05:14
WBC 9.6
Hgb 8.6 L
Hct 26.5 L
Plt Count 256
Sodium 140
Potassium 4.0
Chloride 106
Carbon Dioxide 29
BUN 21 H
Creatinine 0.5 L
Glucose 87
Calcium 8.7
Vital Signs:
Vital Signs
Temp Pulse Resp BP Pulse Ox
98.1 F 78 19 155/80 93
05/24/24 23:22 05/24/24 23:22 05/24/24 23:22 05/24/24 23:22 05/24/24 23:22
I&O
05/24/24 05/25/24 05/26/24
06:59 06:59 06:59
Intake Total 840 / 840 600 / 600
Balance 840 / 840 600 / 600
[2024-05-25 07:16] VITALS: BP 124/77
[2024-05-25] MEDS: DESENEX/MITRAZOL/ZEASORB 1 APPLIC TOPICAL ×2 (08:20→22:45)
[2024-05-25] MEDS: PROSCAR 5 MG PO (08:20)
[2024-05-25] MEDS: VITAMIN B1 100 MG PO (08:20)
[2024-05-25] MEDS: MIRALAX 17 GRAMS PO ×2 (08:20→22:45)
[2024-05-25] MEDS: DETROL LA 4 MG PO (08:20)
[2024-05-25] MEDS: CYMBALTA DELAYED RELEASE 30 MG PO ×2 (08:20→22:45)
[2024-05-25] MEDS: NORVASC 5 MG PO ×2 (08:20→22:45)
[2024-05-25] MEDS: COLACE 100 MG PO (08:20)
[2024-05-25] MEDS: HEPARIN 5000 UNITS SC ×2 (08:21→22:45)
[2024-05-25] MEDS: SINEMET 25-100 1 TABLET PO ×4 (14:39→23:16)
[2024-05-25 15:19] VITALS: BP 120/69
[2024-05-25] MEDS: ATIVAN 0.5 MG IV (16:43)
[2024-05-25] MEDS: NSS (PRESERVATIVE FREE) 0.25 ML IV (16:44)
[2024-05-25] MEDS: RISPERDAL 0.5 MG PO (16:57)
[2024-05-25] MEDS: NSS 1000 IV (18:05)
[2024-05-25 19:59] VITALS: BP 112/67
[2024-05-25] MEDS: SENOKOT 8.6 MG PO (23:15)
[2024-05-25] MEDS: ATIVAN 0.5 MG PO (23:15)
[2024-05-26 00:14] VITALS: BP 147/86
[2024-05-26] MEDS: NSS 1000 IV ×2 (04:13→14:11)
[2024-05-26] MEDS: NON-FORMULARY ITEM 4 CAP PO ×2 (04:14→11:25)
[2024-05-26] MEDS: ANCEF 10 IV ×3 (05:17→23:57)
[2024-05-26 05:56] LABS: Hematocrit 24.9 % (39.0-52.0); Hemoglobin 8.2 g/dL (13.0-18.0); Mean Corp Hgb Conc. 32.9 g/dL (33.0-37.0); Mean Corpuscular Hgb 27.6 pg (27.0-31.0); Mean Corpuscular Volume 83.8 fL (80.0-94.0); Mean Platelet Volume 10.1 fL (7.4-10.4); Platelet Count 238 10^3/uL (130-400); Red Blood Cell Count 2.97 10^6/uL (4.70-6.10); Red Cell Dist. Width 14.9 % (11.5-14.5); White Blood Cell Count 8.1 10^3/uL (4.8-10.8)
[2024-05-26 06:21] LABS: ALT (SGPT) < 10 U/L (0-50); AST (SGOT) 14 U/L (17-59); Albumin 3.1 g/dl (3.5-5.0); Alkaline Phosphatase 120 U/L (38-126); Blood Urea Nitrogen 19 mg/dl (9-20); Calcium 8.4 mg/dl (8.4-10.2); Carbon Dioxide 25 mmol/L (22-30); Chloride 109 mmol/L (98-107); Estimated Creatinine Clearance 103 ml/min; Glucose 85 mg/dl (70-99); Iron 160 ug/dl (49-181); Magnesium 2.2 mg/dl (1.6-2.3); Phosphorus 3.2 mg/dl (2.5-4.5); Potassium 3.7 mmol/L (3.5-5.1); Sodium 141 mmol/L (135-145); Total Bilirubin 0.9 mg/dl (0.2-1.3); Total Protein 5.7 g/dl (6.3-8.2); eGFR > 60.00
[2024-05-26 06:27] VITALS: BMI 21.6
[2024-05-26 06:30] LABS: Percent Saturation 77 % (20-50); Total Iron Binding Capacity 207 ug/dl (261-462)
[2024-05-26 06:35] LABS: Vitamin D, 25-OH*** 28.1 ng/mL (30-80)
[2024-05-26 06:48] LABS: TSH Reflex To Free T4 8.37 uIU/ml (0.47-4.68)
[2024-05-26 07:00] VITALS: BP 155/81
[2024-05-26 07:16] LABS: Free T4 1.34 ng/dl (0.78-2.19)
--- NOTE | 2024-05-26 07:20 | W.PN.HOSP.TC ---
Today's Communication/Plan
-
cont current treatment for now including abx
hospice eval for tomorrow requested
cont bowel regimen
Parkinson medications
Risperdal 0.5 mg QPM ativan 0.5 mg HS
Assessment / Plan
Assessment / Plan
Physical exam:
General: No acute distress, appears comfortable at this time.
HEENT: Normocephalic, Atraumatic and Moist Mucous Membranes
Respiratory: Clear to Auscultation; Negative Wheezes, Rales or Rhonchi
Cardiac: Regular Rhythm and S1/S2
GI: Soft, Nontender, bowel sounds present, distension improved following bowel movements
Musculoskeletal: No Clubbing, No Cyanosis and No Edema
Neuro: Awake alert conversant oriented x3, Fluctuating mental status throughout the day, improved as day progressed
Psych: Calm
A/P: 73M Parkinson's Bladder Ca Rectal Prolapse HTN BPH Depression Anxiety here for MSSA bacteremia unclear etiology.
Bacteremia, Staph aureus-MSSA/Sepsis:
Blood cultures consistent with MSSA
Cardiology consult appreciated KAREN performed noted no valve vegetation
Noted elevated sed rate and CRP
ID eval appreciated cont cefazolin, picc placed, planned for 4-6 wks abx
PT OT eval appreciated SNF rehab
Toxic-metabolic encephalopathy:
Monitor mental status and neurological status
significantly improved
Severe agitation alternated with oversedation
Initially TME likely infection related but became very agitated and required multiple antipsychotics and benzodiazepines and restraints followed by oversedation. Patient since improved
Off restraints
Neurology and psychiatry evaluation appreciated.
Risperdal 0.5 mg p.o. qpm tapered to 0.25 mg, increased back to 0.5 mg pm d/t worsening confusion agitation hallucination
prn agitation switched from risperdal to ativan
scheduled0.5 mg Ativan changed from morning to evening as patient takes at home
Mental status improving, though continues to fluctuate throughout the day, not requiring prn or restraints
Constipation
cont bowel regimen
milk and molasses enema ordered 05/23/24
mag citrate 05/24/24
constipation resolved, abd distension improved though persists Abd US 05/26/24 noted small ascites, Moderate sized Left and small right pleural effusions, stable respiratory status on room air further evaluation with Chest US and possible IR eval
for thoracentesis placed on hold, patient and requesting hospice eval (agreeable to continuing current treatment pending eval)
Rectal prolapse:
Colorectal surgery consult-appreciated input and attempted reduction without success.
No acute surgical intervention indicated at this time. Outpt follow up recommended
Dysphagia:
Speech therapy eval appreciated soft bite sized diet
Parkinson's disease:
Continue Sinemet 25/100 mg tab p.o. 4 times daily and Rytary 61.25-245 mg ER 4 capsules 4 times daily.
Possible dementia related to Parkinson's:
Monitor behavior and mental status
Hypertension:
Continue amlodipine 5 mg twice a day
BPH:
Continue finasteride 5 mg p.o. daily
Continue Detrol LA
Depression and anxiety:
Continue lorazepam 0.5 mg daily orally
Continue Cymbalta 30 mg p.o. twice a day
PT/OT appreciated SNF rehab, PMR eval requested for possible benefit Acute Rehab decompensated Parkinson. Patient and however considering hospice as noted in goals of care discussion below.
DVT prophylaxis:
Heparin SQ
CODE STATUS:
Full code
Goals of Care discussion 05/26/24
Mental status, appetite, and oral intake improved as day progressed. Patient lucid reported that he did not want to continue with active treatment, prolonging his life, and expressed interest in hospice. Reported that he did not wanted to be
'remembered this way' in reference to his past delirious/confusion/agitation episodes. Patient reported that he wanted to . Denied thoughts/plans of harming others or self. present confirmed that these are patient's true wishes and she is
in agreement them. Patient and agreeable with continuing current treatment while awaiting hospice eval, requested as per patient's wishes. and patient also prefer to keep Full Code status for now pending hospice eval.
I spent a total of 50 minutes with the patient or on the floor. More than 50% of this time involved counseling and coordination of care.
Anticipated Discharge: 24 - 48 hours
Subjective/Interval History
-
Date of Service: May 26, 2024
Mental status, appetite, and oral intake improved as day progressed. Patient lucid reported that he did not want to continue with active treatment, prolonging his life, and expressed interest in hospice. Reported that he did not wanted to be
'remembered this way' in reference to his past delirious/confusion/agitation episodes. Patient reported that he wanted to . Denied thoughts/plans of harming others or self. present confirmed that these are patient's true wishes and she is
in agreement them. Patient and agreeable with continuing current treatment while awaiting hospice eval, requested as per patient's wishes.
Objective Data
-
Labs:
Laboratory Results
05/26/24
05:30
WBC 8.1
Hgb 8.2 L
Hct 24.9 L
Plt Count 238
Sodium 141
Potassium 3.7
Chloride 109 H
Carbon Dioxide 25
BUN 19
Creatinine 0.5 L
Glucose 85
Calcium 8.4
Total Bilirubin 0.9
AST 14 L
ALT < 10
Alkaline Phosphatase 120
Vital Signs:
Vital Signs
Temp Pulse Resp BP Pulse Ox
98.3 F 74 20 147/86 91
05/26/24 00:14 05/26/24 00:14 05/26/24 00:14 05/26/24 00:14 05/26/24 00:14
I&O
05/25/24 05/26/24 05/27/24
06:59 06:59 06:59
Intake Total 800 / 800 900 / 900
Balance 800 / 800 900 / 900
[2024-05-26 07:24] LABS: Folate 3.6 ng/ml (2.76-20); Vitamin B12 477 pg/ml (239-931)
[2024-05-26 07:50] VITALS: BP 155/81
[2024-05-26] MEDS: NON-FORMULARY ITEM PO ×2 (08:05→22:11)
[2024-05-26] MEDS: MIRALAX 17 GRAMS PO (11:22)
[2024-05-26] MEDS: VITAMIN B1 100 MG PO (11:23)
[2024-05-26] MEDS: THERAGRAN 1 TABLET PO (11:23)
[2024-05-26] MEDS: HEPARIN 5000 UNITS SC (11:23)
[2024-05-26] MEDS: DETROL LA 4 MG PO (11:23)
[2024-05-26] MEDS: COLACE 100 MG PO (11:23)
[2024-05-26] MEDS: CYMBALTA DELAYED RELEASE 30 MG PO (11:23)
[2024-05-26] MEDS: VITAMIN D3 (cholecalciferol) 10 MCG PO (11:23)
[2024-05-26] MEDS: PROSCAR 5 MG PO (11:23)
[2024-05-26] MEDS: NORVASC 5 MG PO (11:24)
[2024-05-26] MEDS: DESENEX/MITRAZOL/ZEASORB 1 APPLIC TOPICAL ×2 (11:26→22:07)
[2024-05-26 15:32] VITALS: BP 146/80
[2024-05-26] MEDS: SINEMET 25-100 1 TABLET PO ×2 (15:48→18:05)
--- NOTE | 2024-05-26 18:00 | PTCARENOTE ---
Patient is AAOx3. patient is conversant and conversations is appropriate and oriented. Patient states, 'I do not want any more pills. I told the doctor this. I want my kids to come see me when I am still lucid, then I want to .' Spouse at
bedside, emotional support given.
[2024-05-26] MEDS: RISPERDAL 0.5 MG PO (18:15)
[2024-05-26 20:48] VITALS: BP 159/87
[2024-05-26] MEDS: SINEMET 25-100 PO ×2 (21:31→22:07)
[2024-05-26] MEDS: CYMBALTA DELAYED RELEASE PO (21:31)
[2024-05-26] MEDS: NORVASC PO (21:32)
[2024-05-26] MEDS: MIRALAX PO (21:32)
[2024-05-26] MEDS: HEPARIN SC (21:32)
[2024-05-26] MEDS: ATIVAN PO (22:10)
[2024-05-26] MEDS: SENOKOT PO (22:10)
[2024-05-26 23:56] VITALS: BP 160/86
[2024-05-27] MEDS: NON-FORMULARY ITEM PO ×3 (04:58→12:30)
[2024-05-27] MEDS: NSS 1000 IV (05:12)
[2024-05-27 05:30] VITALS: BMI 22.0
[2024-05-27] MEDS: ANCEF 10 IV ×3 (05:53→22:54)
[2024-05-27 07:15] VITALS: BP 163/87
--- NOTE | 2024-05-27 08:32 | W.PN.HOSP.TC ---
Today's Communication/Plan
-
Antibiotics. Hospice discussions.
Assessment / Plan
Assessment / Plan
Physical exam:
General: No acute distress, appears comfortable at this time.
HEENT: Normocephalic, Atraumatic and Moist Mucous Membranes
Respiratory: Clear to Auscultation; Negative Wheezes, Rales or Rhonchi
Cardiac: Regular Rhythm and S1/S2
GI: Soft, Nontender, bowel sounds present, distension improved following bowel movements
Musculoskeletal: No Clubbing, No Cyanosis and No Edema
Neuro: Awake alert conversant oriented x3, Fluctuating mental status throughout the day, improved as day progressed
Psych: Calm
A/P: 73M Parkinson's Bladder Ca Rectal Prolapse HTN BPH Depression Anxiety here for MSSA bacteremia unclear etiology.
Bacteremia, Staph aureus-MSSA/Sepsis:
Blood cultures consistent with MSSA
Cardiology consult appreciated KAREN performed noted no valve vegetation
Noted elevated sed rate and CRP
ID eval appreciated cont cefazolin, picc placed, planned for 4-6 wks abx if not enrolled in hospice
PT OT eval appreciated SNF rehab
Discussed with 2 daughters at bedside today and patient in agreement to change CODE STATUS to DNR. He is also in agreement to discuss further details about hospice care.
Toxic-metabolic encephalopathy:
Monitor mental status and neurological status
significantly improved
Severe agitation alternated with oversedation
Initially TME likely infection related but became very agitated and required multiple antipsychotics and benzodiazepines and restraints followed by oversedation. Patient since improved
Off restraints
Neurology and psychiatry evaluation appreciated.
Risperdal 0.5 mg p.o. qpm tapered to 0.25 mg, increased back to 0.5 mg pm d/t worsening confusion agitation hallucination
prn agitation switched from risperdal to ativan
scheduled0.5 mg Ativan changed from morning to evening as patient takes at home
Mental status improving, though continues to fluctuate throughout the day, not requiring prn or restraints
Constipation
cont bowel regimen
milk and molasses enema ordered 05/23/24
mag citrate 05/24/24
constipation resolved, abd distension improved though persists Abd US 05/26/24 noted small ascites, Moderate sized Left and small right pleural effusions, stable respiratory status on room air further evaluation with Chest US and possible IR eval
for thoracentesis placed on hold, patient and requesting hospice eval (agreeable to continuing current treatment pending eval)
Rectal prolapse:
Colorectal surgery consult-appreciated input and attempted reduction without success.
No acute surgical intervention indicated at this time. Outpt follow up recommended
Dysphagia:
Speech therapy eval appreciated soft bite sized diet
Parkinson's disease:
Continue Sinemet 25/100 mg tab p.o. 4 times daily and Rytary 61.25-245 mg ER 4 capsules 4 times daily.
Possible dementia related to Parkinson's:
Monitor behavior and mental status
Hypertension:
Continue amlodipine 5 mg twice a day
BPH:
Continue finasteride 5 mg p.o. daily
Continue Detrol LA
Depression and anxiety:
Continue lorazepam 0.5 mg daily orally
Continue Cymbalta 30 mg p.o. twice a day
DVT prophylaxis:
Heparin SQ
CODE STATUS:
Full code
Anticipated Discharge: 24 - 48 hours
Subjective/Interval History
-
Date of Service: May 27, 2024
Patient alert and calm. Afebrile
Objective Data
-
Vital Signs:
Vital Signs
Temp Pulse Resp BP Pulse Ox
98.5 F 68 18 160/86 95
05/26/24 23:56 05/26/24 23:56 05/26/24 23:56 05/26/24 23:56 05/26/24 23:56
I&O
05/26/24 05/27/24 05/28/24
06:59 06:59 06:59
Intake Total 900 / 900 600 / 600
Output Total 200 / 200
Balance 900 / 900 400 / 400
[2024-05-27] MEDS: COLACE 100 MG PO (09:15)
[2024-05-27] MEDS: THERAGRAN 1 TABLET PO (09:15)
[2024-05-27] MEDS: DETROL LA 4 MG PO (09:15)
[2024-05-27] MEDS: CYMBALTA DELAYED RELEASE 30 MG PO ×2 (09:15→21:05)
[2024-05-27] MEDS: VITAMIN D3 (cholecalciferol) 10 MCG PO (09:16)
[2024-05-27] MEDS: HEPARIN 5000 UNITS SC (09:16)
[2024-05-27] MEDS: VITAMIN B1 100 MG PO (09:16)
[2024-05-27] MEDS: PROSCAR 5 MG PO (09:16)
[2024-05-27] MEDS: NORVASC 5 MG PO ×2 (09:16→21:01)
[2024-05-27] MEDS: MIRALAX 17 GRAMS PO ×2 (09:16→21:05)
[2024-05-27] MEDS: DESENEX/MITRAZOL/ZEASORB 1 APPLIC TOPICAL ×2 (09:17→21:07)
--- NOTE | 2024-05-27 10:12 | CM ---
CM consult completed for hospice
[facility] hosp[facility] referral entered in [facility]
tt Diya Lemus liaison
PLAN: hospice eval pending
--- NOTE | 2024-05-27 10:53 | HOSPNOTE ---
Addendum entered by Sondra Lemus RN 05/27/24 15:54:
Met with spouse and patient and discussed hospice and the philosophy. At this time the patient and spouse are deciding on rehab and then transition to hospice at home or a facility with hospice services. They need to discuss further, I will follow
up tomorrow.
Original Note:
Referral received for hospice. Spouse will be here at 2:30pm to discuss hospice and the philosophy. More information to follow.
[2024-05-27 11:23] VITALS: BP 118/76; PULSE 74; O2SAT 95
--- NOTE | 2024-05-27 13:23 | W.PN.ID1 ---
Date of Service
Date of Service: May 27, 2024
Today's Communication
Continue antibiotics.
Assessment / Plan
Staph aureus bacteremia
- source unclear
Elevated ESR and CRP.
-Improved on most recent blood work
Parkinson's disease
Anxiety
BPH
hx bladder cancer, treated
Ambulatory dysfunction
Recommendations:
Repeat blood cultures negative.
Continue cefazolin (d#15)
Origin of Staph aureus remains unclear. TTE concerning for aortic valve thickening. KAREN did not visualize evidence of endocarditis.
Given marked elevation of ESR and CRP, will treat for a longer timeframe than that for uncomplicated bacteremia, likely 4 to 6 weeks.
PICC line placed.
Repeat ESR and CRP in AM
����������������������������������������������������������
Chief Complaint
-: Bacteremia
Subjective / Review of Systems
Review of Systems: No Fever, No Chills and No Abdominal Pain
Vital Signs / Physical Exam
Vital Signs
Vital Signs
Temp Pulse Resp BP Pulse Ox
97.9 F 68 18 160/86 95
05/27/24 07:15 05/27/24 09:16 05/27/24 07:15 05/27/24 09:16 05/27/24 08:00
Physical Exam
Constitutional: No Acute Distress, Comfortable, Chronically Ill and Non-toxic
Eyes: No Conjunctival Hemorrhage and Sclera Anicteric
Cardiovascular: Regular Rate and S1/S2; Negative S3/S4
Pulmonary: Clear
Gastrointestinal: Soft and Non Tender
Extremities: Negative Edema, Splinter Hemorrhage or Janeway Lesions
Skin: Warm and Dry
Neurological: Awake, Normal Muscle Strength and No Motor Deficits; Negative Meningeal Signs
Psychological: Calm
Objective Data
Lab Data
Lab Results
05/26/24 05:30
05/26/24 05:30
ESR 65 mm/hour (0-20) H 05/21/24 05:49
Estimated Creat Clear 103 ml/min 05/26/24 05:30
Lactic Acid Cancelled 05/12/24 23:00
Total Bilirubin 0.9 mg/dl (0.2-1.3) 05/26/24 05:30
AST 14 U/L (17-59) L 05/26/24 05:30
ALT < 10 U/L (0-50) 05/26/24 05:30
Alkaline Phosphatase 120 U/L (38-126) 05/26/24 05:30
C-Reactive Protein 43.80 mg/L (0.0-10.00) H 05/21/24 05:49
Most recent labs reviewed.
Micro Results:
05/14/24 08:30 Blood Culture - Final
Blood/Venous No Growth - Final Report
05/14/24 08:50 Blood Culture - Final
Blood/Venous No Growth - Final Report
05/12/24 19:32 Blood Culture - Final
Blood/Venous S aureus-Methicillin Sensitive
Gram Stain - Final
05/12/24 19:21 Blood Culture - Final
Blood/Venous S aureus-Methicillin Sensitive
Gram Stain - Final
05/13/24 13:48 MRSA Screen - Final
Nose No Methicillin Resistant Staphylococcus aureus isolated.
05/12/24 19:21 Urine Culture - Final
Urine NO GROWTH
05/12/24 19:21 Influenza Types A & B (MOO) - Final
Nasal Swab Negative for Influenza A & B, NAAT
Negative results must be combined with clinical observations
and patient history.
Nucleic Acid Amplification test (NAAT)performed on the
[employer] platform.
Imaging:
05/17/2024 ECHO (TTE): Normal biventricular size and systolic function. Thickened aortic valve, with trace aortic regurgitation. Compared to a study dated 04/22/2024 there is now trace aortic regurgitation with aortic valve thickening similar to
slightly worse.
05/12/2024 CXR (portable): Mild opacity in the retrocardiac left lung base. Mild subsegmental atelectasis in the left lung base. No pleural effusion or pneumothorax. Please see full dictation for additional detail.
05/12/2024 Abdominal series: Bowel: Residual contrast is seen with stool throughout the large bowel possibly from video fluoroscopic swallowing study April 23, 2024 suggesting slow intestinal transit. Intestinal bowel gas pattern is nonspecific.
[2024-05-27 15:18] VITALS: BP 129/80
[2024-05-27] MEDS: SINEMET 25-100 1 TABLET PO ×3 (15:32→21:05)
[2024-05-27] MEDS: RISPERDAL 0.5 MG PO (18:09)
[2024-05-27 19:05] VITALS: BP 128/66
[2024-05-27 19:31] VITALS: BP 128/66
[2024-05-27] MEDS: SINEMET 25-100 PO (21:05)
[2024-05-27] MEDS: SENOKOT 8.6 MG PO (22:42)
[2024-05-27] MEDS: ATIVAN 0.5 MG PO (22:54)
[2024-05-27] MEDS: TYLENOL 650 MG PO (23:45)
[2024-05-28] MEDS: NON-FORMULARY ITEM PO ×4 (00:47→15:12)
[2024-05-28] MEDS: ANCEF 10 IV (06:30)
[2024-05-28 07:16] VITALS: BP 162/97
--- NOTE | 2024-05-28 08:44 | W.PN.HOSP.TC ---
Today's Communication/Plan
-
Comfort care measures.
Assessment / Plan
Assessment / Plan
Physical exam:
General: No acute distress, appears comfortable at this time.
HEENT: Normocephalic, Atraumatic and Moist Mucous Membranes
Respiratory: Clear to Auscultation; Negative Wheezes, Rales or Rhonchi
Cardiac: Regular Rhythm and S1/S2
GI: Soft, Nontender, bowel sounds present, distension improved following bowel movements
Musculoskeletal: No Clubbing, No Cyanosis and No Edema
Neuro: Awake alert conversant oriented x3, Fluctuating mental status throughout the day, improved as day progressed
Psych: Calm
A/P: 73M Parkinson's Bladder Ca Rectal Prolapse HTN BPH Depression Anxiety here for MSSA bacteremia unclear etiology.
Goals of care:
Patient is going to home hospice tomorrow
Continue comfort care measures
Updated over the phone today
Bacteremia, Staph aureus-MSSA/Sepsis:
Blood cultures consistent with MSSA
Cardiology consult appreciated KAREN performed noted no valve vegetation
Will stop all antibiotics today. Discussed with ID
Toxic-metabolic encephalopathy:
Monitor mental status and neurological status
significantly improved
Severe agitation alternated with oversedation
Continue sedatives as needed
Constipation
cont bowel regimen
Rectal prolapse:
Colorectal surgery consult-appreciated input and attempted reduction without success.
No acute surgical intervention indicated at this time. Outpt follow up recommended but going to hospice now.
Dysphagia:
Comfort diet
Parkinson's disease:
Continue Sinemet 25/100 mg tab p.o. 4 times daily and Rytary 61.25-245 mg ER 4 capsules 4 times daily. Can consider stop as outpatient.
Possible dementia related to Parkinson's:
Monitor behavior and mental status
Hypertension:
Continue amlodipine 5 mg twice a day. Can consider stop as outpatient.
BPH:
Continue finasteride 5 mg p.o. daily. Can consider stop as outpatient.
Continue Detrol LA. Can consider stop as outpatient.
Depression and anxiety:
Continue lorazepam 0.5 mg daily orally. Can consider stop as outpatient.
Continue Cymbalta 30 mg p.o. twice a day. Can consider stop as outpatient.
DVT prophylaxis:
Stop heparin since he is on comfort
CODE STATUS:
DNR
Anticipated Discharge: Within 24 hours
Subjective/Interval History
-
Date of Service: May 28, 2024
No new events. Mildly sedated this morning but answers questions appropriately
Objective Data
-
Vital Signs:
Vital Signs
Temp Pulse Resp BP Pulse Ox
97.7 F 72 16 162/97 94
05/28/24 07:16 05/28/24 07:16 05/28/24 07:16 05/28/24 07:16 05/28/24 07:16
I&O
05/27/24 05/28/24 05/29/24
06:59 06:59 06:59
Intake Total 600 / 600 780 / 780
Output Total 200 / 200 375 / 375
Balance 400 / 400 405 / 405
--- NOTE | 2024-05-28 09:15 | HOSPNOTE ---
The patient will be going home tomorrow and will need transport via ambulance. Equipment was ordered and will be delivered today. Patient and family in agreement with hospice and the philosophy. OOH DNR will be needed on chart. Attending and CM
aware of plan.
[2024-05-28 09:29] LABS: Erythrocyte Sed Rate 62 mm/hour (0-20)
--- NOTE | 2024-05-28 10:00 | CM ---
Addendum entered by Chantell Coburn 05/29/24 09:45:
Late entry, transport scheduled for 12 pm.
Addendum entered by Chantell Coburn 05/28/24 10:15:
Spoke with patients spouse, verified address [address], [place] [address].
2 steps to enter.
Transport forms completed.
IMM completed.
Outpatient DNR form on chart to be signed by , TT to MD.
account classification clerk to schedule transport before 1 pm.
Plan: home with Hospice via ambulance transport.
Original Note:
Left VM for spouse to verify home address, steps and review IMM. await TCB.
[2024-05-28] MEDS: DETROL LA 4 MG PO (10:38)
[2024-05-28] MEDS: VITAMIN D3 (cholecalciferol) 10 MCG PO (10:38)
[2024-05-28] MEDS: VITAMIN B1 100 MG PO (10:38)
[2024-05-28] MEDS: CYMBALTA DELAYED RELEASE 30 MG PO ×2 (10:38→22:04)
[2024-05-28] MEDS: THERAGRAN 1 TABLET PO (10:39)
[2024-05-28] MEDS: COLACE 100 MG PO (10:39)
[2024-05-28] MEDS: DESENEX/MITRAZOL/ZEASORB 1 APPLIC TOPICAL ×2 (10:39→22:34)
[2024-05-28] MEDS: NORVASC 5 MG PO ×2 (10:39→22:04)
[2024-05-28] MEDS: MIRALAX 17 GRAMS PO ×3 (10:39→22:33)
[2024-05-28] MEDS: PROSCAR 5 MG PO (10:39)
[2024-05-28] MEDS: NON-FORMULARY ITEM 4 CAP PO ×2 (10:42→22:30)
--- NOTE | 2024-05-28 13:05 | W.PN.ID1 ---
Date of Service
Date of Service: May 28, 2024
Today's Communication
Sign off.
Assessment / Plan
Staph aureus bacteremia
- source unclear
Elevated ESR and CRP.
-Improved on most recent blood work
Parkinson's disease
Anxiety
BPH
hx bladder cancer, treated
Ambulatory dysfunction
Recommendations:
Chart reviewed.
Patient for discharge to home on home hospice.
No role for further antibiotics. Will discontinue at this point.
Nothing further to add from a Infectious Diseases standpoint.
Will see again at your request.
����������������������������������������������������������
Chief Complaint
-: Bacteremia
Subjective / Review of Systems
Review of Systems: No Fever and No Chills
Vital Signs / Physical Exam
Vital Signs
Vital Signs
Temp Pulse Resp BP Pulse Ox
97.7 F 72 16 162/97 94
05/28/24 07:16 05/28/24 07:16 05/28/24 07:16 05/28/24 07:16 05/28/24 07:16
Physical Exam
Constitutional: No Acute Distress, Comfortable, Chronically Ill and Non-toxic
Eyes: No Conjunctival Hemorrhage and Sclera Anicteric
Cardiovascular: Regular Rate and S1/S2; Negative S3/S4
Pulmonary: Clear
Gastrointestinal: Soft and Non Tender
Extremities: Negative Edema, Splinter Hemorrhage or Janeway Lesions
Skin: Warm and Dry
Neurological: Awake, Normal Muscle Strength and No Motor Deficits; Negative Meningeal Signs
Psychological: Calm
Objective Data
Lab Data
Lab Results
05/26/24 05:30
05/26/24 05:30
ESR 62 mm/hour (0-20) H 05/28/24 06:29
Estimated Creat Clear 103 ml/min 05/26/24 05:30
Lactic Acid Cancelled 05/12/24 23:00
Total Bilirubin 0.9 mg/dl (0.2-1.3) 05/26/24 05:30
AST 14 U/L (17-59) L 05/26/24 05:30
ALT < 10 U/L (0-50) 05/26/24 05:30
Alkaline Phosphatase 120 U/L (38-126) 05/26/24 05:30
C-Reactive Protein 51.60 mg/L (0.0-10.00) H 05/28/24 06:29
Most recent labs reviewed.
Micro Results:
05/14/24 08:30 Blood Culture - Final
Blood/Venous No Growth - Final Report
05/14/24 08:50 Blood Culture - Final
Blood/Venous No Growth - Final Report
05/12/24 19:32 Blood Culture - Final
Blood/Venous S aureus-Methicillin Sensitive
Gram Stain - Final
05/12/24 19:21 Blood Culture - Final
Blood/Venous S aureus-Methicillin Sensitive
Gram Stain - Final
05/13/24 13:48 MRSA Screen - Final
Nose No Methicillin Resistant Staphylococcus aureus isolated.
05/12/24 19:21 Urine Culture - Final
Urine NO GROWTH
05/12/24 19:21 Influenza Types A & B (MOO) - Final
Nasal Swab Negative for Influenza A & B, NAAT
Negative results must be combined with clinical observations
and patient history.
Nucleic Acid Amplification test (NAAT)performed on the
[employer] platform.
Imaging:
05/17/2024 ECHO (TTE): Normal biventricular size and systolic function. Thickened aortic valve, with trace aortic regurgitation. Compared to a study dated 04/22/2024 there is now trace aortic regurgitation with aortic valve thickening similar to
slightly worse.
05/12/2024 CXR (portable): Mild opacity in the retrocardiac left lung base. Mild subsegmental atelectasis in the left lung base. No pleural effusion or pneumothorax. Please see full dictation for additional detail.
05/12/2024 Abdominal series: Bowel: Residual contrast is seen with stool throughout the large bowel possibly from video fluoroscopic swallowing study April 23, 2024 suggesting slow intestinal transit. Intestinal bowel gas pattern is nonspecific.
Care Review
Plan reviewed with: Physician (Hospitalist)
[2024-05-28] MEDS: SINEMET 25-100 1 TABLET PO ×2 (15:14→17:08)
[2024-05-28] MEDS: RISPERDAL 0.5 MG PO (17:08)
[2024-05-28 19:25] VITALS: BP 143/72
[2024-05-28] MEDS: SENOKOT 8.6 MG PO (22:04)
[2024-05-28] MEDS: ATIVAN 0.5 MG PO (22:28)
[2024-05-28] MEDS: SINEMET 25-100 PO ×2 (22:28→22:54)
[2024-05-29] MEDS: NON-FORMULARY ITEM 4 CAP PO ×3 (03:59→11:12)
[2024-05-29 06:02] VITALS: BMI 22.7
[2024-05-29] MEDS: NORVASC 5 MG PO (07:31)
[2024-05-29] MEDS: CYMBALTA DELAYED RELEASE 30 MG PO (07:31)
[2024-05-29] MEDS: COLACE 100 MG PO (07:31)
[2024-05-29] MEDS: DETROL LA 4 MG PO (07:31)
[2024-05-29] MEDS: DESENEX/MITRAZOL/ZEASORB 1 APPLIC TOPICAL (07:32)
[2024-05-29] MEDS: VITAMIN D3 (cholecalciferol) 10 MCG PO (07:32)
[2024-05-29] MEDS: THERAGRAN 1 TABLET PO (07:32)
[2024-05-29] MEDS: VITAMIN B1 100 MG PO (07:32)
[2024-05-29] MEDS: PROSCAR 5 MG PO (07:32)
[2024-05-29 07:55] VITALS: BP 171/97
--- NOTE | 2024-05-29 08:32 | W.PN.HOSP.TC ---
Today's Communication/Plan
-
Discharge to home hospice today
Assessment / Plan
Assessment / Plan
Physical exam:
General: No acute distress, appears comfortable at this time.
HEENT: Normocephalic, Atraumatic and Moist Mucous Membranes
Respiratory: Clear to Auscultation; Negative Wheezes, Rales or Rhonchi
Cardiac: Regular Rhythm and S1/S2
GI: Soft, Nontender, bowel sounds present, distension improved following bowel movements
Musculoskeletal: No Clubbing, No Cyanosis and No Edema
Neuro: Awake alert conversant oriented x3, Fluctuating mental status throughout the day, improved as day progressed
Psych: Calm
A/P: 73M Parkinson's Bladder Ca Rectal Prolapse HTN BPH Depression Anxiety here for MSSA bacteremia unclear etiology.
Goals of care:
Continue comfort care measures
Updated yesterday
Plan to home hospice today
Bacteremia, Staph aureus-MSSA/Sepsis:
Blood cultures consistent with MSSA
Cardiology consult appreciated KAREN performed noted no valve vegetation
Stopped all antibiotics. Discussed with ID
Toxic-metabolic encephalopathy:
Monitor mental status and neurological status
significantly improved
Severe agitation alternated with oversedation
Continue sedatives as needed
Constipation
cont bowel regimen
Rectal prolapse:
Colorectal surgery consult-appreciated input and attempted reduction without success.
No acute surgical intervention indicated at this time. Outpt follow up recommended but going to hospice now.
Dysphagia:
Comfort diet
Parkinson's disease:
Continue Sinemet 25/100 mg tab p.o. 4 times daily and Rytary 61.25-245 mg ER 4 capsules 4 times daily. Can consider stop as outpatient.
Possible dementia related to Parkinson's:
Monitor behavior and mental status
Hypertension:
Continue amlodipine 5 mg twice a day. Can consider stop as outpatient.
BPH:
Continue finasteride 5 mg p.o. daily. Can consider stop as outpatient.
Continue Detrol LA. Can consider stop as outpatient.
Depression and anxiety:
Continue lorazepam 0.5 mg daily orally. Can consider stop as outpatient.
Continue Cymbalta 30 mg p.o. twice a day. Can consider stop as outpatient.
DVT prophylaxis:
Stop heparin since he is on comfort
CODE STATUS:
DNR
Anticipated Discharge: Today
Subjective/Interval History
-
Date of Service: May 29, 2024
No new events.
Objective Data
-
Vital Signs:
Vital Signs
Temp Pulse Resp BP Pulse Ox
98.1 F 78 18 171/97 98
05/29/24 07:55 05/29/24 07:55 05/29/24 07:55 05/29/24 07:55 05/29/24 07:55
I&O
05/28/24 05/29/24 05/30/24
06:59 06:59 06:59
Intake Total 780 / 780 840 / 840
Output Total 375 / 375 550 / 550
Balance 405 / 405 290 / 290
--- NOTE | 2024-05-29 09:29 | W.DCSUMMARY ---
Discharge Summary
Discharge Data
Date of Admission: 05/12/24
Date of Discharge: 05/29/24
-
Pending Results: No
Hospital Course
Patient is 73 years old male with history of Parkinson's, bladder cancer, came into the hospital with encephalopathy and found to have Staph aureus bacteremia. ID consulted. IV antibiotics were initiated and cardiology consulted for KAREN. He had
multiple other medical problems including rectal prolapse, mental status changes that fluctuated pretty significantly during this hospital stay, dysphagia, among other medical issues. Ultimately, patient and family decided to move forward with
hospice care. Antibiotics were discontinued. All has been arranged for home hospice and he is going to be discharged today.
Discharge duration: 35 minutes
Discharge Plan
-
Patient Disposition: Home with Hospice
Discharge Diagnosis/Procedures: Staphylococcus aureus methicillin sensitive bacteremia. Sepsis. Toxic metabolic encephalopathy. Rectal prolapse. Dysphagia.
Condition: Fair
Diet: Other diet
Additional Diets: Comfort diet
Activity: As tolerated
Referrals:
James Dang DO [Family Provider] - in less than 1 week
Prescriptions:
New
morphine 10 mg/5 mL solution
10 mg PO Q4H PRN (Reason: Pain or dyspnea) Qty: 100 0RF
Continued
duloxetine 30 MG capsule,delayed release(DR/EC)
30 mg PO BID
Rytary 1 EACH capsule, extended release
4 cap PO .4 TIMES A DAY
Patient Comments:
takes 34 x a day 7a, 11a, 11pm, 3a
Rx Instructions:
strength 61.25-245; 7:00, 11:00, 23:00, 03:00
docusate sodium 100 MG capsule
100 mg PO DAILY
finasteride 5 mg Tablet
5 mg PO DAILY
polyethylene glycol 3350 17 GRAMS powder in packet
17 grams PO BID PRN (Reason: constipation)
thiamine mononitrate (vit B1) 100 mg Tablet
100 mg PO DAILY 30 Days Qty: 30 0RF
amlodipine 5 mg Tablet
5 mg PO BID 30 Days Qty: 60 0RF
Hrzymqbb-Etqhabeai-Xhccifvjrwh
20 ml PO Q6 PRN (Reason: indigestion)
Rx Instructions:
200-200-20 mg/5mL
lorazepam 0.5 mg Tablet
0.5 mg PO DAILY
bisacodyl [Dulcolax (bisacodyl)] 10 mg Suppository
10 mg MA DAILY PRN (Reason: constipation)
Fleet Enema 19-7 gram/118 mL Enema
118 ml MA ONCE PRN (Reason: no BM after biscadyl supp)
vibegron 75 mg Tablet
75 mg PO DAILY
Milk of Magnesia
30 ml PO DAILY PRN (Reason: if no BM for 2 days)
Rx Instructions:
30 mL of 1200mg/15 mL
carbidopa-levodopa 25-100 mg tablet
1 tab PO .5 TIMES A DAY
Rx Instructions:
Takes at 15:00, 17:00, 19:00, 21:00 (not taking 5 times due to hallucination ? caused by 5th dose)
Discontinued
ibuprofen 200 MG tablet
400 mg PO Q6HPRN PRN (Reason: moderate pain)
Discharge Orders:
Discharge Patient (As Directed); Ordered 05/29/24
Ordered By: Hunter Van
Discharge Date and Time
Discharge Date/Time: 05/29/24 12:32
Print Language: ZIMBABWEAN
--- NOTE | 2024-05-29 11:22 | CM ---
Patient to be discharged today home with Hospice
Transport set for noon.
IMM was signed.
OOH DNR signed.
PLAN: home with Hospice via ambulance transport at noon
[2024-05-29 11:59] VITALS: BP 159/91
== END 2024-05-29 12:32 | disposition hospice, home (50) | DRG 871 ==
LOC: 2 NORTH 20:29
PROVIDERS: Internal Medicine; Nuclear Medicine Nuclear Cardiology; Radiology Diagnostic Radiology; ADMITTING PHYSICIAN Hospitalist; ATTENDING PHYSICIAN Hospitalist; CONSULT PHYSICIAN Internal Medicine Cardiovascular Disease; CONSULT PHYSICIAN Internal Medicine Infectious Disease; CONSULT PHYSICIAN Psychiatry & Neurology Clinical Neurophysiology; CONSULT PHYSICIAN Surgery; EMERGENCY PHYSICIAN Emergency Medicine; FAMILY PHYSICIAN Family Medicine; OTHER PHYSICIAN Psychiatry & Neurology Psychiatry
PROC: B24BZZ4 Ultrasonography of Heart with Aorta, Transesophageal (ICD-10-PCS; 2024-05-20)
PROC: 02HV33Z Insertion of Infusion Device into Superior Vena Cava, Percutaneous Approach (ICD-10-PCS; 2024-05-20)
DX: A41.01 Sepsis due to Methicillin susceptible Staphylococcus aureus (principal); G92.8 Other toxic encephalopathy; F02.811 Dementia in other diseases classified elsewhere, unspecified severity, with agitation; N17.9 Acute kidney failure, unspecified; F02.83 Dementia in other diseases classified elsewhere, unspecified severity, with mood disturbance; F02.84 Dementia in other diseases classified elsewhere, unspecified severity, with anxiety; Z66 Do not resuscitate; Z51.5 Encounter for palliative care; G20.A1 Parkinson's disease without dyskinesia, without mention of fluctuations; N40.0 Benign prostatic hyperplasia without lower urinary tract symptoms; K62.3 Rectal prolapse; K59.00 Constipation, unspecified; F32.A Depression, unspecified; D64.9 Anemia, unspecified; G89.29 Other chronic pain; I10 Essential (primary) hypertension; Z98.1 Arthrodesis status; Z96.653 Presence of artificial knee joint, bilateral; Z92.21 Personal history of antineoplastic chemotherapy; Z85.51 Personal history of malignant neoplasm of bladder; Z79.899 Other long term (current) drug therapy; Z11.52 Encounter for screening for COVID-19
CPT/HCPCS: 93308; 71045; 74018; 76705; 80048; 80053; 81003; 81015; 82306; 82550; 82607; 82728; 82746; 82962; 83540; 83550; 83605; 83735; 84100; 84439; 84443; 85025; 85027; 85652; 86140; 87040; 87070; 87086; 87150; 87186; 87205; 87502; 87811; 92526; 93005; 93312; 93320; 93321; 93325; 96360; 97116; 97166; 97530; 97535; 99285; J2358